=== PATIENT | male | born 1955 | race Caucasian/White ===

== ENCOUNTER 2024-06-04 15:38 | Inpatient (IN) | payer MEDICARE, SELFPAY ==
[2024-06-04] VITALS (13 sets, daily range): BP systolic 137–171; BP diastolic 83–101; BMI 31.4; BMI 29.1
--- NOTE | 2024-06-04 12:22 | ED.GENMED ---
History of Present Illness
General
Chief Complaint: Vascular Symptoms
Source: patient
Time Seen by Provider: 06/04/24 12:16
History of Present Illness
History of Present Illness:
68yoM with a history of peripheral vascular disease s/p bypass in the L leg 10 years ago, diabetes, and remote history of throat cancer s/p tracheostomy presenting for evaluation of left leg pain. Patient reports an abrupt onset of L leg pain around
10am this morning while he was getting ready for the same. Pain was severe so he decided to come to the ED. He is also having decreased sensation to the left foot which has improved slightly. He denies being on any blood thinners.
Phy Exam
General Physical Exam
General Presentation: mild distress
General age: appears stated age
General Skin: warm and dry
General Habitus: normal
General Mental: alert
ENT Exam
Additional ENT: Tracheostomy present
Cardiovascular Exam
Cardiovascular Exam: no edema
Pulmonary Exam
Pulmonary Exam: no respiratory distress
Neurological Exam
Neurological Exam: alert
Musculoskeletal Exam
Musculoskeletal Exam: other (L foot is pale and cool to touch compared to R foot. Unable to obtain L DP/PT pulse with doppler. R DP pulse present with doppler. ROM of L foot intact, sensation mildly decreased.)
Skin Exam
Skin Exam: normal color and warm/dry
Course
Orders/Labs/Results
Orders:
Orders
06/04/24 Lunch
NPO
Allow oral meds: No
Allow clear liquids: No
NPO with Ice Chips: No
NPO
Allow oral meds: Yes
Allow clear liquids: No
06/04/24 12:26
CT Abd Aorta Angio W/ Run Off Stat
Comment:
Reason For Exam: Pulseless L foot
06/04/24 12:30
Complete Blood Count/With Diff Urgent
Comprehensive Metabolic Panel Urgent
PTT Urgent
Prothrombin Time Urgent
Troponin I Urgent
06/04/24 12:37
HYDROmorphone [Dilaudid] 0.5 mg IV NOW STA
06/04/24 13:17
Heparin 8,200 units IV NOW STA
Heparin Protocol- PTT Orders As Directed
PTT per Heparin protocol: -Obtain CBC and baseline PTT - if not already collected.
-Obtain PTT 6 hours from start of infusion. Then, every 6 hours until 2 consecutive
PTT's are therapeutic. Then, PTT Daily.
-With each rate change, obtain PTT every 6 hours until 2 consecutive PTT's are
therapeutic. Then, PTT Daily.
Notify MD As Directed
Notify physician if: PTT is greater than or equal to 200.
06/04/24 13:[address] See Dose Instructions PO NOW STA
Discontinue all Active Warfarin orders?: Yes
Nursing to Place Non Medication Order As Directed
Physician Order: PTT 6 hours after initial start of Heparin infusion
06/04/24 13:30
Heparin 06652 Units/250 ml 25,000 units in 250 ml IV PER PROTOCOL
Weight to be used for heparin protocol in kilograms (kg):: 102
Protocol:: DVT/PE
PTT Goal Range to be used:: PTT 73 to 111 seconds
Order type:: Initial
INITIAL Infusion Dose (UNITS/KG/hr) & then follow protocol:: 18 units/kg/hr
Infusion Dose in UNITS/hr & then follow protocol (UNITS/hr):: 1,800
INFUSION RATE in mL/hr & then follow protocol (mL/hr):: 18
For DVT/PE algorithm, re-bolus for low PTT?: Yes
PTT less than or equal to 64 seconds:: Re-bolus 80 units/kg (max 10,000units). Increase by 400 units/hr
(+ 4mL/hr)
PTT 64.1 to 72.9 seconds:: Re-bolus 40 units/kg (max 5,000 units). Increase by 200 units/hr
(+ 2mL/hr)
PTT 73 to 111 seconds:: Target Range. No change in rate.
PTT 111.1 to 130.9 seconds:: Decrease rate by 200 units/hr (- 2 mL/hr)
PTT 131 to 199.9 seconds:: HOLD for 1 hr. Then decrease by 300 units/hr (- 3mL/hr)
PTT greater than or equal to 200 seconds:: HOLD for 2 hrs & Notify Provider. Then decrease by 400 units/hr
(- 4mL/hr)
Lab follow-up:: Each change, PTT q6h until 2 consecutive are therapeutic. Then
PTT daily.
06/04/24 13:34
Heparin 8,200 units IV PRN PRN
06/04/24 13:35
Heparin 4,100 units IV PRN PRN
06/04/24 13:52
Type+Screen Stat
06/04/24 14:17
ABO2 Stat
BBK Wristband Number:
Associate notified that ABO2 has been ordered: [id number]
Date: 06/04/24
Time: 14:11
Interactive Media Specialist ID: [id number]
06/04/24 14:30
HYDROmorphone [Dilaudid] 0.25 mg IV PACU-Q5MPRN PRN
HYDROmorphone [Dilaudid] 0.5 mg IV PACU-Q5MPRN PRN
Meperidine [Demerol] 12.5 mg IV PACU-Q5MPRN PRN
Normosol (Mult Electrolytes) [Normosol-R] 1,000 ml IV PER PROTOCOL
Ondansetron Injectable [Zofran] 4 mg IV PACU-ONCEPRN PRN
Prochlorperazine [Compazine] 5 mg IV PACU-ONCEPRN PRN
Notify MD As Directed
Notify physician if: for SDS patients with known or suspected sleep obstructive sleep apnea, monitor in the
PACU.
Notify MD for any apneic/desaturation episodes
O2 Therapy [RESP] Urgent
Titrate/Wean O2 to maintain O2 sat greater than (%): 92
Special Instructions: -Provide supplemental oxygen to achieve O2 sat of 92% or greater.
-After 15 min, may wean O2 and discontinue if patient is able to maintain O2 sat of 92%
or greater during recovery period.
If patient is a discharge home, without oxygen therapy, notify anestheiologist if
unable to maintain O2 SAT of 92% or greater on room air for MD clearance.
06/04/24 14:44
Admit/Transfer Patient As Directed
Co-Sign Provider:
Level of Care: Inpatient admission
Assign to:: ICU
Physician / Group: hospitalist
Diagnosis: Acute limb threatening ischemia
Reason for Hospitalization: Acute limb threatening ischemia, thrombectomy scheduled
Expected length of stay greater than two midnights?: Yes
ELOS- Estimated Length of Stay in days: 4
I certify the patient meets the requirements for IP care: Yes
PRN Pain Medication Management As Directed
May give lesser potent ordered pain med per pt: Yes
preference::
Protocol:: Medication orders for pain may be administered in a
manner that supports deferring to patient preference
when the pt is:
-Requesting an ordered lesser potent pain medication.
Least to most potent pain medications are defined as:
acetaminophen < NSAID < tramadol < opioids (morphine,
oxycodone, hydromorphone).
- Requesting a lesser dose of the same medication IF
ORDERED.
- Requesting a less intrusive route of administration
if both routes are prescribed by the provider (PO <
IV).
06/04/24 14:48
Code Status As Directed
Resuscitation Status: Full Code
Physician note:: Patient requested to be full code however he does not want prolonged (longer than 5-minute)
CPR
Intake/ Output As Directed
Frequency: Per unit guidelines
Vascular Checks As Directed
Location: Left lower extremity
Frequency: q1h
Weight As Directed
Frequency: Daily
06/04/24 14:49
Activity As Directed
Activity Level: Out of Bed-Early Mobility
Vital Signs As Directed
Frequency: Per unit guidelines
06/04/24 14:55
Urinalysis Routine
06/04/24 15:00
0.9% Sodium Chloride 1000 ml [Nss] 1,000 ml IV 100 mls/hr
Docusate Sodium [Colace] 100 mg PO BID PRN
06/04/24 19:45
PTT Urgent
Comment: heparin gtt
06/05/24 06:00
Basic Metabolic Panel IN AM
06/06/24 06:00
Basic Metabolic Panel IN AM
Complete Blood Count/No Diff Q2D
Comment: Notify MD if platelet count is <130,000 or decreases by 50% from baseline
06/07/24 06:00
Basic Metabolic Panel IN AM
06/08/24 06:00
Basic Metabolic Panel IN AM
Complete Blood Count/No Diff Q2D
Comment: Notify MD if platelet count is <130,000 or decreases by 50% from baseline
06/09/24 06:00
Basic Metabolic Panel IN AM
06/10/24 06:00
Complete Blood Count/No Diff Q2D
Comment: Notify MD if platelet count is <130,000 or decreases by 50% from baseline
06/12/24 06:00
Complete Blood Count/No Diff Q2D
Comment: Notify MD if platelet count is <130,000 or decreases by 50% from baseline
06/14/24 06:00
Complete Blood Count/No Diff Q2D
Comment: Notify MD if platelet count is <130,000 or decreases by 50% from baseline
06/16/24 06:00
Complete Blood Count/No Diff Q2D
Comment: Notify MD if platelet count is <130,000 or decreases by 50% from baseline
06/18/24 06:00
Complete Blood Count/No Diff Q2D
Comment: Notify MD if platelet count is <130,000 or decreases by 50% from baseline
06/20/24 06:00
Complete Blood Count/No Diff Q2D
Comment: Notify MD if platelet count is <130,000 or decreases by 50% from baseline
Abnormal Lab Results
06/04/24
12:30
WBC 14.1 H 10^3/uL
(4.8-10.8)
Abs Immat Gran (auto) 0.2 H 10^3/uL
(0-0.05)
Absolute Neuts (auto) 11.9 H 10^3/uL
(1.4-6.5)
Absolute Lymphs (auto) 0.7 L 10^3/uL
(1.2-3.4)
Absolute Monos (auto) 0.7 H 10^3/uL
(0.1-0.6)
Immature Gran % 1.2 H %
(0-0.5)
Neutrophils % 84.5 H %
(42.2-75.2)
Lymphocytes % 5.3 L %
(20.5-51.1)
Carbon Dioxide 18 L mmol/L
(22-30)
Glucose 130 H mg/dl
(70-99)
Calcium 10.4 H mg/dl
(8.4-10.2)
06/04/24 12:30
06/04/24 12:30
Vital Signs
Initial and Last Documented VS:
Initial Vital Signs
Temp Pulse Resp BP Pulse Ox
98.2 F 107 16 164/98 96
06/04/24 12:01 06/04/24 12:01 06/04/24 12:01 06/04/24 12:01 06/04/24 12:01
Last Documented Vital Signs
Temp Pulse Resp BP Pulse Ox
98.2 F 103 17 137/95 94
06/04/24 12:01 06/04/24 16:30 06/04/24 16:30 06/04/24 16:30 06/04/24 16:30
MDM/Problems Addressed
Differential Diagnosis Includes:
68yoM here with atraumatic L leg pain that began at 10am this morning. Hx of PAD with prior bypass to the L leg. L foot is cool to touch and pale and I was unable to obtain PT/DP pulse with doppler. Differential diagnosis includes but is not limited
to: acute limb ischemia, peripheral artery disease
Vascular surgery called immediately after initial evaluation. Vascular surgeon scrubbed into a case and vascular THERMOCOUPLE TESTER recommending STAT CTA with runoff.
*Critical Care Note
Total Time (30-74mins, 75-104mins- exclusive of procedures): 45
Update Note
Update Note:
CTA runoff study reviewed by vascular. Significant peripheral artery disease noted. Vascular recommending heparin drip with plan for thrombectomy. He was admitted for further management.
ED Attending Note
-
Portions of this chart may have been created with voice recognition software.� Occasional wrong word or��sound alike� substitutions may have occurred due to the inherent limitations of voice recognition software.
Discharge Plan
Departure
Patient Disposition: Admit
Date of Disposition: 06/04/24
Time of Disposition: 13:40
Presentation/result/management discussed w/ accepting MD/DO: Hospitalist
Discharge Problem:
Sudden onset of painful and cold lower extremity, Peripheral vascular disease
Interventions
Interventions:
*Risk Screen - Suicide Last Done: 06/04/24 12:01
*General Assessment Last Done: 06/04/24 12:01
*Neglect/Abuse Screening Last Done: 06/04/24 12:01
*ED COVID-19 Vaccine History Last Done: 06/04/24 12:27
ED- Cardiac Assessment Last Done: 06/04/24 14:59
ED- Pulmonary Assessment Last Done: 06/04/24 12:28
ED-Peripheral Vascular Assessment Last Done: 06/04/24 12:19
ED-Skin Assessment Last Done: 06/04/24 14:52
--- NOTE | 2024-06-04 12:22 | ED.PDOC.TRB ---
ED Provider Triage
-
A medical screening examination has been initiated by a qualified medical provider. Based on the assessment performed at this time, it has been determined that an emergent medical condition may exist and the patient has been informed that further
medical evaluation and possible additional diagnostic testing may be needed.
HPI: This is a medical evaluation conducted in person to initiate diagnostic evaluation and provide initial therapeutics. Please see further documentation by the treating clinician.
GENERAL: Alert , in no apparent distress
EYE: No visual abnormalities.
NECK: Trachea midline patient has a talker
ENT: No visible abnormalities.
LUNGS: No acute respiratory distress
NEUROLOGICAL: Alert and oriented
SKIN: Skin intact. No visible changes.
MUSCULOSKELETAL: Moving extremities normally
No pulse obtainable on the left lower extremity DP or PT either by Doppler or palpation, the limb appears slightly purpleish but is warm, he has no tenderness to the calf, he has full range of motion
Able to Doppler the pulse of the right leg
PSYCH: Normal and appropriate interaction.
Patient is a vasculopath with a history of stents and bypass in the left leg, followed by [facility] cardiology and vascular in [place]
Presents with severe left leg pain sudden onset when he woke up today pain is mostly in the calf. The foot appears to be perfused however there is no dopplered or palpable pulse this is concerning for limb emergency. I made the provider in the
back aware of this
. Will order some screening labs but he will need to be evaluated with vascular studies and a vascular consult
[2024-06-04 12:47] LABS: % Basophils 0.4 % (0-2); % Eosinophils 3.3 % (0-6); % Immature Granulocytes 1.2 % (0-0.5); % Lymphocytes 5.3 % (20.5-51.1); % Monocytes 5.3 % (1.7-9.3); % Neutrophils 84.5 % (42.2-75.2); Absolute Basophils 0.1 10^3/uL (0-0.2); Absolute Eosinophils 0.5 10^3/uL (0-0.7); Absolute Immature Granulocytes 0.2 10^3/uL (0-0.05); Absolute Lymphocytes 0.7 10^3/uL (1.2-3.4); Absolute Monocytes 0.7 10^3/uL (0.1-0.6); Absolute Neutrophils 11.9 10^3/uL (1.4-6.5); Hematocrit 47.3 % (39.0-52.0); Hemoglobin 16.6 g/dL (13.0-18.0); Mean Corp Hgb Conc. 35.1 g/dL (33.0-37.0); Mean Corpuscular Hgb 30.1 pg (27.0-31.0); Mean Corpuscular Volume 85.8 fL (80.0-94.0); Mean Platelet Volume 9.9 fL (7.4-10.4); Nucleated Red Blood Cells % 0 % (-); Platelet Count 255 10^3/uL (130-400); Red Blood Cell Count 5.51 10^6/uL (4.70-6.10); Red Cell Dist. Width 12.6 % (11.5-14.5); White Blood Cell Count 14.1 10^3/uL (4.8-10.8)
[2024-06-04] MEDS: DILAUDID 0.5 MG IV (12:50)
[2024-06-04 12:53] LABS: INR 1.01; PT 13.1 Sec (11.4-14.6)
[2024-06-04 12:58] LABS: ALT (SGPT) 30 U/L (0-50); AST (SGOT) 33 U/L (17-59); Alkaline Phosphatase 84 U/L (38-126); Blood Urea Nitrogen 17 mg/dl (9-20); Calcium 10.4 mg/dl (8.4-10.2); Carbon Dioxide 18 mmol/L (22-30); Chloride 106 mmol/L (98-107); Estimated Creatinine Clearance 98 ml/min; Glucose 130 mg/dl (70-99); Potassium 4.6 mmol/L (3.5-5.1); Sodium 142 mmol/L (135-145); Total Bilirubin 0.7 mg/dl (0.2-1.3); Total Protein 7.7 g/dl (6.3-8.2); eGFR > 60.00
[2024-06-04 13:08] LABS: Troponin I < 0.012 ng/ml
--- NOTE | 2024-06-04 13:22 | CON.VAS ---
Addendum entered and electronically signed by Jaswant Cunningham III, MD 06/04/24 20:12:
This patient was seen and examined with JULES Lewis. I agree with the history and physical exam as well as the assessment and plan. I have the following additions:
Prior left iliac stenting and left to right femorofemoral bypass at outside hospital many years ago
Followed at [facility]
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
Now presents with acute onset thigh and lower extremity pain on the left this morning
Motor sensory intact
No Doppler signals in the right foot
CT angiogram shows occluded femorofemoral bypass with what appears to be thrombus in the common femoral artery, femoral bifurcation, proximal superficial femoral artery and popliteal artery as well as scattered tibial occlusions likely from
thromboemboli.
Plan is for OR for thrombectomy
Discussed with patient and his at length and they agree to proceed. Technical aspects of this procedure were discussed with him in detail. The benefits and rationale for this approach were discussed with him in detail. Operative risks were
discussed with him in detail including but not limited to bleeding, heart attack, infection, wound healing complications, distal embolization, ongoing ischemia and the need for additional procedures.
Patient has been started on systemic anticoagulation
Signed:
Jaswant Cunningham III, MD
[facility] Vascular Surgery
[phone] (azse)
Original Note:
Consultation
Consultation Request
Performing Provider: Marisa
Reason for Consultation: LLE pain/coolness
Medical History
-
Chief Complaint: Left leg pain (sudden onset)
History of Present Illness:
68 yo male with PMH fem-fem bypass, iliac and SFA stent 10+ years ago at [facility] with Dr Pina. Presents to the ER today for sudden onset LLE pain that began at 10am today. Vascular consult for possible arterial clot. Pt seen at bedside this am
in the ER with Dr Cunningham. Pts left foot is cooler than right. No cap refill noted. Slightly decreased sensation. Motor intact but 'feels heavy.' No doppler signals noted at PT or DP. +1/faint femoral pulse on that side.
No fem pulse at right side but +signals to DP and PT. foot warmer with +cap refill.
Pt has known fem-fem bypass occlusion with collaterals on the right.
Hx of DM, PAD, HTN, in remission for throat CA, tracheostomy, hypothyroidism, HLD.
CTA reviewed with Dr Cunningham
Past Medical History
Past Medical History: Other (See above)
Past Surgical History: Other (See above)
Social History
Personal:
Living: With Family
Employment: Employed
Family History
Family History: Reviewed & Not Pertinent
Allergies / Home Medications
Allergy/AdvReac Type Severity Reaction Status Date / Time
No Known Allergies Allergy Unverified 06/04/24 12:26
Review of Systems
-
History Source: Patient and Family
All other systems: Negative unless noted
Constitutional: Reports No Symptoms
EENT: Reports No Symptoms
Cardiac: Reports No Symptoms
Vascular: Reports Leg Pain / Claudication, Numbness and Tingling
Abdomen/GI: Reports No Symptoms
: Reports No Symptoms
Musculoskeletal: Reports Muscle Pain and Muscle Stiffness
Neurological: Reports No Symptoms
Endocrine: Reports No Symptoms
Physical Exam
Vital Signs
Temp Pulse Resp BP Pulse Ox
98.2 F 107 16 164/98 96
06/04/24 12:01 06/04/24 12:01 06/04/24 12:01 06/04/24 12:01 06/04/24 12:28
Lab Results
06/04/24 12:30
06/04/24 12:30
Troponin I < 0.012 ng/ml 06/04/24 12:30
Physical Exam
General: No Apparent Distress
HEENT: Normocephalic and Atraumatic
Respiratory: Non Labored Respirations
Cardiac: Negative JVD
GI: Soft, Non Tender and Non Distended
Musculoskeletal: No Clubbing, Cyanosis and No Edema
Neuro: Awake, Alert and Oriented
Psych: Calm
Pulses: Left Femoral: +1 (faint), Right Femoral: Doppler, Bilateral Popliteal: Doppler (nonpalp), Left Dorsalis Pedis: Doppler (NO SIGNAL), Right Dorsalis Pedis: Doppler, Left Posterior Tibial: Doppler (NO SIGNAL) and Right Posterior Tibial: Doppler
Assessment / Plan
-
68 yo male with pulseless left leg
CTA: 1. Femoral to femoral bypass graft is occluded. (known)
2. LEFT LOWER EXTREMITY: High-grade greater than 75% stenosis near the left femoral anastomosis of the femoral to femoral bypass graft. Occlusion of the left distal common femoral artery. Occlusion of the left SFA at its origin, with reconstitution
of the distal SFA. Reocclusion of the distal popliteal artery. Infrapopliteal disease as above.
3. RIGHT LOWER EXTREMITY: Occlusion of the right common iliac, internal iliac, and external iliac arteries. Femoral to femoral bypass graft is occluded. Right common femoral artery is reconstituted via body wall branches.
Plan:
-Heparin gtt with bolus
-NPO
-OR today for thrombectomy
-type and screen/cross
-admit to hospitalist
-will require ICU post op
Data Reviewed
-
CT Scan: Discussed with Physician
Labs: Labs Reviewed by me
[2024-06-04] MEDS: HEPARIN 8200 UNITS IV (13:44)
[2024-06-04] MEDS: HEPARIN 25000 UNITS/250 ML IV (13:48)
--- NOTE | 2024-06-04 15:13 | HPS.HSE ---
Addendum entered and electronically signed by Rock Urena MD 06/04/24 18:05:
Acute limb threatening ischemia with known hx of PAD s/p stents and fem bypass, started on heparin drip. Currently NPO. Vascular surgery planning to take to the OR for thrombectomy.
-Continue statin. Intrestingly not on asa nor plavix.
-Postoperatively will need every hour neurovascular checks. Therefore admit to ICU
-Check Lipids. Discuss with Vascular if he should be on HIStatin post op
Hypothyroidism continue levothyroxine
Zku-lbgzvrm-wdwmvxdfn diabetes mellitus. Accu-Chek sliding scale goal blood glucose 1 40-1 80. Postoperatively can start carb controlled diet.
Hyperlipidemia continue Lipitor 10 mg
Anxiety depression continue antidepressives
Full Code but if cardiac arrest last longer then 5 minutes then he would want all efforts to stop. He does not want to live like a 'Vegetable'
Original Note:
Family Physician
-
Family Physician: Leonidas Ndiaye
Chief Complaint
-
Acute limb threatening ischemia
History of Present Illness
68-year-old male with a past medical history significant for multiple vascular stents, femorofemoral bypass, laryngectomy plus radiation for head and neck cancer. Presents to the emergency department for acute onset left lower extremity pain,
patient states the pain started at 10 AM this morning, pain is characterized as a cramping along the entire posterior left lower extremity in the distribution of the calf muscle. He rates this pain as 10 out of 10 on onset, however he is currently
feeling better and states the pain is manageable currently. On exam his left lower extremity is noticeably cooler than his right, his capillary refill on the left is blunted compared to the right, as well as decreased sensation. CTA abdomen pelvis
with bilateral lower extremity runoff demonstrated that his femoral to femoral bypass graft was occluded. Patient was evaluated by vascular surgery in the ED, they started him on heparin drip and are planning to take him to the OR for thrombectomy.
Patient will be admitted to ICU afterwards.
Medical History
Past Medical History
Past Medical History: Reports Cancer, Hypercholesterolemia, Hypothyroidism, NIDDM and Other (Depression,)
Past Surgical History: Reports Other (Femorofemoral bypass, iliac + SFA stents, laryngectomy, exploratory laparotomy)
Social History
Tobacco: Former Smoker ([id number], 50-year smoking 3 packs a day)
Alcohol: Other (Social drinker)
Drug: None
Living: Other (Living with female from)
Employment: Retired
Family History
Family History: Not pertinent
Allergies / Home Medications
Allergies reflects when Allergies were last updated in [employer].
Home Medications with original date entered in [employer]
Allergy/Medication List:
Allergies
Allergy/AdvReac Type Severity Reaction Status Date / Time
No Known Allergies Allergy Unverified 06/04/24 12:26
Home Medications
atorvastatin 10 mg tablet (Lipitor) 10 mg PO QPM High Cholesterol 06/04/24
glycopyrrolate 1 mg tablet 1 mg PO BID secretions 06/04/24
levothyroxine 25 mcg tablet (Synthroid) 25 mcg PO DAILY Thyroid 06/04/24
metformin 1,000 mg tablet 1,000 mg PO BID@0800,1700 Diabetes 06/04/24
quetiapine 25 mg tablet (Seroquel) 25 mg PO Mental Health 06/04/24
Review of Systems
-
History Source: Patient
A 12 point ROS was completed and negative except as noted: Yes
Constitutional: Reports No Symptoms
Respiratory: Reports No Symptoms
Cardiac: Reports No Symptoms
Abdomen/GI: Reports No Symptoms
: Reports No Symptoms
Musculoskeletal: Reports Muscle Pain and Other (Left lower extremity cramping)
Skin: Reports No Symptoms
Neurological: Reports No Symptoms
Psych: Reports No Symptoms
Physical Exam
Vital Signs
Vital Signs
Temp Pulse Resp BP Pulse Ox
98.2 F 103 25 171/99 94
06/04/24 12:01 06/04/24 13:30 06/04/24 13:30 06/04/24 12:28 06/04/24 12:28
Physical Exam
General: Well Developed, Well Nourished, No Apparent Distress, Comfortable, Conversant and Other (Communicates via laryngectomy stoma)
HEENT: Other (Laryngectomy stoma)
Respiratory: Clear; No Wheezes or Non Labored Respirations
Cardiac: S1/S2 and Regular Rhythm
GI: Soft, Non Tender, Non Distended and Normal Bowel Sounds
Musculoskeletal: Other (Left lower extremity had negative DP and PT pulses, right side had positive DP and PT pulses. Capillary refill was noticeably decreased on the left compared to right. Left side was noticeably cooler compared to right.)
Skin: Other (Left leg was considerably cooler than right)
Neuro: Awake, Alert, Oriented and AO x 3
Psych: Calm and Intact Judgment/Insight
Laboratory Results
-
06/04/24 12:30
06/04/24 12:30
Laboratory Results
PT 13.1 Sec (11.4-14.6) 06/04/24 12:30
INR 1.01 06/04/24 12:30
APTT 30.0 Sec (23.4-35.0) 06/04/24 12:30
Total Bilirubin 0.7 mg/dl (0.2-1.3) 06/04/24 12:30
AST 33 U/L (17-59) 06/04/24 12:30
ALT 30 U/L (0-50) 06/04/24 12:30
Alkaline Phosphatase 84 U/L (38-126) 06/04/24 12:30
Troponin I < 0.012 ng/ml 06/04/24 12:30
Data Reviewed
-
CT Scan: Report Reviewed by me and Discussed with Physician
Lab Data: Labs Reviewed by me and Discussed with Physician
Impression/Plan
-
IMPRESSION:
68-year-old male presents with acute limb threatening ischemia secondary to an occluded femoral to femoral bypass graft. Patient was started on a heparin drip and will be taken to the OR for thrombectomy.
PLAN:
#Acute limb threatening ischemia
Past surgical history of femoral to femoral bypass graft and multiple stents of the left lower extremity
CTA abdomen pelvis with bilateral lower extremity runoff demonstrated an occluded femoral-femoral bypass graft, as well as high-grade stenosis of the left femoral anastomosis.
Vascular surgery was consulted in the emergency department and agreed to take the patient for thrombectomy today
Patient was placed on n.p.o. diet and started on a heparin drip with bolus in anticipation for surgery
Patient will be admitted to ICU for every 1 hour neurovascular checks
#Hypothyroidism
Patient takes home dose levothyroxine 25 mcg p.o.
Currently holding due to n.p.o.
#Hvv-vfwzmxb-pewucqrpr diabetes mellitus
Patient takes home dose metformin 1000 mg p.o. twice daily
Currently holding due to n.p.o.
#Hyperlipidemia
Patient takes atorvastatin 10 mg p.o.
Currently holding due to n.p.o.
#Anxiety/depression
Currently holding home p.o. quetiapine 25
Currently holding due to n.p.o.
#CODE STATUS
Conversation was had with patient regarding his CODE STATUS, patient indicates that he would like to be full code however he would like no more than 5 minutes attempt at resuscitation during a cardiac event. Patient also requests that if he needs
to have a tube placed into his trachea, patient would like to attempt to do it himself
Diet: N.p.o.
DVT prophylaxis: Heparin drip
Full code
Data: CTA abdomen pelvis with bilateral lower extremity runoff
Impressions:.
1. Femoral to femoral bypass graft is occluded.
2. LEFT LOWER EXTREMITY: High-grade greater than 75% stenosis near the left femoral anastomosis of the femoral to femoral bypass graft. Occlusion of the left distal common femoral artery. Occlusion of the left SFA at its origin, with reconstitution
of the distal SFA. Reocclusion of the distal popliteal artery. Infrapopliteal disease as above.
3. RIGHT LOWER EXTREMITY: Occlusion of the right common iliac, internal iliac, and external iliac arteries. Femoral to femoral bypass graft is occluded. Right common femoral artery is reconstituted via body wall branches.
[2024-06-04] MEDS: NSS 1000 IV (17:31)
[2024-06-04 19:40] LABS: Glucose - Point of Care 88 mg/dl (70-99)
--- NOTE | 2024-06-04 20:30 | PTCARENOTE ---
Rec'd pt from ER via stretcher on monitor & Hep gtt at 1800 units/hr, oriented to ICU routine, pt w/ larngectomy, able to speak , cooperative, follows commands, SR, bp stable, no pulses Left foot pbtaonable w/ doppler, left foot pale, cooler than R
, R distal pulses via doppler, no edema, denies pain, RA, lungs decr in bases, sat 95, + bowel sounds, no bm, abd obese, soft, nontender, no n/v, npo, HNV yet this shift
[2024-06-04 20:36] LABS: APTT > 200 Sec (23.4-35.0)
--- NOTE | 2024-06-04 20:40 | PTCARENOTE ---
ptt resulted > 200, hep gtt off per protocal
--- NOTE | 2024-06-04 20:50 | PTCARENOTE ---
Anesthesia at bedside, TO or accomp by RN and anesthesia
--- NOTE | 2024-06-04 20:55 | W.SUR.PREOP ---
Pre-Operative Surgical Note
-
I have examined this patient prior to the performance of the scheduled procedure.
The patient's condition is unchanged from the time of the current History and
Physical and the patient is able to undergo the scheduled procedure.
[2024-06-04 22:08] LABS: Glucose - Point of Care 84 mg/dl (70-99)
[2024-06-04 22:18] LABS: ACT-LR - POC 163 Seconds (116-155)
[2024-06-04 22:29] LABS: ACT-LR - POC 340 Seconds (116-155)
[2024-06-05] VITALS (14 sets, daily range): BP systolic 95–133; BP diastolic 57–87; BMI 29.6
--- NOTE | 2024-06-05 00:40 | PTCARENOTE ---
Rec'd pt from OR via bed on trach collar at 40%- # 4 shiley trach; Pt awake, cooperative, denies pain at present, left fem & left Lower leg incis dsgs dry & intact, left foot warm, doppler pulses left & R foot, good sensation bilat, left radaline w/
good wave form, flushes well, acurate to cuff; heparin gtt restarted at 0100 at 1800units/hr per order, thermister powers to str drainage bag draining yellow urine
--- NOTE | 2024-06-05 00:43 | W.SUR.POST ---
Surgical Immediate Post Op
Note
Pre Op Diagnosis: Acute limb ischemia
Post Op Diagnosis: Acute limb ischemia
Procedure Performed: LLE mechanical thrombectomy
Primary Surgeon: Jaswant Cunningham MD
Secondary Surgeons: Michael Maza MD, PhD
Anesthesia: Per Anesthesia
Estimated Blood Loss: 100 cc
Fluids: Per Anesthesia
Drains/Shunts: None
Specimens/Cultures: segment of resected graft, thrombus
Doppler/Duplex/Angio (Y/N): Yes - doppler intact at end of case
Complications: None
Operative Findings: Cutdown over left groin and left pop, proximal and distal control of both, resection of proximal fem-fem bypass, thrombectomy of SFA, profunda and external iliac from groin cutdown, thrombectomy of PT trunk from pop cutdown,
closure.
[2024-06-05 00:44] LABS: Glucose - Point of Care 116 mg/dl (70-99)
[2024-06-05] MEDS: NOVOLOG FLEXPEN-LOW RESISTANCE SC (01:07)
[2024-06-05] MEDS: DILAUDID 0.5 MG IV ×4 (01:43→09:11)
--- NOTE | 2024-06-05 01:45 | PTCARENOTE ---
dilaudid 0.5mg iv given for left foot pain
[2024-06-05] MEDS: NSS IV (02:02)
[2024-06-05 02:08] LABS: Urine Albumin Negative (Neg - Trace); Urine Bilirubin Negative (Negative); Urine Character Clear (Clear); Urine Color Yellow; Urine Glucose Negative (Negative); Urine Ketone Negative (Negative); Urine Leukocyte Negative (Negative); Urine Nitrite Negative (Negative); Urine Occult Blood Negative (Negative); Urine Urobilinogen Negative (Neg - 1+)
--- NOTE | 2024-06-05 04:03 | PTCARENOTE ---
sys reviewed,changes noted pulses unch, dilaudid 0.5mg iv given for left groin incis pain
[2024-06-05] MEDS: NSS 1000 IV ×2 (05:58→21:35)
--- NOTE | 2024-06-05 06:15 | PTCARENOTE ---
dilaudid 0.5 mg iv given for left groin incis pain
[2024-06-05 06:42] LABS: Glucose - Point of Care 156 mg/dl (70-99)
[2024-06-05] MEDS: HEPARIN 25000 UNITS/250 ML IV ×2 (06:43→17:25)
[2024-06-05] MEDS: NOVOLOG FLEXPEN-LOW RESISTANCE 1 UNITS SC ×2 (06:43→13:04)
[2024-06-05 06:44] LABS: Hematocrit 38.4 % (39.0-52.0); Hemoglobin 13.3 g/dL (13.0-18.0); Mean Corp Hgb Conc. 34.6 g/dL (33.0-37.0); Mean Corpuscular Volume 86.7 fL (80.0-94.0); Mean Platelet Volume 9.9 fL (7.4-10.4); Platelet Count 243 10^3/uL (130-400); Red Blood Cell Count 4.43 10^6/uL (4.70-6.10); Red Cell Dist. Width 12.6 % (11.5-14.5); White Blood Cell Count 17.5 10^3/uL (4.8-10.8)
[2024-06-05 07:10] LABS: APTT > 200.0 Sec (23.4-35.0)
[2024-06-05 07:44] LABS: Glucose - Point of Care 141 mg/dl (70-99)
--- NOTE | 2024-06-05 08:02 | OR.RPT ---
Operative Report
Operative Report
Date of Operation: 06/04/2024
Pre Op Diagnosis: Acute limb ischemia, left lower extremity
Post Op Diagnosis: Acute limb ischemia, left lower extremity
Procedure:
1.) Cutdown and exposure of left femoral vessels in the groin
2.) Excision of left femoral portion of old/occluded fem-fem bypass
3.) Thrombectomy of left common femoral artery, profunda femoral artery, superficial femoral artery, popliteal artery via left groin exposure
4.) Reoperative left groin surgery
5.) Below the knee popliteal artery exposure
6.) Thrombectomy of tibial arteries via popliteal artery exposure
Surgeon: Jaswant Cunningham III, MD
Subsystems Engineer: Michael Maza MD PhD PGY-6
Anesthesia: General
Complications: None
Estimated Blood Loss: 100 cc
History and Indications for Procedure: 68-year-old male with prior surgical history including left iliac stenting and left to right femorofemoral bypass done at an outside hospital. He presented with acute limb ischemia.
Procedure in Detail: Jamil Pittman was correctly identified and placed supine on the operating table. After adequate induction of anesthesia his left pelvis, groin and entire left lower extremity were circumferentially prepped and draped in the
usual sterile fashion. He received preoperative antibiotics. A timeout procedure was performed with the nursing and anesthesia staff confirming the patient's identity as well as the nature and laterality of the procedure.
We started by making a vertical incision in the left groin. I identified the occluded femorofemoral bypass graft in the subcutaneous tissue and encircled with umbilical tape. Using a combination of sharp dissection and electrocautery I then traced
the bypass down to the anastomosis on the common femoral artery. Using careful sharp dissection I was able to identify the proximal and distal common femoral artery. I continued sharp dissection under the inguinal ligament. Proximal control was
obtained on the distal external iliac artery using a vessel loop. I also exposed the proximal superficial femoral artery and the proximal profunda femoral artery. Each of these was encircled with vessel loops. There was a palpable pulse within
the proximal common femoral artery but no pulse was palpable in the distal common femoral artery, femoral bifurcation or the proximal superficial femoral artery and profunda femoral artery.
Through a medial calf incision I also exposed to the popliteal artery below the knee. Sharp dissection was also used to carefully expose the proximal anterior tibial artery and the tibioperoneal trunk. Each of these was encircled with vessel loops.
The patient was systemically heparinized
The proximal and distal vessel loops were secured in the left groin. I began by dividing the occluded femorofemoral bypass. An 0 silk tie was used to ligate the femorofemoral bypass. I then transected the graft on the femoral anastomosis side of
the silk tie allowing the distal graft to retract into the subcutaneous tissue. Using forceps I removed a combination of chronic thrombus from the occluded femorofemoral bypass as well as more fresh thrombus within the [place] common femoral artery.
Using forceps and a 15 blade I removed the graft anastomosis entirely from the common femoral artery. I then opened the common femoral artery proximally and distally with Hutton scissors. Fresh thrombus was removed from the common femoral artery.
Using a #4 Santino balloon catheter I thrombectomized the superficial femoral artery and popliteal artery. Several passes were made which returned a mixture of acute and more well-organized chronic appearing thrombus. I was able to achieve
backbleeding from the superficial femoral artery. When two sequential negative passes were achieved I then flushed the superficial femoral artery with heparinized saline and resecured the vessel loop. I released the proximal vessel loop and there
was brisk pulsatile inflow bleeding. The proximal common femoral artery was flushed with heparinized saline. Using a #3 Santino balloon catheter I thrombectomized the profunda femoral artery in a similar fashion. Several passes were made which
returned a mixture of acute and more well-organized thrombus. Similarly I was able to achieve backbleeding from the profunda femoral artery. When 2 sequential negative passes were achieved I then flushed the artery with heparinized saline and
resecured the vessel loops.
I then brought onto the field a precut piece of bovine pericardium. This was sewn in place as a patch angioplasty to the common femoral artery using a running 5-0 Prolene suture. Following the completion of this anastomosis the proximal and distal
vessel loops were released. The suture line was closely inspected for hemostasis which was achieved. There was an easily palpable pulse throughout the common femoral artery as well as in the exposed segment of superficial femoral artery and
profunda femoral artery. There was an easily palpable pulse in the popliteal artery below the knee. I could palpate a pulse in the proximal anterior tibial artery and there was a robust biphasic Doppler signal in this artery. I could not palpate
a pulse in the tibioperoneal trunk.
I therefore transitioned the vessel loops to achieve proximal and distal control on the tibioperoneal trunk. An 11 blade was used to make an arteriotomy on the tibioperoneal trunk. Chronic well-organized appearing thrombus was removed from the
tibioperoneal trunk. With some degree of difficulty I was able to pass a #2 Santino balloon catheter distally. Several sweeps were made and returned well-organized chronic appearing thrombus. I continued to pass the catheter until I had 2
negative sequential sweeps. I was able to achieve brisk pulsatile backbleeding from the tibioperoneal trunk. There was brisk pulsatile inflow bleeding from the popliteal artery. The proximal and distal artery were then flushed with heparinized
saline solution. The arteriotomy was repaired with interrupted 7-0 Prolene sutures. The vessel loops were released. There was a strong pulse in the tibioperoneal trunk. The suture line was closely inspected and was hemostatic. There was again a
palpable pulse in the exposed segment of anterior tibial artery.
At this point the patient had Doppler signals present at the distal anterior tibial artery at the ankle and the posterior tibial artery behind the medial malleolus at the ankle. Color return to the foot. Satisfied with this result we then
concluded the procedure. All suture lines were once again closely inspected for hemostasis. The wounds were both irrigated with saline solution. The wounds were then closed in layers and sterile dressings were applied. Doppler signals were
marked on the skin.
The patient tolerated the procedure well, awoke from general anesthesia with no immediate complications and was taken to the recovery room in stable condition.
Attestation: I was present and responsible for the entire procedure
Signed:
Jaswant Cunningham III, MD
[facility]
[phone] (orik)
[2024-06-05 08:05] LABS: Hepatitis C Antibody Negative (Negative)
--- NOTE | 2024-06-05 08:20 | W.PN.ANS.POP ---
Anesthesia Post Operative
- Anesthesia Post Op Note
Vital Signs Stable-See Nursing Note: Yes
Airway Patent: Yes
Adequate Pain Control: Yes
Change in Mental Status: No
Current Postoperative Nausea & Vomiting: No
Anesthesia Complications: No
General Anesthetic Recall: No
Unplanned Admission: No
Post Op Hydration Adequate: Yes
--- NOTE | 2024-06-05 08:35 | W.PN.HOSP.TC ---
Addendum entered and electronically signed by Rock Urena MD 06/06/24 12:03:
Acute limb threatening ischemia with known hx of PAD s/p stents and fem bypass, started on heparin drip. Currently NPO. Vascular surgery planning to take to the OR for thrombectomy.
-Continue statin. Intrestingly not on asa nor plavix.
-Postoperatively will need every hour neurovascular checks. Therefore admit to ICU
-Check Lipids. Discuss with Vascular if he should be on HIStatin post op
06/05 This morning:
-LLE abrupt development of hematoma with bleeding, Hemodynamics stable with dopplers pulses that are weak.
-C/o loss of sensation, decreased motor movements
-Vascular team at bedside holding pressure
- - Concern for active bleed on hep and Compartment syndrome
- - For CTLE with angio
- - If compartment syndrome then will need fasciotomy
- - Vascular will likley need to take to the OR
- Stat CBC
- Hep gtt per vascular surgery and protocol
- Transfuse if hgb <7
Hypothyroidism continue levothyroxine
Smw-ohtxnri-xxkqpifwi diabetes mellitus. Accu-Chek sliding scale goal blood glucose 1 40-1 80. Postoperatively can start carb controlled diet.
Hyperlipidemia continue Lipitor 10 mg
Anxiety depression continue antidepressives
Original Note:
Today's Communication/Plan
-
Pain control
Close monitoring of CBC
Close monitoring after emergent surgery
Assessment / Plan
Assessment / Plan
IMPRESSION:
68-year-old male presents with acute limb threatening ischemia secondary to an occluded femoral to femoral bypass graft. Patient was started on a heparin drip and will be taken to the OR for thrombectomy.
PLAN:
#Acute limb threatening ischemia
Past surgical history of femoral to femoral bypass graft and multiple stents of the left lower extremity
CTA abdomen pelvis with bilateral lower extremity runoff demonstrated an occluded femoral-femoral bypass graft, as well as high-grade stenosis of the left femoral anastomosis.
Status post thrombectomy, postop day 1
Continue patient on heparin drip
Patient admitted to ICU for every 1 hour neurovascular checks
This morning patient had episode of pulselessness, numbness and heaviness in left lower extremity. He was noted to have a hematoma in the area and it was thought to be bleeding into his groin.
Patient was taken for a stat CTA abdomen with lower extremity runoff.
Patient was then taken to emergent surgery where he received a left groin exploration and washout hematoma, as well as two left calf fasciotomies
Vascular following
Will have conversation with vascular regarding starting patient on high intensity statin
Patient reports that his pain is not controlled on 0.5 Dilaudid every 4 hours
Dilaudid increased to 1 mg every 4 hours
Following hemoglobin closely with multiple H&H's and CBCs
Patient started on carb controlled diabetic diet
#Hypothyroidism
Patient takes home dose levothyroxine 25 mcg p.o.
Restart home dose
#Rhj-tuyckfa-tfoxcfwen diabetes mellitus
Patient takes home dose metformin 1000 mg p.o. twice daily
Blood glucose levels have been within acceptable parameters during inpatient, not going above 180.
Continue to hold while inpatient
#Hyperlipidemia
Patient takes atorvastatin 10 mg p.o.
Restart home dose
#Anxiety/depression
Currently holding home p.o. quetiapine 25
Currently holding due to risk of QT prolongation with propofol. Patient received 2 surgeries within the last 24 hours
Will check QTc on EKG before reinitiating home dose
#CODE STATUS
Conversation was had with patient regarding his CODE STATUS, patient indicates that he would like to be full code however he would like no more than 5 minutes attempt at resuscitation during a cardiac event. Patient also requests that if he needs
to have a tube placed into his trachea, patient would like to attempt to do it himself
Diet: Carb controlled diabetic diet
DVT prophylaxis: Heparin drip
Full code
Data: CTA abdomen pelvis with bilateral lower extremity runoff
Impressions:.
1. Femoral to femoral bypass graft is occluded.
2. LEFT LOWER EXTREMITY: High-grade greater than 75% stenosis near the left femoral anastomosis of the femoral to femoral bypass graft. Occlusion of the left distal common femoral artery. Occlusion of the left SFA at its origin, with reconstitution
of the distal SFA. Reocclusion of the distal popliteal artery. Infrapopliteal disease as above.
3. RIGHT LOWER EXTREMITY: Occlusion of the right common iliac, internal iliac, and external iliac arteries. Femoral to femoral bypass graft is occluded. Right common femoral artery is reconstituted via body wall branches.
Anticipated Discharge: > 48 hours
Subjective/Interval History
-
Date of Service: June 05, 2024
This morning it was noted that the patient was bleeding into his groin and there was a hematoma present on his surgical site. There is also a second hematoma on his left medial calf. Patient was taken for a stat CTA with lower extremity runoff
Patient was taken for a left groin exploration and washout of hematoma as well as 2 left calf fasciotomies
Objective Data
-
Labs:
Laboratory Results
06/04/24 06/05/24 06/05/24
19:47 06:33 07:20
WBC 17.5 H
Hgb 13.3
Hct 38.4 L
Plt Count 243
APTT > 200 H* > 200.0 H*
Sodium Cancelled Cancelled
Potassium Cancelled Cancelled
Chloride Cancelled Cancelled
Carbon Dioxide Cancelled Cancelled
BUN Cancelled Cancelled
Creatinine Cancelled Cancelled
Glucose Cancelled Cancelled
Calcium Cancelled Cancelled
06/05/24
08:18
WBC
Hgb
Hct
Plt Count
APTT
Sodium Pending
Potassium Pending
Chloride Pending
Carbon Dioxide Pending
BUN Pending
Creatinine Pending
Glucose Pending
Calcium Pending
Vital Signs:
Vital Signs
Temp Pulse Resp BP Pulse Ox
98.2 F 108 19 116/81 96
06/05/24 08:04 06/05/24 06:00 06/05/24 06:00 06/05/24 04:00 06/05/24 07:45
I&O
06/04/24 06/05/24 06/06/24
06:59 06:59 06:59
Intake Total 708 / 708
Output Total 1130 / 1130
Balance -422 / -422
Review of Systems
-
Unable to obtain full review of systems at this time due to: Other (Review of systems unable to be completed due to patient decompensating and being taken to emergent surgery)
Physical Exam
-
General: Well Nourished, Comfortable, Conversant and Obese
HEENT: Tracheotomy
Respiratory: Other (Unable to auscultate at this time)
Cardiac: Regular Rhythm and S1/S2
GI: Soft, Nondistended and Normal Bowel Sounds
Musculoskeletal: Other (Left lower extremity much cooler to the touch than right, DP and PT pulses are palpable on the left lower extremity. Patient has 2 fasciotomy incisions on the LLE. Patient also has a incision present on the left groin)
Skin: Dry
Neuro: Awake, Alert, Oriented and AO x 3
Psych: Calm and Intact Judgement/Insight
Data Reviewed
-
CT Scan: Report Reviewed by me and Discussed with Physician
Labs: Labs Reviewed by me and Discussed with Physician
[2024-06-05 08:45] LABS: Glycohemoglobin (HgbA1c) 6.3 % (4.0-5.6)
--- NOTE | 2024-06-05 08:50 | W.PN.VS ---
Today's Communication / Plan
-
See below.
Assessment/Plan
-
Assessment: 68-year-old male POD #0 LLE mechanical thrombectomy, concern for active bleeding at left groin hematoma and left calf compartment syndrome postoperative.
Plan:
Emergent CTA aorta with runoff to evaluate active extravasation
Likely will require OR for hematoma evacuation and left calf compartment fasciotomy
Notified both Dr. Jaswant Cunningham and Dr. Aguirre vascular surgeons of acute findings, both agree with plan
Subjective Data
-
Date of Service: June 05, 2024
Notified urgently by nursing staff that acute swelling noted at left groin site with active bleeding saturating bed sheets below groin, responded immediately to bedside. Patient is awake alert and oriented, blood pressure within normal limits. He
indicates an acute change in pain as well while I am assessing him, noting that his left foot has not increased pain and decreased motor function of flexion and extension at foot, sensation intact.
Objective Data
-
Vital Signs
Temp Pulse Resp BP Pulse Ox
98.2 F 109 16 116/81 97
06/05/24 08:04 06/05/24 08:00 06/05/24 08:00 06/05/24 08:00 06/05/24 08:00
Intake and Output
06/04/24 06/05/24 06/06/24
06:59 06:59 06:59
Intake Total 708 / 826 418 / 418
Output Total 1130 / 1180 350 / 350
Balance -422 / -354 68 / 68
Intake:
IV fluids (Total) 708 / 826 418 / 418
Nss 1,000 ml @ 100 mls/hr IV . 600 / 700 400 / 400
Q10H NIKOLAI Rx#:[id number]
heparin 108 / 126 18 / 18
Output:
Marisa Mann 1130 / 1180 350 / 350
Lab Results
06/05/24 09:27
Calcium 8.4 mg/dl (8.4-10.2) 06/05/24 09:27
Phosphorus 4.4 mg/dl (2.5-4.5) 06/05/24 08:18
Magnesium 1.8 mg/dl (1.6-2.3) 06/05/24 08:18
Total Bilirubin 0.7 mg/dl (0.2-1.3) 06/04/24 12:30
AST 33 U/L (17-59) 06/04/24 12:30
ALT 30 U/L (0-50) 06/04/24 12:30
Alkaline Phosphatase 84 U/L (38-126) 06/04/24 12:30
Total Protein 7.7 g/dl (6.3-8.2) 06/04/24 12:30
Albumin 5.0 g/dl (3.5-5.0) 06/04/24 12:30
Physical Exam
-
AAOx3, reporting significant increase of pain acutely at left foot, appears uncomfortable
Tachycardia noted on monitor
No dyspnea on room air, Passy-Mau valve in stoma
ABD rotund, nontender, nondistended
Left groin with notable hematoma extending into the pubic bone area, scant bleeding noted at distal area of staple site, left calf under extreme tension, DP Doppler signal present at left foot
[2024-06-05 08:51] LABS: Blood Urea Nitrogen 19 mg/dl (9-20); Calcium 8.4 mg/dl (8.4-10.2); Carbon Dioxide 17 mmol/L (22-30); Chloride 108 mmol/L (98-107); Estimated Creatinine Clearance 77 ml/min; Glucose 170 mg/dl (70-99); Magnesium 1.8 mg/dl (1.6-2.3); Phosphorus 4.4 mg/dl (2.5-4.5); Potassium 4.5 mmol/L (3.5-5.1); Sodium 138 mmol/L (135-145); eGFR > 60.00
[2024-06-05] MEDS: DILAUDID 1 MG IV ×3 (09:28→22:05)
[2024-06-05 09:45] LABS: Hematocrit 34.8 % (39.0-52.0); Hematocrit 36.4 % (39.0-52.0); Hemoglobin 12.2 g/dL (13.0-18.0); Hemoglobin 12.5 g/dL (13.0-18.0); Mean Corp Hgb Conc. 34.3 g/dL (33.0-37.0); Mean Corpuscular Hgb 30.1 pg (27.0-31.0); Mean Corpuscular Volume 87.7 fL (80.0-94.0); Mean Platelet Volume 10.1 fL (7.4-10.4); Platelet Count 273 10^3/uL (130-400); Red Blood Cell Count 4.15 10^6/uL (4.70-6.10); Red Cell Dist. Width 12.8 % (11.5-14.5); White Blood Cell Count 18.3 10^3/uL (4.8-10.8)
--- NOTE | 2024-06-05 09:55 | W.PN.UPDATE ---
Update Note
Progress Note Update
Asked urgently to evaluate secondary to some oozing from left groin and acute onset of left foot/ankle motor dysfunction.
Stat CTA runoff performed.
On exam/ L groin inc is intact. No large hematoma. Soft. Mild ooze between robert. L calf is tight. Compartments tight. Foot warm. Distal CROW doppler intact. Motor improved now (per patient) - he is able to slightly dorsi/plantar flex foot.
CTA removed. No evidence recurrent thrombosis. Hematoma left groin - fairly mild. No PSA. Calf musculature full.
Plan/ Acute LLE compartment syndrome.
-discussed need for urgent fasciotomies. Risks/benefits/alternatives fully discussed. Discussed likelihood of leaving incision sites open. Discussed possible washout left groin if i feel necessary once he is under anesthesia. He understands all
and wishes to proceed.
[2024-06-05 09:59] LABS: Blood Urea Nitrogen 18 mg/dl (9-20); Calcium 8.4 mg/dl (8.4-10.2); Carbon Dioxide 20 mmol/L (22-30); Chloride 104 mmol/L (98-107); Estimated Creatinine Clearance 70 ml/min; Glucose 165 mg/dl (70-99); Potassium 4.7 mmol/L (3.5-5.1); Sodium 138 mmol/L (135-145); eGFR > 60.00
--- NOTE | 2024-06-05 10:32 | PTCARENOTE ---
pt awake and alert this am ,PTT level > 200 Karrie Francois INFORMATION MANAGER notified , heparin off as per protocol , pleasant affect ,NST on monitor , BP adequate co pain in L leg , Doppler pulses with both PT and DP , dressing showing some shadowing on L groin
and L lower leg , no change from table games shift manager assessment , pt had a # 4shiley trach , he changed to his speaking valve trac without difficulty at 0830 , at 0900 pt co increasing pain in the L leg , pulses by Doppler but fleeting , noticed moderate
amount of blood leaking from groin site, L groin developing hematoma , pressure applied ,INFORMATION MANAGER notified and at bedside by 0910 , pt sent to stat CT scan , INFORMATION MANAGER present in CT scan , pt then started to have swelling in L calf and severe pain , difficulty
with movement and decreased sensation, pt was immediately seen by Dr Maharaj and pt sent to the Vascular lab for fasciotomy , repeat labs drawn HH and chemistry , pt at bedside and updated by Dr Maharaj , report given to OR staff , pt was medicated
with 0.5 mg IV Dilaudid not effective for pain and then medicated with 1mg of IV Dilaudid effective for pain control prior to going to surgery
--- NOTE | 2024-06-05 10:56 | CON.INTV ---
Consultation
Consultation Request
Date/Time Consultation Requested: 06/05/2024
Date/Time Consultation Performed: 06/05/2024
Requesting Provider: Dr. Cunningham
Performing Provider: Dr. Renaldo De Santiago
Reason for Consultation: Critical limb ischemia
Medical History
-
History of Present Illness:
68-year-old man with past medical history significant for multiple vascular stents, femoral-femoral bypass, laryngectomy plus radiation for head and neck cancer in the past. Presented to the emergency room with acute onset of left lower extremity
pain started the morning of admission. Pain was distributed on the calf area of the left lower extremity.
Pain was significant 07/19.
He was found to have a cool leg with decreased capillary refills. Evaluation with CT imaging demonstrated femoral to femoral bypass graft occlusion. Emergently evaluated by vascular surgery in the emergency room. Placed on heparin drip.
Subsequently
Past Medical History
Past Medical History: Other (See assessment and plan section)
Social History
Tobacco: Former Smoker ([id number] history, used to smoke 3 packs/day for 50 years.)
Alcohol: Occasional
Drug: None
Employment: Retired
Family History
Family History: Reviewed & Not Pertinent
Allergies / Home Medications
Allergies
Allergy/AdvReac Type Severity Reaction Status Date / Time
No Known Allergies Allergy Unverified 06/04/24 12:26
Home Medications
�Medication �Instructions �Recorded �Confirmed �Last Taken �Type
atorvastatin 10 mg tablet (Lipitor) 10 mg PO QPM High Cholesterol 06/04/24 06/04/24 06/03/24 History
glycopyrrolate 1 mg tablet 1 mg PO BID secretions 06/04/24 06/04/24 06/04/24 History
levothyroxine 25 mcg tablet 25 mcg PO DAILY Thyroid 06/04/24 06/04/24 06/04/24 History
(Synthroid)
metformin 1,000 mg tablet 1,000 mg PO BID@0800,1700 Diabetes 06/04/24 06/04/2406/04/24 History
quetiapine 25 mg tablet (Seroquel) 25 mg PO Mental Health 06/04/24 06/04/24 06/03/24 History
Review of Systems
-
History Source: Patient
All other systems: Negative unless noted
Vitals / Labs / Diagnostic Testing
Vital Signs
Temp Pulse Resp BP Pulse Ox
98.2 F 109 16 116/81 97
06/05/24 08:04 06/05/24 08:00 06/05/24 08:00 06/05/24 08:00 06/05/24 08:00
Lab Data
06/05/24 09:27
Laboratory Results
06/04/24 06/04/24 06/04/24
12:30 13:25 19:47
PT 13.1
INR 1.01
APTT 30.0 Cancelled > 200 H*
06/05/24
06:33
PT
INR
APTT > 200.0 H*
Diagnostic Testing:
Physical Exam
-
HEENT: Normocephalic and Other (Tracheal stoma present)
Cardiovascular: S1/S2
Respiratory: Clear and Non-Labored Respirations
GI: Soft and Non Distended
Neurology: Awake, Alert and No Motor Deficits
Skin: Warm and Other (History left calf is tight, tender, distal pulses diminished. Poor capillary refill)
General: Respiratory Distress (Mild due to left lower extremity pain)
Assessment
-
68-year-old man with past medical history noted, admitted with acute left lower extremity pain, found to have critical limb ischemia: Taken to the operating room 06/05/2024 for thrombectomy. Subsequently transferred to the critical care unit. In
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 Found to have compartment syndrome and taken back to the operating room for fasciotomies.
Critical limb ischemia:Status post left mechanical thrombectomy 06/05/2024
CTA abdomen pelvis with bilateral lower extremity runoff
Impressions:.
1. Femoral to femoral bypass graft is occluded.
2. LEFT LOWER EXTREMITY: High-grade greater than 75% stenosis near the left femoral anastomosis of the femoral to femoral bypass graft. Occlusion of the left distal common femoral artery. Occlusion of the left SFA at its origin, with
reconstitution of the distal SFA. Reocclusion of the distal popliteal artery. Infrapopliteal disease as above.
3. RIGHT LOWER EXTREMITY: Occlusion of the right common iliac, internal iliac, and external iliac arteries. Femoral to femoral bypass graft is occluded. Right common femoral artery is reconstituted via body wall branches.
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
Back to the OR by Dr. Maharaj for fasciotomy
Conditions present prior admission:
Former heavy smoker
Hypothyroidism
Type 2 diabetes
Hyperlipidemia
Anxiety and depression
Overweight
Head and neck cancer status post radiation/surgical/laryngectomy intervention-tracheal stoma with a voicebox.
History of peripheral vascular disease: Femoral-femoral bypass, iliac plus superior femoral artery stents,
History of prior exploratory laparotomy
Assessment and plan:
Patient is critically ill, after thrombectomy has developed compartment syndrome of the left calf.
Repeat CT abdomen pelvis 06/05/2024 service dog trainer: Showed a small focus of active arterial contrast extravasation in the left groin, large groin hematoma. Small focus of arterial contrast extravasation on the left Posterior to the peroneal artery.
Left calf is swollen. High-grade stenosis of the celiac axis and SMA. Patent left femoral artery stent.
-
Taken back to the operating room by Dr. Maharaj 06/05/2024.
Possible fasciotomies and reevaluation of left and right iliac arteries.
-
Pain control with IV narcotics started for comfort while waiting for the operating room.
Hemodynamically so far stable, not requiring vasopressors.
-
Type 2 diabetes: Goal blood sugar 100 4180
Insulin sliding scale
-
Status post laryngectomy: Stoma noted without bleeding.
Tracheotomy care -Routine
Chest x-ray without acute infiltrates
Patient was having difficulty inserting back his tracheotomy cannula: If after extubation later today have problems with his stoma, may need ENT to reevaluate.
He usually follows up at [facility].
-
DVT prophylaxis, SCDs for now. Pharmacological prophylaxis or anticoagulation until cleared by vascular surgery.
N.p.o.
Gentle IV fluids
-
Critical care statement: A total of 33 minutes of critical care time was provided for this patient today. This includes management of unstable vital signs, evaluation of the patient at bedside, reviewing the patient's pertinent medical records
including ventilator settings, arterial blood gases, radiographs, microbiology, laboratory evaluations and discussion with primary team, critical care nursing, and respiratory therapy.
--- NOTE | 2024-06-05 12:00 | OR.RPT ---
Operative Report
Operative Report
PROCEDURE DATE: 06/05/2024
Preoperative diagnosis:
1. Tense compartment syndrome left calf status post arterial thrombectomy.
2. Hematoma left groin with possible active extravasation status post arterial thrombectomy.
Postoperative diagnosis: Same
Procedure:
1. Urgent left calf 4 compartment fasciotomies. Evacuation hematoma and control of bleeding
2. Urgent exploration left groin, evacuation hematoma, control of bleeding..
Surgeon: Nicko
Drum Builder: Karrie Parrish NP, required for all aspects of procedure including assistance with traction/countertraction, assistance with closure.
Complications: None
Anesthesia: General
Indications for procedure:
Patient underwent urgent left lower extremity thrombectomies for acute limb ischemia the evening prior. Developed acutely this a.m. motor weakness in the left foot/ankle as well as tense fullness in the left calf. Also noted to have relatively
acute onset of bloody drainage from the left groin. CT scan imaging demonstrated hematoma left groin as well as possible active extravasation. In addition left calf full on CT scan as well, raising concern for hematoma or compartment syndrome as
was clinically suspected. Risk/benefits/alternatives of emergent OR were discussed with patient. He and his significant other understood all wish to proceed
Description of procedure:
Patient was identified brought to the operating room placed on the table in supine position. After the adequate administration of anesthesia he was prepped and draped in the standard surgical fashion. A standard preoperative timeout was undertaken
and everybody was in agreement the plan. The skin robert at the groin incision and the medial calf incision were removed. The suture layers and the calf were cut out. I immediately encountered a large hematoma that I quickly drained out. The
muscles also of the superficial posterior and deep posterior compartments were noted to be bulging. Once I evacuated the hematoma I placed a self-retaining retractor. Identified in the gastrocnemius/soleal muscle there was an active bleeding
branch (muscular branch). This was grasped and then clips placed to control the bleeding. Once this was done, I did not identify any further bleeding. I irrigated and confirmed no further bleeding. The patched tibioperoneal trunk was visualized
and noted to be nicely pulsatile. There was no evidence of bleeding from the suture line. At this point I felt the muscles were still very tense in the posterior/deep posterior and anterior and lateral compartments. Therefore through the existing
medial incision I used a close Metzenbaum scissor to perform complete fasciotomies of the superficial posterior compartment to the level of the ankle distally and proximally to the proximal calf. The muscles now are nicely released. The deep
posterior compartment had been opened prior for exposure of the tibioperoneal trunk, I now incised the fascia slightly more distally to open it slightly more so. Muscles here bulge but a little less and were now free.
I now turned my attention to the lateral calf. A longitudinal incision was made with a 15 blade between the anterior and lateral compartments. This was carried through skin subcutaneous tissue. Using the electrocautery I incised through the
lateral compartment fascia. The muscles immediately bulge. I therefore then used a close Metzenbaum scissor to sharply incised the fascia proximally and distally. Proximally I avoided going to more proximally (avoiding the fibular head) to avoid
any injury to the nerves. Distally I followed it to the ankle. The muscle is now nicely relaxed. I similarly incised the fascia of the anterior compartment with the electrocautery and then used a close Metzenbaum scissors to sharply incised the
fascia to the level of the ankle distally and proximally to the proximal calf but again avoiding the fibular head. As such I now had released all the muscles of the compartments in the leg with much softer. I now could palpate a distal anterior
tibial artery pulse again (pulse had weakened preoperatively). At this point I was satisfied here. I now turned my attention to the left groin.
The skin robert have been removed and now I cut out the subcutaneous and deeper suture layers. I had immediately expression of large hematoma mostly liquefied. I then placed a self-retaining retractor. I identified the patched common femoral
artery. The femoral bifurcation was visualized. There is no active extravasation from the patch or the anterior aspects of the femoral vessels. I could see blood welling up laterally in the vicinity of the deep vein bed. I tried to start
dissecting there and then noted the greater saphenous vein crossing. The bleeding (arterial bleeding) could be visualized just directly posterior/medial to the origin of the greater saphenous vein (the confluence of the greater saphenous vein).
This correlated to the location seen on CT scan. Therefore I felt that no choice but to ligate the origin of the greater saphenous vein. It was ligated distally with a silk tie and a clip in this field, and proximally was ligated with a heavy silk
tie as well as silk suture ligature. I then transected the vein. I then was able to visualize in the bed posterior and lateral to the common femoral vein and arterial branch emanating from what appeared to be the distal common femoral or profunda
origin. This appeared to be bleeding actively. I therefore then was able to grasp it and clipped it proximally and distally. This was clearly the source of hematoma as there was a pocket that had been created just posterior and lateral to the
common femoral vein that the hematoma had auto dissected. Now that I control here, there is no further bleeding noted. I vigorously irrigated. I even used a pulse lavage soils analyst to irrigate. I then inspected the tissue and confirm no further
bleeding. We then closed in layers using 2-0 Vicryl layers x 2, 3-0 Vicryl, skin clips. Dressings were applied to the fasciotomy sites (skin left open). The patient tolerated the procedure well.
--- NOTE | 2024-06-05 12:07 | W.SUR.POST ---
Surgical Immediate Post Op
Note
Pre Op Diagnosis: Left groin hematoma, left calf compartment syndrome
Post Op Diagnosis: Same
Procedure Performed: Left groin exploration and washout of hematoma, left calf fasciotomies x 2
Primary Surgeon: Timothy Maharaj MD
mechanic assistant: Karrie Parrish ELECTRIC SHIPYARD OPERATOR-C
Anesthesia: GETA
Estimated Blood Loss: 250 mL
Fluids: See anesthesia flowsheet
Drains/Shunts: N/A
Specimens/Cultures: N/A
Doppler/Duplex/Angio (Y/N): Y
Complications: None
Operative Findings: Successful evacuation of hematoma and creation of left calf fasciotomies
[2024-06-05 12:32] LABS: Glucose - Point of Care 189 mg/dl (70-99)
--- NOTE | 2024-06-05 12:59 | CM ---
CM following re: discharge planning.
Discussed in Rounds, reviewed pt's chart, met with pt and pt's friend at bedside.
Pt is a 68 year old male, admitted with primary dx of Critical limb ischemia:Status post left mechanical thrombectomy 06/05/2024. back to OR today for fasciotomy.
Pt lives with friend in a 2SH, and per friend, pt has 3 daughters and they do not involve in his live very much. Per friend, pt is independent in all areas [employer], drives. No DME, VN or SNF history.
PT and OT will evaluate the pt when clinically appropriate to determine a level of care at discharge.
PCP: Leonidas Ndiaye
Pharmacy: [facility]
D/C plan: uncertain at this time and will depend on pt's progress.
CM will follow with discharge plan updates as hospitalization progresses
--- NOTE | 2024-06-05 13:59 | W.PN.UPDATE ---
Update Note
Progress Note Update
Acute limb threatening ischemia with known hx of PAD s/p stents and fem bypass, started on heparin drip. Currently NPO. Vascular surgery planning to take to the OR for thrombectomy.
-Continue statin. Intrestingly not on asa nor plavix.
-Postoperatively will need every hour neurovascular checks. Therefore admit to ICU
-Check Lipids. Discuss with Vascular if he should be on HIStatin post op
06/05 This morning:
-LLE abrupt development of hematoma with bleeding, Hemodynamics stable with dopplers pulses that are weak.
-C/o loss of sensation, decreased motor movements
-Vascular team at bedside holding pressure
- - Concern for active bleed on hep and Compartment syndrome
- - For CTLE with angio
- - If compartment syndrome then will need fasciotomy
- - Vascular will likley need to take to the OR
- Stat CBC
- Hep gtt per vascular surgery and protocol
- Transfuse if hgb <7
Hypothyroidism continue levothyroxine
Hae-tnuohum-wyevuutkd diabetes mellitus. Accu-Chek sliding scale goal blood glucose 1 40-1 80. Postoperatively can start carb controlled diet.
Hyperlipidemia continue Lipitor 10 mg
Anxiety depression continue antidepressives
[2024-06-05 14:21] LABS: Hematocrit 35.1 % (39.0-52.0); Hemoglobin 12.3 g/dL (13.0-18.0); Mean Corpuscular Hgb 30.4 pg (27.0-31.0); Mean Corpuscular Volume 86.9 fL (80.0-94.0); Mean Platelet Volume 9.7 fL (7.4-10.4); Platelet Count 277 10^3/uL (130-400); Red Blood Cell Count 4.04 10^6/uL (4.70-6.10); Red Cell Dist. Width 12.8 % (11.5-14.5); White Blood Cell Count 22.8 10^3/uL (4.8-10.8)
[2024-06-05 16:43] LABS: Glucose - Point of Care 179 mg/dl (70-99)
--- NOTE | 2024-06-05 17:05 | PTOTSP ---
STRAIGHTENING ROLL OPERATOR Evaluation
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 Suspect he is at
his baseline.
Patient has a TEP, replaced every 4 months. If concerned for a leak, consider ordering further imaging as appropriate.
Recommend:
1. Regular, Thin Liquid
2. Medications as best tolerated
3. Strategies: upright to 90 degrees, pick soft/moist foods, alternate sips/bites, upright for 30 minutes after PO intake as a reflux precaution
4. No further dysphagia therapy warranted. Follow up as an outpatient for TEP management.
[2024-06-05 17:21] LABS: Hematocrit 31.6 % (39.0-52.0); Hemoglobin 11.4 g/dL (13.0-18.0)
[2024-06-05] MEDS: LIPITOR 10 MG PO (17:21)
[2024-06-05] MEDS: NOVOLOG FLEXPEN-LOW RESISTANCE 2 UNITS SC (17:22)
[2024-06-05 17:32] LABS: APTT 26.5 Sec (23.4-35.0)
--- NOTE | 2024-06-05 17:38 | PTCARENOTE ---
pt now restarted on heparin gtt as ordered, L foot pulses are Doppler signal , pt now has his speaking valve trac in place and eating at bedside , pt has been off of Levophed gtt since 1600 , current BP 96/47 , pt pain in calf has decreased since
surgery
--- NOTE | 2024-06-05 19:00 | PTCARENOTE ---
vs filed from 0700 to 1900 by this RN, cannot attest to validity as they were the previous shift
--- NOTE | 2024-06-05 20:00 | PTCARENOTE ---
Rec'd pt resting in bed, cooperative, has laryngectomy w/ speaking valve, pain improved after dilaudid given previous shift, SR, Left rad jaron w/ positional wave form, flushes well, zeroed, accurate to cuff, left groin DAGOBERTO dsg intact, groin
ecchymotic, LLL dsg intact w/ kerlex - original post op dsg, distal pulses via doppler, left foot warm, good sensation & movement, hep gtt at 1600 units/hr, pulse ox 89% on RA, 40% trach collar applied by resp therapist, sat incr to 95%, lungs decr
in bases, + bowel sounds, no bm, abd obese, soft, oren dinner, powers draining yellow urine
[2024-06-05 21:47] LABS: Glucose - Point of Care 188 mg/dl (70-99)
[2024-06-05] MEDS: SEROQUEL 25 MG PO (22:05)
--- NOTE | 2024-06-05 22:05 | PTCARENOTE ---
dilaudid 1mg iv given for incis pain
--- NOTE | 2024-06-05 22:54 | PTCARENOTE ---
LLE dsg w/ sm janene SES drainage noted posteriorly- Fabián Galeano Np aware
[2024-06-05 23:37] LABS: APTT 141.8 Sec (23.4-35.0)
--- NOTE | 2024-06-05 23:45 | PTCARENOTE ---
hep gtt off for 1 hr for ptt 141.8 per protocal
[2024-06-06] VITALS (20 sets, daily range): BP systolic 94–138; BP diastolic 64–80; BMI 30.6
--- NOTE | 2024-06-06 | PTCARENOTE ---
sys reviewed, changes noted, no further drainage noted on LLE katie wrap, CHG bath done, linens changed
[2024-06-06 00:02] LABS: Blood Urea Nitrogen 18 mg/dl (9-20); Calcium 7.6 mg/dl (8.4-10.2); Carbon Dioxide 24 mmol/L (22-30); Chloride 105 mmol/L (98-107); Estimated Creatinine Clearance 97 ml/min; Glucose 163 mg/dl (70-99); Potassium 4.3 mmol/L (3.5-5.1); Sodium 136 mmol/L (135-145); eGFR > 60.00
--- NOTE | 2024-06-06 00:47 | PTCARENOTE ---
heparin gtt restarted at 1400 units per protocal
[2024-06-06] MEDS: DILAUDID 1 MG IV ×4 (01:56→22:45)
--- NOTE | 2024-06-06 01:57 | PTCARENOTE ---
dilaudid 1mg iv given for pain
--- NOTE | 2024-06-06 04:09 | PTCARENOTE ---
sys reviewed, changes noted
[2024-06-06] MEDS: SYNTHROID 25 MCG PO (05:42)
[2024-06-06] MEDS: ROXICODONE 10 MG PO ×3 (06:02→19:43)
[2024-06-06] MEDS: NSS 1000 IV (06:03)
--- NOTE | 2024-06-06 06:06 | PTCARENOTE ---
oxycodone 10mg po given for incis pain, pulses unch, left leg unch
[2024-06-06 06:54] LABS: INR 1.16; PT 14.7 Sec (11.4-14.6)
[2024-06-06 06:57] LABS: APTT 108.1 Sec (23.4-35.0)
[2024-06-06 06:59] LABS: Hemoglobin 9.7 g/dL (13.0-18.0); Mean Corp Hgb Conc. 35.9 g/dL (33.0-37.0); Mean Corpuscular Hgb 31.1 pg (27.0-31.0); Mean Corpuscular Volume 86.5 fL (80.0-94.0); Platelet Count 185 10^3/uL (130-400); Red Blood Cell Count 3.12 10^6/uL (4.70-6.10); Red Cell Dist. Width 12.9 % (11.5-14.5); White Blood Cell Count 12.9 10^3/uL (4.8-10.8)
[2024-06-06 07:13] LABS: Blood Urea Nitrogen 16 mg/dl (9-20); Calcium 7.4 mg/dl (8.4-10.2); Carbon Dioxide 20 mmol/L (22-30); Chloride 108 mmol/L (98-107); Estimated Creatinine Clearance 109 ml/min; Glucose 147 mg/dl (70-99); Sodium 138 mmol/L (135-145); eGFR > 60.00
[2024-06-06 07:58] LABS: Glucose - Point of Care 138 mg/dl (70-99)
[2024-06-06] MEDS: NOVOLOG FLEXPEN-LOW RESISTANCE SC ×3 (07:58→17:44)
--- NOTE | 2024-06-06 08:21 | PN.CDI ---
CDI
- -
CDI:
Physician Documentation Request
Admit Date: 06/04/24 15:38
Dear Doctor Romel,
Please review the following and provide your response in the progress notes.
Clinical Indicators:
S/P OR procedures X's , 06/05
06/05...EBL: 100 ML
06/05...EBL: 250 ML
Laboratory Tests
06/04/24 06/05/24 06/05/24
12:30 06:33 09:27
Hgb 16.6 13.3 12.2 L
06/05/24 06/05/24 06/05/24
09: 14:11 17:15
Hgb 12.5 L 12.3 L 11.4 L
06/06/24
06:31
Hgb 9.7 L
Based on the above and your clinical assessment, please clarify in the progress notes, the appropriate diagnosis, if significant, that supports the above abnormalities and additional evaluation, monitoring and/or treatment rendered:
Acute Blood Loss Anemia
Abnormal Lab Value, Clinically Insignificant
Other(Please Specify)
Use of terms such as suspected, likely, concern for, or probable (associated with a specific diagnosis that is being evaluated, monitored, or treated as if it exists) are acceptable and can be coded in the inpatient setting, when documented at the
time of discharge.
Thank you,
Radha Zepeda RN BSN CCDS
CDI Specialist
please contact via tiger text
Please use your independent medical judgment in providing your response.
--- NOTE | 2024-06-06 08:42 | W.PN.HOSP.TC ---
Addendum entered and electronically signed by Rock Urena MD 06/06/24 14:02:
Acute limb threatening ischemia with known hx of PAD s/p stents and fem bypass, started on heparin drip. Currently NPO. Vascular surgery planning to take to the OR for thrombectomy.
-Continue statin. Intrestingly not on asa nor plavix.
-Postoperatively will need every hour neurovascular checks. Therefore admit to ICU
-Discuss with Vascular if he should be on HIStatin post op
Compartment syndrome
-S/p fasciotomy with Vascular on 06/05
-Continue to follow vascular recs
Acute blood loss anemia related to periop course requring fasciotomy.
-Transfuse for Hgb <7 per TRICC trial as there is no active acs at this time.
06/05 This morning:
-LLE abrupt development of hematoma with bleeding, Hemodynamics stable with dopplers pulses that are weak.
-C/o loss of sensation, decreased motor movements
-Vascular team at bedside holding pressure
- - Concern for active bleed on hep and Compartment syndrome
- - For CTLE with angio
- - If compartment syndrome then will need fasciotomy
- - Vascular will likley need to take to the OR
- Stat CBC
- Hep gtt per vascular surgery and protocol
- Transfuse if hgb <7
Hypothyroidism continue levothyroxine
Sfk-ptgrswy-raylgbyfs diabetes mellitus. Accu-Chek sliding scale goal blood glucose 1 40-1 80. Postoperatively can start carb controlled diet.
Hyperlipidemia continue Lipitor 10 mg
Anxiety depression continue antidepressives
Original Note:
Today's Communication/Plan
-
Pain control
Monitor for postop complications
Assessment / Plan
Assessment / Plan
IMPRESSION:
68-year-old male presents with acute limb threatening ischemia secondary to an occluded femoral to femoral bypass graft. Patient was started on a heparin drip and will be taken to the OR for thrombectomy.
PLAN:
#Acute limb threatening ischemia
Past surgical history of femoral to femoral bypass graft and multiple stents of the left lower extremity
CTA abdomen pelvis with bilateral lower extremity runoff demonstrated an occluded femoral-femoral bypass graft, as well as high-grade stenosis of the left femoral anastomosis.
Status post thrombectomy, postop day 2
Continue patient on heparin drip
Patient admitted to ICU for every 1 hour neurovascular checks
Patient had episode of pulselessness, numbness and heaviness in left lower extremity. He was noted to have a hematoma in the area and it was thought to be bleeding into his groin.
Patient was taken for a stat CTA abdomen with lower extremity runoff.
Patient was then taken to emergent surgery where he received a left groin exploration and washout hematoma, as well as two left calf fasciotomies. Postop day 1
Vascular following
Will have conversation with vascular regarding starting patient on high intensity statin
Patient reports that his pain is not controlled on 0.5 Dilaudid every 4 hours
Dilaudid increased to 1 mg every 4 hours, pain was well-controlled
Following hemoglobin closely with Q8 H&H's and daily CBCs. Will transfuse if hemoglobin below 7. Type and screen has already been completed.
Patient started on carb controlled diabetic diet
Patient is upset about his postoperative complication and second surgery, he believes it is due to him being placed on heparin drip. Patient believes we should have called [place] for input as this has happened to him before. Patient was on warfarin
before admission.
#Hypothyroidism
Patient takes home dose levothyroxine 25 mcg p.o.
Restart home dose
#Dgg-lheflnf-bzfacozdm diabetes mellitus
Patient takes home dose metformin 1000 mg p.o. twice daily
Blood glucose levels have been within acceptable parameters during inpatient, not going above 180.
Continue to hold while inpatient
#Hyperlipidemia
Patient takes atorvastatin 10 mg p.o.
Restart home dose
#Anxiety/depression
Currently holding home p.o. quetiapine 25
QTc on repeat EKG was 464
Restarted home dose
#CODE STATUS
Conversation was had with patient regarding his CODE STATUS, patient indicates that he would like to be full code however he would like no more than 5 minutes attempt at resuscitation during a cardiac event. Patient also requests that if he needs
to have a tube placed into his trachea, patient would like to attempt to do it himself
Diet: Carb controlled diabetic diet
DVT prophylaxis: Heparin drip
Full code
Data: CTA abdomen pelvis with bilateral lower extremity runoff
Impressions:.
1. Femoral to femoral bypass graft is occluded.
2. LEFT LOWER EXTREMITY: High-grade greater than 75% stenosis near the left femoral anastomosis of the femoral to femoral bypass graft. Occlusion of the left distal common femoral artery. Occlusion of the left SFA at its origin, with reconstitution
of the distal SFA. Reocclusion of the distal popliteal artery. Infrapopliteal disease as above.
3. RIGHT LOWER EXTREMITY: Occlusion of the right common iliac, internal iliac, and external iliac arteries. Femoral to femoral bypass graft is occluded. Right common femoral artery is reconstituted via body wall branches.
CT abdomen angiography with lower extremity runoff
Impressions:
1. Small focus of active arterial contrast extravasation at the left groin as above, posterior to common femoral artery and medial to medial circumflex artery. Associated large left groin hematoma.
2. Small focus of active arterial contrast extravasation in the left calf posterior to the peroneal artery. There is swelling of the left calf. Immediately deep to the surgical wound, there is small mixed density collection most likely
representing hematoma of the left calf. This is distant from the small focus of apparent active contrast extravasation.
3. Atherosclerotic changes as seen prior. 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 Patent left common iliac stent. Unchanged chronic occlusion right iliac arteries.
Anticipated Discharge: 24 - 48 hours
Subjective/Interval History
-
Date of Service: June 06, 2024
No acute events overnight
Patient voices concern with his care here, believes he should not been started on a blood thinner when he came in and is blaming the blood thinner for surgical complication
Patient believes we should have contacted [facility] before proceeding with surgical intervention. Vascular surgery following
Objective Data
-
Labs:
Laboratory Results
06/05/24 06/06/24 06/06/24
23:17 06:00 06:31
WBC 12.9 H
Hgb 9.7 L
Hct 27.0 L
Plt Count 185 D
PT 14.7 H
INR 1.16
APTT 141.8 H Cancelled 108.1 H
Sodium 136 138
Potassium 4.3 4.0
Chloride 105 108 H
Carbon Dioxide 24 20 L
BUN 18 16
Creatinine 0.8 0.8
Glucose 163 H 147 H
Calcium 7.6 L 7.4 L
06/06/24 06/06/24 06/06/24
08:45 12:30 16:45
WBC
Hgb Pending Pending
Hct Pending Pending
Plt Count
PT
INR
APTT Pending
Sodium
Potassium
Chloride
Carbon Dioxide
BUN
Creatinine
Glucose
Calcium
Vital Signs:
Vital Signs
Temp Pulse Resp BP Pulse Ox
98.3 F 106 16 121/69 94
06/06/24 08:00 06/06/24 08:00 06/06/24 08:00 06/06/24 08:00 06/06/24 08:36
I&O
06/05/24 06/06/24 06/07/24
06:59 06:59 06:59
Intake Total 708 / 826 2925.0 / 3039.0 228 / 228
Output Total 1130 / 1180 1525 / 1605 140 / 140
Balance -422 / -354 1400.0 / 1434.0 88 / 88
Review of Systems
-
History Source: Patient
Respiratory: Reports No Symptoms
Cardiac: Reports No Symptoms
Abdomen/GI: Reports No Symptoms
Musculoskeletal: Reports No Symptoms
Physical Exam
-
General: No Apparent Distress, Comfortable and Morbidly Obese
Respiratory: Clear to Auscultation
Cardiac: Regular Rhythm and S1/S2
GI: Soft, Nontender, Nondistended and Normal Bowel Sounds
Musculoskeletal: Other (Left lower extremity and right lower extremity are now equal in temperature. Pulses are palpable in the left lower extremity. Left lower extremity is wrapped in bandage as patient has 2 fasciotomies.)
Skin: Warm and Dry
Neuro: Awake, Alert, Oriented and AO x 3
Psych: Calm and Intact Judgement/Insight
Data Reviewed
-
CT Scan: Report Reviewed by me and Discussed with Physician
Labs: Labs Reviewed by me and Discussed with Physician
--- NOTE | 2024-06-06 09:00 | PTCARENOTE ---
Rec'd pt at 0700 and vascular checks done with offgoing shift. Rec'd pt awake alert and oriented. Pt has a laryngectomy and uses voice box/speaking valve. Did express frustration that he has been placed on anticoagulants and felt that vascular
surgeon at [facility] should have been consulted. Otherwise is cooperative. Admits to 3-4/10 L lower leg aching/trobbing and some intermittent L groin discomfort. Skin is pale pink wm and dry. L groin/femoral incision with DAGOBERTO dressing that is intact.
Small amt of old sang drainage. Sl ecchymosis but tissue it soft and no swelling noted. Dr. Powers in and L lower leg dressing changed to L medial and lateral calf fasciotomy incisions. Wound tissue is pink- redressed with adaptic, 4x4, ABD, kerlex
and NOELLE wrap over. L lower leg is warm with +1-+2 edema, + pulses PT and DP pulses both R and L with the doppler. Respirs are unlabored on RA with sats of 92-95%. BS are sl decreased at the bases. Monitor ST -108-120's. ECG done per MD order. VS as
documented. Pt with L radial A Line-site wnl. Good CMS checks to distal extremity. Zeroed and recalibrated. Overall congurent with cuff BP. Abd is round and soft with + BS. Pt expressing that he has to move his bowels but wants to wait until he can
get oob. Denies nausea. Thermistor powers in place for yellow urine. IVF infusing via R arm IV site along with Heparin at 1400 units/hr. PTT resulted at 0700 and same dose continued. Site wnl Capped int intact RAC site wnl. Pt repositioned. Call maldonado
in reach. Plan of care reviewed with pt.
--- NOTE | 2024-06-06 09:13 | W.PN.VS ---
Today's Communication / Plan
-
Seen and assessed with Dr Cunningham
Assessment/Plan
-
Assessment: 68-year-old male POD #1 LLE mechanical thrombectomy, concern for active bleeding at left groin hematoma and left calf compartment syndrome postoperative.
Plan:
DC jaron
DC gio
OOB/chair
ekg for tachycardia this am (120)
cont herpain gtt
Subjective Data
-
Date of Service: June 06, 2024
Pt seen at bedside this am with Dr Cunningham. Pt offers no complaints at this time. No events overnight.
Objective Data
-
Vital Signs
Temp Pulse Resp BP Pulse Ox
98.3 F 106 16 121/69 94
06/06/24 08:00 06/06/24 08:00 06/06/24 08:00 06/06/24 08:00 06/06/24 08:36
Intake and Output
06/05/24 06/06/24 06/07/24
06:59 06:59 06:59
Intake Total 708 / 826 2925.0 / 3039.0 228 / 228
Output Total 1130 / 1180 1525 / 1605 140 / 140
Balance -422 / -354 1400.0 / 1434.0 88 / 88
Intake:
Oral fluids 350 / 350
IV fluids (Total) 708 / 826 2575.0 / 2689.0 228 / 228
Nss 1,000 ml @ 100 mls/hr IV . 600 / 700 2000 / 2000
Q10H NIKOLAI Rx#:[id number]
Nss 1,000 ml @ 100 mls/hr IV . 300 / 400 200 / 200
Q10H NIKOLAI Rx#:[id number]
heparin 108 / 126 200 / 214 /
levophed gtt 75.0 / 75.0
Output:
UrineGio 1130 / 1180 1525 / 1605 140 / 140
Lab Results
06/06/24 06:31
Calcium 7.4 mg/dl (8.4-10.2) L 06/06/24 06:31
Phosphorus 4.4 mg/dl (2.5-4.5) 06/05/24 08:18
Magnesium 1.8 mg/dl (1.6-2.3) 06/05/24 08:18
Total Bilirubin 0.7 mg/dl (0.2-1.3) 06/04/24 12:30
AST 33 U/L (17-59) 06/04/24 12:30
ALT 30 U/L (0-50) 06/04/24 12:30
Alkaline Phosphatase 84 U/L (38-126) 06/04/24 12:30
Total Protein 7.7 g/dl (6.3-8.2) 06/04/24 12:30
Albumin 5.0 g/dl (3.5-5.0) 06/04/24 12:30
Physical Exam
-
AAOx3
No tachypnea on RA
Tachycardia 120's
Abd soft
Dressings removed and replaced at bedside, muscle appears healthy-Adaptics placed
foot warm
--- NOTE | 2024-06-06 09:45 | PTCARENOTE ---
Good appetite for breakfast. No nausea. L radial a line dc'd per md order at 0925 Pressure held over the site. No hematoma. Currently powers dc'd. No other changes
--- NOTE | 2024-06-06 10:15 | PTCARENOTE ---
At 0950 Pt noted to have a large amt of sanginous drainage from the L lower leg fasciotomy incisions. Blood soaked through abds and katie wrap and large amt on covidian. Claudine Beltran updated and will be over. L leg reenforced with abd's and kerlex
over existing dressing. Pulses unchanged and leg is warm. Pt medicated at 1000 with Roxicodone 10 mg po for 4/10 L lower leg pain. Call erica in reach. Hosp in to see pt and pt again verbalizing frustration about his Vascular surgeon at [facility] not
being called before surgery. Support given.
--- NOTE | 2024-06-06 10:30 | PTCARENOTE ---
Jelly Beltran - [facility] surgery at the bedside and L lower leg redressed with abds and katie wrap. Will keep on bedrest for a few hours. HH and PTT sent currently per surgery
[2024-06-06] MEDS: HEPARIN 25000 UNITS/250 ML IV (10:38)
[2024-06-06 11:06] LABS: Hematocrit 27.4 % (39.0-52.0); Hemoglobin 9.5 g/dL (13.0-18.0)
[2024-06-06 11:22] LABS: APTT 73.1 Sec (23.4-35.0)
--- NOTE | 2024-06-06 12:00 | W.PN.INTV ---
Today's Communication / Plan
Recommendations
Continue heparin drip
Follow PTT
Follow H&H
Monitor for bleeding
Increase mobility as able
Wound care
Frequent neurovascular
Maintain ICU level of care
Assessment
-
68-year-old man with past medical history noted, admitted with acute left lower extremity pain, found to have critical limb ischemia: Taken to the operating room 06/05/2024 for thrombectomy. Subsequently transferred to the critical care unit. In
coppersmith helper developed left lower extremity acute pain, some bleeding from the left groin as well. Found to have compartment syndrome and taken back to the operating room for fasciotomies.
Critical limb ischemia:Status post left mechanical thrombectomy 06/05/2024
CTA abdomen pelvis with bilateral lower extremity runoff
Impressions:.
1. Femoral to femoral bypass graft is occluded.
2. LEFT LOWER EXTREMITY: High-grade greater than 75% stenosis near the left femoral anastomosis of the femoral to femoral bypass graft. Occlusion of the left distal common femoral artery. Occlusion of the left SFA at its origin, with
reconstitution of the distal SFA. Reocclusion of the distal popliteal artery. Infrapopliteal disease as above.
3. RIGHT LOWER EXTREMITY: Occlusion of the right common iliac, internal iliac, and external iliac arteries. Femoral to femoral bypass graft is occluded. Right common femoral artery is reconstituted via body wall branches.
Complicated by left calf compartment syndrome acutely coppersmith helper 06/05/2024
Back to the OR by Dr. Maharaj for fasciotomy/Washout hematoma of the left groin
Conditions present prior admission:
Former heavy smoker
Hypothyroidism
Type 2 diabetes
Hyperlipidemia
Anxiety and depression
Overweight
Head and neck cancer status post radiation/surgical/laryngectomy intervention-tracheal stoma with a voicebox.
History of peripheral vascular disease: Femoral-femoral bypass, iliac plus superior femoral artery stents,
History of prior exploratory laparotomy
Assessment and plan:
-
Postoperative day 1
After thrombectomy has developed compartment syndrome of the left calf.
Status post left groin washout hematoma/calf fasciotomies 06/05/2024 postoperatively.
-
Heparin drip restarted
Monitor H&H
Monitor PTT
Monitor for bleeding on surgical incisions per
-
Pain control with IV/narcotics-monitor respiratory status closely
-
Hemodynamically so far stable, not requiring vasopressors.
Surgical incision oozing but not significantly actively bleeding.
Will follow closely
Continue neurovascular checks per protocol
Vascular surgery correspondence reviewed. Okay to increase mobility.
Maintain ICU level of care for now.
-
Type 2 diabetes: Goal blood sugar 100 4180
Insulin sliding scale
-
Status post laryngectomy: Stoma noted without bleeding.
Tracheotomy care -Routine
Chest x-ray without acute infiltrates
Continue with tracheotomy as we are doing. Patient has a voicebox. He is unable to phonate with Passy-Jaffrey valve
He usually follows up at [facility].
-
DVT prophylaxis- follow PTT
Physical therapy/Occupational Therapy as able
-
Maintain ICU level of care. Every hour neurovascular checks.
Critical care team will continue to follow
Subjective Dataa
Subjective Data
Date of Service:
Date of Service: June 06, 2024
Chief Complaint: Trials Manager Follow Up (Status post left lower extremity mechanical thrombectomy, groin hematoma, left calf compartment syndrome postoperatively.)
Subjective:
Overnight tolerated surgery.
Not requiring vasopressor
Back on heparin drip
Pain relatively controlled
Denies any acute respiratory symptoms. No significant secretion through tracheal stoma
Review of Systems
General: Fever (n)
Cardiopulmonary: Dyspnea (none at rest)
GI: Abdominal Pain (n) and Nausea (n)
Neuro: Headache (n)
Objective Data
Data Reviewed
Vital Signs / I&O / Oxygen:
Vital Signs
Temp Pulse Resp BP Pulse Ox
98.3 F 125 24 130/79 92
06/06/24 08:00 06/06/24 10:32 06/06/24 10:32 06/06/24 10:32 06/06/24 10:32
Intake and Output
06/05/24 06/06/24 06/07/24
06:59 06:59 06:59
Intake Total 708 / 826 2925.0 / 3039.0 756 / 756
Output Total 1130 / 1180 1525 / 1605 200 / 200
Balance -422 / -354 1400.0 / 1434.0 556 / 556
SaO2 92
Physical Exam
General: Comfortable
HEENT: Normocephalic
Cardiovascular: S1-S2
Respiratory: Non-Labored Respirations
GI: Distended (obese) and Non Tender
Neurology: Awake, Alert, Oriented and No Motor Deficits
Skin: Other (Left lower extremity surgical incision/fasciotomies dressed. No evidence for acute bleeding. There is oozing of blood)
Labs/Micro/Reports
Lab Data
06/06/24 06:31
Laboratory Results
06/05/24 06/05/24 06/06/24
17:15 23:17 06:00
PT
INR
APTT 26.5 141.8 H Cancelled
06/06/24 06/06/24
06:31 10:33
PT 14.7 H
INR 1.16
APTT 108.1 H 73.1 H
--- NOTE | 2024-06-06 12:45 | SUR.OPER ---
Again with oozing through the dressings on the L lower leg. Dr. Maharaj in and redressed. Per MD order. Heparin gtt turned off. Dilaudid 1 mg IV given for 101/10 lower leg discomfort with dressing change. Coughing a moist cough via trach for tannish
secretions. VS as documented. Remains tachycardic. Pulses unchanged. Denies need to void currently. Call maldonado in reach.
[2024-06-06 13:03] LABS: Glucose - Point of Care 141 mg/dl (70-99)
--- NOTE | 2024-06-06 14:06 | W.PN.UPDATE ---
Update Note
Progress Note Update
Seen and evaluated earlier. Fasciotomy site left calf laterally had been oozing through dressing it again. I remove the dressing. Examined. Moderate amount of blood drained. Could not assess definitively whether there is any active bleeding.
Certainly no arterial bleeding, appeared venous in nature. But may have been old hematoma. I rewrapped. Continues to drain through the wrapping. At this point I think this needs to be washed out. Had discussed with him. Will plan on taking the
operating room to washout and exam under anesthesia and control bleeding. Holding heparin.
--- NOTE | 2024-06-06 14:19 | W.PN.ANS.POP ---
Anesthesia Post Operative
- Anesthesia Post Op Note
Vital Signs Stable-See Nursing Note: Yes
Airway Patent: Yes
Adequate Pain Control: Yes
Change in Mental Status: No
Current Postoperative Nausea & Vomiting: No
Anesthesia Complications: No
General Anesthetic Recall: No
Unplanned Admission: No
Post Op Hydration Adequate: No
- -
patient for possible OR today as per nurse.
--- NOTE | 2024-06-06 15:20 | PTCARENOTE ---
Report given to vascular OR staff
--- NOTE | 2024-06-06 15:32 | CM ---
CM following re: discharge planning.
Discussed in Rounds, reviewed pt's chart, met with pt.
Pt is POD #1 LLE mechanical thrombectomy, continue supportive care.
PT and OT will evaluate the pt when clinically appropriate to determine a level of care at discharge.
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
D/C plan: home with most likely VN services if recommended by PT/OT.
CM will follow with discharge plan updates as hospitalization progresses
--- NOTE | 2024-06-06 15:45 | PTCARENOTE ---
Has continued to ooze from L mostly lateral fasciotomy site- Dr. Maharaj aware and Jelly in to see him and reenforced dressing but still with oozing. Plan is to take back to the OR. Spoke with anesthesia as pt is concerned with the airway management.
#4 cuffed Shiley trach obtained and will send with pt to the OR. Pain eased some with earlier Dilaudid 03/19 currently - pt with some increased swelling of the L foot/lower leg but not overly tense. Leg remains warm with + pulses. Pt is NPO. Has not
voided since powers removed earlier. Bladder scanned for 200 mls. Pt denies need to void. Passing flatus. IV fluids capped and #1 unit PRBC hung via R wrist IV site. Repositioned. Awaiting OR
--- NOTE | 2024-06-06 16:31 | PTCARENOTE ---
Vasc or staff here and pt sent via bed to the OR for washout and examination of bleeding L fasciotomy site. Updated report given to Vasc OR staff. Pt sent with # 1 unit PRBC infusing via R wrist IV site. Pt sent with a #4 cuffed and #6 cuffed Richard
trach in their boxes. No other changes.
[2024-06-06] MEDS: NSS IV (16:33)
--- NOTE | 2024-06-06 17:18 | W.SUR.POST ---
Surgical Immediate Post Op
Note
Pre Op Diagnosis: Left lower extremity hematoma
Post Op Diagnosis: Same
Procedure Performed: exploration left lateral fasciotomy site hematoma evacuation/washout
Primary Surgeon: Nicko
Assist: Ruby VICENTE
Anesthesia: General
Estimated Blood Loss: 20 cc
Fluids: See anesthesia flowsheet
Drains/Shunts: None
Specimens/Cultures: None
Doppler/Duplex/Angio (Y/N): None
Complications: None
Operative Findings: No bleeding noted at completion
--- NOTE | 2024-06-06 17:21 | OR.RPT ---
Operative Report
Operative Report
PROCEDURE DATE: 06/06/2024
Preoperative diagnosis: Bleeding from left lower extremity lateral fasciotomy site.
Postoperative diagnosis: Same
Procedure: Exploration left lateral fasciotomy site with evacuation hematoma/washout. Control of bleeding.
Surgeon: Nicko
[employer] Crew Member: BYRON Beltran required for all aspects of procedure including assistance with traction/countertraction.
Complications: None
Anesthesia: General
Indications for procedure:
Status post fasciotomies for compartment syndrome status post ischemia reperfusion. Left lower extremity lateral incision site (anterior and lateral compartment fasciotomy site) with continued oozing. Anticoagulation was held, but it continued to
ooze through the dressings and on exam appeared to have ongoing bleeding (venous). Therefore brought urgently to the OR. Risk/benefits/alternatives all fully discussed with the patient. He understood all wish to proceed.
Description of procedure:
Patient was identified brought to the operating room placed on the table in supine position. After the adequate administration of anesthesia he was prepped and draped in the standard surgical fashion. A standard preoperative timeout was undertaken
and everybody was in agreement the plan. I inspected the lateral leg incision and the muscles appeared healthy but there was ongoing bleeding. I pulled out some hematoma and once this was evacuated then there was still some oozing noted. I
therefore then extended the incision slightly more distally through the skin and subcutaneous tissue. When I did this I was able to raise the anterior flap of skin and identified on the muscle a couple areas of bleeding. These were cauterized
and/or clipped. Complete hemostasis was noted. I then packed the fasciotomy sites with clean laparotomy sponges and observed for a few minutes. There was no evidence of ongoing bleeding. I removed the packs. They were dry. At this point I felt
that there was no further bleeding. I irrigated copiously. I again watched and confirmed for no additional bleeding. Therefore dressings were reapplied. The patient tolerated the procedure well.
--- NOTE | 2024-06-06 17:50 | PTCARENOTE ---
Returned from OR directly back s/p washout and hematoma evacuation. L Lower leg dressing is D+I. + pulses. +1 edema. Leg is warm. L groin site is wnl. Pt is goggy but arousable and following commands. #[address] for now to 35% trach
collar. VS as documented. #1 unit of blood infused. Normosol hung via R wrist IV site at 100 ml/hr per PACU protocol.
[2024-06-06] MEDS: NORMOSOL-R/PLASMALYTE-A 1000 IV (17:52)
[2024-06-06 17:54] LABS: Glucose - Point of Care 136 mg/dl (70-99)
--- NOTE | 2024-06-06 17:55 | PTCARENOTE ---
Pt medicated with Dilaudid 1 mg IV for c/o 10/10 L lower leg/L foot pain. Foot and leg are warm. Brett wrap is dry and intact. Pulses are unchanged
--- NOTE | 2024-06-06 18:35 | PTCARENOTE ---
#2 unit PRBC hung via R wrist IV site. Normosol changed to the RAC site until PACU time completed. Resp therapy in and pt took out his #6 shiley out and replaced with his 'Rowan' ( Laryngectomy tube) and HME cap. Coughs an intermittent moist cough
for tannish secretions. VS as documented. Sats on RA are 93f%. Spoke with anesthesia prior to allowing pt to take out the Shiley. Dr. Maharaj updated and will Hold Heparin gtt. Callbell in reach.
[2024-06-06] MEDS: LIPITOR 10 MG PO (19:43)
--- NOTE | 2024-06-06 20:00 | PTCARENOTE ---
Pt Aox3, VSS, NSR, c/o pain in left lower lateral leg 9/10 prn medications given. positive pulses with doppler, extremity warm, pink and pt with full sensation. NOELLE wrap is CDI. Pt has Laryngectomy trach tube with HME cap on. RA 92-95%. Thick, fernandez
secretions with coughing, no suctioning required. 2/2 RBC infusing, q2 s/p will draw H&H. Pt refuse to be washed before bed.
[2024-06-06 22:38] LABS: Glucose - Point of Care 177 mg/dl (70-99)
[2024-06-06] MEDS: SEROQUEL 25 MG PO (22:44)
--- NOTE | 2024-06-06 23:45 | PTCARENOTE ---
Addendum entered by Lacie Terrell RN 06/07/24 05:46:
Pt oxygen sats dropped to 81% on room air, RT Meera placed pt on trach collar @30%. Maintaining air way and sats. Pt was due to void after powers removal. unable to urinate. straight cathx1 for 550mls.
Original Note:
Pt having increased pain in left lower extremity despite pain medication. Positive pulses with doppler, sensation intact and warm. Pt c/o the noelle bandage being too tight. JULES Huizar notified, she removed NOELLE wrap, pt had some relief.
[2024-06-07] VITALS (33 sets, daily range): BP systolic 96–145; BP diastolic 60–94; PULSE 119–141; O2SAT 95
[2024-06-07] LABS: Hemoglobin 9.6 g/dL (13.0-18.0)
[2024-06-07] MEDS: ROXICODONE 10 MG PO ×3 (00:29→15:02)
[2024-06-07] MEDS: DILAUDID 1 MG IV ×3 (02:28→20:31)
--- NOTE | 2024-06-07 03:00 | PTCARENOTE ---
LLE pain continued, Gaye VICENTE took dressing down, and redressed. An additional dose of Diludad ws given prior to dressing change, Also one time dose of Valium was ordered to help relax post dressing change. Pt VSS remain stable, NSR/ST on monitor.
--- NOTE | 2024-06-07 03:08 | W.PN.UPDATE ---
Update Note
Progress Note Update
06/07/24
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 Advised to change dressing if needed at site. PRN pain medication administered and katie wrap taken off, which helped
some. No motor or sensory exam changes, pedal pulse in left leg.
0300- Patient having significant pain in the left lower leg, additional Dilaudid 1mg IV given and fasciotomy dressing changed wet to dry dressing applied. Serosang drainage on old dressing, not saturated in blood. Valium 10mg IV given for muscle
spasms and patient requested something to help him rest.
[2024-06-07] MEDS: VALIUM INJECTION 10 MG IV (03:56)
[2024-06-07 04:34] LABS: Hematocrit 26.7 % (39.0-52.0); Hematocrit 27.4 % (39.0-52.0); Hemoglobin 9.4 g/dL (13.0-18.0); Hemoglobin 9.6 g/dL (13.0-18.0); Mean Corpuscular Hgb 31.2 pg (27.0-31.0); Platelet Count 149 10^3/uL (130-400); Red Blood Cell Count 3.08 10^6/uL (4.70-6.10); Red Cell Dist. Width 13.1 % (11.5-14.5)
[2024-06-07 04:35] LABS: Blood Urea Nitrogen 17 mg/dl (9-20); Calcium 7.4 mg/dl (8.4-10.2); Carbon Dioxide 26 mmol/L (22-30); Chloride 108 mmol/L (98-107); Estimated Creatinine Clearance 87 ml/min; Glucose 120 mg/dl (70-99); Potassium 4.1 mmol/L (3.5-5.1); Sodium 141 mmol/L (135-145); eGFR > 60.00
[2024-06-07] MEDS: SYNTHROID 25 MCG PO (06:21)
--- NOTE | 2024-06-07 07:40 | PTCARENOTE ---
Assumed care of pt from night shift supervisor RN. Pt AAOx3. Sinus Tach on case monitor. HRs 100s. SpO2 94% on room air. Pt has laryngectomy trach tube with HME cap on. VSS. L calf dressing CDI. L groin DAGOBERTO dressing intact & with small amount of old
drainage. Assessed by Dr. Maharaj and team at bedside this morning. Plan to trial Heparin gtt today and monitor for bleeding. Will transition to oral anticoagulation tomorrow if tolerates Heparin gtt today. LLE neurovascular checks WDL. Pt resting in
bed, call maldonado within reach.
--- NOTE | 2024-06-07 07:52 | W.PN.VS ---
Addendum entered and electronically signed by Timothy Maharaj MD 06/07/24 12:09:
Seen and examined with BYRON Parrish. Agree with findings as noted below. Left calf pain from overnight seems much better now that Brett bandage was relieved. Fasciotomy dressing sites clean. No further bleeding. Foot is warm. Doppler signal stable.
Plan/as discussed and noted below.
Original Note:
Today's Communication / Plan
-
Patient seen and examined at bedside with Dr. Timothy Maharaj, below plan reviewed with attending.
Assessment/Plan
-
Assessment: 68-year-old male POD #3Excision of left femoral portion of old/occluded fem-fem bypass, thrombectomy of left common femoral artery, profunda femoral artery, superficial femoral artery, popliteal artery via left groin exposure, below the
knee popliteal artery exposure, thrombectomy of tibial arteries via popliteal artery exposure. POD #2 Urgent left calf 4 compartment fasciotomies. Evacuation hematoma and control of bleeding, urgent exploration left groin, evacuation hematoma,
control of bleeding. POD #1 Exploration left lateral fasciotomy site with evacuation hematoma/washout. Control of bleeding.
Plan:
Will replace fasciotomy dressing with wound VAC
Will initiate low-dose heparin infusion at a standing 800 units/hr
PT/OT after wound VAC placement
Case management
Subjective Data
-
Date of Service: June 07, 2024
Patient seen and examined at bedside, reported moderate to severe pain at left leg overnight but now endorses with removal of Brett wrap pain is much improved. Tolerating p.o. diet. Denies nausea, vomiting, fever, and chills.
Objective Data
-
Vital Signs
Temp Pulse Resp BP Pulse Ox
98.8 F 112 16 126/67 94
06/07/24 03:38 06/06/24 21:23 06/06/24 21:23 06/06/24 21:23 06/07/24 07:37
Intake and Output
06/06/24 06/07/24 06/08/24
06:59 06:59 06:59
Intake Total 2925.0 / 3039.0 2073
Output Total 1525 / 1605 750 / 750
Balance 1400.0 / 1434.0 1324 / 1324
Intake:
Oral fluids 350 / 350 640 / 640
IV fluids (Total) 2575.0 / 2689.0 1184 / 1184
Normosol 100 / 100
Nss 1,000 ml @ 100 mls/hr IV . 2000 / 2000
Q10H NIKOLAI Rx#:[id number]
Nss 1,000 ml @ 100 mls/hr IV . 300 / 400 1000 / 1000
Q10H NIKOLAI Rx#:[id number]
heparin 200 / 214 84 / 84
levophed gtt 75.0 / 75.0
Blood Product Amount Infused ( 250 / 250
mL)
Packed Rbc Leukoreduced Unit 250 / 250
[id number]
Output:
Urine, Cunningham 1525 / 1605 200 / 200
Urine, Voided 0 / 0
Straight cath output 550 / 550
Lab Results
06/07/24 04:05
06/07/24 04:05
Calcium 7.4 mg/dl (8.4-10.2) L 06/07/24 04:05
Phosphorus 4.4 mg/dl (2.5-4.5) 06/05/24 08:18
Magnesium 1.8 mg/dl (1.6-2.3) 06/05/24 08:18
Total Bilirubin 0.7 mg/dl (0.2-1.3) 06/04/24 12:30
AST 33 U/L (17-59) 06/04/24 12:30
ALT 30 U/L (0-50) 06/04/24 12:30
Alkaline Phosphatase 84 U/L (38-126) 06/04/24 12:30
Total Protein 7.7 g/dl (6.3-8.2) 06/04/24 12:30
Albumin 5.0 g/dl (3.5-5.0) 06/04/24 12:30
Physical Exam
-
AAOx3
No tachypnea on RA
Tachycardia 110's
Abd soft
Left groin joe dressing CDI, left calf fasciotomy dressing CDI, left DP Doppler signal present
Left foot warm
[2024-06-07 08:16] LABS: Glucose - Point of Care 131 mg/dl (70-99)
[2024-06-07] MEDS: NOVOLOG FLEXPEN-LOW RESISTANCE SC ×2 (08:23→12:37)
--- NOTE | 2024-06-07 09:43 | W.PN.UPDATE ---
Update Note
Progress Note Update
Wound VAC applied at bedside, patient tolerated well.
Medial 13 x 5 x 2
Lateral 17 x 7 x 0
one black sponge each- bridged
--- NOTE | 2024-06-07 10:35 | PN.CDI ---
CDI
- -
CDI:
Physician Documentation Request
Admit Date: 06/04/24 15:38
Dear Doctor Ryann,
Please review the following and provide your response in the progress notes.
Clinical Indicators:
H+P, 06/04
#...past medical history significant for multiple vascular stents,
#...femorofemoral bypass,
#...laryngectomy plus radiation for head and neck cancer.
06/05/24 20:00 (created 06/05/24 21:18) - Patient Care Note
#...has laryngectomy w/ speaking valve, pain improved after dilaudid given previous shift, SR,
#...pulse ox 89% on RA, 40% trach collar applied by resp therapist, sat incr to 95%,
#...lungs decr in bases, + bowel sounds, no bm, abd obese, soft,
06/06/24 17:50 (created 06/06/24 18:09) - Patient Care Note
#Returned from OR directly back s/p washout and hematoma evacuation
#[address] for now to 35% trach collar.
06/06/24 18:35 (created 06/06/24 18:37) - Patient Care Note
#...Resp therapy in and pt took out his #6 shiley out and
#...replaced with his 'Rowan' ( Laryngectomy tube) and HME cap.
#Coughs an intermittent moist cough for tannish secretions.
#Sats on RA are 93f%.
06/06/24 23:45 (created 06/07/24 05:40) - Patient Care Note
#Pt oxygen sats dropped to 81% on room air,
#...RT Meera placed pt on trach collar @30%. Maintaining air way and sats.
Selected Entries
06/05/24
01:00
SaO2 95
Flow liters per minute # 6
Oxygen Mode of Delivery Trach collar
06/05/24
07:45 06/05/24
08:00
SaO2 96 97
Flow liters per minute # 6 10
Oxygen Mode of Delivery Trach collar Trach collar
06/05/24
20:16
SaO2 96
Flow liters per minute # 8
Oxygen Mode of Delivery Trach collar
06/06/24
00:20
SaO2 96
Flow liters per minute # 8
Oxygen Mode of Delivery Trach collar
06/06/24
23:28 06/06/24
23:28
SaO2 95 95
Flow liters per minute # 6 6
Oxygen Mode of Delivery Trach collar Trach collar
Based on the above and your clinical assessment, please clarify which of the following accurately represents the patient's respiratory status:
Acute respiratory failure
Acute on chronic respiratory failure
Chronic respiratory failure
Hypoxia
Other(please specify)
Additional information for Respiratory Failure:
Recognized criteria for Respiratory Failure (Source: [facility] Hospitalist Aug 2013)
Symptoms Please indicate type if known
1. Tachypnea, SOB, dyspnea Hypoxic
2. Use of accessory muscles Hypercapnic
3. Pallor or cyanosis Hypoxic and Hypercapnic
4. Anxiety or restlessness
5. Unable to speak in full sentences
Supplemental O2 of > 40% (5LPM) Intubation is not required
Use of terms such as suspected, likely, concern for, or probable (associated with a specific diagnosis that is being evaluated, monitored, or treated as if it exists) are acceptable and can be coded in the inpatient setting, when documented at the
time of discharge.
Thank you,
Radha Zepeda RN BSN CCDS
CDI Specialist
please contact via tiger text
Please use your independent medical judgment in providing your response.
[2024-06-07] MEDS: HEPARIN 25000 UNITS/250 ML IV (10:46)
[2024-06-07] MEDS: FLOMAX 0.4 MG PO (11:20)
--- NOTE | 2024-06-07 11:57 | W.PN.INTV ---
Today's Communication / Plan
Recommendations
Monitor H&H
Wound care
Restart heparin today per vascular surgery, follow PTT
Pain control with narcotics, monitor respiratory status closely
Tracheotomy care
Continue ICU monitoring
Assessment
-
68-year-old man with past medical history noted, admitted with acute left lower extremity pain, found to have critical limb ischemia: Taken to the operating room 06/05/2024 for thrombectomy. Subsequently transferred to the critical care unit. In
senior examiner developed left lower extremity acute pain, some bleeding from the left groin as well. Found to have compartment syndrome and taken back to the operating room for fasciotomies.
Critical limb ischemia:Status post left mechanical thrombectomy 06/05/2024
CTA abdomen pelvis with bilateral lower extremity runoff
Impressions:.
1. Femoral to femoral bypass graft is occluded.
2. LEFT LOWER EXTREMITY: High-grade greater than 75% stenosis near the left femoral anastomosis of the femoral to femoral bypass graft. Occlusion of the left distal common femoral artery. Occlusion of the left SFA at its origin, with
reconstitution of the distal SFA. Reocclusion of the distal popliteal artery. Infrapopliteal disease as above.
3. RIGHT LOWER EXTREMITY: Occlusion of the right common iliac, internal iliac, and external iliac arteries. Femoral to femoral bypass graft is occluded. Right common femoral artery is reconstituted via body wall branches.
Complicated by left calf compartment syndrome acutely senior examiner 06/05/2024
Back to the OR by Dr. Maharaj for fasciotomy/Washout hematoma of the left groin
Conditions present prior admission:
Former heavy smoker
Hypothyroidism
Type 2 diabetes
Hyperlipidemia
Anxiety and depression
Overweight
Head and neck cancer status post radiation/surgical/laryngectomy intervention-tracheal stoma with a voicebox.
History of peripheral vascular disease: Femoral-femoral bypass, iliac plus superior femoral artery stents,
History of prior exploratory laparotomy
Assessment and plan:
-
Postoperative day 2
After thrombectomy has developed compartment syndrome of the left calf.
Status post left groin washout hematoma/calf fasciotomies 06/05/2024 postoperatively.
Back to the OR 06/06/2024 for control of bleeding on fasciotomy.
-
Heparin to be restarted today 06/07/2024.
Monitor H&H-currently stable.
Monitor PTT
Monitor for bleeding on surgical incisions/VAC system in place.
-
Pain control with IV/narcotics-monitor respiratory status closely
-
Hemodynamically so far stable, not requiring vasopressors.
Continue neurovascular checks per protocol
Vascular surgery correspondence reviewed. Okay to increase mobility.
Maintain ICU level of care for now.
Wound care.
-
Type 2 diabetes: Goal blood sugar 100 4180
Insulin sliding scale
-
Status post laryngectomy: Stoma noted without bleeding.
Tracheotomy care -Routine
Chest x-ray without acute infiltrates
Continue with tracheotomy as we are doing. Patient has a voicebox. He is unable to phonate with [place] valve
He usually follows up at [facility].
-
Tolerating diet
Continue aspiration precaution
-
DVT prophylaxis- follow PTT
Physical therapy/Occupational Therapy as able
-
Maintain ICU level of care. Every hour neurovascular checks.
Critical care team will continue to follow
Subjective Dataa
Subjective Data
Date of Service:
Date of Service: June 07, 2024
Chief Complaint: Inside Tester Follow Up (Status post left lower extremity mechanical thrombectomy, groin hematoma, left calf compartment syndrome postoperatively.)
Subjective:
Patient states that he feels better this morning.
He is pain is better controlled
Denies any shortness of breath
Self suctioning his tracheal stoma without difficulties.
Tolerating diet
Heparin currently on hold
Review of Systems
Cardiopulmonary: Dyspnea (n) and Sputum Production (n)
GI: Abdominal Pain (n), Nausea (n) and Vomiting (n)
Neuro: Headache (n)
Objective Data
Data Reviewed
Vital Signs / I&O / Oxygen:
Vital Signs
Temp Pulse Resp BP Pulse Ox
98.7 F 112 19 105/67 94
06/07/24 11:20 06/07/24 07:30 06/07/24 07:30 06/07/24 07:30 06/07/24 07:37
Intake and Output
06/06/24 06/07/24 06/08/24
06:59 06:59 06:59
Intake Total 2925.0 / 3039.0 2073 / 2073
Output Total 1525 / 1605 750 / 750
Balance 1400.0 / 1434.0 1324 / 1324
SaO2 94
Physical Exam
General: Comfortable
HEENT: Normocephalic and Other (Tracheal stoma-no significant secretions)
Cardiovascular: S1-S2
Respiratory: Non-Labored Respirations
GI: Distended (obese) and Non Tender
Neurology: Awake, Alert, Oriented and No Motor Deficits
Skin: Other (Left lower extremity surgical incision/fasciotomies dressed. No evidence for acute bleeding. There is oozing of blood)
Labs/Micro/Reports
Lab Data
06/07/24 04:05
06/07/24 04:05
[2024-06-07] MEDS: MIRALAX 17 GRAMS PO (12:07)
[2024-06-07 12:46] LABS: Glucose - Point of Care 149 mg/dl (70-99)
--- NOTE | 2024-06-07 13:12 | PTCARENOTE ---
Wound Vac placed to LLE at bedside by vascular. Heparin gtt started at 800units/hr after wound vac placement. PTT ordered for 1645. Pt OOB to chair. PT/OT at bedside to eval pt. Flomax 0.4mg given to help with urinary retention. Pt able to
successfully void on own after administration.
--- NOTE | 2024-06-07 13:13 | W.PN.HOSP.TC ---
Addendum entered and electronically signed by Rock Urena MD 06/07/24 14:31:
Acute hypoxic respiratory failure, resolved
Addendum entered and electronically signed by Rock Urena MD 06/07/24 14:03:
Acute limb ischemia
-S/p left lower extremity mechanical thrombectomy. On heparin drip
-Complicated by hematoma compartment syndrome
- -S/p 4 compartment fasciotomy with vascular surgery
- -Again on heparin drip
- -Vascular surgery following closely, wound vacuum placed
- -PT OT consult
Acute blood loss anemia related to periop course requring fasciotomy.
-Transfuse for Hgb <7 per TRICC trial as there is no active acs at this time.
-Hemoglobin stable
Hypothyroidism continue levothyroxine
Pnr-wghricx-uxsgpsuah diabetes mellitus. Accu-Chek sliding scale goal blood glucose 1 40-1 80. Postoperatively can start carb controlled diet.
Hyperlipidemia continue Lipitor 10 mg
Anxiety depression continue antidepressives
Original Note:
Today's Communication/Plan
-
have pt/ot follow up
continue to monitor hgb
follow vascular surgery reccomondations
Assessment / Plan
Assessment / Plan
IMPRESSION:
68-year-old male presents with acute limb threatening ischemia secondary to an occluded femoral to femoral bypass graft. Patient was started on a heparin drip and will be taken to the OR for thrombectomy.
on 06/07- pt is POD 1 for fasciotomy
PLAN:
#Acute limb threatening ischemia
Past surgical history of femoral to femoral bypass graft and multiple stents of the left lower extremity
CTA abdomen pelvis with bilateral lower extremity runoff demonstrated an occluded femoral-femoral bypass graft, as well as high-grade stenosis of the left femoral anastomosis.
Status post thrombectomy, postop day 2
Continue patient on heparin drip
Patient admitted to ICU for every 1 hour neurovascular checks
Patient had episode of pulselessness, numbness and heaviness in left lower extremity. He was noted to have a hematoma in the area and it was thought to be bleeding into his groin.
Patient was taken for a stat CTA abdomen with lower extremity runoff.
Patient was then taken to emergent surgery where he received a left groin exploration and washout hematoma, as well as two left calf fasciotomies. Postop day 1
Vascular following
Will have conversation with vascular regarding starting patient on high intensity statin
Patient reports that his pain is not controlled on 0.5 Dilaudid every 4 hours
Dilaudid increased to 1 mg every 4 hours, pain was well-controlled
Following hemoglobin closely with Q8 H&H's and daily CBCs. Will transfuse if hemoglobin below 7. Type and screen has already been completed.
Patient started on carb controlled diabetic diet
Patient is upset about his postoperative complication and second surgery, he believes it is due to him being placed on heparin drip. Patient believes we should have called [facility] for input as this has happened to him before. Patient was on warfarin
before admission.
Left lateral fasciotomy (06/07)- POD 1
Consulted PT/OT
Ordered flomax 0.4 mg
Trend Hgb count
follow vascular surgery recommendations on how to proceed 06/07
#Hypothyroidism
Patient takes home dose levothyroxine 25 mcg p.o.
Restart home dose
#Gbh-hvxuzfq-dsnbwrbal diabetes mellitus
Patient takes home dose metformin 1000 mg p.o. twice daily
Blood glucose levels have been within acceptable parameters during inpatient, not going above 180.
Continue to hold while inpatient
#Hyperlipidemia
Patient takes atorvastatin 10 mg p.o.
Restart home dose
#Anxiety/depression
Currently holding home p.o. quetiapine 25
QTc on repeat EKG was 464
Restarted home dose
#CODE STATUS
Conversation was had with patient regarding his CODE STATUS, patient indicates that he would like to be full code however he would like no more than 5 minutes attempt at resuscitation during a cardiac event. Patient also requests that if he needs
to have a tube placed into his trachea, patient would like to attempt to do it himself
Diet: Carb controlled diabetic diet
DVT prophylaxis: Heparin drip
Full code
Data: CTA abdomen pelvis with bilateral lower extremity runoff
Impressions:.
1. Femoral to femoral bypass graft is occluded.
2. LEFT LOWER EXTREMITY: High-grade greater than 75% stenosis near the left femoral anastomosis of the femoral to femoral bypass graft. Occlusion of the left distal common femoral artery. Occlusion of the left SFA at its origin, with reconstitution
of the distal SFA. Reocclusion of the distal popliteal artery. Infrapopliteal disease as above.
3. RIGHT LOWER EXTREMITY: Occlusion of the right common iliac, internal iliac, and external iliac arteries. Femoral to femoral bypass graft is occluded. Right common femoral artery is reconstituted via body wall branches.
CT abdomen angiography with lower extremity runoff
Impressions:
1. Small focus of active arterial contrast extravasation at the left groin as above, posterior to common femoral artery and medial to medial circumflex artery. Associated large left groin hematoma.
2. Small focus of active arterial contrast extravasation in the left calf posterior to the peroneal artery. There is swelling of the left calf. Immediately deep to the surgical wound, there is small mixed density collection most likely
representing hematoma of the left calf. This is distant from the small focus of apparent active contrast extravasation.
3. Atherosclerotic changes as seen prior. 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 Patent left common iliac stent. Unchanged chronic occlusion right iliac arteries.
Anticipated Discharge: 24 - 48 hours
Subjective/Interval History
-
Date of Service: June 07, 2024
post fasciotomy complaint of pain in the left lower extremity. he took dilaudid and reported feeling a decrease in pain since then.
Objective Data
-
Labs:
Laboratory Results
06/07/24 06/07/24 06/07/24
04:05 04:05 04:05
WBC 9.0
Hgb 9.6 L 9.4 L
Hct 27.4 L 26.7 L
Plt Count 149
APTT
Sodium 141
Potassium 4.1
Chloride 108 H
Carbon Dioxide 26
BUN 17
Creatinine 1.0
Glucose 120 H
Calcium 7.4 L
06/07/24
16:45
WBC
Hgb
Hct
Plt Count
APTT Pending
Sodium
Potassium
Chloride
Carbon Dioxide
BUN
Creatinine
Glucose
Calcium
Vital Signs:
Vital Signs
Temp Pulse Resp BP Pulse Ox
98.7 F 125 19 115/93 95
06/07/24 11:20 06/07/24 12:00 06/07/24 12:00 06/07/24 11:43 06/07/24 12:00
I&O
06/06/24 06/07/24 06/08/24
06:59 06:59 06:59
Intake Total 2925.0 / 3039.0 2074 / 2074 480 / 480
Output Total 1525 / 1605 750 / 750 350 / 350
Balance 1400.0 / 1434.0 1324 / 1324 130 / 130
Review of Systems
-
History Source: Patient
All other systems: Reviewed and negative
Physical Exam
-
General: Well Developed and Well Nourished
HEENT: Normocephalic and Atraumatic
Respiratory: Clear to Auscultation
Cardiac: S1/S2
GI: Soft, Nontender and Nondistended
Skin: Warm, Dry and Other (peripheral pulses intact, no oozing or discharge noted from wound, able to move toes, left foot warm)
Psych: Calm
Data Reviewed
-
Labs: Labs Reviewed by me and Discussed with Physician
--- NOTE | 2024-06-07 14:12 | WOUNDNOTE ---
[facility] RN NOTE: Reviewed chart and spoke to Karrie Parrish NP at bedside. Plan is that patient will likely go home with wound vac to 2 left lower leg fasciotomy sites. Wound vac applied by vascular team today. Rental wound vac entered into [facility]. [employer]
request sent to [facility] and confirmation received. Large black foam requested for [employer]. CM aware of home wound vac order. Will continue to follow patient during in-patient stay.
--- NOTE | 2024-06-07 14:54 | CM ---
CM following re: discharge planning.
Discussed in Rounds, reviewed pt's chart, met with pt. Pt stated his sisters were visiting him earlier and they left. per pt, his friend will be here later today.
Pt is aware he will have wound vac at home and pt stated he had wound vac in the past. per pt he had [facility] in the past and now he is requested [facility]. A referral to [facility] made.
Per glass beveler, wound vas has been ordered with [facility].
PT and OT will evaluate the pt to determine a level of care at discharge.
D/C plan: home with [facility], wound vac and family support. Family to transport at discharge.
CM will follow with discharge plan updates as hospitalization progresses
--- NOTE | 2024-06-07 16:09 | PTCARENOTE ---
Increased swelling noted in pt LLE. All pulses in extremity present via doppler and warm to touch. Pt with full sensation and continues being able to move extremity. Vitals remain stable. Vascular ASPARAGUS CUTTER to bedside to assess. Per ASPARAGUS CUTTER no signs of bleeding
noted at this time. Plan to continue with neurovascular checks. ASPARAGUS CUTTER to discuss with Dr. Maharaj if further intervention needed.
--- NOTE | 2024-06-07 16:11 | W.PN.HOSP.TC ---
Today's Communication/Plan
-
PT/OT consult
Home wound vac care
Follow up outpatient for hgb
F/U urology outpatient
Assessment / Plan
Assessment / Plan
IMPRESSION:
68-year-old male presents with acute limb threatening ischemia secondary to an occluded femoral to femoral bypass graft. Patient was started on a heparin drip and will be taken to the OR for thrombectomy.
on 06/07- pt is POD 2 for fasciotomy
Pt is ready to be discharged when we find him
Ordered flomax 0.4 ( 06/08/24)
PLAN:
#Acute limb threatening ischemia
Past surgical history of femoral to femoral bypass graft and multiple stents of the left lower extremity
CTA abdomen pelvis with bilateral lower extremity runoff demonstrated an occluded femoral-femoral bypass graft, as well as high-grade stenosis of the left femoral anastomosis.
Status post thrombectomy, postop day 2
Continue patient on heparin drip
Patient admitted to ICU for every 1 hour neurovascular checks
Patient had episode of pulselessness, numbness and heaviness in left lower extremity. He was noted to have a hematoma in the area and it was thought to be bleeding into his groin.
Patient was taken for a stat CTA abdomen with lower extremity runoff.
Patient was then taken to emergent surgery where he received a left groin exploration and washout hematoma, as well as two left calf fasciotomies. Postop day 1
Vascular following
Will have conversation with vascular regarding starting patient on high intensity statin
Patient reports that his pain is not controlled on 0.5 Dilaudid every 4 hours
Dilaudid increased to 1 mg every 4 hours, pain was well-controlled
Following hemoglobin closely with Q8 H&H's and daily CBCs. Will transfuse if hemoglobin below 7. Type and screen has already been completed.
Patient started on carb controlled diabetic diet
Patient is upset about his postoperative complication and second surgery, he believes it is due to him being placed on heparin drip. Patient believes we should have called [facility] for input as this has happened to him before. Patient was on warfarin
before admission.
Left lateral fasciotomy (06/07)- POD 1
Consulted PT/OT
Ordered flomax 0.4 mg
Trend Hgb count
follow vascular surgery recommendations on how to proceed 06/08
#Hypothyroidism
Patient takes home dose levothyroxine 25 mcg p.o.
Restart home dose
#Wex-qfamiqt-gnjacaapm diabetes mellitus
Patient takes home dose metformin 1000 mg p.o. twice daily
Blood glucose levels have been within acceptable parameters during inpatient, not going above 180.
Continue to hold while inpatient
#Hyperlipidemia
Patient takes atorvastatin 10 mg p.o.
Restart home dose
#Anxiety/depression
Currently holding home p.o. quetiapine 25
QTc on repeat EKG was 464
Restarted home dose
#CODE STATUS
Conversation was had with patient regarding his CODE STATUS, patient indicates that he would like to be full code however he would like no more than 5 minutes attempt at resuscitation during a cardiac event. Patient also requests that if he needs
to have a tube placed into his trachea, patient would like to attempt to do it himself
Diet: Carb controlled diabetic diet
DVT prophylaxis: Heparin drip
Full code
Data: CTA abdomen pelvis with bilateral lower extremity runoff
Impressions:.
1. Femoral to femoral bypass graft is occluded.
2. LEFT LOWER EXTREMITY: High-grade greater than 75% stenosis near the left femoral anastomosis of the femoral to femoral bypass graft. Occlusion of the left distal common femoral artery. Occlusion of the left SFA at its origin, with reconstitution
of the distal SFA. Reocclusion of the distal popliteal artery. Infrapopliteal disease as above.
3. RIGHT LOWER EXTREMITY: Occlusion of the right common iliac, internal iliac, and external iliac arteries. Femoral to femoral bypass graft is occluded. Right common femoral artery is reconstituted via body wall branches.
CT abdomen angiography with lower extremity runoff
Impressions:
1. Small focus of active arterial contrast extravasation at the left groin as above, posterior to common femoral artery and medial to medial circumflex artery. Associated large left groin hematoma.
2. Small focus of active arterial contrast extravasation in the left calf posterior to the peroneal artery. There is swelling of the left calf. Immediately deep to the surgical wound, there is small mixed density collection most likely
representing hematoma of the left calf. This is distant from the small focus of apparent active contrast extravasation.
3. Atherosclerotic changes as seen prior. 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 Patent left common iliac stent. Unchanged chronic occlusion right iliac arteries.
Anticipated Discharge: Today
Subjective/Interval History
-
Date of Service: June 07, 2024
Patient is postoperative day 2 following a left lateral fasciotomy.
Pt has no acute complaints.
Objective Data
-
Labs:
Laboratory Results
06/07/24 06/07/24 06/07/24
04:05 04:05 04:05
WBC 9.0
Hgb 9.6 L 9.4 L
Hct 27.4 L 26.7 L
Plt Count 149
APTT
Sodium 141
Potassium 4.1
Chloride 108 H
Carbon Dioxide 26
BUN 17
Creatinine 1.0
Glucose 120 H
Calcium 7.4 L
06/07/24
16:45
WBC
Hgb
Hct
Plt Count
APTT Pending
Sodium
Potassium
Chloride
Carbon Dioxide
BUN
Creatinine
Glucose
Calcium
Vital Signs:
Vital Signs
Temp Pulse Resp BP Pulse Ox
100.3 F 116 22 126/80 97
06/07/24 15:35 06/07/24 15:00 06/07/24 15:00 06/07/24 15:00 06/07/24 14:00
I&O
06/06/24 06/07/24 06/08/24
06:59 06:59 06:59
Intake Total 2925.0 / 3039.0 2073 480 / 480
Output Total 1525 / 1605 750 / 750 350 / 350
Balance 1400.0 / 1434.0 1324 / 1324 130 / 130
Review of Systems
-
History Source: Patient
All other systems: Reviewed and negative
Physical Exam
-
General: Well Developed and Well Nourished
HEENT: Normocephalic and Atraumatic
Respiratory: Wheezes
Cardiac: S1/S2
GI: Soft, Nontender and Nondistended
Musculoskeletal: Other (there is wound vac on left lower extremity, sensation intact, pt able to wiggle toes, no oozing of blood from wound)
Neuro: Awake, Alert and Oriented
Psych: Calm
Data Reviewed
-
Labs: Labs Reviewed by me and Discussed with Physician
[2024-06-07 17:14] LABS: Glucose - Point of Care 162 mg/dl (70-99)
[2024-06-07 17:53] LABS: APTT 36.4 Sec (23.4-35.0)
[2024-06-07] MEDS: NOVOLOG FLEXPEN-LOW RESISTANCE 1 UNITS SC (18:11)
[2024-06-07] MEDS: LIPITOR 10 MG PO (18:11)
[2024-06-07 21:39] LABS: Glucose - Point of Care 149 mg/dl (70-99)
[2024-06-07] MEDS: SEROQUEL 25 MG PO (22:35)
[2024-06-08] VITALS (18 sets, daily range): BP systolic 95–144; BP diastolic 62–113; PULSE 102–136; O2SAT 94–95
--- NOTE | 2024-06-08 00:22 | PTCARENOTE ---
Pt received awake alert and oriented. Sinus tach on the monitor. L pedal and post tib pulses with strong doppler signals. Wound vac intact L leg. Assessment as chartd. Trach collar applied for sleep as pt's sat drops into 80s when sleeping.
[2024-06-08] MEDS: DILAUDID 1 MG IV (00:48)
[2024-06-08] MEDS: SYNTHROID 25 MCG PO (04:49)
[2024-06-08 05:54] LABS: % Basophils 0.5 % (0-2); % Eosinophils 6.8 % (0-6); % Immature Granulocytes 1.7 % (0-0.5); % Lymphocytes 19.1 % (20.5-51.1); % Monocytes 7.6 % (1.7-9.3); % Neutrophils 64.3 % (42.2-75.2); Absolute Eosinophils 0.6 10^3/uL (0-0.7); Absolute Immature Granulocytes 0.1 10^3/uL (0-0.05); Absolute Lymphocytes 1.6 10^3/uL (1.2-3.4); Absolute Monocytes 0.6 10^3/uL (0.1-0.6); Absolute Neutrophils 5.4 10^3/uL (1.4-6.5); Hematocrit 26.4 % (39.0-52.0); Hemoglobin 9.5 g/dL (13.0-18.0); Mean Corpuscular Hgb 30.1 pg (27.0-31.0); Mean Corpuscular Volume 83.5 fL (80.0-94.0); Mean Platelet Volume 10.4 fL (7.4-10.4); Nucleated Red Blood Cells % 0.4 % (-); Platelet Count 138 10^3/uL (130-400); Red Blood Cell Count 3.16 10^6/uL (4.70-6.10); Red Cell Dist. Width 12.8 % (11.5-14.5); White Blood Cell Count 8.3 10^3/uL (4.8-10.8)
[2024-06-08 05:59] LABS: INR 1.06; PT 13.8 Sec (11.4-14.6)
[2024-06-08 06:00] LABS: APTT 23.4 Sec (23.4-35.0)
[2024-06-08 06:16] LABS: ALT (SGPT) 14 U/L (0-50); AST (SGOT) 28 U/L (17-59); Albumin 3.1 g/dl (3.5-5.0); Alkaline Phosphatase 62 U/L (38-126); Blood Urea Nitrogen 14 mg/dl (9-20); Calcium 8.2 mg/dl (8.4-10.2); Carbon Dioxide 18 mmol/L (22-30); Chloride 109 mmol/L (98-107); Estimated Creatinine Clearance 109 ml/min; Glucose 116 mg/dl (70-99); Potassium 3.9 mmol/L (3.5-5.1); Sodium 137 mmol/L (135-145); Total Bilirubin 0.6 mg/dl (0.2-1.3); Total Protein 5.2 g/dl (6.3-8.2); eGFR > 60.00
--- NOTE | 2024-06-08 06:36 | PTCARENOTE ---
Pt slept well through night. No change in assessment.
--- NOTE | 2024-06-08 08:00 | PTCARENOTE ---
Assumed care of pt from shift manager RN. Pt AAOx3. Sinus Tach on electronic device monitor. SpO2 95% on room air. Speaking valve on at this time. VSS. LLE pulses present via Doppler. Neurovascular checks for LLE WDL. Wound Vac for L leg intact. Pt continues on
heparin gtt at 800uints/hr at this time. Plan to switch to Eliquis today. Case management to set up home care for wound vac management for potential discharge today.
[2024-06-08 08:45] LABS: Glucose - Point of Care 124 mg/dl (70-99)
[2024-06-08] MEDS: NOVOLOG FLEXPEN-LOW RESISTANCE SC ×2 (08:49→12:34)
--- NOTE | 2024-06-08 09:10 | W.PN.VS ---
Today's Communication / Plan
-
Seen and assessed with Dr. Cunningham
Assessment/Plan
-
Assessment: 68-year-old male POD #4Excision of left femoral portion of old/occluded fem-fem bypass, thrombectomy of left common femoral artery, profunda femoral artery, superficial femoral artery, popliteal artery via left groin exposure, below the
knee popliteal artery exposure, thrombectomy of tibial arteries via popliteal artery exposure. POD #3 Urgent left calf 4 compartment fasciotomies. Evacuation hematoma and control of bleeding, urgent exploration left groin, evacuation hematoma,
control of bleeding. POD #2 Exploration left lateral fasciotomy site with evacuation hematoma/washout. Control of bleeding.
Plan:
Can transition from heparin to Eliquis 5 twice daily today
Case management, home health with wound VAC
If patient is discharged today I will change his wound VAC right before he leaves since it is a holiday weekend and wound care will likely not come out until Tuesday
Subjective Data
-
Date of Service: June 08, 2024
Patient seen at bedside this a.m. with Dr. Cunningham. Patient offers no complaints at this time. Wound VAC intact, no leak
Objective Data
-
Vital Signs
Temp Pulse Resp BP Pulse Ox
98.4 F 97 15 106/66 91
06/08/24 07:30 06/08/24 06:00 06/08/24 06:00 06/08/24 06:00 06/08/24 06:00
Intake and Output
06/07/24 06/08/24 06/09/24
06:59 06:59 06:59
Intake Total 2074 / 2074 976 / 976
Output Total 750 / 750 1100 / 1100
Balance 1324 / 1324 -124 / -124
Intake:
Oral fluids 640 / 640 880 / 880
IV fluids (Total) 1184 / 1184 96 / 96
Normosol 100 / 100
Nss 1,000 ml @ 100 mls/hr IV . 1000 / 1000
Q10H [facility] Rx#:[id number]
heparin 84 / 84 96 / 96
Blood Product Amount Infused ( 250 / 250
mL)
Packed Rbc Leukoreduced Unit 250 / 250
[id number]
Output:
Urine, Cunningham 200 / 200
Urine, Voided 0 / 0 1100 / 1100
Straight cath output 550 / 550
Other:
Number of approximated MODERATE 1
amounts of urine
Lab Results
06/08/24 05:38
06/08/24 05:38
Calcium 8.2 mg/dl (8.4-10.2) L 06/08/24 05:38
Phosphorus 4.4 mg/dl (2.5-4.5) 06/05/24 08:18
Magnesium 1.8 mg/dl (1.6-2.3) 06/05/24 08:18
Total Bilirubin 0.6 mg/dl (0.2-1.3) 06/08/24 05:38
AST 28 U/L (17-59) 06/08/24 05:38
ALT 14 U/L (0-50) 06/08/24 05:38
Alkaline Phosphatase 62 U/L (38-126) 06/08/24 05:38
Total Protein 5.2 g/dl (6.3-8.2) L 06/08/24 05:38
Albumin 3.1 g/dl (3.5-5.0) L 06/08/24 05:38
Physical Exam
-
AAOx3
No tachypnea on RA
Mild tachycardia 102
Abd soft
Left groin joe dressing CDI, left calf fasciotomy VAC intact with minimal serosanguineous drainage, left DP Doppler signal present
+2 edema from toes to knee
Left foot warm
[2024-06-08] MEDS: ROXICODONE 10 MG PO (10:37)
[2024-06-08] MEDS: ELIQUIS 5 MG PO (10:37)
[2024-06-08] MEDS: MIRALAX 17 GRAMS PO (10:37)
[2024-06-08] MEDS: FLOMAX 0.4 MG PO (11:58)
--- NOTE | 2024-06-08 12:17 | W.PN.INTV ---
Today's Communication / Plan
Recommendations
Continue postoperative care
Anticoagulation
Monitor H&H
Wound care
Tracheal ostomy care
Analgesia
Discharge planning
Signed off
Assessment
-
68-year-old man with past medical history noted, admitted with acute left lower extremity pain, found to have critical limb ischemia: Taken to the operating room 06/05/2024 for thrombectomy. Subsequently transferred to the critical care unit. In
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 Found to have compartment syndrome and taken back to the operating room for fasciotomies.
Critical limb ischemia:Status post left mechanical thrombectomy 06/05/2024
CTA abdomen pelvis with bilateral lower extremity runoff
Impressions:.
1. Femoral to femoral bypass graft is occluded.
2. LEFT LOWER EXTREMITY: High-grade greater than 75% stenosis near the left femoral anastomosis of the femoral to femoral bypass graft. Occlusion of the left distal common femoral artery. Occlusion of the left SFA at its origin, with
reconstitution of the distal SFA. Reocclusion of the distal popliteal artery. Infrapopliteal disease as above.
3. RIGHT LOWER EXTREMITY: Occlusion of the right common iliac, internal iliac, and external iliac arteries. Femoral to femoral bypass graft is occluded. Right common femoral artery is reconstituted via body wall branches.
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
Back to the OR by Dr. Maharaj for fasciotomy/Washout hematoma of the left groin
Conditions present prior admission:
Former heavy smoker
Hypothyroidism
Type 2 diabetes
Hyperlipidemia
Anxiety and depression
Overweight
Head and neck cancer status post radiation/surgical/laryngectomy intervention-tracheal stoma with a voicebox.
History of peripheral vascular disease: Femoral-femoral bypass, iliac plus superior femoral artery stents,
History of prior exploratory laparotomy
Assessment and plan:
-
Postoperative day 3
After thrombectomy has developed compartment syndrome of the left calf.
Status post left groin washout hematoma/calf fasciotomies 06/05/2024 postoperatively.
Back to the OR 06/06/2024 for control of bleeding on fasciotomy.
-
Transition to oral anticoagulation
No evidence for bleeding on heparin drip.
Hemoglobin is stable
Continue with wound care per vascular surgery.
-
Oral regimen for pain control.
-
Hemodynamically so far stable, not requiring vasopressors.
Vascular surgery correspondence reviewed. Okay to increase mobility.
Discharge planning ongoing per
-
Type 2 diabetes: Goal blood sugar 100 4180
Insulin sliding scale
-
Status post laryngectomy: Stoma noted without bleeding.
Tracheotomy care -Routine
Chest x-ray without acute infiltrates
Continue with tracheotomy as we are doing. Patient has a voicebox. He is unable to phonate with Passy-Mau valve
He usually follows up at [facility].
-
Tolerating diet
Continue aspiration precaution
-
DVT prophylaxis- follow PTT
Physical therapy/Occupational Therapy as able
-
Transition to intermediate care unit. Discharge planning ongoing.
Critical care team will sign off.
Please call pulmonary if any respiratory issues arise.
Subjective Dataa
Subjective Data
Date of Service:
Date of Service: June 08, 2024
Chief Complaint: Lawn Care Technician Follow Up (Status post left lower extremity mechanical thrombectomy, groin hematoma, left calf compartment syndrome postoperatively.)
Subjective:
Patient offers no new complaints
Pain is controlled
Denies shortness of breath at rest.
Review of Systems
General: Fever (n)
Cardiopulmonary: Dyspnea (none at rest)
GI: Abdominal Pain (n) and Nausea (n)
Neuro: Headache (n)
Objective Data
Data Reviewed
Vital Signs / I&O / Oxygen:
Vital Signs
Temp Pulse Resp BP Pulse Ox
99.1 F 110 19 113/72 95
06/08/24 11:53 06/08/24 09:00 06/08/24 09:00 06/08/24 08:06 06/08/24 11:50
Intake and Output
06/07/24 06/08/24 06/09/24
06:59 06:59 06:59
Intake Total 2074 / 2074 976 / 976
Output Total 750 / 750 1100 / 1100
Balance 1324 / 1324 -124 / -124
SaO2 95
Physical Exam
General: Comfortable
HEENT: Normocephalic and Other (Tracheal stoma-no significant secretions)
Cardiovascular: S1-S2
Respiratory: Non-Labored Respirations
GI: Distended (obese) and Non Tender
Neurology: Awake, Alert, Oriented, AO x 3 and No Motor Deficits
Skin: Other (Left lower extremity surgical incision/fasciotomies dressed. No evidence for acute bleeding. There is oozing of blood)
Labs/Micro/Reports
Lab Data
06/08/24 05:38
06/08/24 05:38
Laboratory Results
06/07/24 06/08/24
17:34 05:38
PT 13.8
INR 1.06
APTT 36.4 H 23.4
[2024-06-08 12:28] LABS: Glucose - Point of Care 128 mg/dl (70-99)
--- NOTE | 2024-06-08 12:51 | VNURNOTE ---
Home Health Liaison met with patient and sister at bedside to discuss [facility] nurse/therapy, visits, schedule and homebound status. Patient is agreeable and understands that visits at home will be 2-3 x per week to assess and teach medical management.
He has had a wound vac in the past. Patient independent with trach and uses [facility]. [facility] brochure provided with contact information. Patient is aware that [facility] will contact them for start of care in 1-2 days after discharge from .
Confirmed with [facility] nurse Marmolejo that home wound vac approved and will be delivered to patient's hospital room. ELAINE Albarado aware. [facility] Intake aware and referral accepted.
--- NOTE | 2024-06-08 13:24 | W.PN.UPDATE ---
Update Note
Progress Note Update
Seen and examined. No new complaints. No acute overnight events.
Sitting in bedside chair comfortable without acute complaints.
Comfortable, no acute distress, sitting in bedside chair
PassyMari in place
Tachycardic
Normal S1-S2
CTA bilateral
Left lower extremity fasciotomy covered with wound VAC
Acute limb ischemia
-S/p left lower extremity mechanical thrombectomy. On heparin drip
-Complicated by hematoma compartment syndrome
- -S/p 4 compartment fasciotomy with vascular surgery
- -Transition heparin drip to Eliquis 5 mg twice daily indefinitely
- -Vascular surgery following closely, wound vacuum placed
- - -Case management working on home wound VAC once delivered, per vascular surgery can be discharged
- - -If being discharged on 06/08/2024 then VAC dressing should be changed.
- -PT OT consult
Had a fever on 06/07/2024. Has not recurred. No white count. As this is 24 hours out now without evidence of infection we will go ahead and likely discharge home later today
-If febrile again we will get blood cultures start antibiotics and will cancel discharge
Acute blood loss anemia related to periop course requring fasciotomy.
-Transfuse for Hgb <7 per TRICC trial as there is no active acs at this time.
-Hemoglobin stable
Hypothyroidism continue levothyroxine
Jpq-txjqffn-pvpjwzzbf diabetes mellitus. Accu-Chek sliding scale goal blood glucose 1 40-1 80. Postoperatively can start carb controlled diet.
Hyperlipidemia continue Lipitor 10 mg
Anxiety depression continue antidepressives
--- NOTE | 2024-06-08 13:51 | WOUNDNOTE ---
[facility] RN NOTE: Patient visited for discharge planning. Confirmed with Jelly Beltran that adaptic will be applied under black foam. Order updated and VN notified of order update. Patient given instruction on home wound vac use. He has used a home vac
in the past and demonstrated ability to apply canister and charge vac. All instructions reviewed and patient states understanding. Confirmed with Ericka at [facility] that large black foam will be sent to patients home (patient going home with medium that
can be used until large foam arrives). Also confirmed with Jelly that she will change vac dressing prior to discharge. All supplies for vac changed at bedside. DEWEY Villegas updated.
--- NOTE | 2024-06-08 14:02 | W.PN.HOSP.TC ---
Today's Communication/Plan
-
PT/OT consult
Home wound vac care/ vascular surgery will change his wound vac today before discharging him
Follow up outpatient for hgb
F/U urology outpatient
Heparin was changed to eliquis 5 a day
Assessment / Plan
Assessment / Plan
IMPRESSION:
68-year-old male presents with acute limb threatening ischemia secondary to an occluded femoral to femoral bypass graft. Patient was started on a heparin drip and will be taken to the OR for thrombectomy.
on 06/07- pt is POD 2 for fasciotomy
Pt is ready to be discharged when we find him home wound vac care.
Also try to arrange pt/ot care
Ordered flomax 0.4 ( 06/08/24)
PLAN:
#Acute limb threatening ischemia
Past surgical history of femoral to femoral bypass graft and multiple stents of the left lower extremity
CTA abdomen pelvis with bilateral lower extremity runoff demonstrated an occluded femoral-femoral bypass graft, as well as high-grade stenosis of the left femoral anastomosis.
Status post thrombectomy, postop day 2
Continue patient on heparin drip
Patient admitted to ICU for every 1 hour neurovascular checks
Patient had episode of pulselessness, numbness and heaviness in left lower extremity. He was noted to have a hematoma in the area and it was thought to be bleeding into his groin.
Patient was taken for a stat CTA abdomen with lower extremity runoff.
Patient was then taken to emergent surgery where he received a left groin exploration and washout hematoma, as well as two left calf fasciotomies. Postop day 1
Vascular following
Will have conversation with vascular regarding starting patient on high intensity statin
Patient reports that his pain is not controlled on 0.5 Dilaudid every 4 hours
Dilaudid increased to 1 mg every 4 hours, pain was well-controlled
Following hemoglobin closely with Q8 H&H's and daily CBCs. Will transfuse if hemoglobin below 7. Type and screen has already been completed.
Patient started on carb controlled diabetic diet
Patient is upset about his postoperative complication and second surgery, he believes it is due to him being placed on heparin drip. Patient believes we should have called [place] for input as this has happened to him before. Patient was on warfarin
before admission.
Left lateral fasciotomy (06/07)- POD 1
Consulted PT/OT
Ordered flomax 0.4 mg
Trend Hgb count
Vasc surgery will change his wound vac before he gets discharged home (06/08)
#Hypothyroidism
Patient takes home dose levothyroxine 25 mcg p.o.
Restart home dose
#Vqm-pucjvrj-grtpxafhw diabetes mellitus
Patient takes home dose metformin 1000 mg p.o. twice daily
Blood glucose levels have been within acceptable parameters during inpatient, not going above 180.
Continue to hold while inpatient
#Hyperlipidemia
Patient takes atorvastatin 10 mg p.o.
Restart home dose
#Anxiety/depression
Currently holding home p.o. quetiapine 25
QTc on repeat EKG was 464
Restarted home dose
#CODE STATUS
Conversation was had with patient regarding his CODE STATUS, patient indicates that he would like to be full code however he would like no more than 5 minutes attempt at resuscitation during a cardiac event. Patient also requests that if he needs
to have a tube placed into his trachea, patient would like to attempt to do it himself
Diet: Carb controlled diabetic diet
DVT prophylaxis: Heparin drip
Full code
Data: CTA abdomen pelvis with bilateral lower extremity runoff
Impressions:.
1. Femoral to femoral bypass graft is occluded.
2. LEFT LOWER EXTREMITY: High-grade greater than 75% stenosis near the left femoral anastomosis of the femoral to femoral bypass graft. Occlusion of the left distal common femoral artery. Occlusion of the left SFA at its origin, with reconstitution
of the distal SFA. Reocclusion of the distal popliteal artery. Infrapopliteal disease as above.
3. RIGHT LOWER EXTREMITY: Occlusion of the right common iliac, internal iliac, and external iliac arteries. Femoral to femoral bypass graft is occluded. Right common femoral artery is reconstituted via body wall branches.
CT abdomen angiography with lower extremity runoff
Impressions:
1. Small focus of active arterial contrast extravasation at the left groin as above, posterior to common femoral artery and medial to medial circumflex artery. Associated large left groin hematoma.
2. Small focus of active arterial contrast extravasation in the left calf posterior to the peroneal artery. There is swelling of the left calf. Immediately deep to the surgical wound, there is small mixed density collection most likely
representing hematoma of the left calf. This is distant from the small focus of apparent active contrast extravasation.
3. Atherosclerotic changes as seen prior. 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 Patent left common iliac stent. Unchanged chronic occlusion right iliac arteries.
Anticipated Discharge: Today
Subjective/Interval History
-
Date of Service: June 08, 2024
Pt has no acute complaints.
He is waiting for his wound vac to be changed and home set up for wound vac so that he can be discharged.
Objective Data
-
Labs:
Laboratory Results
06/08/24
05:38
WBC 8.3
Hgb 9.5 L
Hct 26.4 L
Plt Count 138
PT 13.8
INR 1.06
APTT 23.4
Sodium 137
Potassium 3.9
Chloride 109 H
Carbon Dioxide 18 L
BUN 14
Creatinine 0.8
Glucose 116 H
Calcium 8.2 L
Total Bilirubin 0.6
AST 28
ALT 14
Alkaline Phosphatase 62
Vital Signs:
Vital Signs
Temp Pulse Resp BP Pulse Ox
99.1 F 110 19 113/72 95
06/08/24 11:53 06/08/24 09:00 06/08/24 09:00 06/08/24 08:06 06/08/24 11:50
I&O
08/06/08/24 06/09/24
06:59 06:59 06:59
Intake Total 2073 / 2073 976 / 976 360 / 360
Output Total 750 / 750 1100 / 1100 650 / 650
Balance 1324 / 1324 -124 / -124 -290 / -290
Review of Systems
-
History Source: Patient
All other systems: Reviewed and negative
Physical Exam
-
General: Well Developed and Well Nourished
HEENT: Normocephalic and Atraumatic
Respiratory: Wheezes
Cardiac: S1/S2
GI: Soft, Nontender and Nondistended
Musculoskeletal: Other (there is wound vac on left lower extremity, sensation intact, pt able to wiggle toes, no oozing of blood from wound))
Neuro: Awake, Alert and Oriented
Psych: Calm
Data Reviewed
-
Labs: Labs Reviewed by me and Discussed with Physician
--- NOTE | 2024-06-08 15:36 | W.PN.UPDATE ---
Update Note
Progress Note Update
Home VAC placed at bedside, joe also changed
Per case management home care will be out to see the patient on Tuesday for VAC change
--- NOTE | 2024-06-08 16:01 | CM ---
met with patient at [facility].he is stable for dc home today.dressings changed and home vac placed. called patient's [facility] in [place].cost of eliquis is $660 without insurance.ins co wants a pre cert of med.gave this info to resident so
hopefully patient can be covered.doctor asked cm to give eliquis coupon to [facility].
also called janna harden from [facility] and vn will visit on tuesday.patient signed imm letter.his female friend will pick hiim up around 4:30pm.attending aware of dc plans.dc home with [facility].
--- NOTE | 2024-06-08 16:07 | W.[place]-PDMP ---
[place]-PDMP
-
Checked the [place]- Prescription Drug Monitoring Program website, no red flags identified; safe to proceed with prescription.
[2024-06-08] MEDS: DILAUDID 0.5 MG IV (16:24)
--- NOTE | 2024-06-12 11:01 | WOUNDNOTE ---
[facility] RN NOTE: Patient discharged 07/09. Proof of Delivery form successfully faxed to [facility] on 06/12. 3 M [employer] updated and wound vac will be picked up from ICU [facility] [employer].
== END 2024-06-08 17:30 | disposition home or self-care (01) | DRG 252 ==
LOC: ICU 15:38
PROVIDERS: Nurse Practitioner; Nurse Practitioner Family; Physician Assistant; Surgery Vascular Surgery; ADMITTING PHYSICIAN Hospitalist; CONSULT PHYSICIAN Internal Medicine Critical Care Medicine; EMERGENCY PHYSICIAN Emergency Medicine; FAMILY PHYSICIAN Internal Medicine; OTHER PHYSICIAN Surgery Vascular Surgery
PROC: 0KNT0ZZ Release Left Lower Leg Muscle, Open Approach (ICD-10-PCS; 2024-06-05)
PROC: 04CN0ZZ Extirpation of Matter from Left Popliteal Artery, Open Approach (ICD-10-PCS; 2024-06-05)
PROC: 04WY07Z Revision of Autologous Tissue Substitute in Lower Artery, Open Approach (ICD-10-PCS; 2024-06-05)
PROC: 06L Lower Veins, Occlusion (ICD-10-PCS; 2024-06-05)
PROC: 30233N1 Transfusion of Nonautologous Red Blood Cells into Peripheral Vein, Percutaneous Approach (ICD-10-PCS; 2024-06-05)
PROC: 0Y3J0ZZ Control Bleeding in Left Lower Leg, Open Approach (ICD-10-PCS; 2024-06-05)
DX: T82.868A Thrombosis due to vascular prosthetic devices, implants and grafts, initial encounter (principal); J96.01 Acute respiratory failure with hypoxia; D62 Acute posthemorrhagic anemia; I74.3 Embolism and thrombosis of arteries of the lower extremities; T79.A22A Traumatic compartment syndrome of left lower extremity, initial encounter; M96.841 Postprocedural hematoma of a musculoskeletal structure following other procedure; E11.51 Type 2 diabetes mellitus with diabetic peripheral angiopathy without gangrene; E03.9 Hypothyroidism, unspecified; E78.00 Pure hypercholesterolemia, unspecified; I10 Essential (primary) hypertension; F32.A Depression, unspecified; F41.9 Anxiety disorder, unspecified; E66.3 Overweight; Z68.30 Body mass index [BMI] 30.0-30.9, adult; Z93.0 Tracheostomy status; Z92.3 Personal history of irradiation; Z87.891 Personal history of nicotine dependence; Z85.89 Personal history of malignant neoplasm of other organs and systems; Z85.819 Personal history of malignant neoplasm of unspecified site of lip, oral cavity, and pharynx; Z79.84 Long term (current) use of oral hypoglycemic drugs; Y83.2 Surgical operation with anastomosis, bypass or graft as the cause of abnormal reaction of the patient, or of later complication, without mention of misadventure at the time of the procedure; Y83.8 Other surgical procedures as the cause of abnormal reaction of the patient, or of later complication, without mention of misadventure at the time of the procedure
CPT/HCPCS: 88304; 27600; 27602; 35860; 71045; 75635; 80048; 80053; 81003; 82962; 83036; 83735; 84100; 84484; 85014; 85018; 85025; 85027; 85610; 85730; 86803; 86850; 86900; 86901; 86920; 92610; 93005; 96374; 96375; 97116; 97163; 97167; 97530; 97535; 99291; C1757; P9016; Q9967

== ENCOUNTER 2024-06-15 14:24 | Inpatient (IN) | payer MEDICARE, SELFPAY ==
[2024-06-15] VITALS (7 sets, daily range): BP systolic 96–127; BP diastolic 67–84; BMI 28.6
--- NOTE | 2024-06-15 11:42 | ED.GENMED ---
History of Present Illness
General
Chief Complaint: Fever
Source: patient, records and spouse
Time Seen by Provider: 06/15/24 11:23
History of Present Illness
History of Present Illness:
68-year-old female with past medical history of peripheral arterial disease status post thrombectomy, lower extremity fasciotomy, previous femorofemoral bypass, throat/neck cancer, eqo-gdtfyio-ewvcqkavp diabetes presenting to the emergency
department for evaluation at request of his wound care visiting nurse for evaluation of a low-grade fever and fasciotomy wounds apparently 'not looking good'. Patient states he did take Tylenol with his oxycodone around 8:30 AM and notes that he
had no relief of his pain, had been unaware that he had a fever. He denies any focal weakness/numbness, color changes, range of motion difficulties. Patient notes that due to his extensive past medical history he does have a fairly high tolerance
for pain but does note that upon his discharge he was given 5 mg of oxycodone which has not given him any relief. Patient notes that while he was admitted he did receive some relief with IV Dilaudid. Denies any chest pain, cough, shortness of
breath, exertional dyspnea, pleurisy or hemoptysis.
Past History
Past History
ED Past Medical History: Cancer, Hypercholesterolemia, NIDDM, Psychiatric and Other (PAD)
ED Past Surgical History: Other
Social History
Tobacco: Former smoker
Alcohol: None
Drug: None
Personal:
Living: with family
Review of Systems
Review of Systems
All Other Systems: ROS reviewed and negative except as documented in HPI and ROS
Phy Exam
Physical Exam
Physical Exam:
GENERAL: Alert , in no apparent distress
EYE: Clear conjunctiva
NECK: Supple, tracheostomy in place without any surrounding signs of infection
ENT: o/p clr, mmm.
CARDIAC: Tachycardic rate and rhythm, baseline for patient
LUNGS: Clear breath sounds bilaterally, no acute respiratory distress, no wheezes/rales/rhonchi
NEUROLOGICAL: Alert and oriented
SKIN: Warm and dry, fasciotomy wounds noted. No active bleeding surrounding tissues well-perfused and without any signs of infection.
MUSCULOSKELETAL: Left lower extremity edema noted however patient states that this has been his baseline since his surgery, well perfused. Dopplerable pedal and tibial pulses. Patient able to range of motion left foot and ankle without difficulty.
Sensation grossly intact light touch
PSYCH: Normal and appropriate interaction.
Scores
Heart Failure Risk
Heart Failure Risk Score: Not Applicable
Heart Score for Chest Pain Patients
STEMI patient?: Not applicable
Withdrawal Assessment of Alcohol
Withdrawal Assessment Completed?: Not applicable
Course
Orders/Labs/Results
Orders:
Orders
06/15/24 11:31
HYDROmorphone [Dilaudid] 1 mg IV NOW STA
06/15/24 12:37
Basic Metabolic Panel Urgent
COVID-19 Antigen Urgent
Source: Nasal Swab
Complete Blood Count/With Diff Urgent
Lactic Acid Q4H
Comment: CANCEL 2nd LACTIC ACID IF 1st LACTIC ACID IS LESS THAN 2
06/15/24 13:40
Piperacillin/Tazo 3.375 Gram [Zosyn] 3.375 gram in 50 ml IV NOW
06/15/24 14:00
Vancomycin [Vancocin] 2,000 mg 0.9% Sodium Chloride 500 ml [Nss] 500 ml IV NOW
06/15/24 14:12
Admit/Transfer Patient As Directed
Co-Sign Provider:
Level of Care: Inpatient admission
Assign to:: Medical/Surgical
Physician / Group: carmen
Diagnosis: sepsis wound infection
Reason for Hospitalization: sepsis wound infection
Expected length of stay greater than two midnights?: Yes
ELOS- Estimated Length of Stay in days: 2
I certify the patient meets the requirements for IP care: Yes
Code Status As Directed
Resuscitation Status: Full Code
PRN Pain Medication Management As Directed
May give lesser potent ordered pain med per pt: Yes
preference::
Protocol:: Medication orders for pain may be administered in a
manner that supports deferring to patient preference
when the pt is:
- Requesting an ordered lesser potent pain medication.
Least to most potent pain medications are defined
as: acetaminophen < NSAID < tramadol < opioids
(morphine, oxycodone, hydromorphone).
- Requesting a lesser dose of the same medication IF
ORDERED.
- Requesting a less intrusive route of administration
if both routes are prescribed by the provider (PO <
IV).
06/15/24 14:16
Blood Culture Urgent
FROILAN Source: Blood/Venous
Specimen Description:
Abnormal Lab Results
06/15/24
12:37
WBC 22.8 H 10^3/uL
(4.8-10.8)
RBC 3.89 L 10^6/uL
(4.70-6.10)
Hgb 11.5 L g/dL
(13.0-18.0)
Hct 34.2 L %
(39.0-52.0)
Plt Count 420 H 10^3/uL
(130-400)
Abs Immat Gran (auto) 0.4 H 10^3/uL
(0-0.05)
Absolute Neuts (auto) 20.1 H 10^3/uL
(1.4-6.5)
Absolute Lymphs (auto) 0.7 L 10^3/uL
(1.2-3.4)
Absolute Monos (auto) 1.6 H 10^3/uL
(0.1-0.6)
Immature Gran % 1.5 H %
(0-0.5)
Neutrophils % 88.2 H %
(42.2-75.2)
Lymphocytes % 3.1 L %
(20.5-51.1)
Carbon Dioxide 21 L mmol/L
(22-30)
Glucose 151 H mg/dl
(70-99)
06/15/24 12:37
06/15/24 12:37
Vital Signs
Initial and Last Documented VS:
Initial Vital Signs
Temp Pulse Resp BP Pulse Ox
97.7 F 124 18 117/74 98
06/15/24 10:58 06/15/24 10:58 06/15/24 10:58 06/15/24 10:58 06/15/24 10:58
Last Documented Vital Signs
Temp Pulse Resp BP Pulse Ox
97.7 F 95 26 124/71 92
06/15/24 10:58 06/15/24 14:30 06/15/24 14:30 06/15/24 14:03 06/15/24 14:30
MDM/Problems Addressed
Differential Diagnosis Includes:
Postoperative pain, postoperative infection, afebrile here but will check COVID test, PE considered given his tachycardia and recent surgeries however tachycardia seems to be right around baseline
MDM/Problems Addressed:
68-year-old male presenting to the emergency department at request of visiting nurse for evaluation of low-grade fever and reportedly felt possible infection to the fasciotomy wounds. Patient noting significant pain despite oxycodone. Likely needs
different medication to help control pain as this clearly does not seem to be working. Patient is afebrile here. Will check labs and covid test. Plan to consult with vascular surgery. Anticipated d/c home with medication adjustments for pain relief.
Chronic conditions affecting care: PVD
*Pulse Oximetry
Patient hypoxic: no
*Metallurgist Process Interpretation
Rate: tachycardiac
Rhythm: sinus
*Critical Care Note
Total Time (30-74mins, 75-104mins- exclusive of procedures): Not Applicable
Data Reviewed
Review of Other/Old Records Reveals: Labs, Records, Operative Reports and Discharge Summary
Source: patient and records
Patient Management
Discussion with other providers: Hospitalist and Vehicle Monitor Technician
Escalation/DeEscalation of care consider admission/obs:
Patient seen by vascular team. If labs unremarkable and patient's pain is controlled we can discharge home with 7-day course of Augmentin and pain control. Unfortunately patient's labs revealed a significant leukocytosis which nearly tripled from
his discharge labs. Given the worsening leukocytosis I recontacted vascular surgery who requested patient be admitted for IV antibiotics and monitoring. Hospitalist team accepts for continued evaluation and treatment.
ED Attending Note
-
Portions of this chart may have been created with voice recognition software.� Occasional wrong word or��sound alike� substitutions may have occurred due to the inherent limitations of voice recognition software.
Discharge Plan
Departure
Patient Disposition: Admit
Date of Disposition: 06/15/24
Time of Disposition: 13:43
Presentation/result/management discussed w/ accepting MD/DO: Hospitalist
Discharge Problem:
Post-operative pain, Fever
Interventions
Interventions:
*Risk Screen - Suicide Last Done: 06/15/24 12:05
*General Assessment Last Done: 06/15/24 12:05
*Neglect/Abuse Screening Last Done: 06/15/24 12:05
ED- Fall Risk Assessment Last Done: 06/15/24 12:05
*ED COVID-19 Vaccine History Last Done: 06/15/24 12:05
ED- Neurological Assessment Last Done: 06/15/24 12:05
ED-Skin Assessment Last Done: 06/15/24 12:05
--- NOTE | 2024-06-15 12:14 | CON.VAS ---
Addendum entered and electronically signed by Jaswant Cunningham III, MD 06/15/24 16:22:
Patient seen and examined with Karrie VICENTE. I agree with the history, physical exam and assessment/plan.
Well known to vascular surgery following recent episode of ALI, LLE requiring thrombectomy and fasciotomy. Post op course notable for bleeding requiring return to OR.
Returns with pain in the left leg, swelling and subjective temps
Oxycodone at home not helping
On exam he is nontoxic
Dopp PT and DP on the left
Foot pink/warm
Fasc sites grossly healthy muscle and beefy red
Groin incision clean/dry, no obvious infection
WBC 22
Admit to hospitalist for pain mgmt
Local wound care to left leg. VAC
Fever workup
IV ABX
Will follow peripherally
Call with questions/concerns
[id number]
Vascular Surgery
Addendum entered and electronically signed by JULES Burt 06/15/24 13:43:
Leukocytosis with WBC at 22.8 would recommend admission to hospitalist service for management and IV antibiotics with continued surveillance.
Original Note:
Consultation
Consultation Request
Date/Time Consultation Performed: 06/15/2024 1210
Requesting Provider: Landen Carr PA-C
Performing Provider: Karrie Parrish NP-C for Jaswant Cunningham III, MD
Reason for Consultation: Post op fever and pain
Medical History
-
Chief Complaint: Fever
History of Present Illness:
This is a 68-year-old male patient with significant past medical history for throat cancer, diabetes, hypertension, depression, hypothyroidism, peripheral arterial disease, and recent hospitalization for acute left lower extremity critical limb
threatening ischemia who presents to ER today from home with reports of fever and poorly controlled postoperative pain management. Patient was recently hospitalized from 06/04/24-06/08/24 for left lower extremity acute limb threatening ischemia and
underwent excision of left femoral old/occluded fem-fem bypass and thrombectomy of left common, profunda, and superficial femoral arteries and popliteal artery on 06/04/2024. Surgical course was complicated by compartment syndrome/left groin
hematoma and he subsequently underwent left calf 4 compartment fasciotomy with evacuation of hematoma and control of bleeding and left groin exploration with evacuation of hematoma and control bleeding on 06/05/2024. He was discharged with wound VAC
dressing on 06/08/2024. He reports today to ER at urgency of wound care nurse when she noted a Tmax of 100 today at her visit. Currently he is afebrile. Additionally, he notes continued severe pain despite prescribed oxycodone. He endorses a
high tolerance for oxycodone following his cancer treatments, but notes he was discharged on oxycodone and experiences continued [id number] discomfort at fasciotomy incisions. He denies pain at left groin. He denies chills, nausea, vomiting,
decreased motor function, or paresthesia. At home he is utilizing wound VAC for dressing care and notes that drainage is serous, he denies purulence or foul-smelling output. He does note that he is even progressed to minimal amounts of ambulation
around his home. He denies any acute onset change in pain, but that pain has never really been managed since discharge. He does endorse that he is required to increase the dose of his oxycodone, and on Monday 06/11 called the vascular on-call phone
number because he was running out of prescribed pain medication and was not receiving sufficient pain management. At the time on-call physician sent over an electronic prescription for additional oxycodone but patient endorses that it has not
helped his pain. He does have notable edema at calf but endorses this is not worsened or changed since discharge.
Past Medical History
Past Medical History: Cancer (Throat in remission ), HTN, Hypothyroidism, NIDDM, Psychiatric (Depression) and Other (PAD, HLD, tracheostomy)
Past Surgical History: Other (fem-fem bypass, iliac and SFA stent 10+ years ago at [facility] with Dr Pina, laryngectomy, exploratory laparotomy)
Social History
Tobacco: Former Smoker (50-year smoking 3 packs a day)
Alcohol: Occasional
Drug: None
Personal: Partner
Living: With Family
Allergies / Home Medications
Allergy/AdvReac Type Severity Reaction Status Date / Time
No Known Allergies Allergy Unverified 06/04/24 12:26
�Medication �Instructions �Recorded �Confirmed �Type
atorvastatin 10 mg tablet (Lipitor) 10 mg PO QPM High Cholesterol 06/04/24 06/04/24 History
glycopyrrolate 1 mg tablet 1 mg PO BID secretions 06/04/24 06/04/24 History
levothyroxine 25 mcg tablet 25 mcg PO DAILY Thyroid 06/04/24 06/04/24 History
(Synthroid)
metformin 1,000 mg tablet 1,000 mg PO BID@0800,1700 Diabetes 06/04/24 06/04/24 History
quetiapine 25 mg tablet (Seroquel) 25 mg PO Mental Health 06/04/24 06/04/24 History
apixaban 5 mg tablet (Eliquis) 5 mg PO BID #60 tabs 06/08/24 Rx
oxycodone 5 mg tablet 5 mg PO Q4HPRN PRN moderate pain 06/08/24 Rx
#10 tabs
tamsulosin 0.4 mg capsule 0.4 mg PO DAILY #30 caps 06/08/24 Rx
Review of Systems
-
History Source: Patient
Constitutional: Reports Fever; Denies Fatigue or Chills
EENT: Reports No Symptoms
Respiratory: Reports No Symptoms
Cardiac: Reports No Symptoms
Abdomen/GI: Reports No Symptoms
: Reports No Symptoms
Musculoskeletal: Reports Other (Continued uncontrolled pain at bilateral fasciotomy sites and ongoing edema)
Skin: Reports Other (Bilateral postoperative fasciotomy sites)
Neurological: Reports No Symptoms
Endocrine: Reports No Symptoms
Physical Exam
Vital Signs
Temp Pulse Resp BP Pulse Ox
97.7 F 124 18 117/74 98
06/15/24 10:58 06/15/24 10:58 06/15/24 10:58 06/15/24 10:58 06/15/24 10:58
Physical Exam
General: No Apparent Distress
HEENT: Normocephalic, Anicteric and Atraumatic
Respiratory: Non Labored Respirations
Cardiac: Negative JVD
GI: Soft, Non Tender and Non Distended
Musculoskeletal: Edema (Left calf with +3 edema, patient does endorse pain with palpation at fasciotomy sites but all surrounding compartments are compressible and soft)
Skin: Warm and Other (Medial and lateral left calf fasciotomy sites clean dry and intact, currently undressed but at home covered with wound VAC. Muscle pink and appears viable, skin edge CDI with no evidence of erythema, drainage, or warmth.)
Neuro: AO x 3, No Motor Deficits and Other (Left foot motor and sensation intact)
Pulses: Left Dorsalis Pedis: Doppler and Left Posterior Tibial: Doppler
Assessment / Plan
-
Assessment: 68-year-old male status post left lower extremity common, profunda, and superficial femoral arteries and popliteal artery thrombectomy and left calf 4 compartment fasciotomies with report of Tmax 100 at home and continued uncontrolled
postoperative pain management at medial and lateral fasciotomy calf incisions.
Plan:
CBC and BMP to evaluate for leukocytosis or other abnormalities, given reports of fever at home
Would recommend providing Dilaudid dose while here in the ER for pain relief and then would recommend switching prescribed narcotic for discharge to Dilaudid from oxycodone
Given reports of fever would recommend discharge on Augmentin p.o. at least 7-day course
If blood work unremarkable and patient reports terrible pain management following Dilaudid dosing with discharge to home. However, if ED evaluation concerning for infectious process or pain is not well-managed could consider hospital admission.
Patient seen and evaluated at bedside with attending Dr. Jaswant Cunningham III below plan reviewed with attending.
[2024-06-15] MEDS: DILAUDID 1 MG IV (12:39)
[2024-06-15 12:56] LABS: Hematocrit 34.2 % (39.0-52.0); Hemoglobin 11.5 g/dL (13.0-18.0); Mean Corp Hgb Conc. 33.6 g/dL (33.0-37.0); Mean Corpuscular Hgb 29.6 pg (27.0-31.0); Mean Corpuscular Volume 87.9 fL (80.0-94.0); Mean Platelet Volume 8.9 fL (7.4-10.4); Platelet Count 420 10^3/uL (130-400); Red Blood Cell Count 3.89 10^6/uL (4.70-6.10); Red Cell Dist. Width 14.1 % (11.5-14.5); White Blood Cell Count 22.8 10^3/uL (4.8-10.8)
[2024-06-15 13:01] LABS: Lactic Acid 1.4 mmol/L (0.7-2.0)
[2024-06-15 13:03] LABS: COVID-19 Antigen Negative (Negative)
[2024-06-15 13:10] LABS: % Basophils 0.3 % (0-2); % Eosinophils 0.1 % (0-6); % Immature Granulocytes 1.5 % (0-0.5); % Lymphocytes 3.1 % (20.5-51.1); % Monocytes 6.8 % (1.7-9.3); % Neutrophils 88.2 % (42.2-75.2); Absolute Basophils 0.1 10^3/uL (0-0.2); Absolute Immature Granulocytes 0.4 10^3/uL (0-0.05); Absolute Lymphocytes 0.7 10^3/uL (1.2-3.4); Absolute Monocytes 1.6 10^3/uL (0.1-0.6); Absolute Neutrophils 20.1 10^3/uL (1.4-6.5); Blood Urea Nitrogen 20 mg/dl (9-20); Calcium 9.4 mg/dl (8.4-10.2); Carbon Dioxide 21 mmol/L (22-30); Chloride 102 mmol/L (98-107); Estimated Creatinine Clearance 77 ml/min; Glucose 151 mg/dl (70-99); Nucleated Red Blood Cells % 0 % (-); Potassium 4.9 mmol/L (3.5-5.1); Sodium 137 mmol/L (135-145); eGFR > 60.00
[2024-06-15] MEDS: ZOSYN 50 IV ×2 (14:01→20:14)
--- NOTE | 2024-06-15 14:18 | HPS.HSE ---
Family Physician
-
Family Physician: Leonidas Ndiaye
Chief Complaint
-
left leg pain
History of Present Illness
68-year-old male past medical history of PAD status post femoral to femoral bypass and multiple stents of left lower extremity with recent limb ischemia status post thrombectomy/fasciotomy, throat cancer in remission, hypothyroidism, type 2
diabetes, hyperlipidemia, anxiety/depression, presenting upon request of his wound care nurse for low-grade fever and fasciotomy wounds not looking so good. He denies any weakness or numbness, color changes, range of motion difficulties.
Since recent discharge a week ago for acute limb ischemia of left lower extremity status post thrombectomy/fasciotomies he was given 5 mg oxycodone which has not been giving him any relief.
Since then the left lower extremity has become more red and painful. He has been having drainage of fasciotomy sites. He has pain particularly along the lateral fasciotomy incision site.
He denies any chest pain, cough, shortness of breath.
Medical History
Past Medical History
Past Medical History: Reports Other ( PAD status post femoral to femoral bypass and multiple stents of left lower extremity with recent limb ischemia status post thrombectomy/fasciotomy, throat cancer in remission, hypothyroidism, type 2 diabetes,
hyperlipidemia, anxiety/depression)
Past Surgical History: Reports Other (fem-fem bypass, iliac and SFA stent 10+ years ago at [facility] with Dr Pina, laryngectomy, exploratory laparotomy))
Social History
Tobacco: Non-smoker
Alcohol: None
Drug: None
Family History
Family History: Not pertinent
Allergies / Home Medications
Allergies reflects when Allergies were last updated in [facility].
Home Medications with original date entered in [facility]
Allergy/Medication List:
Allergies
Allergy/AdvReac Type Severity Reaction Status Date / Time
No Known Allergies Allergy Unverified 06/04/24 12:26
Home Medications
atorvastatin 10 mg tablet (Lipitor) 10 mg PO QPM High Cholesterol 06/04/24
glycopyrrolate 1 mg tablet 1 mg PO BID secretions 06/04/24
metformin 1,000 mg tablet 1,000 mg PO BID@0800,1700 Diabetes 06/04/24
quetiapine 25 mg tablet (Seroquel) 25 mg PO HS depression/sleep 06/04/24
apixaban 5 mg tablet (Eliquis) 5 mg PO BID Blood Clot Prevention/Tx 06/15/24
levothyroxine 75 mcg tablet 75 mcg PO DAILY hypothyroidism 06/15/24
oxycodone 5 mg tablet 5 mg PO Q6H PRN pain 06/15/24
tamsulosin 0.4 mg capsule 0.4 mg PO DAILY urinary issues 06/15/24
Review of Systems
-
History Source: Patient
A 12 point ROS was completed and negative except as noted: Yes
Constitutional: Reports No Symptoms
EENT: Reports No Symptoms
Respiratory: Reports No Symptoms
Cardiac: Reports No Symptoms
Abdomen/GI: Reports No Symptoms
: Reports No Symptoms
Musculoskeletal: Reports No Symptoms
Skin: Reports See HPI
Neurological: Reports No Symptoms
Endocrine: Reports No Symptoms
Hematologic/Lymphatic: Reports No Symptoms
Psych: Reports No Symptoms
Physical Exam
Vital Signs
Vital Signs
Temp Pulse Resp BP Pulse Ox
97.7 F 104 27 96/84 91
06/15/24 10:58 06/15/24 13:00 06/15/24 13:00 06/15/24 13:00 06/15/24 13:00
Physical Exam
General: Well Developed, Well Nourished and No Apparent Distress
HEENT: NormoCephalic, Moist mucous membranes and Atraumatic
Respiratory: Clear
Cardiac: S1/S2 and Regular Rhythm; No Murmur or Rub
GI: Soft, Non Tender, Non Distended and Normal Bowel Sounds; No Organomegaly
Rectal: Deferred by Provider
Musculoskeletal: No Clubbing, No Cyanosis and No Edema
Skin: Other (erythema swelling of left lower extremity, fasciotomy incision sites red); No Rash
Neuro: Nonfocal/grossly intact
Laboratory Results
-
06/15/24 12:37
06/15/24 12:37
Laboratory Results
Lactic Acid Cancelled 06/15/24 15:45
Data Reviewed
-
Lab Data: Labs Reviewed by me
Old Records: Reviewed
Impression/Plan
-
IMPRESSION:
PLAN:
# Sepsis (fever at home, leukocytosis, tachycardia, tachypnea) concerning for wound infection of fasciotomy sites/cellulitis
-Patient is having pain along the lateral fasciotomy site
-Check blood culture
-IV fluids
-Vancomycin/Zosyn
-Vascular following
PAD status post left femoral to femoral bypass/multiple stents of left lower extremity with recent thrombectomy/fasciotomies
-Continue Eliquis
-Vascular surgery following
Throat cancer status post tracheostomy
- in remission
-continue glycopyrrolate
Hypothyroidism
-Continue levothyroxine
Type 2 diabetes
-Continue metformin
Hyperlipidemia
-Continue statin
Anxiety/depression
-Continue Seroquel
BPH
-Continue tamsulosin
Full code
DVT prophylaxis�Eliquis
Diabetic diet
[2024-06-15] MEDS: VANCOCIN 540 MG IV (14:49)
--- NOTE | 2024-06-15 16:00 | VNURNOTE ---
Chart reviewed. Patient is current with [facility] nursing. Will continue to follow hospital course and DC plans.
[2024-06-15] MEDS: DILAUDID 0.5 MG IV ×2 (16:11→20:15)
--- NOTE | 2024-06-15 16:23 | PHA.VAN.IN ---
Assessment
- Assessment
Renal Function: Appears elevated from baseline (06/08/24 BASELINE SCR: 0.8)
Concomitant Antimicrobials: ZOSYN
- Previous Dosing Experience
Previous Regimen: NONE
AUC Dosing Plan
- Dosing Variables
Dosing Weight (kg): 92.9
Dosing CrCl (ml/min): 77
Vd coefficient (L/kg): 0.7
- Empiric Dosing
Initial / Loading Dose: 2GM
Maintenance Regimen: 1GM IV Q12H
Estimated AUC (mcg*h/mL): 466
Estimated Peak (mcg*h/mL): 27.5
Estimated Trough (mcg/ml): 13
Estimated Half Life (H): 10.1
Pharmacokinetics Vancomycin I
- -
Patient Age: 68
Vancomycin Day #: 1
Indication: Bacteremia (SEPSIS)
Requesting Provider: SHELLIE
Height / Weight:
Height 5 ft 11 in
Actual Weight 92.9 kg
Pertinent Past Medical History: RECENT DISCHARGE FOR LIMB ISCHEMIA
- Vital Signs / Lab Results
Temp Pulse Resp BP Pulse Ox
97.7 F 95 26 124/71 92
06/15/24 10:58 06/15/24 14:30 06/15/24 14:30 06/15/24 14:03 06/15/24 14:30
Lab Results - Hematology
06/15/24
12:37
WBC 22.8 H
Lab Results - Chemistry
06/15/24
12:37
BUN 20
Creatinine 1.0
Estimated Creat Clear 77
06/15/24 06/15/24
12:37 15:45
Lactic Acid 1.4 Cancelled
[2024-06-15] MEDS: NSS 1000 IV (16:34)
[2024-06-15] MEDS: LIPITOR 10 MG PO (16:34)
[2024-06-15] MEDS: GLUCOPHAGE 1000 MG PO (16:34)
[2024-06-15] MEDS: TYLENOL 650 MG PO (18:36)
[2024-06-15] MEDS: ELIQUIS 5 MG PO (20:13)
[2024-06-15] MEDS: ROBINUL 1 MG PO (20:13)
[2024-06-15] MEDS: SEROQUEL 25 MG PO (22:29)
[2024-06-16] MEDS: ZOSYN 50 IV ×4 (01:44→20:54)
[2024-06-16] MEDS: DILAUDID 0.5 MG IV ×4 (02:32→23:22)
[2024-06-16] MEDS: NSS 1000 IV ×2 (03:45→14:41)
[2024-06-16] MEDS: VANCOCIN 200 IV ×2 (05:08→17:53)
[2024-06-16] MEDS: SYNTHROID 75 MCG PO (05:09)
--- NOTE | 2024-06-16 06:16 | RESPNOTE ---
Laryngectomy Airway box placed at patients bedside. Pt resting comfortably with no signs of distress at this time. Suction set-up and pt refused suctioning at this time. Will cont to monitor.
[2024-06-16 07:00] VITALS: BP 111/66
[2024-06-16 07:28] LABS: % Basophils 0.2 % (0-2); % Eosinophils 0.7 % (0-6); % Immature Granulocytes 1.4 % (0-0.5); % Monocytes 6.5 % (1.7-9.3); % Neutrophils 85.2 % (42.2-75.2); Absolute Eosinophils 0.1 10^3/uL (0-0.7); Absolute Immature Granulocytes 0.2 10^3/uL (0-0.05); Absolute Monocytes 1.1 10^3/uL (0.1-0.6); Absolute Neutrophils 14.6 10^3/uL (1.4-6.5); Hematocrit 29.8 % (39.0-52.0); Hemoglobin 9.9 g/dL (13.0-18.0); Mean Corp Hgb Conc. 33.2 g/dL (33.0-37.0); Mean Corpuscular Hgb 29.3 pg (27.0-31.0); Mean Corpuscular Volume 88.2 fL (80.0-94.0); Mean Platelet Volume 9.4 fL (7.4-10.4); Nucleated Red Blood Cells % 0 % (-); Platelet Count 372 10^3/uL (130-400); Red Blood Cell Count 3.38 10^6/uL (4.70-6.10); White Blood Cell Count 17.1 10^3/uL (4.8-10.8)
--- NOTE | 2024-06-16 07:32 | W.PN.VS ---
Today's Communication / Plan
-
See below.
Assessment/Plan
-
Assessment: 68-year-old male status post left lower extremity common, profunda, and superficial femoral arteries and popliteal artery thrombectomy and left calf 4 compartment fasciotomies with fever and continued uncontrolled postoperative pain
management at medial and lateral fasciotomy calf incisions.
Plan:
Continue antibiotics, consult to infectious disease placed
Continue local wound care
Continue as needed pain medication
Continue neovascular checks
Subjective Data
-
Date of Service: June 16, 2024
Patient seen and evaluated at bedside, reports improvement in pain management with addition of Dilaudid but still struggling to get adequate pain relief at lateral left calf fasciotomy site. Denies chills, nausea, vomiting, chest pain, and SOB.
Overnight afebrile but endorses a MA just took his temperature and it was 100.5, this has yet to be documented. Continues to deny pain at left foot.
Objective Data
-
Vital Signs
Temp Pulse Resp BP Pulse Ox
98.6 F 91 16 110/67 95
06/15/24 23:17 06/15/24 23:17 06/15/24 23:17 06/15/24 23:17 06/15/24 23:17
Intake and Output
06/15/24 06/16/24 06/17/24
06:59 06:59 06:59
Intake Total 1820 / 1820
Balance 1820 / 1820
Intake:
Oral fluids 720 / 720
IV fluids (Total) 800 / 800
IV piggybacks 300 / 300
Other:
Number of approximated SMALL 1
amounts of urine
Number of approximated MODERATE 1
amounts of urine
Lab Results
06/16/24 05:54
Calcium 9.4 mg/dl (8.4-10.2) 06/15/24 12:37
Physical Exam
-
AAOx3
No tachypnea on RA
No tachycardia HR in 90s
Abd soft, non-tender, non-distended
Left groin site CDI, robert well approximated, left calf with BL fascitomy sites, lateral site with continued erythema at distal end of incision, and medial site with erythema surrounding skin edges, no evidence of purulent drainage, dressing
changed at calf sites, calf +2 edema
DP and PT pulse signal with doppler signal, foot warm
--- NOTE | 2024-06-16 07:48 | PHA.VAN.FU ---
Vancomycin Assessment / Plan
- Assessment
Renal Function: Stable
WBC's are: Trending Down
In the past 24 hrs, patient has been: Afebrile
Concomitant Antimicrobials: zosyn
- Dosing Plan
Continue: 1000mg q12h
- Monitoring Plan
Peak Level: 06/17 @2030
Trough Level: 06/18 @0530
- Follow Up
Pharmacy will continue to follow.
Vancomycin Follow UP
- -
Patient Age: 68
Vancomycin Day #: 2
Indication: Bacteremia (SEPSIS)
Requesting Provider: SHELILE
Height / Weight:
Height 5 ft 11 in
Actual Weight 92.9 kg
Pertinent Past Medical History: RECENT DISCHARGE FOR LIMB ISCHEMIA
- Vital Signs / Lab Results
Temp Pulse Resp BP Pulse Ox
98.6 F 91 16 110/67 95
06/15/24 23:17 06/15/24 23:17 06/15/24 23:17 06/15/24 23:17 06/15/24 23:17
Lab Results - Hematology
06/15/24 06/16/24
12:37 05:54
WBC 22.8 H 17.1 H
Lab Results - Chemistry
06/15/24
12:37
BUN 20
Creatinine 1.0
Estimated Creat Clear 77
06/15/24 06/15/24
12:37 15:45
Lactic Acid 1.4 Cancelled
[2024-06-16 07:51] LABS: ALT (SGPT) 19 U/L (0-50); AST (SGOT) 22 U/L (17-59); Albumin 3.1 g/dl (3.5-5.0); Alkaline Phosphatase 83 U/L (38-126); Blood Urea Nitrogen 19 mg/dl (9-20); Calcium 8.4 mg/dl (8.4-10.2); Carbon Dioxide 20 mmol/L (22-30); Chloride 105 mmol/L (98-107); Estimated Creatinine Clearance 70 ml/min; Glucose 137 mg/dl (70-99); Potassium 4.6 mmol/L (3.5-5.1); Sodium 137 mmol/L (135-145); Total Bilirubin 0.8 mg/dl (0.2-1.3); Total Protein 5.5 g/dl (6.3-8.2); eGFR > 60.00
[2024-06-16 08:03] LABS: Glucose - Point of Care 122 mg/dl (70-99)
[2024-06-16] MEDS: FLOMAX 0.4 MG PO (08:27)
[2024-06-16] MEDS: ELIQUIS 5 MG PO ×2 (08:27→20:54)
[2024-06-16] MEDS: GLUCOPHAGE 1000 MG PO ×2 (08:27→17:53)
[2024-06-16] MEDS: ROBINUL 1 MG PO ×2 (08:28→20:55)
[2024-06-16] MEDS: ASPIR LOW (ENTERIC COATED) 81 MG PO (08:28)
[2024-06-16] MEDS: TYLENOL 650 MG PO ×2 (08:35→12:54)
--- NOTE | 2024-06-16 09:51 | W.PN.HOSP.TC ---
Today's Communication/Plan
-
See bold
Assessment / Plan
Assessment / Plan
Gen: NAD, AAOx3.
Eyes: EOMI, PERRLA, no scleral icterus.
Neck: supple.
CV: RRR, +S1/S2, no m/r/g.
Resp: CTAB, no rales, wheezes, or rhonchi.
Abd: +BS, soft, NT, ND
Skin: No rashes. Left lower extremity with clean dry and intact dressing.
Neuro: CN 2-12 intact, non-focal.
Psych: Normal mood and affect.
Sepsis due to wound infection of fasciotomy sites/cellulitis:
-cont IVFs
-cont Vancomycin/Zosyn
-Vascular following
-c/s ID
PAD s/p L fem-fem bypass/multiple stents of left lower extremity with recent thrombectomy/fasciotomies:
-Continue Eliquis
-Vascular following
Other problems:
Throat cancer s/p tracheostomy: in remission, continue glycopyrrolate
Hypothyroidism: Continue levothyroxine
DM2: Continue metformin
Hyperlipidemia: Continue statin
Anxiety/depression: Continue Seroquel
BPH: Continue tamsulosin
Discussed with vascular surgery.
FULL/Eliquis
Anticipated Discharge: > 48 hours
Subjective/Interval History
-
Date of Service: June 16, 2024
No new complaints.
Objective Data
-
Labs:
Laboratory Results
06/16/24
05:54
WBC 17.1 H
Hgb 9.9 L
Hct 29.8 L
Plt Count 372
Sodium 137
Potassium 4.6
Chloride 105
Carbon Dioxide 20 L
BUN 19
Creatinine 1.1
Glucose 137 H
Calcium 8.4
Total Bilirubin 0.8
AST 22
ALT 19
Alkaline Phosphatase 83
Vital Signs:
Vital Signs
Temp Pulse Resp BP Pulse Ox
100.5 F H 100 18 111/66 92
06/16/24 07:00 06/16/24 07:00 06/16/24 07:00 06/16/24 07:00 06/16/24 07:00
I&O
06/15/24 06/16/24 06/17/24
06:59 06:59 06:59
Intake Total 1819
Balance 1819
[2024-06-16 11:56] LABS: Glucose - Point of Care 196 mg/dl (70-99)
--- NOTE | 2024-06-16 14:25 | CM ---
Patient seen bedside.
Dx cellulitis
IA completed.
Patient lives with girlfriend in a 1 story home with a few steps to enter.
Patient independent prior to admission without assistive devices.
Patient with tracheostomy.
Patient drives.
Patient aware of CM availability should needs arise.
Await ID recommendations.
PCP; Dr Ndiaye
Pharmacy: [facility]
Plan: Watch for anbx needs.
[2024-06-16 15:00] VITALS: BP 105/63
--- NOTE | 2024-06-16 15:11 | CON.ID ---
Consultation
-
Date/Time Consultation Requested: 06/16/2024 08:18
Date/Time Consultation Performed: 06/16/2024 1445
Requesting Provider: Karrie Parrish
Performing Provider: Dr. Wharton
Reason for Consultation: Leukocytosis; left leg wound
Chief Complaint / Past History
History of Present Illness
Jamil Goff is a 68-year-old man being evaluated at the request of Karrie Parrish regarding left lower extremity wound. History is obtained from chart review, along with patient interview.
The patient has a significant past medical history of peripheral vascular disease and had previously undergone femorofemoral bypass. He presented to [facility] in late May for acute limb ischemia, and ultimately required cutdown and
exposure of his left femoral vessels with subsequent thrombectomy of the left common femoral artery and other arteries. According to reviewed notes he was taken back to the OR on 06/05 for exploration and fasciotomy secondary to compartment
syndrome. He was taken back later in the day for evacuation of hematoma in the area. He ultimately was discharged to home on 06/08 where he has been receiving care via visiting nurse. He presents back to the emergency room yesterday at the
direction of his home nurse, stating that the wound did not appear good, and he had a low-grade fever. He admits to pain in the left leg area. He denied any spreading erythema or significant drainage or discharge from the wound. In the ER his
white count was noted to be elevated. He was started on empiric antibiotics and admitted to [facility].
At this time, he reports pain is better controlled. He denies any current fevers or chills. Denies any headache. He denies any chest pain, shortness of breath, cough or congestion. He denies any abdominal pain. No history of diarrhea.
Past History
Additional Past Medical History:
Throat cancer
Dyslipidemia
DM
PAD
Additional Past Surgical History:
Head neck surgery with subsequent tracheostomy; Passy-Mau valve in place
Femorofemoral bypass
Allergy History:
No Known Allergies Allergy (Unverified 06/04/24 12:26)
Medications Reviewed: Yes
Current Antibiotics:
Vancomycin
Zosyn
Social History
Tobacco: Former Smoker
Alcohol: None
Drug: None
Personal:
Living: With Family
Employment: Retired
Family History
Family History: Not Pertinent
Review of Systems
Vital Signs
Temp Pulse Resp BP Pulse Ox
98.1 F 100 18 111/66 92
06/16/24 12:52 06/16/24 07:00 06/16/24 07:00 06/16/24 07:00 06/16/24 07:00
Physical Exam
Physical Exam
Constitutional: No Acute Distress, Comfortable and Non-toxic
Eyes: Sclera Anicteric
Cardiovascular: S1/S2; Negative S3/S4
Pulmonary: Non Labored
Gastrointestinal: Soft, Non Tender and Non Distended
Genito-Urinary: Negative Cunningham
Extremities: Edema (1+ left lower extremity); Negative Cyanosis or Erythema
Wound: Other (Left groin/inguinal wound with robert in place. No dehiscence. No periwound erythema. Left lower extremity wounds dressed with Brett wrap. No significant periwound erythema)
.
Lab / Diagnostic Study Results
06/16/24 05:54
06/16/24 05:54
Abs Immat Gran (auto) 0.2 10^3/uL (0-0.05) H 06/16/24 05:54
Absolute Neuts (auto) 14.6 10^3/uL (1.4-6.5) H 06/16/24 05:54
Absolute Lymphs (auto) 1.0 10^3/uL (1.2-3.4) L 06/16/24 05:54
Absolute Monos (auto) 1.1 10^3/uL (0.1-0.6) H 06/16/24 05:54
Absolute Basos (auto) 0.0 10^3/uL (0-0.2) 06/16/24 05:54
Immature Gran % 1.4 % (0-0.5) H 06/16/24 05:54
Neutrophils % 85.2 % (42.2-75.2) H 06/16/24 05:54
Lymphocytes % 6.0 % (20.5-51.1) L 06/16/24 05:54
Monocytes % 6.5 % (1.7-9.3) 06/16/24 05:54
Eosinophils % 0.7 % (0-6) 06/16/24 05:54
Basophils % 0.2 % (0-2) 06/16/24 05:54
Lactic Acid Cancelled 06/15/24 15:45
Microbiology Results
Micro:
06/15/24 14:48 Blood Culture - Preliminary
Blood/Venous No Growth in 24 hours- Final report to follow
06/15/24 20:14 MRSA Screen - Pending
Nose
Assessment / Plan
Leukocytosis
Left lower extremity wounds
Fever
Hx Throat cancer
Dyslipidemia
DM
PAD
Recommendations:
Continue with empiric antibiotics for the present.
Follow white count. Not clear if current elevation is reactive secondary to pain, or if there is some infectious process.
Blood cultures currently pending. Will continue to follow.
Local care to left groin wound and left leg wound.
Further recommendations as additional data is returned.
--- NOTE | 2024-06-16 16:25 | RESPNOTE ---
Laryngectomy emergency box has been placed in the room and signs have been posted.
[2024-06-16 17:21] LABS: Glucose - Point of Care 107 mg/dl (70-99)
[2024-06-16] MEDS: NOVOLOG FLEXPEN-LOW RESISTANCE SC (17:47)
[2024-06-16] MEDS: LIPITOR 10 MG PO (17:53)
[2024-06-16] MEDS: SEROQUEL 25 MG PO (20:56)
[2024-06-16 23:00] VITALS: BP 129/60
[2024-06-16 23:51] VITALS: BP 129/60
[2024-06-17] VITALS (24 sets, daily range): BP systolic 78–145; BP diastolic 50–95
--- NOTE | 2024-06-17 00:26 | PTCARENOTE ---
Dressing changed completed, pt given dilaudid 0.5mg prior to dsg change and patient's pain remained a 10/10 through the dsg change. patient states pain is not controlled during his stay or with dressing changes. patient expressed wishes to have pain
meds increased. CON[employer] RE[employer] notified, one time dose of dilaudid 0.5mg ordered to be given now. Per CONSTRUCTION RECRUITER Dr Valentin will need to address his scheduled pain meds.
[2024-06-17] MEDS: DILAUDID 0.5 MG IV ×4 (00:34→18:23)
[2024-06-17] MEDS: ZOSYN 50 IV ×4 (01:09→19:39)
[2024-06-17] MEDS: NSS 1000 IV ×3 (01:12→19:13)
[2024-06-17 01:53] LABS: Glucose - Point of Care 118 mg/dl (70-99)
[2024-06-17] MEDS: TYLENOL 650 MG PO ×2 (05:09→17:10)
[2024-06-17] MEDS: SYNTHROID 75 MCG PO (05:10)
[2024-06-17] MEDS: VANCOCIN 200 IV ×2 (05:10→17:12)
[2024-06-17 08:00] LABS: Hematocrit 27.5 % (39.0-52.0); Hemoglobin 9.2 g/dL (13.0-18.0); Mean Corp Hgb Conc. 33.5 g/dL (33.0-37.0); Mean Corpuscular Hgb 29.6 pg (27.0-31.0); Mean Corpuscular Volume 88.4 fL (80.0-94.0); Mean Platelet Volume 9.3 fL (7.4-10.4); Platelet Count 341 10^3/uL (130-400); Red Blood Cell Count 3.11 10^6/uL (4.70-6.10); Red Cell Dist. Width 13.8 % (11.5-14.5); White Blood Cell Count 13.7 10^3/uL (4.8-10.8)
[2024-06-17] MEDS: ELIQUIS 5 MG PO ×2 (08:19→20:50)
[2024-06-17] MEDS: ASPIR LOW (ENTERIC COATED) 81 MG PO (08:19)
[2024-06-17] MEDS: ROBINUL 1 MG PO ×2 (08:19→20:51)
[2024-06-17] MEDS: GLUCOPHAGE 1000 MG PO ×2 (08:19→17:11)
[2024-06-17 08:20] LABS: Glucose - Point of Care 112 mg/dl (70-99)
[2024-06-17] MEDS: FLOMAX 0.4 MG PO (08:20)
[2024-06-17] MEDS: NOVOLOG FLEXPEN-LOW RESISTANCE SC ×2 (08:26→17:05)
[2024-06-17 08:29] LABS: Blood Urea Nitrogen 17 mg/dl (9-20); Calcium 8.4 mg/dl (8.4-10.2); Carbon Dioxide 23 mmol/L (22-30); Chloride 107 mmol/L (98-107); Estimated Creatinine Clearance 77 ml/min; Glucose 117 mg/dl (70-99); Potassium 4.3 mmol/L (3.5-5.1); Sodium 138 mmol/L (135-145); eGFR > 60.00
--- NOTE | 2024-06-17 08:34 | PHA.VAN.FU ---
Vancomycin Assessment / Plan
- Assessment
Renal Function: Stable
WBC's are: Trending Down
In the past 24 hrs, patient has been: Febrile (100.5F)
Concomitant Antimicrobials: ZOSYN
- Dosing Plan
Continue: 1000MG Q12H
- Monitoring Plan
Peak Level: 06/17 @2030
Trough Level: 06/18 @0530
- Follow Up
Pharmacy will continue to follow.
Vancomycin Follow UP
- -
Patient Age: 68
Vancomycin Day #: 3
Indication: Bacteremia (SEPSIS)
Requesting Provider: SHELLIE
Height / Weight:
Height 5 ft 11 in
Actual Weight 92.9 kg
Pertinent Past Medical History: RECENT DISCHARGE FOR LIMB ISCHEMIA
- Vital Signs / Lab Results
Temp Pulse Resp BP Pulse Ox
99.1 F 91 16 121/69 92
06/17/24 07:00 06/17/24 07:00 06/17/24 07:00 06/17/24 07:00 06/17/24 07:00
Lab Results - Hematology
06/15/24 06/16/24 06/17/24
12:37 05:54 07:28
WBC 22.8 H 17.1 H 13.7 H
Lab Results - Chemistry
06/15/24 06/16/24 06/17/24
12:37 05:54 07:28
BUN 20 19 17
Creatinine 1.0 1.1 1.0
Estimated Creat Clear 77 70 77
Albumin 3.1 L
06/15/24 06/15/24
12:37 15:45
Lactic Acid 1.4 Cancelled
Microbiology Results
06/15/24 14:48 Blood Culture - Preliminary
Blood/Venous No Growth in 24 hours- Final report to follow
--- NOTE | 2024-06-17 10:01 | W.PN.HOSP.TC ---
Today's Communication/Plan
-
see bold
Assessment / Plan
Assessment / Plan
Gen: NAD, AAOx3.
Eyes: EOMI, PERRLA, no scleral icterus.
Neck: supple.
CV: remains RRR, +S1/S2, no m/r/g.
Resp: remains CTAB, no rales, wheezes, or rhonchi.
Abd: +BS, soft, NT, ND
Skin: remains No rashes. Left lower extremity with clean dry and intact dressing.
Neuro: CN 2-12 intact, non-focal.
Psych: Normal mood and affect.
Sepsis due to wound infection of fasciotomy sites/cellulitis:
-cont IVFs
-cont Vancomycin/Zosyn as per ID
-Vascular following
-leukocytosis improving
PAD s/p L fem-fem bypass/multiple stents of left lower extremity with recent thrombectomy/fasciotomies:
-Continue Eliquis
-Vascular following
Other problems:
Throat cancer s/p tracheostomy: in remission, continue glycopyrrolate
Hypothyroidism: Continue levothyroxine
DM2: Continue metformin
Hyperlipidemia: Continue statin
Anxiety/depression: Continue Seroquel
BPH: Continue tamsulosin
FULL/Eliquis
Anticipated Discharge: 24 - 48 hours
Subjective/Interval History
-
Date of Service: June 17, 2024
No new complaints.
Objective Data
-
Labs:
Laboratory Results
06/17/24
07:28
WBC 13.7 H
Hgb 9.2 L
Hct 27.5 L
Plt Count 341
Sodium 138
Potassium 4.3
Chloride 107
Carbon Dioxide 23
BUN 17
Creatinine 1.0
Glucose 117 H
Calcium 8.4
Vital Signs:
Vital Signs
Temp Pulse Resp BP Pulse Ox
99.1 F 91 16 121/69 92
06/17/24 07:00 06/17/24 07:00 06/17/24 07:00 06/17/24 07:00 06/17/24 07:00
I&O
06/16/24 06/17/24 06/18/24
06:59 06:59 06:59
Intake Total 1820 / 1820 7270 / 7270
Balance 1820 / 1820 7270 / 7270
--- NOTE | 2024-06-17 10:03 | W.PN.VS ---
Today's Communication / Plan
-
antibiotics
Assessment/Plan
-
Assessment: 68-year-old male status post left lower extremity common, profunda, and superficial femoral arteries and popliteal artery thrombectomy and left calf 4 compartment fasciotomies with fever and continued uncontrolled postoperative pain
management at medial and lateral fasciotomy calf incisions.
Plan:
Continue antibiotics, f/U ID
Continue local wound care
Continue as needed pain medication
Continue neovascular checks
Subjective Data
-
Date of Service: June 17, 2024
Patient seen and evaluated at bedside, reports continued pain management issues. No fevers overnight. WBC down trending
Objective Data
-
Vital Signs
Temp Pulse Resp BP Pulse Ox
99.1 F 91 16 121/69 92
06/17/24 07:00 06/17/24 07:00 06/17/24 07:00 06/17/24 07:00 06/17/24 07:00
Intake and Output
06/16/24 06/17/24 06/18/24
06:59 06:59 06:59
Intake Total 1820 / 1820 7270 / 7270
Balance 1820 / 1820 7270 / 7270
Intake:
Oral fluids 720 / 720 0 / 2070
IV fluids (Total) 800 / 800 1900 / 1900
IV piggybacks 300 / 300 3300 / 3300
Other:
Number of approximated SMALL 1
amounts of urine
Number of approximated MODERATE 1 2
amounts of urine
Number of approximated LARGE 2
amounts of urine
Lab Results
06/17/24 07:28
06/17/24 07:28
Calcium 8.4 mg/dl (8.4-10.2) 06/17/24 07:28
Total Bilirubin 0.8 mg/dl (0.2-1.3) 06/16/24 05:54
AST 22 U/L (17-59) 06/16/24 05:54
ALT 19 U/L (0-50) 06/16/24 05:54
Alkaline Phosphatase 83 U/L (38-126) 06/16/24 05:54
Total Protein 5.5 g/dl (6.3-8.2) L 06/16/24 05:54
Albumin 3.1 g/dl (3.5-5.0) L 06/16/24 05:54
Physical Exam
-
Gen: NAD, AOx3
Abd: soft, nt, nd
Groin: C/D/I with streaking erythema
Left Leg: motor and sensory intact
[2024-06-17 11:46] LABS: Glucose - Point of Care 155 mg/dl (70-99)
[2024-06-17] MEDS: DILAUDID 1 MG IV ×3 (12:45→19:15)
[2024-06-17] MEDS: NOVOLOG FLEXPEN-LOW RESISTANCE 1 UNITS SC (12:52)
--- NOTE | 2024-06-17 13:40 | PTCARENOTE ---
Patient with 10/10 pain during LLE wound care despite pre-medication with prn Dilaudid. Dr. Valentin contacted and patient given a one time dose of Dilaudid that was effective. Wound care completed and patient in bed with LLE on air cushion. Call maldonado
in reach and patient verbalizes understanding to ring for needs, including assistance to bathroom.
[2024-06-17 16:47] LABS: Glucose - Point of Care 115 mg/dl (70-99)
--- NOTE | 2024-06-17 17:00 | PTCARENOTE ---
Patient with rigors and oral temp 100.1 F. Patient remains alert and oriented and able to communicate needs via his trach speaking valve. POX 95% on room air. Dr. Jeffers notified.
[2024-06-17] MEDS: LIPITOR 10 MG PO (17:11)
--- NOTE | 2024-06-17 18:00 | RR ---
Patient found sitting on side of bed with flexible tracheostomy tube out and IV access out. Patient placing his own finger over trach stoma and verbalizes he needed 'to get it out'. Patient refuses suctioning via stoma and/or for trach tube to be
replaced. Rapid response called and respiratory therapist paged stat to bedside. Anesthesia also paged stat to bedside.
A Rapid Response was called on this patient, please see Rapid Response form.
[2024-06-17 18:16] LABS: Glucose - Point of Care 189 mg/dl (70-99)
[2024-06-17 18:32] LABS: Hematocrit 31.2 % (39.0-52.0); Hemoglobin 10.5 g/dL (13.0-18.0); Mean Corp Hgb Conc. 33.7 g/dL (33.0-37.0); Mean Corpuscular Hgb 29.2 pg (27.0-31.0); Mean Corpuscular Volume 86.9 fL (80.0-94.0); Mean Platelet Volume 9.3 fL (7.4-10.4); Platelet Count 441 10^3/uL (130-400); Red Blood Cell Count 3.59 10^6/uL (4.70-6.10); Red Cell Dist. Width 13.6 % (11.5-14.5); White Blood Cell Count 8.8 10^3/uL (4.8-10.8)
[2024-06-17 18:47] LABS: Lactic Acid 8.3 mmol/L (0.7-2.0)
[2024-06-17 18:54] LABS: AST (SGOT) 38 U/L (17-59); Albumin 3.4 g/dl (3.5-5.0); Alkaline Phosphatase 138 U/L (38-126); Blood Urea Nitrogen 15 mg/dl (9-20); Carbon Dioxide 12 mmol/L (22-30); Chloride 105 mmol/L (98-107); Estimated Creatinine Clearance 77 ml/min; Glucose 189 mg/dl (70-99); Potassium 4.6 mmol/L (3.5-5.1); Sodium 140 mmol/L (135-145); Total Bilirubin 1.2 mg/dl (0.2-1.3); Total Protein 5.9 g/dl (6.3-8.2); Troponin I 0.015 ng/ml; eGFR > 60.00
--- NOTE | 2024-06-17 18:56 | W.PN.UPDATE ---
Addendum entered and electronically signed by Winston Jeffers DO 06/17/24 19:27:
Patient requested we call his girlfriend and daughter for update. I looked in the system and called the phone number that was listed but there was no answer. Unclear if this is a real number, not listed as any name
Original Note:
Update Note
Progress Note Update
MASKING MACHINE OPERATOR was called at 1800 as the patient was noted to have ripped out his Rowan tube. I was immediately available at the bedside. The patient was tremulous and naik at the time, seemed agitated and not cooperative. Was trying to get out of bed and
had to be held in the seated position. Attempt at replacing tracheostomy tube was declined by the patient. We attempted to replace Rowan tube however he was refusing, not able to tell us why he did not want it replaced due to his nonverbal status
without the tube, and refusing to write down his wishes.
Upon exam he was hemodynamically adequate initially, saturating in the high 70s to low 80s. No evidence of active adventitious cardiopulmonary sounds on exam. He was perspiring with poor coloration initially. Respiratory at the bedside was able
to suction mucus from his airway. The Rowan tube was able to be replaced and his saturations improved, SpO2 in range of 90 to 93% on room air. His color improved and he became more calm.
Upon speaking to the patient afterwards he did not recall the episode. Suspect that this is encephalopathy with superimposed hospital delirium in the context of his sepsis.
His heart rate initially was elevated up to 170 to 180/min. EKG at the time showed sinus tachycardia, no acute ST deviations or STEMI equivalents. Following normalization of his oxygen, room placement of his Rowan tube he did have improvement of
his heart rate with most recent values near 140/min. Suspect heart rate is mostly anxiety driven, related to respiratory distress. He is currently on Eliquis, low suspicion for pulmonary embolism.
We will upgrade the patient to IMU level of care. His lactate returned at 8, did become hypotensive near the end of the MASKING MACHINE OPERATOR with blood pressure 90/50 mmHg. Will provide 1 L of lactated ringer via bolus now, continue with IV maintenance fluids.
Trend lactate to normal limits.
Pulmonology consult placed. ICU/pulm, anesthesia was present at the time of the MASKING MACHINE OPERATOR as well.
[2024-06-17 19:00] LABS: ALT (SGPT) 34 U/L (0-50)
[2024-06-17] MEDS: LR 500 IV (19:39)
--- NOTE | 2024-06-17 20:00 | PTCARENOTE ---
Resumed care of pt this evening. Received pt post rapid response. Pt is unable to recall episode but is now A&Ox3, pt can move all 4 extremities, and make needs known. Pt accompanied w/ Respiratory Therapist and a venturi mask was placed over pt's
trach stoma and connected to 6L of O2. Pt is satting at 90% and is tachypneic w/ shallow respirations. On auscultation pt lungs sound diminished TO. Pt is ST on tele monitor, has +2 edema on left lower extremity, trace edema on rt lower extremity,
and B/L PT and DP pulses are present w/ doppler. Pt is hypotensive upon arrival to unit and a 500 mL bolus of LR was initiated by this RN. Pt has Hx of a laryngectomy and has brought replacement resp equipment from home if needed. Pt's abdomen is
round, obese, and has hypoactive BS. Pt has surgical wound on left groin related to previous vascular s/p. Left groin site is approximated, closed w/ robert, has local erythema, and is LAKEISHA. Left calf wound dressing is C/D/I w/ NOELLE wrap.
[2024-06-17] MEDS: SEROQUEL 25 MG PO (20:51)
[2024-06-17 21:26] LABS: Glucose - Point of Care 117 mg/dl (70-99)
[2024-06-17] MEDS: ROXICODONE 5 MG PO (22:38)
[2024-06-17 22:49] LABS: Lactic Acid 1.4 mmol/L (0.7-2.0)
[2024-06-17 23:12] LABS: Vancomycin Peak 9.4 ug/ml (18-26)
[2024-06-17] MEDS: NSS 250 IV (23:59)
[2024-06-17] MEDS: ProAmatine 5 MG PO (23:59)
[2024-06-18] VITALS (46 sets, daily range): BP systolic 76–139; BP diastolic 37–104; BMI 29.3
--- NOTE | 2024-06-18 | PTCARENOTE ---
Pt continues to be hypotensive despite LR bolus. EQUIPMENT PLANNER notified, and additional 250 NSS bolus ordered w/ one time 5mg midodrine dose.
[2024-06-18] MEDS: ZOSYN 50 IV ×4 (02:03→19:59)
[2024-06-18] MEDS: LR 500 IV (02:21)
[2024-06-18] MEDS: ProAmatine 5 MG PO (02:21)
--- NOTE | 2024-06-18 03:00 | PTCARENOTE ---
Pt continues to be hypotensive despite 250 mL NSS bolus and midodrine dose. OUTSIDE MACHINIST SUPERVISOR again notified, and additional 500mL LR bolus ordered w/ a 2nd 5mg midodrine dose. Pt appears to be asymptomatic w/ hypotensive state and continues to answer questions
appropriately.
--- NOTE | 2024-06-18 04:00 | W.PN.UPDATE ---
Update Note
Progress Note Update
RN notified WHITEPRINTING MACHINE OPERATOR, BP 86/57 HR 80's LR 500 given once. BP came up to 95/55, on maintenance fluids.
at 2335 BP 70's/50's, patient asymptomatic, will order Midodrine 5mg POx1
At 0145 BP remains 82/56 HR 80s, patient continuos to be asymptomatic
500 CC LR bolus and Midodrine 5mg given again
At 0315 BP 100/63 HR 82 14 97.8 97%
At 0445 BP 77/55 MAP 62 HR 80's, will start Levophed infusion.
--- NOTE | 2024-06-18 04:45 | PTCARENOTE ---
Pt bladder scanned due to no urine output throughout shift. Pt denies the urge to void. Pt scanned for 473mL of urine. Pt denies having issues w/ voiding normally.
[2024-06-18] MEDS: DILAUDID 1 MG IV ×2 (05:10→09:10)
[2024-06-18 05:26] LABS: Blood Urea Nitrogen 19 mg/dl (9-20); Calcium 8.2 mg/dl (8.4-10.2); Carbon Dioxide 18 mmol/L (22-30); Chloride 109 mmol/L (98-107); Estimated Creatinine Clearance 77 ml/min; Glucose 124 mg/dl (70-99); Potassium 4.1 mmol/L (3.5-5.1); Sodium 140 mmol/L (135-145); eGFR > 60.00
[2024-06-18 05:29] LABS: Vancomycin Trough 7.2 ug/ml (5-20)
[2024-06-18] MEDS: VANCOCIN 200 IV (05:35)
[2024-06-18 05:36] LABS: Hematocrit 24.2 % (39.0-52.0); Hemoglobin 8.1 g/dL (13.0-18.0); Mean Corp Hgb Conc. 33.5 g/dL (33.0-37.0); Mean Corpuscular Volume 89.6 fL (80.0-94.0); Mean Platelet Volume 9.4 fL (7.4-10.4); Platelet Count 344 10^3/uL (130-400); Red Cell Dist. Width 13.7 % (11.5-14.5); White Blood Cell Count 21.6 10^3/uL (4.8-10.8)
[2024-06-18] MEDS: SYNTHROID 75 MCG PO (05:54)
[2024-06-18] MEDS: NSS 1000 IV (05:57)
[2024-06-18] MEDS: ASPIR LOW (ENTERIC COATED) 81 MG PO (07:28)
[2024-06-18] MEDS: GLUCOPHAGE 1000 MG PO ×2 (07:28→17:01)
[2024-06-18] MEDS: ROBINUL 1 MG PO ×2 (07:28→19:57)
[2024-06-18] MEDS: NOVOLOG FLEXPEN-LOW RESISTANCE SC ×3 (07:28→17:04)
[2024-06-18] MEDS: FLOMAX 0.4 MG PO (07:29)
[2024-06-18] MEDS: ELIQUIS 5 MG PO ×2 (07:29→19:58)
[2024-06-18 07:40] LABS: Glucose - Point of Care 131 mg/dl (70-99)
--- NOTE | 2024-06-18 08:00 | PTCARENOTE ---
Rec'd care of patient at 0700. Patient alert and oriented. Communicating through speaking valve. Pulse ox 96% on 6L venti mask. Weaned to RA. Pulse ox 95-97%. Lung sounds shallow/diminished. Occasional moist cough. NSR with pvcs on tele monitor.
Rate in the 70-90's. +2 edema to LLE. +DP and PT doppler pulses bilaterally. +BS. Voiding via urinal. IVFs infusing through right forearm INT. Vitals stable. BP soft at times; Levophed not initiated at current time.
--- NOTE | 2024-06-18 08:28 | CON.PUL ---
Consultation
Consultation Request
Date/Time Consultation Requested: 06/17/2024 - 1902
Date/Time Consultation Performed: 06/18/2024 - 821
Requesting Provider: Dr. Jeffers
Performing Provider: Dr. Nieves
Reason for Consultation: SOB/Mucous plugging/Laryngectomy
Medical History
-
Chief Complaint: Left leg pain
History of Present Illness:
68-year-old male former heavy tobacco user with a past medical history of PAD s/p left�right femorofemoral bypass with history of left iliac stenting, DM type II, hypertension and throat cancer s/p XRT + laryngectomy who presents with left lower
extremity pain. Of note, patient recently hospitalized from 06/04 - 06/08 after presenting with sudden LLE pain with acute limb ischemia requiring LLE thrombectomy with excision of left femoral portion of old/occluded fem-fem bypass (OR date:
06/05/2024): Postoperatively on 06/05, patient developed tense compartment syndrome requiring left cath 4 compartment fasciotomies + evacuation of hematoma. Bleeding was controlled and there were no immediate complications. He was transferred to the
ICU for postoperative management. He went back to the OR on 06/06 for exploration of left lateral fasciotomy site with evacuation of hematoma/washout. There were no complications. Wound VAC was applied on 06/07. Patient was discharged home on
06/08. He now is back in the hospital as his pulmonary saw the wound to his KIM saying that it did not appear good and patient had a low-grade fever. Patient also with left lower extremity pain which has been worsening. He was afebrile in the ER
to 97.7 �F, tachycardic to 124 bpm, breathing at 18 breaths/min, BP 117/74 and saturating 98% on room air. Labs showed leukocytosis to 22.8, anemia to 11.5, elevated platelet count of 420, glucose 151, and COVID antigen negative. Blood cultures
were collected, and he was given Dilaudid in the ER plus Zosyn and admitted to the hospitalist service with vascular surgery consulted. Patient was continued on pain medications and on the evening of 06/17/2024 he became confused and pulled out his
laryngectomy and would not let healthcare providers casino assistant manager. He said that he could not breathe. Rapid response was called with anesthesia paged. Patient was eventually able to have laryngectomy placed back into the position, and he was
transferred to the IMU for closer monitoring. Pulmonary service now consulted for additional management/recommendations.
When I saw the patient this morning, he was doing well. Currently saturating 97% on room air. Heart rate 94 and BP 110/59. He says that he felt jittery yesterday but otherwise has limited memory of pulling out his laryngectomy but he does
remember that he could not breathe and that is why he had to take it out. He currently is breathing well, denying shortness of breath or chest pain. He also denies PATRICK, abdominal pain, nausea, vomiting, fevers chills. He still has pain to his left
lower extremity especially when manipulated.
PMHx: PAD s/p left iliac stenting + left�right femorofemoral bypass, DM type II, hypertension, throat cancer s/p XRT + laryngectomy, hypothyroidism, hyperlipidemia, anxiety/depression, former tobacco use
PSHx: Laryngectomy, left�right femorofemoral bypass
Past Medical History
Past Medical History: Other
Social History
Tobacco: Former Smoker ([id number] history, previously smoked 3 packs/day x 50 years - quit about 5 years ago (per patient))
Alcohol: Occasional
Drug: None
Personal:
Living: With Family
Employment: Retired
Family History
Family History: Reviewed & Not Pertinent
Allergies / Home Medications
Allergies
Allergy/AdvReac Type Severity Reaction Status Date / Time
No Known Allergies Allergy Unverified 06/04/24 12:26
Home Medications
�Medication �Instructions �Recorded �Confirmed �Last Taken �Type
atorvastatin 10 mg tablet (Lipitor) 10 mg PO QPM High Cholesterol 06/04/24 06/15/24 06/14/24 History
glycopyrrolate 1 mg tablet 1 mg PO BID secretions 06/04/24 06/15/2406/15/24 History
metformin 1,000 mg tablet 1,000 mg PO BID@0800,1700 Diabetes 06/04/24 06/15/24 06/15/24 History
quetiapine 25 mg tablet (Seroquel) 25 mg PO HS depression/sleep 06/04/24 06/15/24 06/14/24 History
apixaban 5 mg tablet (Eliquis) 5 mg PO BID Blood Clot 06/15/24 06/15/24 06/15/24 History
Prevention/Tx
levothyroxine 75 mcg tablet 75 mcg PO DAILY hypothyroidism 06/15/24 06/15/24 06/15/24 History
oxycodone 5 mg tablet 5 mg PO Q6H PRN pain 06/15/24 06/15/24 06/15/24 History
tamsulosin 0.4 mg capsule 0.4 mg PO DAILY urinary issues 06/15/24 06/15/24 06/14/24 History
Review of Systems
-
History Source: Patient
All other systems: Negative unless noted
Vitals / Labs / Diagnostic Testing
Vital Signs
Temp Pulse Resp BP Pulse Ox
97.8 F 95 21 108/57 95
06/18/24 07:24 06/18/24 08:00 06/18/24 08:00 06/18/24 08:00 06/18/24 08:03
Lab Data
06/18/24 04:52
06/18/24 04:52
Microbiology
06/15/24 14:48 Blood/Venous Blood Culture - Preliminary
No Growth in 48 hours- Final report to follow
06/15/24 20:14 Nose MRSA Screen - Final
No Methicillin Resistant Staphylococcus aureus isolated.
Diagnostic Testing:
Physical Exam
-
HEENT: Normocephalic, Anicteric and Other (laryngectomy in place)
Cardiovascular: S1/S2 and Peripheral Edema (+1 LLE edema, no edema on RLE)
Respiratory: Clear, Wheeze (negative), Rales (negative), Rhonchi (negative) and Non-Labored Respirations
GI: Soft, Non Distended, Non Tender and Normal Bowel Sounds
Neurology: AO x 3
Skin: Warm, Dry and Other (Bandage along LLE with pain during palpation of post-operative sites)
General: Respiratory Distress (negative), Chills (negative) and Sweats (negative)
Assessment
-
Assessment: 68-year-old male with a past medical history of PAD s/p left�right femorofemoral bypass with history of left iliac stenting, DM type II, centrilobular emphysema, hypertension and throat cancer s/p XRT + laryngectomy who presents with
left lower extremity pain. Of note, patient recently hospitalized from 06/04 - 06/08 after presenting with sudden LLE pain with acute limb ischemia requiring LLE thrombectomy with excision of left femoral portion of old/occluded fem-fem bypass (OR
date: 06/05/2024): Postoperatively on 06/05, patient developed tense compartment syndrome requiring left cath 4 compartment fasciotomies + evacuation of hematoma. Bleeding was controlled and there were no immediate complications. He was transferred
to the ICU for postoperative management. He went back to the OR on 06/06 for exploration of left lateral fasciotomy site with evacuation of hematoma/washout. There were no complications. Wound VAC was applied on 06/07. Patient was discharged home
on 06/08. He now is back in the hospital as his pulmonary saw the wound to his KIM saying that it did not appear good and patient had a low-grade fever. Patient also with left lower extremity pain which has been worsening. He was afebrile in the
ER to 97.7 �F, tachycardic to 124 bpm, breathing at 18 breaths/min, BP 117/74 and saturating 98% on room air. Labs showed leukocytosis to 22.8, anemia to 11.5, elevated platelet count of 420, glucose 151, and COVID antigen negative. Blood cultures
were collected, and he was given Dilaudid in the ER plus Zosyn and admitted to the hospitalist service with vascular surgery consulted. Patient was continued on pain medications and on the evening of 06/17/2024 he became confused and pulled out his
laryngectomy and would not let healthcare providers casino assistant manager. He said that he could not breathe. Rapid response was called with anesthesia paged. Patient was eventually able to have laryngectomy placed back into the position, and he was
transferred to the IMU for closer monitoring. Pulmonary service now consulted for additional management/recommendations.
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
Impression:
#Acute encephalopathy � now resolved; suspect that this was due to delirium possibly related to recent IV hydromorphone administration prior to Sx starting
#SOB with acute respiratory failure with hypoxia - likely due to mucous plugging of proximal airway - resolved with tracheal suctioning
#PAD with recent LLE critical limb ischemia s/p LLE thrombectomy with excision of left femoral portion of old/occluded fem-fem bypass (OR date: 06/05/2024) c/b compartment syndrome s/p fasciotomy + hematoma evacuation (OR date: 06/05/2024)
#Sepsis due to left lower extremity cellulitis
#Throat cancer s/p laryngectomy and history of XRT
#Anemia (baeline Hb 12-13.5 g/dL)
#Lactic acidosis: Now resolved as of 06/17/2024 hyperglycemia: Resolved
#DM type II
#Anxiety/Depression
#Hypothyroidism
#Centrilobular emphysema/suspected COPD � he denies having an official diagnosis of COPD and he does not take any inhalers
#Former heavy tobacco use (>[id number] history, quit approximately 5 years ago)
Plan:
- Patient received multiple doses of Dilaudid prior to symptoms of SOB beginning yesterday, which of note he has limited recollection of the entire event
- He received 0.5 mg Dilaudid at 18:23 on 06/17/2024, and had also received additional IV Dilaudid earlier in the afternoon/morning; of note, 1 mg IV Dilaudid also given at 19:15 on 06/17/2024
- Seems like his amnesia began somewhere between 6-630PM and he wanted to take his laryngectomy out as he 'could not breathe'; tracheal suctioning performed at bedside and pt TRX to IMU where he became more amenable to patient care and was
breathing more comfortably. CXR showed LLL atelectasis.
- Currently pt is doing very well, on room air breathing comfortably with saturations of 97%
- Maintain laryngectomy emergency box and patient is room
- Maintain SpO2 >90-94% with supplemental O2 as needed
- Incentive spirometer encouraged
- Continue to monitor secretions - if they become too dry then will need to hold his glycopyrrolate (home medication)
- Continue pain control but limit frequent IV prn doses as this can raise risk of delirium/AMS
- Continue Seroquel HS (home medication)
- Continue ABx as per ID - currently on Zosyn/IV vanco
- Follow up blood Cx (collected 06/15/2024 - NGTD)
- Trend CBC and transfuse if needed to keep Hb>7, plt>50k (given recent operative status)
- Replete electrolytes with K>4, Mg>2
- Maintain euglycemia with goal BG >100 and <180
- prn nebulized bronchodilators � patient currently not bronchospastic
-He qualifies for annual LDCT chest for lung cancer screening. He showed me his records from [facility], and his last CT chest was from April 2023 which showed centrilobular emphysema and no concerning nodules or masses. He tells me that he gets
imaging from his head and neck oncologist/reconstructive surgeon (Dr. Ki Lawson) who orders a CT neck/chest usually every 3 to 6 months. I advised him to continue to obtain at least annual imaging with CT chest until he has quit smoking
for 15 years.
- DVT ppx: Eliquis
I will arrange for outpatient pulmonary office follow-up for PFTs and evaluation of COPD. If he wishes to see Pulmonology at [facility], then that decision will be left up to the patient. Information to my office will be left in patient's chart.
Patient is stable for transfer out of IMU to telemetry. No additional pulmonary recommendations at this time. Keep emergency laryngectomy box at bedside. Pulmonary service will now sign off. Thank you for allowing us to be involved in the care
of this patient. Please reconsult if there are any additional questions/concerns, or if patient's respiratory status deteriorates.
Data:
CXR 06/17/2024: Stable left basilar atelectasis.
Total time spent today was 55 minutes for this encounter. Time includes reviewing laboratory test/imaging results, reviewing pertinent medical records, obtaining and reviewing medical history, performing an appropriate exam, ordering medications,
tests and procedures. Time also includes documentation of this encounter, coordinating patient care and communicating with other healthcare professionals. Total time does not include separately billed tests performed on this date of service.
--- NOTE | 2024-06-18 08:50 | PTCARENOTE ---
Patient assisted out of bed to chair. Independent with ambulation. Slight unsteadiness. Vascular surgery lead clinical research coordinator at bedside to assess patient's LLE. Wounds redressed. Plan to return with Dr. Cunningham for application of wound vac. Pain management discussed.
Patient set up to eat breakfast. Appetite good. No complaints. VSS.
--- NOTE | 2024-06-18 08:58 | PTCARENOTE ---
Rec'd care of patient at 0700. Patient alert and oriented. Communicating through speaking valve. Pulse ox 96% on 6L venti mask. Patient denying dyspnea. Weaned to RA. Pulse ox 95-97%. Lung sounds shallow/diminished. NSR with pvcs on tele monitor.
Rate in the 70-90's. +2 edema to LLE. +DP and PT doppler pulses bilaterally. +BS. Voiding via urinal.
[2024-06-18] MEDS: VANCOCIN HCL 500 MG 100 IV (09:09)
--- NOTE | 2024-06-18 10:03 | CM ---
CM following re: discharge planning.
Reviewed pt's chart, met with pt. Pt's girlfriend and two pt's friends at bedside.
Pt is well known to this CM from previous admission when pt was discharged home with wound vac and DHVN. Pt's girlfriend stated that pt uses [employer] for trach supplies and per girlfriend, [employer] does not allow pt's
girlfriend to order any supplies and asked her to request it from a hospital nurse outreach case manager.
Per ID, continue antibiotics: Vancomycin. Zosyn
Reparatory therapist presents in pt's room, he went over with pt and his girlfriend the needs of supplies and per respiratory therapist he will TTed MD to get a script. CM will fax a script with pt's clinical to [facility].
IMM reviewed, placed on chart, pt has a copy.
D/C plan: home with resumptions of DHVN, wound vac and necessary trach supplies. Family to transport home.
CM will follow with discharge plan updates as hospitalization progresses
--- NOTE | 2024-06-18 10:42 | PHA.VAN.FU ---
Vancomycin Assessment / Plan
- Assessment
Renal Function: Stable
WBC's are: Trending Up
In the past 24 hrs, patient has been: Afebrile
Concomitant Antimicrobials: piperacillin/tazobactam
- Assessment - Therapeutic Drug Monitoring
Extrapolated Cmax (mcg/mL): 11.3*
Peak level was drawn: More than 3 hours after previous dose (peak drawn ~4H after end of prior infusion, decreasing accuracy of calculations*)
Extrapolated Cmin (mcg/mL): 7.1
Trough Drawn: Appropriately
Levels were drawn: At steady state (levels drawn after 4th maintenance dose)
Calculated AUC (mcg*h/mL): 217*
Calculated ke: 0.042
Calculated half life (H): 16.5*
*Peak drawn late, which is likely to underestimate true peak and AUC and likely to overestimate half-life
Unable to use patient-specific pK to properly assess and adjust dosing
Trough is subtherapeutic
- Dosing Plan
Adjust Regimen to: Vanc 1500mg Q12H starting at 1800
New Regimen Predicts: Trough (10.8 using linear PK)
Dosing Comments: patient received supplement 500mg today at 09
- Monitoring Plan
No level(s) ordered at this time: consider repeat levels in next few days
- Follow Up
Pharmacy will continue to follow.
Vancomycin Follow UP
- -
Patient Age: 68
Vancomycin Day #: 4
Indication: Bacteremia
Requesting Provider: Dr. Grant / Akiko
Pertinent Antimicrobial Allergies:
NKDA
Height / Weight:
Height 5 ft 11 in
Actual Weight 95.4 kg
Pertinent Past Medical History: PAD, DM
- Vital Signs / Lab Results
Temp Pulse Resp BP Pulse Ox
97.8 F 88 29 110/59 96
06/18/24 07:24 06/18/24 10:00 06/18/24 10:00 06/18/24 10:00 06/18/24 09:45
Lab Results - Hematology
06/15/24 06/16/24 06/17/24
12:37 05:54 07:28
WBC 22.8 H 17.1 H 13.7 H
06/17/24 06/18/24
18:20 04:52
WBC 8.8 21.6 H
Lab Results - Chemistry
06/15/24 06/16/24 06/17/24
12:37 05:54 07:28
BUN 20 19 17
Creatinine 1.0 1.1 1.0
Estimated Creat Clear 77 70 77
Albumin 3.1 L
06/17/24 06/18/24
18:20 04:52
BUN 15 19
Creatinine 1.0 1.0
Estimated Creat Clear 77 77
Albumin 3.4 L
06/15/24 06/15/24 06/17/24
12:37 15:45 18:20
Lactic Acid 1.4 Cancelled 8.3 H*
06/17/24
22:31
Lactic Acid 1.4
Microbiology Results
06/15/24 14:48 Blood Culture - Preliminary
Blood/Venous No Growth in 48 hours- Final report to follow
06/15/24 20:14 MRSA Screen - Final
Nose No Methicillin Resistant Staphylococcus aureus isolated.
Therapeutic Drug Monitoring
Vancomycin Peak 9.4 ug/ml (18-26) L 06/17/24 22:31
Vancomycin Trough 7.2 ug/ml (5-20) 06/18/24 04:52
[2024-06-18] MEDS: DILAUDID 2 MG PO ×2 (10:56→19:58)
--- NOTE | 2024-06-18 11:02 | W.PN.ID1 ---
Date of Service
Date of Service: June 18, 2024
Today's Communication
Continue antibiotics.
Assessment / Plan
Leukocytosis
Left lower extremity wounds
- Hx fasciotomy
Fever
Hx Throat cancer
Dyslipidemia
DM
PAD
Recommendations:
Continue with empiric Vanco and Zosyn for the present.
Follow white count. Not clear if current elevation is reactive secondary to pain, or if there is some infectious process.
Blood cultures no growth at 48 hours. Will continue to follow.
Local care to left groin wound and left leg wound.
Further recommendations as additional data is returned.
����������������������������������������������������������
Chief Complaint
-: Leukocytosis and Other (Left leg wound)
Subjective / Review of Systems
Patient seen and examined. Events overnight reviewed.
Patient currently complains of left leg pain, although VAC was just changed.
Vital Signs / Physical Exam
Vital Signs
Vital Signs
Temp Pulse Resp BP Pulse Ox
97.8 F 88 29 110/59 96
06/18/24 07:24 06/18/24 10:00 06/18/24 10:00 06/18/24 10:00 06/18/24 09:45
Physical Exam
Constitutional: Comfortable, Chronically Ill and Non-toxic
Eyes: Sclera Anicteric
Oropharyngeal: Other (Tracheostomy with Passy-Mau valve in place.)
Cardiovascular: S1/S2; Negative S3/S4
Pulmonary: Clear; Negative Wheezes or Rales
Gastrointestinal: Soft and Non Tender
Extremities: Other (Left leg with back in place with Brett wrap over top. Photos taken by Vascular Surgery reviewed and muscle appears pink/red and without surrounding purulence. No periwound erythema.)
Skin: Warm and Dry
Neurological: Awake and Alert
Psychological: Calm
Objective Data
Lab Data
Lab Results
06/18/24 04:52
06/18/24 04:52
Estimated Creat Clear 77 ml/min 06/18/24 04:52
Lactic Acid 1.4 mmol/L (0.7-2.0) 06/17/24 22:31
Total Bilirubin 1.2 mg/dl (0.2-1.3) 06/17/24 18:20
AST 38 U/L (17-59) 06/17/24 18:20
ALT 34 U/L (0-50) 06/17/24 18:20
Alkaline Phosphatase 138 U/L (38-126) H 06/17/24 18:20
Most recent labs reviewed.
Micro Results:
06/15/24 14:48 Blood Culture - Preliminary
Blood/Venous No Growth in 48 hours- Final report to follow
06/15/24 20:14 MRSA Screen - Final
Nose No Methicillin Resistant Staphylococcus aureus isolated.
Care Review
Plan reviewed with: Other Provider (Vascular Surgery team)
--- NOTE | 2024-06-18 11:03 | PTCARENOTE ---
Wound vac applied by vascular surgery team. Patient c/o 07/19 pain in LLE. 1x dose of 2mg PO Dilaudid ordered and administered.
--- NOTE | 2024-06-18 11:22 | W.PN.VS ---
Addendum entered and electronically signed by Jaswant Cunningham III, MD 06/18/24 13:23:
This patient was seen and examined with JULES Burt. I agree with the history and physical exam as well as the assessment and plan.
Events noted
Left groin incision clean, dry and with no signs of infection
Fasciotomy sites pink and healthy muscle with no drainage or gross infection identified
Left foot is warm and pink
Easy to find Doppler signals identified at the DP and PT locations in the left foot
Continue antibiotics
Complete infectious workup
VAC placed
Will follow peripherally
Continue anticoagulation
Signed: Jaswant Cunningham III, MD
[facility] Vascular Surgery
[phone] (dugu)
Original Note:
Today's Communication / Plan
-
Patient seen and examined at bedside with Dr. Jaswant Cunningham III, below plan reviewed with attending.
Assessment/Plan
-
Assessment: 68-year-old male status post left lower extremity common, profunda, and superficial femoral arteries and popliteal artery thrombectomy and left calf 4 compartment fasciotomies with fever and continued uncontrolled postoperative pain
management at medial and lateral fasciotomy calf incisions.
Plan:
Continue antibiotics, f/U ID, appreciate recommendations
Continue local wound care, wound vac placed
Continue as needed pain medication
Continue neovascular checks
Subjective Data
-
Date of Service: June 18, 2024
Patient seen and examined at bedside reports he is feeling better today, cannot recall full details of the event last evening when he was confused. Continues to endorse pain at left leg fasciotomy sites, that is better managed with current
medication regimen in comparison to home. Denies fever, chills, nausea, vomiting, and cough.
Objective Data
-
Vital Signs
Temp Pulse Resp BP Pulse Ox
97.8 F 85 21 98/70 96
06/18/24 07:24 06/18/24 11:00 06/18/24 11:00 06/18/24 11:00 06/18/24 10:45
Intake and Output
06/17/24 06/18/24 06/19/24
06:59 06:59 06:59
Intake Total 7270 / 7270 3810 / 3960 890 / 890
Output Total 550 / 550
Balance 7270 / 7270 3810 / 3960 340 / 340
Intake:
Oral fluids 2070 / 2070 1360 / 1360 240 / 240
IV fluids (Total) 1900 / 1900 800 / 900 500 / 500
Nss 1,000 ml @ 100 mls/hr IV . 800 / 900 500 / 500
Q10H NIKOLAI Rx#:[id number]
IV piggybacks 3300 / 3300 1650 / 1700 150 / 150
Output:
Urine, Voided 550 / 550
Other:
Number of approximated MODERATE 2 3
amounts of urine
Number of approximated LARGE 2
amounts of urine
Lab Results
06/18/24 04:52
06/18/24 04:52
Calcium 8.2 mg/dl (8.4-10.2) L 06/18/24 04:52
Total Bilirubin 1.2 mg/dl (0.2-1.3) 06/17/24 18:20
AST 38 U/L (17-59) 06/17/24 18:20
ALT 34 U/L (0-50) 06/17/24 18:20
Alkaline Phosphatase 138 U/L (38-126) H 06/17/24 18:20
Total Protein 5.9 g/dl (6.3-8.2) L 06/17/24 18:20
Albumin 3.4 g/dl (3.5-5.0) L 06/17/24 18:20
Physical Exam
-
AAOx3
No tachypnea on RA
No tachycardia
Abd soft, non-tender, non-distended
Left groin site CDI, robert well approximated, left calf with BL fasciotomy sites, skin edge erythema now resolved at both sites, no evidence of purulent drainage, healthy muscle, wound vac dressing re-applied, calf +2 edema
DP and PT pulse signal with doppler signal, foot warm
[2024-06-18 12:17] LABS: Glucose - Point of Care 98 mg/dl (70-99)
--- NOTE | 2024-06-18 13:10 | WOUNDNOTE ---
L MEDIAL LOWER LEG
--- NOTE | 2024-06-18 13:11 | WOUNDNOTE ---
L LATERAL LOWER LEG
--- NOTE | 2024-06-18 13:12 | WOUNDNOTE ---
HANSEL RN NOTE: Patient admitted with post operative pain and fever. L leg thrombectomy and fasciotomy for compartment syndrome done by vascular 06/05, discharged 06/08. Wound nurse from home sent patient to ER for increased redness and pain to L leg.
Asked to assist vascular with wound vac needs. Wound vac applied this morning by vascular CALIBRATION TESTER's Karrie Parrish and Jelly Beltran. Spoke with CALIBRATION TESTER's at nursing station, reviewed plan with wound vac. Next dressing change will be due Tuesday, to be done by
wound care nurse, unless discharged before then. Patient had wound vac in use at home, asked patient to have bring in home vac unit and extra canister, patient states he will. Wound vac at 125mmhg, no air leaks. Patient able to turn self to
side, sacrum and heels are intact. Updated nurse Savannah on the above and explained how to switch back onto home vac then place hospital vac in soiled utility rm. Will update [employer] with hospital wound vac unit. Answered all questions from
patient and will follow as needed.
[2024-06-18] MEDS: DILAUDID 4 MG PO (14:46)
--- NOTE | 2024-06-18 14:55 | W.PN.HOSP.TC ---
Today's Communication/Plan
-
Monitor vital signs see plan
PT/OT
Transfer out of ICU
Continue anticoagulation
Continue antibiotics
Assessment / Plan
Assessment / Plan
Gen: NAD, AAOx3.
Eyes: EOMI, PERRLA, no scleral icterus.
Neck: supple.
CV: remains RRR, +S1/S2, no m/r/g.
Resp: remains CTAB, no rales, wheezes, or rhonchi.
Abd: +BS, soft, NT, ND
Skin: remains No rashes. Left lower extremity with clean dry and intact dressing.
Neuro: CN 2-12 intact, non-focal.
Psych: Normal mood and affect.
Sepsis due to wound infection of fasciotomy sites/cellulitis:
-cont IVFs
-cont Vancomycin/Zosyn as per ID
-Vascular following
06/17 patient ripped out his laryngeal tube and was hypoxic status post tracheal suctioning at bedside, was subsequently transferred to ICU
Emergency laryngeal injector mailbox at bedside
Now on room air, transfer out of ICU
Acute delirium
Now resolved
Monitor
PAD s/p L fem-fem bypass/multiple stents of left lower extremity with recent thrombectomy/fasciotomies:
-Continue Eliquis
-Vascular following
Other problems:
Throat cancer s/p tracheostomy: in remission, continue glycopyrrolate
Hypothyroidism: Continue levothyroxine
DM2: Continue metformin
Hyperlipidemia: Continue statin
Anxiety/depression: Continue Seroquel
BPH: Continue tamsulosin
FULL/Eliquis
Anticipated Discharge: 24 - 48 hours
Subjective/Interval History
-
Date of Service: June 18, 2024
denies pain
Objective Data
-
Labs:
Laboratory Results
06/18/24
04:52
WBC 21.6 H
Hgb 8.1 L D
Hct 24.2 L
Plt Count 344 D
Sodium 140
Potassium 4.1
Chloride 109 H
Carbon Dioxide 18 L
BUN 19
Creatinine 1.0
Glucose 124 H
Calcium 8.2 L
Vital Signs:
Vital Signs
Temp Pulse Resp BP Pulse Ox
97.8 F 94 20 111/66 95
06/18/24 12:06 06/18/24 14:00 06/18/24 14:00 06/18/24 14:00 06/18/24 14:00
I&O
06/17/24 06/18/24 06/19/24
06:59 06:59 06:59
Intake Total 7270 / 7270 3810 / 3960 1190 / 1190
Output Total 550 / 550
Balance 7270 / 7270 3810 / 3960 640 / 640
[2024-06-18] MEDS: VANCOCIN 300 MG IV (17:01)
[2024-06-18] MEDS: LIPITOR 10 MG PO (17:01)
[2024-06-18] MEDS: VANCOCIN 300 ML IV (17:01)
[2024-06-18 17:15] LABS: Glucose - Point of Care 136 mg/dl (70-99)
--- NOTE | 2024-06-18 20:05 | PTCARENOTE ---
Pt transported to IMU from ICU by this RN and second RN at start of shift. Pt AAO, engaging in oriented conversation. Pt sinus tach on monitor, HR 110. Pt with laryngectomy. Currently on RA while awake. Lungs diminished B/L at the bases. Pt voiding
moderate amounts of yellow urine in urinal. Pt with wound vac on LLE, dressing intact and wound vac on and draining without complication. Pt took PO HS meds with water, swallow intact. Pt denies further needs at this time, Call light in reach.
--- NOTE | 2024-06-18 20:10 | PTCARENOTE ---
SAT 93%. Occasionally desats to 87-88%. Pt placed on trach collar with 5L and 28% Fi02 by RT. Sat increased to 97% once placed on 02. Pt denies SOB or dyspnea.
[2024-06-18] MEDS: SEROQUEL 25 MG PO (21:17)
[2024-06-18 22:09] LABS: Glucose - Point of Care 108 mg/dl (70-99)
[2024-06-19] VITALS (10 sets, daily range): BP systolic 95–137; BP diastolic 55–87; PULSE 94–98; O2SAT 95; BMI 30.9
[2024-06-19] MEDS: TYLENOL 650 MG PO (00:38)
--- NOTE | 2024-06-19 01:05 | PTCARENOTE ---
Addendum entered by Varinder Meneses RN 06/19/24 02:09:
Pt reassessed. temp 99.0. HR 113. BP 113/55(73). Able to answer all orientation questions correctly.
Original Note:
Monitor alarming HR 144. RN to bedside found Pt sitting on side of bed urinating. Pt appearing to be disoriented. Pt stated he tried to call for help but he 'didn't your number', call maldonado remains sitting in reach on bed. Pt asked to return to bed,
Pt looking all over the bed for belongings. Pt mentioning a place called '[facility]' and that someone was knocking on the door. Pt reoriented to place and time by the RN. Pt with temp of 100.8, Tylenol administered. BASKET PATCHER notified of events.
[2024-06-19] MEDS: ZOSYN 50 IV ×2 (02:18→09:43)
[2024-06-19] MEDS: SYNTHROID 75 MCG PO (05:33)
[2024-06-19] MEDS: DILAUDID 2 MG PO ×2 (05:33→12:56)
[2024-06-19 05:51] LABS: % Basophils 0.3 % (0-2); % Eosinophils 1.1 % (0-6); % Immature Granulocytes 1.2 % (0-0.5); % Lymphocytes 7.2 % (20.5-51.1); % Neutrophils 84.2 % (42.2-75.2); Absolute Eosinophils 0.1 10^3/uL (0-0.7); Absolute Immature Granulocytes 0.1 10^3/uL (0-0.05); Absolute Lymphocytes 0.8 10^3/uL (1.2-3.4); Absolute Monocytes 0.7 10^3/uL (0.1-0.6); Absolute Neutrophils 9.1 10^3/uL (1.4-6.5); Hematocrit 27.4 % (39.0-52.0); Hemoglobin 9.3 g/dL (13.0-18.0); Mean Corp Hgb Conc. 33.9 g/dL (33.0-37.0); Mean Corpuscular Volume 88.4 fL (80.0-94.0); Mean Platelet Volume 9.2 fL (7.4-10.4); Nucleated Red Blood Cells % 0 % (-); Platelet Count 361 10^3/uL (130-400); Red Cell Dist. Width 13.6 % (11.5-14.5); White Blood Cell Count 10.8 10^3/uL (4.8-10.8)
[2024-06-19 06:17] LABS: ALT (SGPT) 23 U/L (0-50); AST (SGOT) 33 U/L (17-59); Albumin 2.6 g/dl (3.5-5.0); Alkaline Phosphatase 86 U/L (38-126); Blood Urea Nitrogen 21 mg/dl (9-20); Calcium 8.4 mg/dl (8.4-10.2); Carbon Dioxide 23 mmol/L (22-30); Chloride 109 mmol/L (98-107); Estimated Creatinine Clearance 88 ml/min; Glucose 107 mg/dl (70-99); Magnesium 1.8 mg/dl (1.6-2.3); Phosphorus 3.2 mg/dl (2.5-4.5); Potassium 4.2 mmol/L (3.5-5.1); Sodium 140 mmol/L (135-145); Total Bilirubin 0.6 mg/dl (0.2-1.3); Total Protein 4.9 g/dl (6.3-8.2); eGFR > 60.00
[2024-06-19] MEDS: VANCOCIN 300 ML IV (06:20)
[2024-06-19] MEDS: VANCOCIN 300 MG IV (06:20)
[2024-06-19 07:32] LABS: Urine Albumin Negative (Neg - Trace); Urine Bilirubin Negative (Negative); Urine Character Clear (Clear); Urine Color Yellow; Urine Glucose Negative (Negative); Urine Ketone Negative (Negative); Urine Leukocyte Negative (Negative); Urine Nitrite Negative (Negative); Urine Occult Blood Negative (Negative); Urine Specific Gravity 1.025 (<1.030); Urine Urobilinogen 1+ (Neg - 1+)
--- NOTE | 2024-06-19 07:48 | W.PN.VS ---
Addendum entered and electronically signed by Timothy Maharaj MD 06/19/24 08:19:
Seen and examined with TICKET TAKER Ruby and BYRON Parrish. Agree with findings as noted below. Left lower extremity calf is soft. No erythema is noted in the calf. The distal ankle is nontender. VAC in place medially and laterally. Foot is warm! Excellent
dopplerable DP and PT signals. Left groin/upper thigh incision site robert intact. Some staple line erythema but no wendi cellulitis. Plan/as discussed and noted below. Likely remove robert. Continue to monitor thigh or groin. Okay for
discharge likely from vascular perspective.
Original Note:
Today's Communication / Plan
-
Patient seen and examined at bedside with Dr. Timothy Maharaj, below plan reviewed with attending.
Assessment/Plan
-
Assessment: 68-year-old male status post left lower extremity common, profunda, and superficial femoral arteries and popliteal artery thrombectomy and left calf 4 compartment fasciotomies with fever and continued uncontrolled postoperative pain
management at medial and lateral fasciotomy calf incisions.
Plan:
ID following appreciate recommendations for transition to PO antibiotics
Continue local wound care and wound vac
Continue as needed pain medication
Cleared for discharge from a vascular surgery perspective
Subjective Data
-
Date of Service: June 19, 2024
Patient seen and examined at bedside, reports continued improvement in pain. Denies fever, chills, nausea, and vomiting. Reports eagerness for discharge to home.
Objective Data
-
Vital Signs
Temp Pulse Resp BP Pulse Ox
98.8 F 88 23 121/76 94
06/19/24 03:21 06/19/24 07:15 06/19/24 07:15 06/19/24 06:00 06/19/24 07:15
Intake and Output
06/18/24 06/19/24 06/20/24
06:59 06:59 06:59
Intake Total 3810 / 3960 2170 / 2170
Output Total 1350 / 1350
Balance 3810 / 3960 820 / 820
Intake:
Oral fluids 1360 / 1360 470 / 470
IV fluids (Total) 800 / 900 1100 / 1100
Nss 1,000 ml @ 100 mls/hr IV . 800 / 900 1100 / 1100
Q10H NKIOLAI Rx#:[id number]
IV piggybacks 1650 / 1700 600 / 600
Output:
Urine, Voided 1350 / 1350
Other:
Number of approximated MODERATE 3
amounts of urine
Lab Results
06/19/24 05:40
06/19/24 05:40
Calcium 8.4 mg/dl (8.4-10.2) 06/19/24 05:40
Phosphorus 3.2 mg/dl (2.5-4.5) 06/19/24 05:40
Magnesium 1.8 mg/dl (1.6-2.3) 06/19/24 05:40
Total Bilirubin 0.6 mg/dl (0.2-1.3) 06/19/24 05:40
AST 33 U/L (17-59) 06/19/24 05:40
ALT 23 U/L (0-50) 06/19/24 05:40
Alkaline Phosphatase 86 U/L (38-126) 06/19/24 05:40
Total Protein 4.9 g/dl (6.3-8.2) L 06/19/24 05:40
Albumin 2.6 g/dl (3.5-5.0) L 06/19/24 05:40
Physical Exam
-
AAOx3
No tachypnea on RA
No tachycardia
Abd soft, non-tender, non-distended
Left groin site CDI, robert well approximated, left calf with BL fasciotomy sites, no evidence of erythema, wound vac CDI, calf +2 edema
DP and PT pulse signal with doppler signal, foot warm
[2024-06-19 07:52] LABS: Glucose - Point of Care 105 mg/dl (70-99)
--- NOTE | 2024-06-19 09:00 | PHA.VAN.FU ---
Vancomycin Assessment / Plan
- Assessment
Renal Function: Stable
WBC's are: WNL
Concomitant Antimicrobials: piperacillin/tazobactam
- Dosing Plan
Continue: Vanc 1500mg Q12H
- Monitoring Plan
No level(s) ordered at this time: consider repeat levels in next few days
- Follow Up
Pharmacy will continue to follow.
Vancomycin Follow UP
- -
Patient Age: 68
Vancomycin Day #: 5
Indication: Bacteremia
Requesting Provider: Dr. Grant / Akiko
Pertinent Antimicrobial Allergies:
NKDA
Height / Weight:
Height 5 ft 11 in
Actual Weight 100.4 kg
Pertinent Past Medical History: PAD, DM, BMI ~30
- Vital Signs / Lab Results
Temp Pulse Resp BP Pulse Ox
98.1 F 88 23 121/76 94
06/19/24 07:10 06/19/24 07:15 06/19/24 07:15 06/19/24 06:00 06/19/24 07:15
Lab Results - Hematology
06/17/24 06/17/24 06/18/24
07:28 18:20 04:52
WBC 13.7 H 8.8 21.6 H
06/19/24
05:40
WBC 10.8
Lab Results - Chemistry
06/17/24 06/17/24 06/18/24
07:28 18:20 04:52
BUN 17 15 19
Creatinine 1.0 1.0 1.0
Estimated Creat Clear 77 77 77
Albumin 3.4 L
06/19/24
05:40
BUN 21 H
Creatinine 1.0
Estimated Creat Clear 88
Albumin 2.6 L
06/17/24 06/17/24
18:20 22:31
Lactic Acid 8.3 H* 1.4
Lab Results - Urine
06/19/24
07:02
Urine Nitrite (Reflex) Negative
Leukocyte Esterase Rfl Negative
Microbiology Results
06/15/24 14:48 Blood Culture - Preliminary
Blood/Venous No Growth in 72 hours- Final report to follow
06/15/24 20:14 MRSA Screen - Final
Nose No Methicillin Resistant Staphylococcus aureus isolated.
Therapeutic Drug Monitoring
Vancomycin Peak 9.4 ug/ml (18-26) L 06/17/24 22:31
Vancomycin Trough 7.2 ug/ml (5-20) 06/18/24 04:52
--- NOTE | 2024-06-19 09:36 | W.PN.PUL.V3 ---
Today's Communication / Plan
-
Suction as needed
Humidify air
Nebulizers if needed
Mucolytic's if needed
Outpatient pulmonary follow-up
Assessment
-
Assessment: 68-year-old male with a past medical history of PAD s/p left�right femorofemoral bypass with history of left iliac stenting, DM type II, centrilobular emphysema, hypertension and throat cancer s/p XRT + laryngectomy who presents with
left lower extremity pain. Of note, patient recently hospitalized from 06/04 - 06/08 after presenting with sudden LLE pain with acute limb ischemia requiring LLE thrombectomy with excision of left femoral portion of old/occluded fem-fem bypass (OR
date: 06/05/2024): Postoperatively on 06/05, patient developed tense compartment syndrome requiring left cath 4 compartment fasciotomies + evacuation of hematoma. Bleeding was controlled and there were no immediate complications. He was transferred
to the ICU for postoperative management. He went back to the OR on 06/06 for exploration of left lateral fasciotomy site with evacuation of hematoma/washout. There were no complications. Wound VAC was applied on 06/07. Patient was discharged home
on 06/08. He now is back in the hospital as his pulmonary saw the wound to his KIM saying that it did not appear good and patient had a low-grade fever. Patient also with left lower extremity pain which has been worsening. He was afebrile in the
ER to 97.7 �F, tachycardic to 124 bpm, breathing at 18 breaths/min, BP 117/74 and saturating 98% on room air. Labs showed leukocytosis to 22.8, anemia to 11.5, elevated platelet count of 420, glucose 151, and COVID antigen negative. Blood cultures
were collected, and he was given Dilaudid in the ER plus Zosyn and admitted to the hospitalist service with vascular surgery consulted. Patient was continued on pain medications and on the evening of 06/17/2024 he became confused and pulled out his
laryngectomy and would not let healthcare providers real estate assistant. He said that he could not breathe. Rapid response was called with anesthesia paged. Patient was eventually able to have laryngectomy placed back into the position, and he was
transferred to the IMU for closer monitoring. Pulmonary service now consulted for additional management/recommendations.
Chronic conditions FIELD SPECIALIST: PAD s/p left iliac stenting + left�right femorofemoral bypass, DM type II, hypertension, throat cancer s/p XRT + laryngectomy, hypothyroidism, hyperlipidemia, anxiety/depression, centrilobular emphysema/suspected COPD
Impression:
#Acute encephalopathy � now resolved; suspect that this was due to delirium possibly related to recent IV hydromorphone administration prior to Sx starting
#SOB with acute respiratory failure with hypoxia - likely due to mucous plugging of proximal airway - resolved with tracheal suctioning
#PAD with recent LLE critical limb ischemia s/p LLE thrombectomy with excision of left femoral portion of old/occluded fem-fem bypass (OR date: 06/05/2024) c/b compartment syndrome s/p fasciotomy + hematoma evacuation (OR date: 06/05/2024)
#Sepsis due to left lower extremity cellulitis
#Throat cancer s/p laryngectomy and history of XRT
#Anemia (baeline Hb 12-13.5 g/dL)
#Lactic acidosis: Now resolved as of 06/17/2024 hyperglycemia: Resolved
#DM type II
#Anxiety/Depression
#Hypothyroidism
#Centrilobular emphysema/suspected COPD � he denies having an official diagnosis of COPD and he does not take any inhalers
#Former heavy tobacco use (>893-[id number]-oeoe history, quit approximately 5 years ago)
Plan:
Respiratory status has improved significantly after mucous plugs removed
Supplemental oxygen as needed
Humidified/moisturized air to help with mucus viscosity
Mucolytic's
Incentive spirometry
Nebulizers as needed-currently not bronchospastic
Aspiration precautions
Glycopyrrolate-takes at home
Cultures reviewed
Empiric antibiotics
Infectious disease following
Monitor leukocytosis
Analgesia per primary service
Monitor for oversedation
Takes Seroquel at home at night
Monitor hemoglobin
Transfuse as needed
Replace electrolytes as needed
DVT prophylaxis-on Eliquis
Nutrition
Early mobilization
He qualifies for annual LDCT chest for lung cancer screening. He showed me his records from [facility], and his last CT chest was from April 2023 which showed centrilobular emphysema and no concerning nodules or masses. He tells me that he gets
imaging from his head and neck oncologist/reconstructive surgeon (Dr. Ki Lawson) who orders a CT neck/chest usually every 3 to 6 months. I advised him to continue to obtain at least annual imaging with CT chest until he has quit smoking
for 15 years.
We will arrange for outpatient pulmonary office follow-up for PFTs and evaluation of COPD. If he wishes to see Pulmonology at [facility], then that decision will be left up to the patient. Information to our office will be left in patient's
chart.
Data:
CXR 06/17/2024: Stable left basilar atelectasis.
Subjective Data
-
Date of Service:
Date of Service: June 19, 2024
Chief Complaint: Pulmonary Follow Up and Dyspnea Follow Up
Subjective:
Feels better, no mucous plugging, no shortness of breath at rest, does not complain of congestion, no chest pain, abdominal pain or increased leg swelling
Review of Systems
General: Other (Per HPI)
Objective Data
Data Reviewed
Vital Signs / I&O:
Vital Signs
Temp Pulse Resp BP Pulse Ox
98.1 F 88 23 121/76 94
06/19/24 07:10 06/19/24 07:15 06/19/24 07:15 06/19/24 06:00 06/19/24 07:15
Intake and Output
06/18/24 06/19/24 06/20/24
06:59 06:59 06:59
Intake Total 3810 / 3960 2170 / 2170
Output Total 1350 / 1350
Balance 3810 / 3960 820 / 820
SaO2: 94
Physical Exam
General: Respiratory Distress (n) and Comfortable
HEENT: Normocephalic, Anicteric and Moist Mucous Membranes
Cardiovascular: Regular Rhythm, Murmur, JVD (n) and Peripheral Edema
Respiratory: Wheeze (n), Crackles (Rare basilar), Rhonchi (n), Non-Labored Respirations, Accessory Resp Muscle Use (n) and Other (Tracheostomy tube)
GI: Soft, Non Distended and Non Tender
Neurology: Awake, Alert and No Motor Deficits
Skin: Warm, Good Color, Cyanosis (nn), Jaundice (nn) and Rash (n)
Labs/Micro/Reports
Lab Data
06/19/24 05:40
06/19/24 05:40
Microbiology
06/15/24 14:48 Blood/Venous Blood Culture - Preliminary
No Growth in 72 hours- Final report to follow
06/15/24 20:14 Nose MRSA Screen - Final
No Methicillin Resistant Staphylococcus aureus isolated.
[2024-06-19] MEDS: GLUCOPHAGE 1000 MG PO (09:42)
[2024-06-19] MEDS: FLOMAX 0.4 MG PO (09:42)
[2024-06-19] MEDS: ROBINUL 1 MG PO (09:43)
[2024-06-19] MEDS: ASPIR LOW (ENTERIC COATED) 81 MG PO (09:43)
[2024-06-19] MEDS: ELIQUIS 5 MG PO (09:43)
[2024-06-19] MEDS: NOVOLOG FLEXPEN-LOW RESISTANCE SC ×2 (09:46→12:59)
--- NOTE | 2024-06-19 10:57 | W.PN.HOSP.TC ---
Today's Communication/Plan
-
monitor vitals
see plan
dc abx per ID recs
pain control
dc with drain and vascular f/u
time of discharge 39minutes
Assessment / Plan
Assessment / Plan
Gen: NAD, AAOx3.
Eyes: EOMI, PERRLA, no scleral icterus.
Neck: supple.
CV: remains RRR, +S1/S2, no m/r/g.
Resp: remains CTAB, no rales, wheezes, or rhonchi.
Abd: +BS, soft, NT, ND
Skin: remains No rashes. Left lower extremity with clean dry and intact dressing.
Neuro: CN 2-12 intact, non-focal.
Psych: Normal mood and affect.
Sepsis due to wound infection of fasciotomy sites/cellulitis:
-was on Vancomycin/Zosyn as per ID; spoke with Dr Wharton today and he rec to dc abx on discharge. leukocytes are now normal. cx so far neg
-Vascular following
cw drain; will have drain on DC
06/17 patient ripped out his laryngeal tube and was hypoxic status post tracheal suctioning at bedside, was subsequently transferred to IMU
Emergency laryngeal injector mailbox at bedside
Now on room air
will f/u with pulmonary outpatient
Acute delirium
Now resolved
Monitor
PAD s/p L fem-fem bypass/multiple stents of left lower extremity with recent thrombectomy/fasciotomies:
-Continue Eliquis
-Vascular following
Other problems:
Throat cancer s/p tracheostomy: in remission, continue glycopyrrolate
Hypothyroidism: Continue levothyroxine
DM2: Continue metformin
Hyperlipidemia: Continue statin
Anxiety/depression: Continue Seroquel
BPH: Continue tamsulosin
FULL/Eliquis
Anticipated Discharge: Today
Subjective/Interval History
-
Date of Service: June 19, 2024
denies nausea
Objective Data
-
Labs:
Laboratory Results
06/19/24
05:40
WBC 10.8
Hgb 9.3 L
Hct 27.4 L
Plt Count 361
Sodium 140
Potassium 4.2
Chloride 109 H
Carbon Dioxide 23
BUN 21 H
Creatinine 1.0
Glucose 107 H
Calcium 8.4
Total Bilirubin 0.6
AST 33
ALT 23
Alkaline Phosphatase 86
Vital Signs:
Vital Signs
Temp Pulse Resp BP Pulse Ox
98.1 F 88 23 121/76 94
06/19/24 07:10 06/19/24 07:15 06/19/24 07:15 06/19/24 06:00 06/19/24 09:36
I&O
06/18/24 06/19/24 06/20/24
06:59 06:59 06:59
Intake Total 3810 / 3960 2170 / 2170
Output Total 1350 / 1350
Balance 3810 / 3960 820 / 820
--- NOTE | 2024-06-19 11:13 | W.DCSUMMARY ---
Discharge Summary
Discharge Data
Date of Admission: 06/15/24
Date of Discharge: 06/19/24
-
Pending Results: No
Hospital Course
68-year-old male with past medical history of throat cancer status post tracheostomy, hypothyroidism, diabetes mellitus, hyperlipidemia, anxiety/depression, BPH, PAD status post left femoral bypass/multiple stents of left lower extremity with recent
thrombectomy/fasciotomy came to the hospital with worsening lower extremity pain after recently being discharged with lower extremity being more painful and erythematous. Initially there was concern of patient having sepsis secondary to wound
infection of the fasciotomy site/cellulitis. Infectious disease continue to follow patient while he was hospitalized. Patient was also seen by vascular surgery who changed patient pain medication to oral Dilaudid. Patient was initially on IV
empiric antibiotics which was discontinued upon discharge after culture remained negative. He also appeared to had acute encephalopathy which was likely thought was secondary to delirium which resolved prior to discharge. While he was hospitalized
he did had acute hypoxic respiratory failure secondary to mucous plugging which resolved after tracheal suctioning. Patient symptoms over time continue to improve and he was discharged home with close vascular follow-up and drain management.
Discharge Plan
-
Patient Disposition: Home with Home Care
Discharge Diagnosis/Procedures: Sepsis due to wound infection of fasciotomy sites/cellulitis
Acute delirium
PAD s/p L fem-fem bypass/multiple stents of left lower extremity with recent thrombectomy/fasciotomies
Diet: Diabetic, Carb Controlled
Activity: As tolerated
Driving Restrictions: Not until seen by your Dr
Bathing Restrictions: None
Blood Work: CBC and BMP next week with primary care provider
Activity Restrictions/Additional Instructions:
Wound Care Instructions
To fasciotomy sites, black foam Change every 48 - 72 hours (i. e. Nrskehc-Aszgdpemdo-Novxzkz) and prn if unable to obtain a seal. Low Intensity, Continuous at 125 mmHg. Upon discharge or transfer to another facility, remove VAC foam and apply NS
moistened gauze dressing unless home VAC unit available.
katie wrap daily to Leg, can remove at bedtime
leg elevation when sitting
Follow up with vascular
Referrals:
Leonidas Ndiaye MD [Family Provider] - in less than 1 week
Mohinder Nieves MD [Active] - in one to two months (full PFTs on day of office visit)
Yamileth Palomino CRNP [Specified Professional Personl] - 07/06/24 11:15 am
Prescriptions:
New
acetaminophen 325 mg Tablet
650 mg PO Q4HPRN PRN (Reason: mild pain/T> 100.4F or rigors) Qty: 0 0RF
hydromorphone 2 mg Tablet
2 mg PO Q4HPRN PRN (Reason: moderate to severe pain) Qty: 20 0RF
aspirin 81 mg Tablet,Delayed Release (Dr/Ec)
81 mg PO DAILY Qty: 30 0RF
amoxicillin-pot clavulanate 500-125 mg Tablet
1 tab PO Q12 14 Days Qty: 28 0RF
Continued
quetiapine [Seroquel] 25 mg Tablet
25 mg PO HS
glycopyrrolate 1 mg Tablet
1 mg PO BID
atorvastatin [Lipitor] 10 mg Tablet
10 mg PO QPM
metformin 1,000 mg Tablet
1,000 mg PO BID@0800,1700
levothyroxine 75 mcg tablet
75 mcg PO DAILY
tamsulosin 0.4 mg capsule
0.4 mg PO DAILY
Eliquis 5 mg tablet
5 mg PO BID
Discontinued
oxycodone 5 mg tablet
5 mg PO Q6H PRN (Reason: pain)
Rx Instructions:
06/15/24: Filled oxydodone 5mg tabs #40 on 06/11/24-[facility] [place]
Discharge Orders:
Discharge Patient (As Directed); Ordered 06/19/24
Ordered By: Ralph Leon
Discharge Date and Time
Discharge Date/Time: 06/19/24 14:10
Print Language: MACEDONIAN
--- NOTE | 2024-06-19 11:54 | CM ---
Patient with Hx throat CA s/p trach, larynectomy, recent LLE thrombectomy with Dx Sepsis due to wound infection of fasciotomy sites/cellulitis. Room air. Wound VAC LLE. Seen by wound care nurse. OT Eval; no recommendations. PT Eval; no needs.
Met with patient and spoke with Shant by phone, patient's SO;
both agree to d/c home today. IMM completed.
Provided patient with script for trach supplies (Script per Dr Nieves: Harden xtra seal voice prosthesis, [employer]/heated moisture exchange daytime, [employer] nighttime).
Patient states he has trach supplies, suction machine, suction supplies and VAC supplies at home.
He has his own wound VAC in his room, to be switched from hospital VAC to his own VAC by nurse prior to d/c.
His sister arrived and will provide transport home today.
Spoke with Kellie, Customer Service [facility] (ph [phone], fax [phone]); because patient has Medicare, the hospital cannot place the order for the Harden Extra Seal Voice Prosthesis. Per Kellie the HH agency needs to place the order
otherwise will not pay. When calls, they should ask for option 5 for facility orders.
Spoke with RUDY Yanes Liaison; she will see the patient today, make copy of script for the voice prosthesis and place the order with [facility].
Plan home today with resumption [facility], with script for Voice Prosthesis, with resumption patient's Wound VAC.
[2024-06-19 12:03] LABS: Glucose - Point of Care 142 mg/dl (70-99)
--- NOTE | 2024-06-19 12:53 | W.PN.ID1 ---
Date of Service
Date of Service: June 19, 2024
Today's Communication
Discontinue antibiotics and observe.
Assessment / Plan
Leukocytosis
Left lower extremity wounds
- Hx fasciotomy
- No evidence of infection at present
Fever
Hx Throat cancer
Dyslipidemia
DM
PAD
Recommendations:
Leukocytosis has resolved. Blood cultures no growth.
Discontinue antibiotics and observe.
Local care to left groin wound and left leg wound.
����������������������������������������������������������
Chief Complaint
-: Leukocytosis and Other (Left leg wound)
Subjective / Review of Systems
Review of Systems: No Fever and No Chills
Vital Signs / Physical Exam
Vital Signs
Vital Signs
Temp Pulse Resp BP Pulse Ox
98.1 F 88 23 121/76 95
06/19/24 07:10 06/19/24 07:15 06/19/24 07:15 06/19/24 06:00 06/19/24 12:31
Physical Exam
Constitutional: No Acute Distress, Comfortable, Chronically Ill and Non-toxic
Eyes: Sclera Anicteric
Oropharyngeal: Other
Pulmonary: Clear and Non Labored
Gastrointestinal: Non Distended
Extremities: Other (Left leg with back in place with Brett wrap over top. Photos taken by Vascular Surgery reviewed and muscle appears pink/red and without surrounding purulence. No periwound erythema.)
Skin: Warm and Dry
Neurological: Awake and Alert
Psychological: Calm
Objective Data
Lab Data
Lab Results
06/19/24 05:40
06/19/24 05:40
Estimated Creat Clear 88 ml/min 06/19/24 05:40
Lactic Acid 1.4 mmol/L (0.7-2.0) 06/17/24 22:31
Total Bilirubin 0.6 mg/dl (0.2-1.3) 06/19/24 05:40
AST 33 U/L (17-59) 06/19/24 05:40
ALT 23 U/L (0-50) 06/19/24 05:40
Alkaline Phosphatase 86 U/L (38-126) 06/19/24 05:40
Most recent labs reviewed.
Micro Results:
06/15/24 14:48 Blood Culture - Preliminary
Blood/Venous No Growth in 72 hours- Final report to follow
06/15/24 20:14 MRSA Screen - Final
Nose No Methicillin Resistant Staphylococcus aureus isolated.
Care Review
Plan reviewed with: Physician (Hospitalist)
--- NOTE | 2024-06-19 14:26 | PTCARENOTE ---
pt discharged at 1410. instructions given. ivs and monitor removed. pt switched from hospital wound vac to his own.left with his sister via wheelchair. visiting nurses to follow.
--- NOTE | 2024-06-20 07:24 | WOUNDNOTE ---
WOC RN note: Notified [employer] of [facility] rental vac ulta pump data as of 06/19/14 with picker feeder request (work order# [id number]).
--- NOTE | 2024-06-20 08:45 | VNURNOTE ---
Late entry: Patient is a resumption with [facility]. Received info that patient requests refills on trach equip. Met with patient, he stated he has equip at home, needs refills. He has a paper Rx. This author called pt's DME co. [facility]. Spoke with
Rossana, pt has active acct with them. Per Rossana, since pt under [facility]N care, they will accept orders from [facility], patient can't order himself. Confirmed with Rossana, patient was using Harden Xtra Seal Voice Prosthesis 20Frx 8mm lot # [id number], [employer] [facility] Daytime
lot #[id number] and [employer] night lot #[id number]. [facility] does not have account with [facility]. [facility] will not accept Rxs unless account active. [facility] coal handling supervisor, Marisela Barnes notified. Ordered through [employer]: Harden Xtra Seal Voice Prosthesis #[id number] and [employer]
Daytime lot #[id number]. Order # [id number] [employer]. Nighttime HME unavailable, coal handling supervisor aware. Primary [facility] DEWEY Pettit aware.
== END 2024-06-19 14:10 | disposition home health service (06) | DRG 862 ==
LOC: IMU 14:24
PROVIDERS: Internal Medicine; Nurse Practitioner; Nurse Practitioner Family; Physician Assistant Medical; ADMITTING PHYSICIAN Hospitalist; ATTENDING PHYSICIAN Internal Medicine; CONSULT PHYSICIAN Internal Medicine Critical Care Medicine; CONSULT PHYSICIAN Internal Medicine Infectious Disease; EMERGENCY PHYSICIAN Emergency Medicine; FAMILY PHYSICIAN Internal Medicine
DX: T81.49XA Infection following a procedure, other surgical site, initial encounter (principal); A41.9 Sepsis, unspecified organism; J96.01 Acute respiratory failure with hypoxia; G93.41 Metabolic encephalopathy; F05 Delirium due to known physiological condition; L03.116 Cellulitis of left lower limb; J98.11 Atelectasis; E87.20 Acidosis, unspecified; J43.2 Centrilobular emphysema; E11.51 Type 2 diabetes mellitus with diabetic peripheral angiopathy without gangrene; I70.222 Atherosclerosis of native arteries of extremities with rest pain, left leg; Z95.820 Peripheral vascular angioplasty status with implants and grafts; D64.9 Anemia, unspecified; E03.9 Hypothyroidism, unspecified; E11.65 Type 2 diabetes mellitus with hyperglycemia; F32.A Depression, unspecified; I10 Essential (primary) hypertension; Z93.0 Tracheostomy status; G89.18 Other acute postprocedural pain; Y83.8 Other surgical procedures as the cause of abnormal reaction of the patient, or of later complication, without mention of misadventure at the time of the procedure; F41.9 Anxiety disorder, unspecified; N40.0 Benign prostatic hyperplasia without lower urinary tract symptoms; E78.00 Pure hypercholesterolemia, unspecified; Z79.01 Long term (current) use of anticoagulants; Z79.84 Long term (current) use of oral hypoglycemic drugs; Z79.890 Hormone replacement therapy; Z79.899 Other long term (current) drug therapy; Z87.891 Personal history of nicotine dependence; Z85.21 Personal history of malignant neoplasm of larynx; Z92.3 Personal history of irradiation
CPT/HCPCS: 71045; 80048; 80053; 80202; 81003; 82962; 83605; 83735; 84100; 84484; 85025; 85027; 87040; 87070; 87811; 93005; 96365; 96375; 97163; 97167; 99285

== ENCOUNTER → 2024-06-29 10:05 | Outpatient (REF) | payer MEDICARE, SELFPAY ==
[2024-06-29 18:13] LABS: ALT (SGPT) 24 U/L (0-50); AST (SGOT) 26 U/L (17-59); Albumin 4.1 g/dl (3.5-5.0); Alkaline Phosphatase 101 U/L (38-126); Blood Urea Nitrogen 21 mg/dl (9-20); Calcium 9.3 mg/dl (8.4-10.2); Carbon Dioxide 21 mmol/L (22-30); Chloride 103 mmol/L (98-107); Glucose 103 mg/dl (70-99); HDL Cholesterol 39 mg/dl; LDL Cholesterol, Calculated 55 mg/dl; Potassium 5.3 mmol/L (3.5-5.1); Sodium 141 mmol/L (135-145); Total Bilirubin 0.4 mg/dl (0.2-1.3); Total Cholesterol 120 mg/dl (50-199); Total Protein 6.9 g/dl (6.3-8.2); Triglyceride 130 mg/dl (10-149); Very Low Density Lipoprotein 26 mg/dl (0-30); eGFR > 60.00
[2024-06-29 18:14] LABS: % Basophils 0.5 % (0-2); % Eosinophils 2.8 % (0-6); % Immature Granulocytes 1.2 % (0-0.5); % Lymphocytes 9.3 % (20.5-51.1); % Monocytes 5.6 % (1.7-9.3); % Neutrophils 80.6 % (42.2-75.2); Absolute Basophils 0.1 10^3/uL (0-0.2); Absolute Eosinophils 0.3 10^3/uL (0-0.7); Absolute Immature Granulocytes 0.1 10^3/uL (0-0.05); Absolute Lymphocytes 1.1 10^3/uL (1.2-3.4); Absolute Monocytes 0.6 10^3/uL (0.1-0.6); Absolute Neutrophils 9.2 10^3/uL (1.4-6.5); Hematocrit 38.1 % (39.0-52.0); Hemoglobin 12.2 g/dL (13.0-18.0); Mean Corpuscular Hgb 28.1 pg (27.0-31.0); Mean Corpuscular Volume 87.8 fL (80.0-94.0); Mean Platelet Volume 9.3 fL (7.4-10.4); Nucleated Red Blood Cells % 0 % (-); Platelet Count 645 10^3/uL (130-400); Red Blood Cell Count 4.34 10^6/uL (4.70-6.10); Red Cell Dist. Width 14.1 % (11.5-14.5); White Blood Cell Count 11.4 10^3/uL (4.8-10.8)
[2024-06-30 10:01] LABS: Glycohemoglobin (HgbA1c) 5.8 % (4.0-5.6)
== END ==
LOC: CLAB 10:05
PROVIDERS: ATTENDING PHYSICIAN Internal Medicine
DX: I73.9 Peripheral vascular disease, unspecified (principal); L03.116 Cellulitis of left lower limb; E11.65 Type 2 diabetes mellitus with hyperglycemia; C32.9 Malignant neoplasm of larynx, unspecified; E78.2 Mixed hyperlipidemia
CPT/HCPCS: 36415; 80053; 80061; 83036; 84443; 85025

== ENCOUNTER 2024-07-12 21:50 | Inpatient (IN) | payer MEDICARE, SELFPAY ==
[2024-07-12] VITALS (8 sets, daily range): BP systolic 123–151; BP diastolic 62–89; BMI 28.1; BMI 27.7
--- NOTE | 2024-07-12 19:02 | ED.GENMED ---
History of Present Illness
General
Chief Complaint: Post Operative Problem(s)
Source: patient
Exam Limitations: none
Time Seen by Provider: 07/12/24 18:46
Nursing documentation reviewed up to this point in time: agreed with
History of Present Illness
History of Present Illness:
Patient is a 68-year-old male with history of peripheral vascular disease multiple vascular stents a femoral pop bypass laryngectomy plus radiation for head and neck cancer presents to the ER for evaluation. Patient was recently admitted at the end
of May for occlusion of his femoral bypass graft and had thrombectomy. Patient in addition had hematoma to this area and, compartment syndrome. Patient did require a fasciotomy to his left calf and a wound VAC was placed.
After initial procedure patient came back and was admitted June 15 to the for wound infection. At that time he was discharged on Augmentin
Patient presents to the ER today for evaluation. The wound nurse changed his wound VAC yesterday and he had a lot of pain during that time though he reports pain is decreased today. The wound nurse came back today noticed redness to the area and
sent him here to the ER. He complains of redness to the ER for the past several days. He denies any fever chills
Past History
Past History
ED Past Medical History: Cancer, Hypercholesterolemia, NIDDM, Psychiatric and Other (PAD)
ED Past Surgical History: Other
Social History
Tobacco: Former smoker
Alcohol: None
Drug: None
Personal:
Living: with family
Review of Systems
Review of Systems
Allergies reviewed?: Yes
All Other Systems: ROS reviewed and negative except as documented in HPI and ROS
Constitutional: Reports no symptoms; Denies fever, fatigue or chills
Respiratory: Reports no symptoms
Cardiac: Reports no symptoms
ABD/GI: Reports no symptoms
Musculoskeletal: Reports other (redness to left leg )
Skin: Reports other (redness to left lower leg )
Neurological: Reports no symptoms
Hematologic/Lymphatic: Reports no symptoms
Psychiatric: Reports no symptoms
Phy Exam
General Physical Exam
General Presentation: no apparent distress
General age: appears stated age
General Skin: warm and dry
General Habitus: normal
General Mental: alert
General Hydration: appears well hydrated
Cardiovascular Exam
Cardiovascular Exam: tachycardia
Pulmonary Exam
Pulmonary Exam: lungs clear and no respiratory distress
Musculoskeletal Exam
Musculoskeletal Exam: other (lle with strong pulses + wound vac to place + surrounding erythema to left lower leg , + warm to touch foot is warm + strong palpable pulses ; left groin incision with small area of what appears to be wound dehiscence
on the distal aspect no surrounding erythema)
Skin Exam
Skin Exam: normal color and warm/dry
Psychiatric Exam
Psychiatric Exam: normal mood/affect
Course
Orders/Labs/Results
Orders:
Orders
07/12/24 19:15
IV Insert/Care/Rem.- Treatment PRN
07/12/24 19:21
Complete Blood Count/With Diff Urgent
Comprehensive Metabolic Panel Urgent
Lactic Acid Q4H
Comment: CANCEL 2nd LACTIC ACID IF 1st LACTIC ACID IS LESS THAN 2
Blood Culture Routine
FROILAN Source: Blood/Venous
Specimen Description:
Blood Culture Urgent
FROILAN Source: Blood/Venous
Specimen Description:
07/12/24 20:09
0.9% Sodium Chloride 1000 ml [Nss] 1,000 ml IV BOLUS
07/12/24 20:22
Vancomycin 1 Gram/200 ml [Vancocin] 1 gram in 200 ml IV NOW
07/12/24 20:23
Piperacillin/Tazo 3.375 Gram [Zosyn] 3.375 gram in 50 ml IV NOW
07/12/24 20:50
Admit/Transfer Patient As Directed
Co-Sign Provider:
Level of Care: Inpatient admission
Assign to:: Medical/Surgical
Physician / Group: shubham
Diagnosis: left LE cellulitis
Reason for Hospitalization: left LE cellulitis
Expected length of stay greater than two midnights?: Yes
ELOS- Estimated Length of Stay in days: 3
I certify the patient meets the requirements for IP care: Yes
07/12/24 20:51
Code Status As Directed
Resuscitation Status: Full Code
PRN Pain Medication Management As Directed
May give lesser potent ordered pain med per pt: Yes
preference::
Protocol:: Medication orders for pain may be administered in a
manner that supports deferring to patient preference
when the pt is:
- Requesting an ordered lesser potent pain medication.
Least to most potent pain medications are defined
as: acetaminophen < NSAID < tramadol < opioids
(morphine, oxycodone, hydromorphone).
- Requesting a lesser dose of the same medication IF
ORDERED.
- Requesting a less intrusive route of administration
if both routes are prescribed by the provider (PO <
IV).
07/12/24 22:44
0.9% Sodium Chloride 1000 ml [Nss] 1,000 ml IV 80 mls/hr
Acetaminophen [Tylenol] 650 mg PO Q4HPRN PRN
Dextrose 50%-Water [Dextrose 50% Syringe] 12.5 grams IV [id number] PRN
Glucagon [GlucaGen] 1 mg IM PRN PRN
Quetiapine Fumarate [Seroquel] 25 mg PO HS
07/12/24 22:44
INFECTIOUS DISEASE CONSULT Routine
Consulting Provider: Mehreen Bay
Was physician already notified: Yes
Vascular Surgery Consult Routine
Consulting Provider: Gillian Collins
Was physician already notified: Yes
WOUND/OSTOMY CONSULT Routine
Reason for Consult: left LE wound with wound vac
Activity As Directed
Activity Level: Out of Bed-Early Mobility
Bedside Glucose Monitoring As Directed
Frequency: AC&HS
Additional Instructions:: Change to q6h if pt on TPN, tube feeding or not eating
Intake/ Output As Directed
Frequency: Per unit guidelines
Vital Signs As Directed
Frequency: Per unit guidelines
07/12/24 23:35
Lactic Acid Q4H
Comment: CANCEL 2nd LACTIC ACID IF 1st LACTIC ACID IS LESS THAN 2
07/13/24 02:00
Piperacillin/Tazo 3.375 Gram [Zosyn] 3.375 gram in 50 ml IV Q6H
07/13/24 05:42
Basic Metabolic Panel IN AM
Complete Blood Count/No Diff IN AM
07/13/24 Breakfast
2000 calorie (17 carb) Diabetic
At Your Request: Full Participation
Levothyroxine [Synthroid] 75 mcg PO DAILY @ 0600
07/13/24 07:30
Insulin Aspart Corrective Low [Novolog Flexpen-Low Resistance] See Protocol SC AC
07/13/24 08:00
Apixaban [Eliquis] 5 mg PO BID
Aspirin Low Dose EC [Aspir Low (Enteric Coated)] 81 mg PO DAILY
Glycopyrrolate [Robinul] 1 mg PO BID
METFORMIN HCl [Glucophage] 1,000 mg PO BID@0800,1700
07/13/24 18:00
Atorvastatin [Lipitor] 10 mg PO QPM
07/14/24 06:00
Basic Metabolic Panel IN AM
Complete Blood Count/No Diff IN AM
07/15/24 06:00
Basic Metabolic Panel IN AM
Complete Blood Count/No Diff IN AM
07/16/24 06:00
Basic Metabolic Panel IN AM
Complete Blood Count/No Diff IN AM
07/17/24 06:00
Complete Blood Count/No Diff IN AM
Abnormal Lab Results
07/12/24
19:21
RBC 4.38 L 10^6/uL
(4.70-6.10)
Hgb 12.8 L g/dL
(13.0-18.0)
Hct 38.2 L %
(39.0-52.0)
Abs Immat Gran (auto) 0.1 H 10^3/uL
(0-0.05)
Absolute Neuts (auto) 6.7 H 10^3/uL
(1.4-6.5)
Immature Gran % 0.6 H %
(0-0.5)
Neutrophils % 75.8 H %
(42.2-75.2)
Lymphocytes % 13.4 L %
(20.5-51.1)
BUN 21 H mg/dl
(9-20)
Glucose 182 H mg/dl
(70-99)
Lactic Acid 2.9 H mmol/L
(0.7-2.0)
07/12/24 19:21
07/12/24 19:21
Vital Signs
Initial and Last Documented VS:
Initial Vital Signs
Temp Pulse Resp BP Pulse Ox
98.3 F 102 16 151/86 97
07/12/24 17:34 07/12/24 17:34 07/12/24 17:34 07/12/24 17:34 07/12/24 17:34
Last Documented Vital Signs
Temp Pulse Resp BP Pulse Ox
98.4 F 87 16 132/73 98
07/13/24 15:00 07/13/24 15:00 07/13/24 15:00 07/13/24 15:00 07/13/24 15:00
MDM/Problems Addressed
Differential Diagnosis Includes:
Not limited to cellulitis
MDM/Problems Addressed:
Patient is a six 68-year-old male with wound VAC to left lower leg presents with increasing discomfort and redness to the area symptoms consistent with cellulitis. Patient was just admitted June 15 to the with infection and discharged on
Augmentin he does report symptoms improved after Augmentin but back again. White count is normal 8.9 however with concerning infection will admit.
Pt has strong palpable pulses. He of feb/pop bypass
Chronic conditions affecting care:
Recent femoropopliteal bypass with recent infection and clot requiring fasciotomy/wound VAC
*Pulse Oximetry
Patient hypoxic: no
*Critical Care Note
Total Time (30-74mins, 75-104mins- exclusive of procedures): Not Applicable
Data Reviewed
Review of Other/Old Records Reveals: Labs and Discharge Summary
Source: patient
Patient Management
Discussion with other providers: Copyholder (vascular )
ED Attending Note
-
Portions of this chart may have been created with voice recognition software.� Occasional wrong word or��sound alike� substitutions may have occurred due to the inherent limitations of voice recognition software.
Discharge Plan
Departure
Patient Disposition: Admit
Date of Disposition: 07/12/24
Time of Disposition: 20:27
Admit to: Med/Surg
Admit to doctor: hospitalist
Presentation/result/management discussed w/ accepting MD/DO: Hospitalist
Patient with high blood pressure during this ER visit?: Yes
Condition: Fair
Covid-19: Not Applicable
Discharge Problem:
Cellulitis
Interventions
Interventions:
*Risk Screen - Suicide Last Done: 07/13/24 00:08
*General Assessment Last Done: 07/12/24 17:34
*Neglect/Abuse Screening Last Done: 07/12/24 17:34
ED- Fall Risk Assessment Last Done: 07/12/24 18:46
*ED COVID-19 Vaccine History Last Done: 07/13/24 00:08
*Nursing Disposition Last Done: 07/12/24 21:52
ED-Skin Assessment Last Done: 07/12/24 18:46
Discharge Date and Time
Discharge Date/Time: 07/12/24 22:41
[2024-07-12 19:36] LABS: % Basophils 0.5 % (0-2); % Eosinophils 3.8 % (0-6); % Immature Granulocytes 0.6 % (0-0.5); % Lymphocytes 13.4 % (20.5-51.1); % Monocytes 5.9 % (1.7-9.3); % Neutrophils 75.8 % (42.2-75.2); Absolute Eosinophils 0.3 10^3/uL (0-0.7); Absolute Immature Granulocytes 0.1 10^3/uL (0-0.05); Absolute Lymphocytes 1.2 10^3/uL (1.2-3.4); Absolute Monocytes 0.5 10^3/uL (0.1-0.6); Absolute Neutrophils 6.7 10^3/uL (1.4-6.5); Hematocrit 38.2 % (39.0-52.0); Hemoglobin 12.8 g/dL (13.0-18.0); Mean Corp Hgb Conc. 33.5 g/dL (33.0-37.0); Mean Corpuscular Hgb 29.2 pg (27.0-31.0); Mean Corpuscular Volume 87.2 fL (80.0-94.0); Mean Platelet Volume 9.3 fL (7.4-10.4); Nucleated Red Blood Cells % 0 % (-); Platelet Count 326 10^3/uL (130-400); Red Blood Cell Count 4.38 10^6/uL (4.70-6.10); Red Cell Dist. Width 13.7 % (11.5-14.5); White Blood Cell Count 8.9 10^3/uL (4.8-10.8)
[2024-07-12 19:50] LABS: Lactic Acid 2.9 mmol/L (0.7-2.0)
[2024-07-12 20:06] LABS: ALT (SGPT) 22 U/L (0-50); AST (SGOT) 23 U/L (17-59); Alkaline Phosphatase 90 U/L (38-126); Blood Urea Nitrogen 21 mg/dl (9-20); Calcium 9.5 mg/dl (8.4-10.2); Carbon Dioxide 23 mmol/L (22-30); Chloride 102 mmol/L (98-107); Estimated Creatinine Clearance 97 ml/min; Glucose 182 mg/dl (70-99); Potassium 4.3 mmol/L (3.5-5.1); Sodium 139 mmol/L (135-145); Total Bilirubin 0.3 mg/dl (0.2-1.3); Total Protein 6.6 g/dl (6.3-8.2); eGFR > 60.00
[2024-07-12] MEDS: NSS 1000 IV ×2 (20:26→23:19)
[2024-07-12] MEDS: ZOSYN 50 IV (20:27)
[2024-07-12] MEDS: VANCOCIN 200 IV ×2 (20:27→23:56)
--- NOTE | 2024-07-12 20:28 | HPS.HSE ---
Addendum entered and electronically signed by Edy Gunderson DO 07/12/24 21:37:
Patient seen and examined independently. Agree with findings and plan as set forth by JULES Wells.
Patient is a 68y M with PMH significant for throat cancer s/p tracheostomy, DM-II and ASCVD / PAD s/p prior LE bypass and vascular stents who presents to ED complaining of LLE pain and redness. Patient was initially admitted in May for LLE
ischemia requiring thrombectomy and fasciotomy for compartment syndrome. He returned to the hospital in June with complaints of redness and pain surrounding his Wound Vac site. Patient received IV abx during his hospital stay. Plan was for
observation off of abx; however, he was ultimately sent home on 14 days of Augmentin.
Patient states that he has continued to have significant pain in the L lower leg - particularly on days when his wound vac is changed. He notes that his pain controlling medications have been titrated down since his last admission and he cannot
tolerate the increased pain. He has also noted new / recurrent redness in the lower leg. No systemic complaints of fevers / chills / etc.
Ass:
LLE Cellulitis
History of Fasciotomy with Wound Vac in Place
Uncontrolled Pain
ASCVD / PAD
DM-II
Hypothyroidism
History of Throat Cancer s/p Tracheostomy
Anxiety / Depression
BPH
Plan:
Admit for further evaluation and treatment.
Restart IV abx for now pending further evaluation.
Follow temperature curve, CBC, etc.
Vascular Surgery and ID evaluations.
Adjust medications for adequate pain control - especially on vac change days.
Follow for clinical improvement.
Continue other usual outpatient medications.
Original Note:
Family Physician
-
Family Physician: Leonidas Ndiaye
Chief Complaint
-
left LE redness and swelling
History of Present Illness
68 year old with PMH for PAD, throat cancer, hypothyroidism, type 2 Dm, HLD, anxiety, depression, BPH, PAD s/p fem bypass with multiple stents of the LE with recent thrombectomy and fasciotomy presented to us with redness and swelling at wound vac
site for past two days. patient stated pain since the discharge. visiting nurse recommended hospitalization. patient denied fever, chills,chest pain, sob. denied PATRICK, dizzy or syncopal episode.denied abdominal pain,n,v,d. denied dysuria or hematuria.
patient received vanco and Zosyn in ER. admitting for further management.
Medical History
Past Medical History
Past Medical History: Reports Other
Additional Past Medical History:
PAD
type 2 DM
htn
throast can
Past Surgical History: Reports Other
Additional Past Surgical History:
femorofemooral bypass with iliac stenting
laryngectomy
Social History
Tobacco: Former Smoker
Alcohol: None
Drug: None
Family History
Family History: Not pertinent
Allergies / Home Medications
Allergies reflects when Allergies were last updated in [employer].
Home Medications with original date entered in [employer]
Allergy/Medication List:
Allergies
Allergy/AdvReac Type Severity Reaction Status Date / Time
No Known Allergies Allergy Unverified 06/04/24 12:26
Home Medications
atorvastatin 10 mg tablet (Lipitor) 10 mg PO QPM High Cholesterol 06/04/24
glycopyrrolate 1 mg tablet 1 mg PO BID secretions 06/04/24
metformin 1,000 mg tablet 1,000 mg PO BID@0800,1700 Diabetes 06/04/24
quetiapine 25 mg tablet (Seroquel) 25 mg PO HS depression/sleep 06/04/24
apixaban 5 mg tablet (Eliquis) 5 mg PO BID Blood Clot Prevention/Tx 06/15/24
levothyroxine 75 mcg tablet 75 mcg PO DAILY hypothyroidism 06/15/24
acetaminophen 325 mg tablet 650 mg (2 x 325 mg) PO Q4HPRN PRN mild pain/T> 100.4F or rigors #0 tabs 06/19/24
aspirin 81 mg tablet,delayed release 81 mg PO DAILY #30 tabs 06/19/24
Review of Systems
-
Constitutional: Reports No Symptoms
EENT: Reports No Symptoms
Respiratory: Reports No Symptoms
Cardiac: Reports No Symptoms
Abdomen/GI: Reports No Symptoms
: Reports No Symptoms
Musculoskeletal: Reports No Symptoms
Skin: Reports Other (left LE wound with wound vac and redness and swelling)
Neurological: Reports No Symptoms
Endocrine: Reports No Symptoms
Hematologic/Lymphatic: Reports No Symptoms
Psych: Reports No Symptoms
Physical Exam
Vital Signs
Vital Signs
Temp Pulse Resp BP Pulse Ox
98.3 F 93 22 130/69 95
07/12/24 17:34 07/12/24 20:00 07/12/24 20:00 07/12/24 20:00 07/12/24 20:00
Physical Exam
General: Well Developed, Well Nourished and No Apparent Distress
HEENT: NormoCephalic, Moist mucous membranes and Atraumatic
Respiratory: Clear
Cardiac: S1/S2 and Regular Rhythm; No Murmur or Rub
GI: Soft, Non Tender, Non Distended and Normal Bowel Sounds; No Organomegaly
Rectal: Deferred by Provider
Musculoskeletal: No Clubbing, No Cyanosis and No Edema
Skin: Rash and Other (left le redness and swelling. left LE wound vac)
Neuro: AO x 3 and Nonfocal/grossly intact
Psych: Calm
Laboratory Results
-
07/12/24 19:21
07/12/24 19:21
Laboratory Results
Lactic Acid 2.9 mmol/L (0.7-2.0) H 07/12/24 19:21
Total Bilirubin 0.3 mg/dl (0.2-1.3) 07/12/24 19:21
AST 23 U/L (17-59) 07/12/24 19:21
ALT 22 U/L (0-50) 07/12/24 19:21
Alkaline Phosphatase 90 U/L (38-126) 07/12/24 19:21
Data Reviewed
-
Lab Data: Labs Reviewed by me
Impression/Plan
-
#left LE redness/swelling likely left LE wound infection
#hxt of fem/POP bypass/multiple stents of LE with recent thrombectomy/fasciotomies.
-lactic 2.9
-blood culture sent from ER
-vanco and Zosyn continued
-eliquis,asa continued
-ID and vascular continued
#Throat cancer s/p tracheostomy: in remission, continue glycopyrrolate
#Hypothyroidism: Continue levothyroxine
#DM2: Continue metformin,sliding scale, CHO diet
#Hyperlipidemia: Continue statin
#Anxiety/depression: Continue Seroquel
#BPH: Continue tamsulosin
#CODE status
-full code
[2024-07-12] MEDS: SEROQUEL PO (23:03)
[2024-07-12 23:13] LABS: Glucose - Point of Care 115 mg/dl (70-99)
[2024-07-12] MEDS: MELATONIN 5 MG PO (23:56)
[2024-07-13 00:04] LABS: Lactic Acid 1.6 mmol/L (0.7-2.0)
--- NOTE | 2024-07-13 00:39 | PTCARENOTE ---
Patient arrived via stretcher from the ED at approximately 2245. Patient ambulated self from stretcher to bed - gait steady. Patient AAOx3. Patient with home wound VAC to LLE. Patient w/ total laryngectomy - respiratory notified. VSS as documented.
Assessment as documented. Patient oriented to room. Bed in lowest position. Call maldonado within reach.
[2024-07-13] MEDS: ZOSYN 50 IV ×2 (02:14→08:39)
[2024-07-13] MEDS: SYNTHROID 75 MCG PO (05:19)
[2024-07-13] MEDS: TYLENOL 650 MG PO (05:21)
[2024-07-13 07:00] VITALS: BP 110/71
[2024-07-13 07:23] LABS: Glucose - Point of Care 105 mg/dl (70-99)
[2024-07-13 07:34] LABS: Hematocrit 34.3 % (39.0-52.0); Hemoglobin 11.1 g/dL (13.0-18.0); Mean Corp Hgb Conc. 32.4 g/dL (33.0-37.0); Mean Corpuscular Hgb 27.5 pg (27.0-31.0); Mean Corpuscular Volume 85.1 fL (80.0-94.0); Mean Platelet Volume 9.9 fL (7.4-10.4); Platelet Count 306 10^3/uL (130-400); Red Blood Cell Count 4.03 10^6/uL (4.70-6.10); Red Cell Dist. Width 13.8 % (11.5-14.5); White Blood Cell Count 7.9 10^3/uL (4.8-10.8)
--- NOTE | 2024-07-13 07:45 | CON.VAS ---
Addendum entered and electronically signed by Jaswant Cunningham III, MD 07/13/24 10:09:
This patient was seen and examined with JULES Lewis. I agree with the history and physical exam as well as the assessment and plan. I have the following additions:
Admitted with pain that we could not adequately managed as an outpatient
Currently he is in no pain
Reports pain mostly only when the VAC is changed
On physical exam his left groin incision is completely healed and is without signs of infection
Fasciotomy sites appear healthy and clean
Has some mild ankle swelling on the left with mild erythema but this is largely underwhelming
Will plan to transition off of the VAC and continue with nonadherent dressing changes daily
He will need a split thickness skin graft and we will arrange for him to see plastic surgery as an outpatient
Oral pain control
Continue anticoagulation
Will follow in the office
Signed:
Jaswant Cunningham III, MD
[facility] Vascular Surgery
[phone] (vixw)
Original Note:
Medical History
-
Chief Complaint: Lower extremity pain with VAC change
History of Present Illness:
68-year-old male patient with significant past medical history for throat cancer, diabetes, hypertension, depression, hypothyroidism, peripheral arterial disease, and recent hospitalization for acute left lower extremity critical limb threatening
ischemia who presents to ER last night from home for pain with VAC change and possible cellulitis to left lower extremity. Patient was recently hospitalized from 06/04/24-06/08/24 for left lower extremity acute limb threatening ischemia and underwent
excision of left femoral old/occluded fem-fem bypass and thrombectomy of left common, profunda, and superficial femoral arteries and popliteal artery on 06/04/2024. Surgical course was complicated by compartment syndrome/left groin hematoma and he
subsequently underwent left calf 4 compartment fasciotomy with evacuation of hematoma and control of bleeding and left groin exploration with evacuation of hematoma and control bleeding on 06/05/2024. He was discharged with wound VAC dressing on
06/08/2024. Patient was readmitted from 06/15/2024 to 06/19/2024 and was once again discharged with the wound VAC intact.
Vascular consult for evaluation of fasciotomy sites/wound VAC.
Patient seen at bedside this a.m. with wound care present. VAC was removed, patient tolerated. Fasciotomy sites with excellent granulation tissue. The VAC is no longer serving purpose and we will continue with Xeroform gauze, ABD, mild to
moderate Brett bandage. Patient agreeable to skin grafting at this time. Mild possible cellulitis around the left ankle, not in the area of the fasciotomies. Skin surrounding the fasciotomies is intact, no redness noted. See wound care notes for
images of fasciotomy sites
Past Medical History
Past Medical History: Cancer (Throat in remission), HTN, Hypothyroidism, NIDDM, Psychiatric (Depression) and Other (PAD, HLD, tracheostomy)
Past Surgical History: Other (fem-fem bypass, iliac and SFA stent 10+ years ago at [facility] with Dr Pina, laryngectomy, exploratory laparotomy)
Social History
Tobacco: Former Smoker (3 packs/day)
Alcohol: Occasional
Drug: None
Personal: Partner
Living: With Family
Family History
Family History: Reviewed & Not Pertinent
Allergies / Home Medications
Allergy/AdvReac Type Severity Reaction Status Date / Time
No Known Allergies Allergy Unverified 06/04/24 12:26
�Medication �Instructions �Recorded �Confirmed �Type
atorvastatin 10 mg tablet (Lipitor) 10 mg PO QPM High Cholesterol 06/04/24 07/12/24 History
glycopyrrolate 1 mg tablet 1 mg PO BID secretions 06/04/24 07/12/24 History
metformin 1,000 mg tablet 1,000 mg PO BID@0800,1700 Diabetes 06/04/24 07/12/24 History
quetiapine 25 mg tablet (Seroquel) 25 mg PO HS depression/sleep 06/04/24 07/12/24 History
apixaban 5 mg tablet (Eliquis) 5 mg PO BID Blood Clot 06/15/24 07/12/24 History
Prevention/Tx
levothyroxine 75 mcg tablet 75 mcg PO DAILY hypothyroidism 06/15/24 07/12/24 History
acetaminophen 325 mg tablet 650 mg (2 x 325 mg) PO Q4HPRN PRN 06/19/24 07/12/24 Rx
mild pain/T> 100.4F or rigors #0
tabs
aspirin 81 mg tablet,delayed 81 mg PO DAILY #30 tabs 06/19/24 07/12/24 Rx
release
Review of Systems
-
History Source: Patient
All other systems: Negative unless noted
Constitutional: Reports No Symptoms
EENT: Reports No Symptoms
Respiratory: Reports No Symptoms
Cardiac: Reports No Symptoms
Vascular: Denies Leg Pain / Claudication
Abdomen/GI: Reports No Symptoms
: Reports No Symptoms
Musculoskeletal: Reports No Symptoms
Skin: Reports Other (Scanned pinkness at the left ankle)
Neurological: Reports No Symptoms
Endocrine: Reports No Symptoms
Physical Exam
Vital Signs
Temp Pulse Resp BP Pulse Ox
97.6 F 79 18 110/71 95
07/13/24 07:00 07/13/24 07:00 07/13/24 07:00 07/13/24 07:00 07/13/24 07:00
Lab Results
07/13/24 05:42
07/13/24 05:42
Physical Exam
General: No Apparent Distress
HEENT: Normocephalic and Atraumatic
Respiratory: Non Labored Respirations
Cardiac: Negative JVD
GI: Soft, Non Tender and Non Distended
Musculoskeletal: No Clubbing, No Cyanosis and Edema (Scant at left ankle)
Skin: Warm and Other (Seen wound care notes for images of VAC sites, excellent granulation tissue)
Neuro: Awake, Alert and Oriented
Psych: Calm
Assessment / Plan
-
68-year-old male here for pain with left lower extremity wound VAC changes, possible cellulitis at the left ankle
Plan:
-VAC removed at bedside with wound care. Patient tolerated. Excellent granulation tissue in both wound beds. No need for VAC to continue. We will proceed with Xeroform gauze, ABD and light to moderate Brett wrap. We will make appointment for
patient with plastic surgery as an outpatient for skin graft. Patient can follow-up with us as scheduled in the office
Data Reviewed
-
Labs: Labs Reviewed by me
[2024-07-13 08:07] LABS: Blood Urea Nitrogen 17 mg/dl (9-20); Calcium 8.8 mg/dl (8.4-10.2); Carbon Dioxide 22 mmol/L (22-30); Chloride 106 mmol/L (98-107); Estimated Creatinine Clearance 86 ml/min; Glucose 98 mg/dl (70-99); Potassium 4.4 mmol/L (3.5-5.1); Sodium 141 mmol/L (135-145); eGFR > 60.00
--- NOTE | 2024-07-13 08:08 | W.PN.HOSP.TC ---
Today's Communication/Plan
-
see bold
Assessment / Plan
Assessment / Plan
Gen: NAD, AAOx3.
Eyes: EOMI, PERRLA, no scleral icterus.
Neck: supple.
CV: RRR, +S1/S2, no m/r/g.
Resp: CTAB, no rales, wheezes, or rhonchi.
Abd: +BS, soft, NT, ND
Skin: No rashes. LLE with NOELLE wrap in place
Neuro: CN 2-12 intact, non-focal.
Psych: Normal mood and affect.
LLE Cellulitis due to underlying wound infection:
-h/o PAD with fem/pop bypass/multiple stents of LE with recent thrombectomy/fasciotomies with wound vac in Place with uncontrolled Pain
-wound vac removed this AM
-cont Vanco/Zosyn
-c/s ID and Vascular
-cont Eliquis/ASA/statin
-no fever or leukocytosis
-IV dilaudid PRN
Other problems:
DM2: Cont Metformin/SSI/accuchecks
Hypothyroidism: cont Levoxyl
History of Throat Cancer s/p Tracheostomy
Anxiety/Depression: cont Seroquel
BPH
FULL/Eliquis
Anticipated Discharge: 24 - 48 hours
Subjective/Interval History
-
Date of Service: July 13, 2024
No new complaints.
Objective Data
-
Labs:
Laboratory Results
07/13/24
05:42
WBC 7.9
Hgb 11.1 L
Hct 34.3 L
Plt Count 306
Sodium 141
Potassium 4.4
Chloride 106
Carbon Dioxide 22
BUN 17
Creatinine 0.9
Glucose 98
Calcium 8.8
Vital Signs:
Vital Signs
Temp Pulse Resp BP Pulse Ox
98.0 F 106 18 150/87 96
07/12/24 22:54 07/12/24 22:54 07/12/24 22:54 07/12/24 22:54 07/12/24 22:54
I&O
07/12/24 07/13/24 07/14/24
06:59 06:59 06:59
Intake Total 1090 / 1090
Balance 1090 / 1090
--- NOTE | 2024-07-13 08:23 | VNURNOTE ---
Chart reviewed, patient is current with [facility] nursing. Will continue to monitor hospital course and DC plans.
[2024-07-13] MEDS: GLUCOPHAGE 1000 MG PO ×2 (08:39→18:05)
[2024-07-13] MEDS: ROBINUL 1 MG PO ×2 (08:39→20:43)
[2024-07-13] MEDS: ASPIR LOW (ENTERIC COATED) 81 MG PO (08:39)
[2024-07-13] MEDS: ELIQUIS 5 MG PO ×2 (08:39→20:43)
--- NOTE | 2024-07-13 08:46 | PHA.VAN.IN ---
Assessment
- Assessment
Renal Function: Appears similar to baseline
Concomitant Antimicrobials: piperacillin/tazobactam
- Previous Dosing Experience
Previous Regimen: Vanc 1000mg Q12H
Date of Regimen: Jun 2024
Provided Trough of: 7.2 (peak not drawn correctly for accurate AUC calculation)
Patient's SCR is: Similar to previous dosing experience
Patient's weight is: Similar to previous dosing experience
levels drawn after 4th maintenance dose
AUC Dosing Plan
- Empiric Dosing
Initial / Loading Dose: 2000mg 10/3 (1g 20:27 PLUS 1g 23:56)
Maintenance Regimen: Vanc 1500mg Q12H based on linear PK from prior experience
Estimated Trough (mcg/ml): 10.8
Will give 1000mg x1 now to maintain levels and start maintenance dose at 1800
- Monitoring
No levels ordered at this time: consider levels in next few days
Pharmacokinetics Vancomycin I
- -
Patient Age: 68
Patient Sex: Male
Vancomycin Day #: 1
Indication: Skin And Soft Tissue
Requesting Provider: Gurmeet Pantoja
Pertinent Antimicrobial Allergies:
NKDA
Height / Weight:
Height 5 ft 11 in
Actual Weight 90.038 kg
Pertinent Past Medical History: DM II
- Vital Signs / Lab Results
Temp Pulse Resp BP Pulse Ox
97.6 F 79 18 110/71 95
07/13/24 07:00 07/13/24 07:00 07/13/24 07:00 07/13/24 07:00 07/13/24 07:00
Lab Results - Hematology
07/12/24 07/13/24
19:21 05:42
WBC 8.9 7.9
Lab Results - Chemistry
07/12/24 07/13/24
19:21 05:42
BUN 21 H 17
Creatinine 0.8 0.9
Estimated Creat Clear 97 86
Albumin 4.0
07/12/24 07/12/24
19:21 23:35
Lactic Acid 2.9 H 1.6
[2024-07-13] MEDS: DILAUDID 0.5 MG IV (09:23)
[2024-07-13] MEDS: VANCOCIN 200 IV (09:23)
--- NOTE | 2024-07-13 09:27 | PTCARENOTE ---
STAT prn lisa did this AM prior to wound vac change with Vascular and wound care. pt states that he is in terrible pain for about 16 hours after wound vac changes. pt states that the day after wound vac changes he goes back to his baseline. LLE
with swelling and redness. IV zosyn and vanco hung secondary to IVF. pt with laryngectomy, takes pills whole with water.
--- NOTE | 2024-07-13 09:55 | WOUNDNOTE ---
[facility] RN note: Patient admitted with LLE cellulitis. Patient lives at home and is current with VN. He came in d/t wound vac causing too much pain for about 16hrs after each dressing change.
See H&P for complete history.
PMH: throat cancer s/p trach, DM, LE bypass, vascular stents, 05/2024 LLE ischemia s/p thrombectomy and fasciotomy for compartment syndrome, 06/2024 cellulitis.
Wound Location and type/assessment: Patient admitted with: granular full thickness fasciotomy wounds L lateral and L medial calf. Trace LLE edema. Mild erythema LLE from ankle to mid calf. Toes warm. +Pedal pulses heard via portable Doppler.
Appetite: good.
Pressure redistribution devices in place: [employer] Accumax. Patient turns self in bed. Heels off bed with pillow.
Plan: DEWEY Chiang premedicated patient for pain prior to removing LLE vac dressings. Patient seen with vascular SERVICE STATION ATTENDANT's Jelly and Karrie who stated to keep vac off for now and apply Xeroform, ABD, Kerlix, L knee high Brett with mild compression during the
day/off at night. Dressing applied as requested.
Care plan to be updated and will follow as needed.
--- NOTE | 2024-07-13 09:58 | WOUNDNOTE ---
[facility] RN note: Patient admitted with LLE cellulitis. Patient lives at home and is current with VN. He came in d/t wound vac causing too much pain for about 16hrs after each dressing change.
See H&P for complete history.
PMH: throat cancer s/p trach, DM, LE bypass.
Wound Location and type/assessment: Patient admitted with:
Appetite:
Pressure redistribution devices in place:
Plan:
Will confirm orders with hospitalist and update nurse.
Updated care plan and will follow as needed.
Note to case management of equipment requested for discharge:
Recommend follow up at wound care center upon discharge.
[2024-07-13 11:28] LABS: Glucose - Point of Care 116 mg/dl (70-99)
--- NOTE | 2024-07-13 12:22 | CM ---
Patient seen at bedside.
DX: LLE Cellulitis
PMH: throat ca, laryngectomy, DMII, ASCVD, PAD
IA completed & IMM explained & signed.
Current with VN - referral placed in [facility], Liaison notified.
Wound vac removed.
Patient lives in a 1 story home with his girlfriend
PLOF: Independent, states without device
DME: trach supplies, wound care supplies, voice prostesis ([employer]), shower chair, walker
Denies food/utilities/housing/transportation insecurities.
PCP: Leonidas Ndiaye
Pharmacy: [facility]
PLAN: [facility]charge when stable to [facility]
--- NOTE | 2024-07-13 12:44 | CON.ID ---
Consultation
-
Date/Time Consultation Requested: 07/12/20244
Date/Time Consultation Performed: 07/13/2024 1230
Requesting Provider: Peace Pantoja
Performing Provider: Dr. Wharton
Reason for Consultation: Left leg cellulitis
Chief Complaint / Past History
History of Present Illness
Jamil Goff is a 68-year-old man being evaluated at the request of Peace Pantoja in regards to left lower extremity cellulitis. History is obtained from chart review, along with patient interview.
The patient has a significant past medical history of peripheral vascular disease and had previously undergone femorofemoral bypass. He presented to [facility] in late May for acute limb ischemia, and ultimately required cutdown and
exposure of his left femoral vessels with subsequent thrombectomy of the left common femoral artery and other arteries. According to reviewed notes he was taken back to the OR on 06/05 for exploration and fasciotomy secondary to compartment
syndrome. He was taken back later in the day for evacuation of hematoma in the area. He ultimately was discharged to home on 06/08 where he has been receiving care via visiting nurse.
He presented back to the hospital on 06/16 at the request of visiting home nurse, as they felt that the wound did not appear good. Additionally he had a low-grade temperature and admitted to pain in the left leg area. At that point he was not
complaining of spreading erythema or drainage from the wound. He was admitted to the hospital through 06/19, and ultimately discharged on a course of antibiotics. He reports that he completed his antibiotics approximately 1 week ago.
He presents back to the hospital secondary to ongoing pain with VAC therapy changes. Additionally, his visiting home nurse felt that the area appears slightly more red.
The patient denies any fevers or chills. Outside of times when the wound was being changed and dressed, he reported no significant pain.
Past History
Additional Past Medical History:
Throat cancer
Dyslipidemia
DM
PAD
Additional Past Surgical History:
Head neck surgery with subsequent tracheostomy; Passy-Mau valve in place
Femorofemoral bypass
Allergy History:
No Known Allergies Allergy (Unverified 06/04/24 12:26)
Medications Reviewed: Yes
Current Antibiotics:
Vancomycin
Zosyn
Social History
Tobacco: Former Smoker
Alcohol: None
Drug: None
Personal:
Living: With Family
Employment: Retired
Family History
Family History: Not Pertinent
Review of Systems
Vital Signs
Temp Pulse Resp BP Pulse Ox
97.6 F 79 18 110/71 95
07/13/24 07:00 07/13/24 07:00 07/13/24 07:00 07/13/24 07:00 07/13/24 08:52
Physical Exam
Physical Exam
Constitutional: No Acute Distress, Comfortable and Non-toxic
Head: Normocephalic
Eyes: Sclera Anicteric
Pharynx: Other (Tracheostomy with [place] valve in place.)
Oral: Poor Dentition
Cardiovascular: S1/S2; Negative S3/S4
Pulmonary: Non Labored
Gastrointestinal: Soft, Non Tender and Non Distended
Genito-Urinary: Negative Cunningham
Extremities: Edema (1+ left lower extremity); Negative Cyanosis or Erythema
Wound: Other (No periwound erythema. Left lower extremity wounds dressed with Brett wrap. No significant periwound erythema)
Neurological: Awake and Alert
Psychological: Calm
.
Lab / Diagnostic Study Results
07/13/24 05:42
07/13/24 05:42
Abs Immat Gran (auto) 0.1 10^3/uL (0-0.05) H 07/12/24 19:21
Absolute Neuts (auto) 6.7 10^3/uL (1.4-6.5) H 07/12/24 19:21
Absolute Lymphs (auto) 1.2 10^3/uL (1.2-3.4) 07/12/24 19:21
Absolute Monos (auto) 0.5 10^3/uL (0.1-0.6) 07/12/24 19:21
Absolute Basos (auto) 0.0 10^3/uL (0-0.2) 07/12/24 19:21
Immature Gran % 0.6 % (0-0.5) H 07/12/24 19:21
Neutrophils % 75.8 % (42.2-75.2) H 07/12/24 19:21
Lymphocytes % 13.4 % (20.5-51.1) L 07/12/24 19:21
Monocytes % 5.9 % (1.7-9.3) 07/12/24 19:21
Eosinophils % 3.8 % (0-6) 07/12/24 19:21
Basophils % 0.5 % (0-2) 07/12/24 19:21
Lactic Acid 1.6 mmol/L (0.7-2.0) 07/12/24 23:35
Microbiology Results
Micro:
07/12/24 19:21 Blood Culture - Pending
Blood/Venous
07/12/24 19:21 Blood Culture - Pending
Blood/Venous
Imaging:
CXR (06/17/2024): Stable left basilar atelectasis. No significant pleural effusion. No visualized pneumothorax. No noted infiltrates. Please see full dictation for additional detail. Film personally viewed.
Assessment / Plan
Left lower extremity wounds; Hx fasciotomy
Reported periwound erythema
Marked wound pain with dressing change
Throat cancer
Dyslipidemia
DM
PAD
Recommendations:
At present, little evidence of ongoing cellulitis or infectious process.
Discontinue further antibiotics.
Continue with local wound care, along with compression to decrease edema.
Monitor white count and temperature curve.
Will continue to follow along with you peripherally.
--- NOTE | 2024-07-13 13:26 | VNURNOTE ---
Met with patient at bedside. As of now, wound vac has been removed. Patient confirmed he would like to resume w/ [facility], very appreciative of our nurses, especially primary [facility] RN Hodan. Patient confirms he has enough eva supplies at home (were
ordered by [facility] a few days prior to hospitalization). Resumption referral placed in [facility].
[2024-07-13 15:00] VITALS: BP 132/73
[2024-07-13 16:52] LABS: Glucose - Point of Care 98 mg/dl (70-99)
[2024-07-13 16:56] VITALS: BMI 27.7
[2024-07-13] MEDS: LIPITOR 10 MG PO (18:05)
[2024-07-13] MEDS: SEROQUEL 25 MG PO (20:43)
[2024-07-13 20:50] LABS: Glucose - Point of Care 86 mg/dl (70-99)
[2024-07-13 23:12] VITALS: BP 118/68
[2024-07-14 03:15] LABS: Glucose - Point of Care 108 mg/dl (70-99)
[2024-07-14] MEDS: SYNTHROID 75 MCG PO (05:42)
[2024-07-14 05:48] LABS: Glucose - Point of Care 121 mg/dl (70-99)
[2024-07-14 06:16] LABS: Hematocrit 34.3 % (39.0-52.0); Hemoglobin 11.2 g/dL (13.0-18.0); Mean Corp Hgb Conc. 32.7 g/dL (33.0-37.0); Mean Corpuscular Hgb 27.6 pg (27.0-31.0); Mean Corpuscular Volume 84.5 fL (80.0-94.0); Mean Platelet Volume 9.3 fL (7.4-10.4); Platelet Count 302 10^3/uL (130-400); Red Blood Cell Count 4.06 10^6/uL (4.70-6.10); Red Cell Dist. Width 13.7 % (11.5-14.5); White Blood Cell Count 7.9 10^3/uL (4.8-10.8)
[2024-07-14 06:46] LABS: Blood Urea Nitrogen 16 mg/dl (9-20); Calcium 9.3 mg/dl (8.4-10.2); Carbon Dioxide 23 mmol/L (22-30); Chloride 108 mmol/L (98-107); Estimated Creatinine Clearance 97 ml/min; Glucose 119 mg/dl (70-99); Potassium 4.7 mmol/L (3.5-5.1); Sodium 143 mmol/L (135-145); eGFR > 60.00
[2024-07-14 07:00] VITALS: BP 130/72
[2024-07-14 07:01] LABS: Glucose - Point of Care 95 mg/dl (70-99)
[2024-07-14 08:04] LABS: Glucose - Point of Care 95 mg/dl (70-99)
[2024-07-14] MEDS: ELIQUIS 5 MG PO (08:44)
[2024-07-14] MEDS: GLUCOPHAGE 1000 MG PO (08:44)
[2024-07-14] MEDS: ASPIR LOW (ENTERIC COATED) 81 MG PO (08:45)
[2024-07-14] MEDS: ROBINUL 1 MG PO (08:45)
--- NOTE | 2024-07-14 09:58 | W.PN.HOSP.TC ---
Today's Communication/Plan
-
d/c
Assessment / Plan
Assessment / Plan
Gen: NAD, AAOx3.
Eyes: EOMI, PERRLA, no scleral icterus.
Neck: supple.
CV: Remains RRR, +S1/S2, no m/r/g.
Resp: Remains CTAB, no rales, wheezes, or rhonchi.
Abd: Remains +BS, soft, NT, ND
Skin: No rashes. LLE with gauze wrap in place
Neuro: CN 2-12 intact, non-focal.
Psych: Normal mood and affect.
LLE wound:
-h/o PAD with fem/pop bypass/multiple stents of LE with recent thrombectomy/fasciotomies with wound vac in Place with uncontrolled Pain
-wound vac removed 07/13/24AM
-was on Vanco/Zosyn. Seen by ID and Dr. Wharton did not see any evidence of cellulitis or acute infection. Antibiotics were stopped. Left lower extremity cellulitis was ruled out.
-seen by vascular, will not continue with wound vac due to pain with Vac changes
-cont Eliquis/ASA/statin
-no fever or leukocytosis
-IV dilaudid PRN
Other problems:
DM2: Cont Metformin/SSI/accuchecks
Hypothyroidism: cont Levoxyl
History of Throat Cancer s/p Tracheostomy
Anxiety/Depression: cont Seroquel
BPH
FULL/Eliquis
Medically cleared for d/c. Case management aware.
Total time spent on d/c = 31 min. This included today's physical exam, progress note, review of laboratory and diagnostic data, preparation of discharge documents and prescriptions, and discussions about the pt's hospital course and discharge plan
with the patient and other nuclear medicine medical director involved in the patient's care.
Anticipated Discharge: Today
Subjective/Interval History
-
Date of Service: July 14, 2024
No new complaints.
Objective Data
-
Labs:
Laboratory Results
07/14/24
05:50
WBC 7.9
Hgb 11.2 L
Hct 34.3 L
Plt Count 302
Sodium 143
Potassium 4.7
Chloride 108 H
Carbon Dioxide 23
BUN 16
Creatinine 0.8
Glucose 119 H
Calcium 9.3
Vital Signs:
Vital Signs
Temp Pulse Resp BP Pulse Ox
98.6 F 82 18 130/72 94
07/14/24 07:00 07/14/24 07:00 07/14/24 07:00 07/14/24 07:00 07/14/24 07:00
I&O
07/13/24 07/14/24 07/15/24
06:59 06:59 06:59
Intake Total 1090 / 1090 2099
Balance 1090 / 1090 2099
[2024-07-14 12:02] LABS: Glucose - Point of Care 120 mg/dl (70-99)
--- NOTE | 2024-07-14 12:03 | CM ---
Pt for discharge today
Has ride home with GF
[facility] to follow
Plan - home with [facility]
[2024-07-14] MEDS: FLUAD (65 yr+) 2024-2025 FORMULA 0.5 ML IM (13:46)
[2024-07-14 14:00] VITALS: BP 122/60
--- NOTE | 2024-07-14 14:06 | W.DCSUMMARY ---
Discharge Summary
Discharge Data
Date of Admission: 07/12/24
Date of Discharge: 07/14/24
-
Pending Results: No
Hospital Course
Primary Diagnoses:
Left lower extremity wound (cellulitis was ruled out)
Secondary Diagnoses:
Peripheral arterial disease with h/o fem/pop bypass of left lower extremity with recent thrombectomies/fasciotomies with wound vac placement
Type 2 diabetes mellitus
Hypothyroidism
History of Throat Cancer s/p Tracheostomy
Anxiety
Depression
Benign prostatic hypertrophy
Consultants:
Infectious disease
Vascular surgery
Imaging:
None
Hospital course: 68-year-old male who presented with a chief complaint of left lower extremity pain and erythema as outlined in the H&P done on admission. Patient was placed on IV vancomycin and Zosyn. His wound VAC was removed 07/13/24AM. He was
seen in consultation by vascular surgery infectious disease. As per discussion with Dr. Wharton there was no evidence of cellulitis or acute infection. Antibiotics were stopped. Left lower extremity cellulitis was ruled out. As per vascular
surgery the patient will not continue with wound vac due to pain with Vac changes. He will continue with nonadherent dressing changes daily. His Eliquis, aspirin, statin were continued. He had no fever or leukocytosis. He was discharged in
medically stable condition.
Discharge Plan
-
Patient Disposition: Home (Routine Discharge)
Discharge Diagnosis/Procedures: Left lower extremity wound
Condition: Good
Diet: Diabetic, Carb Controlled
Activity: As tolerated
Driving Restrictions: As prior to admission
Bathing Restrictions: None
Activity Restrictions/Additional Instructions:
Wound Care Instructions
L medial and lateral calf wounds-clean with saline, Xeroform gauze, ABD pad, Kerlix, change daily and prn drainage. L knee high Brett wrap with mild compression during the day/off at bedtime; reapply every morning.
Elevate heels off bed with pillow/s.
Pressure redistributing chair cushion (i.e. Air chair cushion).
Follow up with vascular and plastic surgeon.
Follow up at wound care center call for an appointment.
Referrals:
Leonidas Ndiaye MD [Family Provider] - in less than 1 week
Winston Ramirez MD [Active] - 07/23/24 2:15 pm (Plastic surgery appt)
Yamileth Palomino CRNP [Specified Professional Personl] - 08/15/24 10:30 am (Vascular follow up)
Prescriptions:
Continued
quetiapine [Seroquel] 25 mg Tablet
25 mg PO HS
glycopyrrolate 1 mg Tablet
1 mg PO BID
atorvastatin [Lipitor] 10 mg Tablet
10 mg PO QPM
metformin 1,000 mg Tablet
1,000 mg PO BID@0800,1700
levothyroxine 75 mcg tablet
75 mcg PO DAILY
Eliquis 5 mg tablet
5 mg PO BID
acetaminophen 325 mg Tablet
650 mg PO Q4HPRN PRN (Reason: mild pain/T> 100.4F or rigors) Qty: 0 0RF
aspirin 81 mg Tablet,Delayed Release (Dr/Ec)
81 mg PO DAILY Qty: 30 0RF
Discharge Orders:
Discharge Patient (As Directed); Ordered 07/14/24
Ordered By: Socrates Valentin
Discharge Date and Time
Print Language: HAITIAN
== END 2024-07-14 15:06 | disposition home or self-care (01) | DRG 948 ==
LOC: 2 NORTH 21:50
PROVIDERS: Nurse Practitioner; Registered Nurse; ADMITTING PHYSICIAN Hospitalist; ATTENDING PHYSICIAN Internal Medicine; EMERGENCY PHYSICIAN Student in an Organized Health Care Education/Training Program; FAMILY PHYSICIAN Internal Medicine; OTHER PHYSICIAN Internal Medicine Infectious Disease; OTHER PHYSICIAN Surgery Vascular Surgery
DX: G89.18 Other acute postprocedural pain (principal); M79.662 Pain in left lower leg; E11.51 Type 2 diabetes mellitus with diabetic peripheral angiopathy without gangrene; E03.9 Hypothyroidism, unspecified; Z85.819 Personal history of malignant neoplasm of unspecified site of lip, oral cavity, and pharynx; F41.9 Anxiety disorder, unspecified; F32.A Depression, unspecified; N40.0 Benign prostatic hyperplasia without lower urinary tract symptoms; I25.10 Atherosclerotic heart disease of native coronary artery without angina pectoris; Z87.891 Personal history of nicotine dependence; C14.0 Malignant neoplasm of pharynx, unspecified; Z79.01 Long term (current) use of anticoagulants; Z79.82 Long term (current) use of aspirin; I10 Essential (primary) hypertension
CPT/HCPCS: 80048; 80053; 82962; 83605; 85025; 85027; 87040; 90662; 96365; 96368; 99285; G0008

== ENCOUNTER 2024-08-01 06:20 | Day surgery (SDC) | payer MEDICARE, SELFPAY ==
--- NOTE | 2024-07-27 16:08 | PTCARENOTE ---
Dr. Levine reviewed abnormal EKG, no further action requested.
[2024-08-01 09:28] VITALS: BMI 28.7
[2024-08-01 09:29] VITALS: BP 137/81; BMI 28.7
[2024-08-01 09:34] LABS: Glucose - Point of Care 137 mg/dl (70-99)
[2024-08-01] MEDS: TYLENOL 1000 MG PO (09:40)
[2024-08-01 11:20] VITALS: BP 122/75
[2024-08-01 11:30] VITALS: BP 127/85
[2024-08-01 11:32] LABS: Glucose - Point of Care 105 mg/dl (70-99)
[2024-08-01 11:45] VITALS: BP 127/77
--- NOTE | 2024-08-01 12:00 | W.IMMPOSTOP ---
Surgical Immed Post Op Note
-
Primary Surgeon: JEREMIE Ramirez MD
Assisting Surgeon:
Pre-op Diagnosis: Nonpressure lower extremity ulcers
Post-op Diagnosis: Same
Procedure Performed: Wound bed prep, split-thickness skin grafting to the left lower extremity
Anesthesia Type: Sedation
Specimen / Cultures: None
Estimated Blood Loss: Minimal
Complications: None
Operative Findings: As expected
--- NOTE | 2024-08-01 12:00 | OR.RPT ---
Operative Report
Operative Report
Date of surgery: 08/01/2024
Surgeon: JEREMIE Ramirez MD
Preoperative diagnosis: Left lower extremity wounds, nonpressure ulcers, peripheral vascular disease, history of fasciotomy
Postoperative diagnosis: Same
Procedure:
1. Split-thickness skin grafting to the left lower extremity, 2 distinct sites medial and lateral leg measuring 13.5 x 3.5 cm and 2.5 x 10 cm meters respectively, total 72.25 square
2. Wound bed preparation for recipient grafting total area of 72.25 cm�
3. Negative pressure wound VAC application 72.25 cm�
Anesthesia: MAC
Complications: None
EBL: Minimal
Indications for procedure: Patient is a 68-year-old male with history of peripheral vascular disease status post fasciotomies that have healed in secondarily. He is left with what granulating wounds of the medial and lateral left lower extremity.
Present in the office desiring split-thickness skin grafting to abbreviate the wound healing process. Alternatives including prolonged wound care. Risk reviewed and the patient consented accordingly
Procedure in detail: Patient was identified preoperatively and the surgical site was confirmed to the left lower extremity. All questions were answered consents were confirmed. Patient was taken back to the operating placed supine on table. Using
the patient's established trach, patient was sedated and airway was monitored for anesthesia. Patient was then prepped and draped in the usual sterile fashion using Betadine solution. Timeout for patient safety was performed was confirmed that
preoperative antibiotics administered and right SCD was in place. Procedure began with the injection of 1% lidocaine with epinephrine mixed with half percent Marcaine in the donor and recipient sites. The wound beds were measured as documented
above. The donor site was marked out accordingly. Wound bed preparation was then performed using tangential excision with a 10 blade in order to remove fibrinous debris and contour the wound base. Attention was taken back to the lateral thigh
which would act as a donor site. 1 long graft incorporating both wound measurements was harvested using a dermatome at 13 thousandths of an inch. The wound was then dressed with a Tegaderm and was found to be hemostatic. The graft was then
applied to the medial lateral leg and sutured in place after cutting to contour. 4-0 chromic were placed interrupted and running and piecrust incisions were made for fluid effusion. Negative pressure dressings were applied over nonadherent Adaptic
and bacitracin ointment over the grafting on the bilateral wounds over the previously mentioned areas. Patient tolerated the procedure well and it was performed out complication. Sedation was weaned and he was taken the PACU for further care.
[2024-08-01] MEDS: ROXICODONE 5 MG PO (12:19)
== END 2024-08-01 13:09 | disposition home or self-care (01) ==
LOC: SDS 06:20
PROVIDERS: ATTENDING PHYSICIAN Surgery Plastic and Reconstructive Surgery
DX: S81.802A Unspecified open wound, left lower leg, initial encounter (principal); X58.XXXA Exposure to other specified factors, initial encounter; I73.9 Peripheral vascular disease, unspecified
CPT/HCPCS: 15002; 15100; 82962; C1776

== ENCOUNTER → 2024-09-03 08:52 | Outpatient (REF) | payer MEDICARE, SELFPAY | LOC: RAD 08:52 | PROVIDERS: ATTENDING PHYSICIAN Registered Nurse | DX: I73.9 Peripheral vascular disease, unspecified (principal) | CPT/HCPCS: 93922 ==

== ENCOUNTER 2024-09-17 15:11 | Inpatient (IN) | payer MEDICARE, SELFPAY ==
[2024-09-17 11:02] VITALS: BP 132/95
--- NOTE | 2024-09-17 12:04 | ED.GENMED ---
History of Present Illness
General
Chief Complaint: Post Operative Problem(s)
Source: patient, records and physician
Exam Limitations: none
Time Seen by Provider: 09/17/24 11:50
Nursing documentation reviewed up to this point in time: agreed with
History of Present Illness
History of Present Illness:
68-year-old male presents emergency department due to lumps on his groin that he noticed after having surgery, but is now noticing more. He had a washout procedure to clean out blood clots in his groin, and had compartment syndrome in his left
lower extremity after an arterial thrombectomy.
Past History
Past History
ED Past Medical History: Cancer, Hypercholesterolemia, NIDDM, Psychiatric and Other (PAD)
ED Past Surgical History: Other
Social History
Tobacco: Former smoker
Alcohol: None
Drug: None
Personal:
Living: with family
Review of Systems
Review of Systems
Allergies reviewed?: Yes
All Other Systems: Not applicable
Constitutional: Reports no symptoms
EENT: Reports no symptoms
Respiratory: Reports no symptoms
Cardiac: Reports no symptoms
ABD/GI: Reports other (Lumps in the groin)
: Reports no symptoms
Musculoskeletal: Reports no symptoms
Skin: Reports no symptoms
Neurological: Reports no symptoms
Endocrine: Reports no symptoms
Hematologic/Lymphatic: Reports no symptoms
Psychiatric: Reports no symptoms
Phy Exam
Physical Exam
Physical Exam:
Physical Exam
General: no apparent distress, not acutely ill
Neck: supple. no meningeal signs. normal posterior pharynx
Heart: s1/s2 regular rate and rhythm, no murmur. equal radial
pulses.
HEENT: Pupils equal round reactive to light, EOMI
Lungs: no acute respiratory distress. clear bilaterally
Abdomen: normal bowel sounds. not tender. no CVAT, palpable masses suprapubic
Neuro: alert and oriented. no focal neurological deficits cranial nerves II through XII intact
Skin: no rash
Psychiatric: well kept. interactive and cooperative
Extremities: no edema. no calf tenderness. negative homans. good distal pulses
Course
Orders/Labs/Results
Orders:
Orders
09/17/24 12:20
CT Abd/pelvis Angio W/wo Iv Urgent
Comment: scan into the groins please
Reason For Exam: extensive vasc hx, new lumps? near fem/fem bypass
09/17/24 12:29
Complete Blood Count/With Diff Urgent
Comprehensive Metabolic Panel Urgent
PTT Urgent
Prothrombin Time Urgent
09/17/24 14:11
Piperacillin/Tazo 4.5 Gram [Zosyn] 4.5 gram in 100 ml IV NOW
09/17/24 14:12
Vancomycin [Vancocin] 2,000 mg 0.9% Sodium Chloride 500 ml [Nss] 500 ml IV NOW
Abnormal Lab Results
09/17/24
12:29
WBC 12.0 H 10^3/uL
(4.8-10.8)
MCHC 32.4 L g/dL
(33.0-37.0)
Abs Immat Gran (auto) 0.1 H 10^3/uL
(0-0.05)
Absolute Neuts (auto) 9.4 H 10^3/uL
(1.4-6.5)
Absolute Lymphs (auto) 1.1 L 10^3/uL
(1.2-3.4)
Absolute Monos (auto) 0.9 H 10^3/uL
(0.1-0.6)
Immature Gran % 0.7 H %
(0-0.5)
Neutrophils % 78.2 H %
(42.2-75.2)
Lymphocytes % 9.3 L %
(20.5-51.1)
Glucose 114 H mg/dl
(70-99)
09/17/24 12:29
09/17/24 12:29
Vital Signs
Initial and Last Documented VS:
Initial Vital Signs
Temp Pulse Resp BP Pulse Ox
98.8 F 109 18 132/95 97
09/17/24 11:02 09/17/24 11:02 09/17/24 11:02 09/17/24 11:02 09/17/24 11:02
Last Documented Vital Signs
Temp Pulse Resp BP Pulse Ox
98.8 F 109 18 132/95 97
09/17/24 11:02 09/17/24 11:02 09/17/24 11:02 09/17/24 11:02 09/17/24 11:02
MDM/Problems Addressed
Differential Diagnosis Includes:
Intra-abdominal infection
MDM/Problems Addressed:
68-year-old male with intra-abdominal infection, likely prosthetic. Admit to hospitalist. Vascular will remove prosthetic-femorofemoral bypass.
*Pulse Oximetry
Patient hypoxic: no
*Pick Remover Interpretation
Rate: normal
Interpretation: normal
Heart Rate: 109
Rhythm: sinus
*Critical Care Note
Total Time (30-74mins, 75-104mins- exclusive of procedures): Not Applicable
Patient Management
Social determinants of health affecting care: Living situation and Strong social support
Discussion with other providers: Hospitalist and [employer] Shovel Operator (vascular surgery)
Escalation/DeEscalation of care consider admission/obs:
admit indicated
ED Attending Note
-
Portions of this chart may have been created with voice recognition software.� Occasional wrong word or��sound alike� substitutions may have occurred due to the inherent limitations of voice recognition software.
Discharge Plan
Departure
Patient Disposition: Admit
Date of Disposition: 09/17/24
Time of Disposition: 14:13
Admit to: Telemetry
Presentation/result/management discussed w/ accepting MD/DO: Hospitalist
Patient with high blood pressure during this ER visit?: Yes
Condition: Fair
Discharge Problem:
Infection of prosthetic graft
Prescriptions:
No Action
quetiapine [Seroquel] 25 mg Tablet
25 mg PO HS
glycopyrrolate 1 mg Tablet
1 mg PO BID
atorvastatin [Lipitor] 10 mg Tablet
10 mg PO QPM
metformin 1,000 mg Tablet
1,000 mg PO BID@0800,1700
levothyroxine 75 mcg tablet
75 mcg PO DAILY
Eliquis 5 mg tablet
5 mg PO BID
acetaminophen 325 mg Tablet
650 mg PO Q4HPRN PRN (Reason: mild pain/T> 100.4F or rigors) Qty: 0 0RF
aspirin 81 mg Tablet,Delayed Release (Dr/Ec)
81 mg PO DAILY Qty: 30 0RF
tramadol 50 mg tablet
50 mg PO Q6H PRN (Reason: Pain) Qty: 14 0RF
Referrals:
Leonidas Ndiaye MD [Family Provider] -
Interventions
Interventions:
*Risk Screen - Suicide Last Done: 09/17/24 11:02
*General Assessment Last Done: 09/17/24 11:02
*Neglect/Abuse Screening Last Done: 09/17/24 11:02
ED- Fall Risk Assessment Last Done: 09/17/24 11:43
*ED COVID-19 Vaccine History Last Done: 09/17/24 11:02
ED-Skin Assessment Last Done: 09/17/24 11:43
Discharge Date and Time
Print Language: UPPER SORBIAN
--- NOTE | 2024-09-17 12:29 | CON.VAS ---
Addendum entered and electronically signed by JULES Lewis 09/17/24 14:25:
Plan:
-Admit to hospitalist
-IV antibiotics
-HOLD eliquis
-NPO after midnight for Tuesday
-OR Tuesday for excision fem-fem graft
Original Note:
Consultation
Consultation Request
Performing Provider: Nicko
Reason for Consultation: New lumps to groin/suprapubic
Medical History
-
Chief Complaint: Three lumps in his groin/low abdomen
History of Present Illness:
68-year-old male patient with significant past medical history for throat cancer, diabetes, hypertension, depression, hypothyroidism, peripheral arterial disease, and recent hospitalization for acute left lower extremity critical limb threatening
ischemia who presents to ER this morning from home for 'pain and lumps' in his groin. Patient was seen in our office on 09/05/[address] Cunningham. At that time he was not having this problem and was in good health with healing fasciotomy sites.
Vascular procedure history noted below.
Vascular consult for 'lumps in the groin'. Patient seen at bedside this a.m. in the emergency room. Patient is in his typical state of health, fasciotomy sites healed over well. No open wounds noted.
Upon exam patient has 3 nickel sized 'lumps' across the lower abdomen/bilateral groins. There is no pulsation to them, no obvious bulging. Patient does not feel pain worsens when bearing down, does not feel different when bearing down. Described
this to the pain as mild, constant but has worsened over the last few days.
Vascular procedures:
Excision of left femoral old/occluded fem-fem bypass and thrombectomy of left common, profunda, and superficial femoral arteries and popliteal artery on 06/04/2024
Left calf 4 compartment fasciotomy with evacuation of hematoma and control of bleeding and left groin exploration with evacuation of hematoma and control bleeding on 06/05/2024.
Past Medical History
Past Medical History: Cancer (Throat in remission), HTN, Hypothyroidism, NIDDM, Psychiatric and Other (PAD, HLD, tracheostomy)
Past Surgical History: Other (fem-fem bypass, iliac and SFA stent 10+ years ago at [facility] with Dr Pina, laryngectomy, exploratory laparotomy)
Social History
Tobacco: Former Smoker (3PPD)
Alcohol: Occasional
Drug: None
Personal: Partner
Living: With Family
Family History
Family History: Reviewed & Not Pertinent
Allergies / Home Medications
Allergy/AdvReac Type Severity Reaction Status Date / Time
No Known Allergies Allergy Verified 08/01/24 09:20
�Medication �Instructions �Recorded �Confirmed �Type
atorvastatin 10 mg tablet (Lipitor) 10 mg PO QPM High Cholesterol 06/04/24 08/01/24 History
glycopyrrolate 1 mg tablet 1 mg PO BID secretions 06/04/24 08/01/24 History
metformin 1,000 mg tablet 1,000 mg PO BID@0800,1700 Diabetes 06/04/24 08/01/24 History
quetiapine 25 mg tablet (Seroquel) 25 mg PO HS depression/sleep 06/04/24 08/01/24 History
apixaban 5 mg tablet (Eliquis) 5 mg PO BID Blood Clot 06/15/24 07/30/24 History
Prevention/Tx
levothyroxine 75 mcg tablet 75 mcg PO DAILY hypothyroidism 06/15/24 08/01/24 History
acetaminophen 325 mg tablet 650 mg (2 x 325 mg) PO Q4HPRN PRN 06/19/24 08/01/24 Rx
mild pain/T> 100.4F or rigors #0
tabs
aspirin 81 mg tablet,delayed 81 mg PO DAILY #30 tabs 06/19/24 07/30/24 Rx
release
tramadol 50 mg tablet 50 mg PO Q6H PRN Pain #14 tabs 08/01/24 Rx
Review of Systems
-
History Source: Patient
All other systems: Negative unless noted
Constitutional: Reports No Symptoms
EENT: Reports No Symptoms
Respiratory: Reports No Symptoms
Cardiac: Reports No Symptoms
Vascular: Denies Leg Pain / Claudication
Abdomen/GI: Reports Abdominal Pain
: Reports No Symptoms
Musculoskeletal: Reports No Symptoms
Skin: Reports No Symptoms
Neurological: Reports No Symptoms
Endocrine: Reports No Symptoms
Physical Exam
Vital Signs
Temp Pulse Resp BP Pulse Ox
98.8 F 109 18 132/95 97
09/17/24 11:02 09/17/24 11:02 09/17/24 11:02 09/17/24 11:02 09/17/24 11:02
Physical Exam
General: No Apparent Distress
HEENT: Normocephalic and Atraumatic
Respiratory: Non Labored Respirations
Cardiac: Negative JVD
GI: Soft and Non Distended
Musculoskeletal: No Clubbing, No Cyanosis and Edema
Skin: Warm and Other (3 nickel sized lumps somewhat suprapubic across the lower abdomen, nonpulsatile, mildly tender to palpation)
Neuro: Awake, Alert and Oriented
Psych: Calm
Pulses: Bilateral Femoral: +1
Assessment / Plan
-
68-year-old male presenting to the ER for new lumps in the suprapubic to bilateral groin area
Extensive vascular history
Plan:
-CTA abdomen/pelvis scanning down to include groins BL
-Will discuss with Dr. Maharaj
Data Reviewed
-
Labs: Labs Reviewed by me
[2024-09-17 12:45] LABS: % Basophils 0.4 % (0-2); % Eosinophils 3.8 % (0-6); % Immature Granulocytes 0.7 % (0-0.5); % Lymphocytes 9.3 % (20.5-51.1); % Monocytes 7.6 % (1.7-9.3); % Neutrophils 78.2 % (42.2-75.2); Absolute Basophils 0.1 10^3/uL (0-0.2); Absolute Eosinophils 0.5 10^3/uL (0-0.7); Absolute Immature Granulocytes 0.1 10^3/uL (0-0.05); Absolute Lymphocytes 1.1 10^3/uL (1.2-3.4); Absolute Monocytes 0.9 10^3/uL (0.1-0.6); Absolute Neutrophils 9.4 10^3/uL (1.4-6.5); Hematocrit 43.2 % (39.0-52.0); Mean Corp Hgb Conc. 32.4 g/dL (33.0-37.0); Mean Corpuscular Hgb 27.1 pg (27.0-31.0); Mean Corpuscular Volume 83.6 fL (80.0-94.0); Mean Platelet Volume 9.4 fL (7.4-10.4); Nucleated Red Blood Cells % 0 % (-); Platelet Count 331 10^3/uL (130-400); Red Blood Cell Count 5.17 10^6/uL (4.70-6.10); Red Cell Dist. Width 14.5 % (11.5-14.5)
[2024-09-17 12:54] LABS: INR 1.07; PT 14.3 Sec (11.4-14.6)
[2024-09-17 12:55] LABS: APTT 31.9 Sec (23.4-35.0)
[2024-09-17 12:59] LABS: ALT (SGPT) 22 U/L (0-50); AST (SGOT) 27 U/L (17-59); Albumin 4.6 g/dl (3.5-5.0); Alkaline Phosphatase 94 U/L (38-126); Blood Urea Nitrogen 13 mg/dl (9-20); Calcium 9.9 mg/dl (8.4-10.2); Carbon Dioxide 25 mmol/L (22-30); Chloride 106 mmol/L (98-107); Glucose 114 mg/dl (70-99); Potassium 4.6 mmol/L (3.5-5.1); Sodium 142 mmol/L (135-145); Total Bilirubin 0.3 mg/dl (0.2-1.3); Total Protein 7.4 g/dl (6.3-8.2); eGFR > 60.00
[2024-09-17 14:23] VITALS: BP 113/74; BMI 28.1
--- NOTE | 2024-09-17 14:25 | HPS.HSE ---
Addendum entered and electronically signed by Ralph Leon MD 09/17/24 15:20:
I saw and examined the patient.
The CABIN EQUIPMENT SUPERVISOR or PA's note was reviewed and I agree with the note.
Comment: 68-year-old male with complex history of throat cancer, diabetes, hypertension, depression, hypothyroidism, peripheral arterial disease status post femorofemoral bypass complicated with left lower extremity critical limb ischemia status
post thrombectomy then later developed compartment syndrome came today with groin lumps. CT scan done in the ED concerning for fluid around the femorofemoral arterial bypass graft. Concern for infection. Antibiotics given in the ED. ID
evaluation for further antibiotics. hold metformin. Eliquis on hold. N.p.o. past midnight for OR Tuesday by vascular surgery.
General: Well Developed, Well Nourished and No Apparent Distress
HEENT: NormoCephalic, Moist mucous membranes and Atraumatic
Respiratory: Clear
Cardiac: S1/S2 and Regular Rhythm; No Murmur or Rub
GI: Soft, Non Tender, Non Distended and Normal Bowel Sounds
Musculoskeletal: No Edema
Skin: No Rash
Neuro: Nonfocal/grossly intact
I spent a total of 76 minutes with the patient or on the floor. More than 50% of this time involved counseling and coordination of care.
General: Well Developed, Well Nourished and No Apparent Distress
HEENT: NormoCephalic, Moist mucous membranes and Atraumatic
Respiratory: Clear
Cardiac: S1/S2 and Regular Rhythm; No Murmur or Rub
GI: Soft, Non Tender, Non Distended and Normal Bowel Sounds; No Organomegaly
Rectal: Deferred by Provider
Musculoskeletal: No Edema
:small herman size lumps,non pulsatile
Skin: LLE skin graft
Neuro: Nonfocal/grossly intact
Original Note:
Family Physician
-
Family Physician: Leonidas Ndiaye
Chief Complaint
-
lumps in the groin
History of Present Illness
68-year-old male patient with significant past medical history for throat cancer, diabetes, hypertension, depression, hypothyroidism, peripheral arterial disease, and recent hospitalization for acute left lower extremity critical limb threatening
ischemia who presents to ER this morning from home for 'pain and lumps' in his groin. patient underwent Excision of left femoral old/occluded fem-fem bypass and thrombectomy of left common, profunda, and superficial femoral arteries and popliteal
artery on 06/04/2024 and Left calf 4 compartment fasciotomy with evacuation of hematoma and control of bleeding and left groin exploration with evacuation of hematoma and control bleeding on 06/05/2024. he noticed one lump on his right groin weeks ago
and it progressively mulitpled in few weeks. stated some discomfort. denied fever, chills, chest pain, sob. denied abdominal pain,n,v,d. denied dysuria or hematuria.
CTA with Postoperative changes of the femoral-femoral bypass with unchanged occlusion of the graft and separation of the graft from the [place] left femoral vessels. There is a new 1.5 x 3.7 cm mildly hyperdense collection along the right
anterolateral aspect of the graft/pelvic soft tissues as well as a 1.2 cm nodular focus along the left anterolateral aspect of the graft/pelvic soft tissues. These may represent hematomas, less likely developing infectious process.There is chronic
occlusion of the right common iliac and external iliac arteries with reconstitution of the right common femoral artery.Mild colonic stool burden.
patient received iv vanco and Zosyn. admitting for further management.
Medical History
Past Medical History
Past Medical History: Reports Other
Additional Past Medical History:
PAD
PVD
Cellulitis
Gouty arthritis
Hypothyroidism anxiety
Depression
pharynx neoplasm
Past Surgical History: Reports Other
Additional Past Surgical History:
Bilateral fasciotomy of left
Social History
Tobacco: Non-smoker
Alcohol: None
Drug: None
Family History
Family History: Not pertinent
Allergies / Home Medications
Allergies reflects when Allergies were last updated in [facility].
Home Medications with original date entered in [facility]
Allergy/Medication List:
Allergies
Allergy/AdvReac Type Severity Reaction Status Date / Time
No Known Allergies Allergy Verified 08/01/24 09:20
Home Medications
atorvastatin 10 mg tablet (Lipitor) 10 mg PO HS High Cholesterol 06/04/24
metformin 1,000 mg tablet 1,000 mg PO BID@0800,1700 Diabetes 06/04/24
quetiapine 25 mg tablet (Seroquel) 25 mg PO HS depression/sleep 06/04/24
apixaban 5 mg tablet (Eliquis) 5 mg PO BID Blood Clot Prevention/Tx 06/15/24
levothyroxine 75 mcg tablet 75 mcg PO DAILY hypothyroidism 06/15/24
acetaminophen 325 mg tablet 650 mg (2 x 325 mg) PO Q4HPRN PRN mild pain/T> 100.4F or rigors #0 tabs 06/19/24
aspirin 81 mg tablet,delayed release 81 mg PO DAILY #30 tabs 06/19/24
Review of Systems
-
Constitutional: Reports No Symptoms
EENT: Reports No Symptoms
Respiratory: Reports No Symptoms
Cardiac: Reports No Symptoms
Abdomen/GI: Reports No Symptoms
: Reports No Symptoms
Musculoskeletal: Reports No Symptoms
Skin: Reports No Symptoms
Neurological: Reports No Symptoms
Endocrine: Reports No Symptoms
Hematologic/Lymphatic: Reports No Symptoms
Psych: Reports No Symptoms
Physical Exam
Vital Signs
Vital Signs
Temp Pulse Resp BP Pulse Ox
98.8 F 110 18 113/74 99
09/17/24 11:02 09/17/24 14:23 09/17/24 14:23 09/17/24 14:23 09/17/24 14:23
Physical Exam
General: Well Developed, Well Nourished and No Apparent Distress
HEENT: NormoCephalic, Moist mucous membranes and Atraumatic
Respiratory: Clear
Cardiac: S1/S2 and Regular Rhythm; No Murmur or Rub
GI: Soft, Non Tender, Non Distended and Normal Bowel Sounds; No Organomegaly
Rectal: Deferred by Provider
Musculoskeletal: No Clubbing, No Cyanosis and No Edema
Skin: No Rash
Neuro: Nonfocal/grossly intact
Laboratory Results
-
09/17/24 12:
09/17/24 12:
Laboratory Results
PT 14.3 Sec (11.4-14.6) 09/17/24 12:
INR 1.07 09/17/24 12:
APTT 31.9 Sec (23.4-35.0) 09/17/24 12:
Total Bilirubin 0.3 mg/dl (0.2-1.3) 09/17/24 12:
AST 27 U/L (17-59) 09/17/24 12:
ALT 22 U/L (0-50) 09/17/24 12:
Alkaline Phosphatase 94 U/L (38-126) 09/17/24 12:
Data Reviewed
-
CT Scan: Report Reviewed by me
Lab Data: Labs Reviewed by me
Impression/Plan
-
# Infected femofemoral bypass
# History of PAD with fem/pop bypass/multiple stents of lower extremities with a recent thrombectomy/fasciotomies with wound VAC in place
-Wound VAC was removed on July 13
-WBC 12.0
-Hold Eliquis
-IV Zosyn and vancomycin continued
-N.p.o. after midnight for Tuesday
-OR on Tuesday for excision fem-fem graft
-CT of abdomen pelvis Postoperative changes of the femoral-femoral bypass with unchanged occlusion of the graft and separation of the graft from the [place] left femoral vessels. There is a new 1.5 x 3.7 cm mildly hyperdense collection along the
right anterolateral aspect of the graft/pelvic soft tissues as well as a 1.2 cm nodular focus along the left anterolateral aspect of the graft/pelvic soft tissues. These may represent hematomas, less likely developing infectious process.There is
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
-Vascular consulted
-ID consulted
#DM2
-hold Metformin
-SSI/AccuCheck
#Hypothyroidism: cont Levoxyl
#History of Throat Cancer s/p Tracheostomy
#Anxiety/Depression: cont Seroquel
#BPH
#HLD
-statin continued
FULL/SCD
--- NOTE | 2024-09-17 14:26 | W.PN.UPDATE ---
Update Note
Progress Note Update
Seen and evaluated in the emergency room with ORCHESTRA DIRECTOR's. Full consultation to follow. 68-year-old male known to us with history of prior femoral to femoral artery bypass that was occluded. Had presented with acute limb ischemia and underwent left
lower extremity thrombectomy (Cunningham). Subsequently some bleeding in the left groin as well as compartment syndrome left calf. Underwent fasciotomies and washout of left groin (myself). Subsequent left fasciotomy site washout as well (myself).
Had been doing well. Now over the last week has noted increasing symptoms of nodularity in the groins and suprapubic area with discomfort throughout those areas. He notes that this is all new and he never had this before. No definitive fevers
though he notes slight coldness at times. No other current associated symptoms.
On exam/he is awake and alert. Head is normocephalic and atraumatic. Eyes are anicteric. He is in no acute distress. Breathing is unlabored. Abdomen is soft. Groins are healed bilaterally. No erythema. No pulsatile masses. He does have some
nodularity like findings in the suprapubic area especially towards the right groin. He is slightly tender/uncomfortable there, but not severely. No overlying erythema. \\
Labs reviewed. White blood cell count 12,000.
CT angiogram reviewed. There is fluid around the femoral to femoral artery bypass graft somewhat irregular appearing. When I review prior CT angiogram of the time he is bleeding from the left groin, there is no evidence of fluid around the bypass
graft at that time. No pseudoaneurysm. The graft remains thrombosed.
Plan/appears to have infected residual thrombosed femoral to femoral artery bypass graft. Discussed with patient based on this, would recommend resection of the residual graft to prevent any further infectious complications including breakdown in
the right groin anastomosis (even those thrombosed, anastomosis remains). The graft had prior been removed from the left groin.
I discussed with patient extent of what this means. Discussed need for redo groin operation with graft excision and possible vein patch angioplasty of the right common femoral artery (chronically occluded inflow, but he does have collaterals and
patent distal common femoral into the femoral bifurcation. Discussed possible sartorius muscle flap closure. He asked about revascularization in the future. Discussed that would not pursue revascularization at this time as he has no symptoms in
the right lower extremity, and in addition revascularization with carry with that increased risks of infected prosthetic. In the future should he require right lower extremity revascularization certainly this would all be complicated, but I think
we need to treat the issue at hand. Patient understands all wishes to proceed. Will hold Eliquis for 48 hours and plan surgery in 2 days (09/19/2024).
[2024-09-17] MEDS: ZOSYN 100 IV (14:29)
--- NOTE | 2024-09-17 15:05 | CON.ID ---
Consultation
-
Date/Time Consultation Requested: 09/17/24 14:53
Date/Time Consultation Performed: 09/17/24 15:06
Requesting Provider: JULES Pantoja
Performing Provider: Dr Bay
Reason for Consultation: Three lumps in his groin/low abdomen
Chief Complaint / Past History
Chief Complaint
Three lumps in his groin/low abdomen
History of Present Illness
Mr Goff is a 68 year old male with history of PAD, throat cancer (in remission) with recent hospitalization for acute, critical limb threatening ischemia on the LL extremity who presented here today for pain and lumps in the groin; the
surgical sites are well healed however there are three small lumps about the size of a herman without pulsation of bulging; no pain with Valsalva, pain is mild and constant and has worsened over several days; there is some associated lower abdominal
pain as well. No fevers or chills. Has never been told her was bacteremic before. No pain or cyanosis of the foot. Of note patient was seen in follow up with his vascular surgeon Dr Cunningham 09/05/24 and at that time had no complaints.
Previous vascular procedures:
06/04/24 Excision of left femoral old/occluded fem-fem bypass and thrombectomy of left common, profunda, and superficial femoral arteries and popliteal artery; procedure subsequently complicated by bleeding in the L groin and compartment syndrome L
calf
06/05/24 Left calf 4 compartment fasciotomy with evacuation of hematoma and control of bleeding and left groin exploration with evacuation of hematoma and control bleeding
Since arrival here patient has been afebrile, bp stable, HR becoming more tachycardic, wbc initially 12, hgb 14, plt 331, L shift is noted, cr 0.8, last a1c 06/29 5.8 prior to this 06/05 6.3,
CTA: fluid around fem:fem bypass, new compared to prior CT angiogram. MRSA screen 06/15: negative, blood cultures have not yet been sent, patient has received a dose of zosyn, dose of vancomycin pending blood cultures as patient is not in shock, ID
is consulted for assistance with management.
Past History
Additional Past Medical History:
Cancer (Throat in remission), HTN, Hypothyroidism, NIDDM, Psychiatric and Other (PAD, HLD, tracheostomy)
Additional Past Surgical History:
(fem-fem bypass, iliac and SFA stent 10+ years ago at [facility] with Dr Pina, laryngectomy, exploratory laparotomy)
Allergy History:
No Known Allergies Allergy (Verified 08/01/24 09:20)
Medications Reviewed: Yes
Social History
Tobacco: Former Smoker (3 packs per day)
Alcohol: Occasional
Drug: None
Family History
Family History: Not Pertinent
Review of Systems
Review of Systems
General: Negative Fever or Chills
All systems: All other systems were reviewed and were negative
Vital Signs
Temp Pulse Resp BP Pulse Ox
98.8 F 110 18 113/74 99
09/17/24 11:02 09/17/24 14:23 09/17/24 14:23 09/17/24 14:23 09/17/24 14:23
Physical Exam
Physical Exam
Constitutional: No Acute Distress
Cardiovascular: Regular Rate and S1/S2; Negative Murmur or Rub
Pulmonary: Clear and Symmetric; Negative Wheezes, Rales or Rhonchi
Gastrointestinal: Soft, Non Tender, Non Distended and Normal Bowel Sounds
Genito-Urinary: Other (3 raspberry sized firm swellings in the bilateral groin no erythema or fluctuance)
Skin: Warm and Dry; Negative Rash or Jaundice
Wound: Other (L groin surgical site and bilateral fasciotomy site and skin graft site all fully healed, no erythema, warmth, tenderness, dehiscence or drainage)
Lines: Other (continuous glucometer)
Lab / Diagnostic Study Results
09/17/24 12:29
09/17/24 12:29
Abs Immat Gran (auto) 0.1 10^3/uL (0-0.05) H 09/17/24 12:
Absolute Neuts (auto) 9.4 10^3/uL (1.4-6.5) H 09/17/24 12:
Absolute Lymphs (auto) 1.1 10^3/uL (1.2-3.4) L 09/17/24 12:
Absolute Monos (auto) 0.9 10^3/uL (0.1-0.6) H 09/17/24 12:
Absolute Basos (auto) 0.1 10^3/uL (0-0.2) 09/17/24 12:
Immature Gran % 0.7 % (0-0.5) H 09/17/24 12:
Neutrophils % 78.2 % (42.2-75.2) H 09/17/24 12:
Lymphocytes % 9.3 % (20.5-51.1) L 09/17/24 12:
Monocytes % 7.6 % (1.7-9.3) 09/17/24 12:
Eosinophils % 3.8 % (0-6) 09/17/24 12:
Basophils % 0.4 % (0-2) 09/17/24 12:
PT 14.3 Sec (11.4-14.6) 09/17/24 12:
INR 1.07 09/17/24 12:
Assessment / Plan
Possible infected residual thrombosed fem:fem artery bypass graft
- blood cultures x2 - ideally these would have been done before antibiotics were started, however patient has already received a dose of zosyn
- CTA note new small collections - possibly hematomas
- not previously colonized with MRSA at last check, recheck now
- agree with plan to removal vascular graft, please obtain cultures from the OR (ideally tissue cultures rather than swabs to optimize yield)
- after blood cultures x2 done, then restart zosyn and start vancomycin
- follow fever curve, WBC count, clinically
[2024-09-17] MEDS: VANCOCIN IV (15:35)
[2024-09-17] MEDS: VANCOCIN 540 MG IV (15:36)
[2024-09-17 16:52] VITALS: BP 120/72
[2024-09-17 20:39] VITALS: BMI 27.5
--- NOTE | 2024-09-17 20:51 | PHA.VAN.IN ---
Assessment
- Assessment
Renal Function: Appears similar to baseline
Concomitant Antimicrobials: ZOSYN
- Previous Dosing Experience
Previous Regimen: 1500MG IV Q12H
Date of Regimen: 07/13/24
Provided Trough of: 10.8 PREDICTED
Provided AUC of: UNKNOWN
Patient's SCR is: Similar to previous dosing experience
Patient's weight is: Similar to previous dosing experience (07/13/24 90 KG)
AUC Dosing Plan
- Dosing Variables
Dosing Weight (kg): 89.4
Dosing CrCl (ml/min): 97
Vd coefficient (L/kg): 0.7
- Empiric Dosing
Initial / Loading Dose: 2GM
Maintenance Regimen: 1500MG IV Q12H
Estimated AUC (mcg*h/mL): 600
Estimated Peak (mcg*h/mL): 37.5
Estimated Trough (mcg/ml): 15.4
Estimated Half Life (H): 8.2
Dose based on prior dosing from 07/13/24
Pharmacokinetics Vancomycin I
- -
Patient Age: 68
Patient Sex: Male
Vancomycin Day #: 1
Indication: Bacteremia
Requesting Provider: LEE ANN
Height / Weight:
Height 5 ft 11 in
Actual Weight 89.448 kg
Pertinent Past Medical History: S/P GRAFT
- Vital Signs / Lab Results
Temp Pulse Resp BP Pulse Ox
98.8 F 103 18 120/72 99
09/17/24 11:02 09/17/24 16:52 09/17/24 16:52 09/17/24 16:52 09/17/24 16:52
Lab Results - Hematology
09/17/24
12:29
WBC 12.0 H
Lab Results - Chemistry
09/17/24
12:29
BUN 13
Creatinine 0.8
Albumin 4.6
[2024-09-17 21:05] VITALS: BP 151/93
--- NOTE | 2024-09-17 21:10 | PTCARENOTE ---
[facility] arrived to [facility] from [facility], walked into room from stretcher. AAOx3, very pleasant, VSS. Pt ambulatory in room, no complaints of pain at this time. Tracheostomy with speaking valve in place from home. Pt is self care with trach. Plan of care
explained, all questions answered. Assessment on going.
[2024-09-17] MEDS: ZOSYN 50 IV (21:13)
[2024-09-17] MEDS: LIPITOR 10 MG PO (21:13)
[2024-09-17] MEDS: SEROQUEL 25 MG PO (21:13)
[2024-09-17 21:17] LABS: Glucose - Point of Care 100 mg/dl (70-99)
[2024-09-17] MEDS: NOVOLOG FLEXPEN-LOW RESISTANCE SC (21:31)
[2024-09-17 23:15] VITALS: BP 124/79
[2024-09-18] MEDS: ZOSYN 50 IV ×4 (03:25→21:25)
--- NOTE | 2024-09-18 03:30 | PTCARENOTE ---
Assumed care of this patient from previous RN; Patient resting comfortably in bed, no complaints at this time; Call maldonado within reach; Plan of care ongoing
[2024-09-18] MEDS: VANCOCIN 530 MG IV (05:39)
[2024-09-18] MEDS: SYNTHROID 75 MCG PO (05:39)
[2024-09-18 07:00] VITALS: BP 129/83
[2024-09-18 07:29] LABS: Hematocrit 40.9 % (39.0-52.0); Hemoglobin 13.3 g/dL (13.0-18.0); Mean Corp Hgb Conc. 32.5 g/dL (33.0-37.0); Mean Corpuscular Volume 83.1 fL (80.0-94.0); Mean Platelet Volume 9.7 fL (7.4-10.4); Platelet Count 323 10^3/uL (130-400); Red Blood Cell Count 4.92 10^6/uL (4.70-6.10); Red Cell Dist. Width 14.5 % (11.5-14.5); White Blood Cell Count 9.4 10^3/uL (4.8-10.8)
[2024-09-18] MEDS: NOVOLOG FLEXPEN-LOW RESISTANCE SC ×2 (08:00→17:23)
[2024-09-18 08:03] LABS: Glucose - Point of Care 126 mg/dl (70-99)
[2024-09-18 08:13] LABS: Hepatitis C Antibody Negative (Negative)
[2024-09-18 08:31] LABS: Glycohemoglobin (HgbA1c) 6.5 % (4.0-5.6)
[2024-09-18] MEDS: ASPIR LOW (ENTERIC COATED) 81 MG PO (08:51)
--- NOTE | 2024-09-18 11:16 | W.PN.HOSP.TC ---
Today's Communication/Plan
-
Monitor vital signs see plan
N.p.o. past midnight for OR tomorrow
Continue to hold Eliquis
Antibiotics
Follow cultures
Assessment / Plan
Assessment / Plan
General: Well Developed, Well Nourished and No Apparent Distress
HEENT: NormoCephalic, Moist mucous membranes and Atraumatic
Respiratory: Clear
Cardiac: S1/S2 and Regular Rhythm; No Murmur or Rub
GI: Soft, Non Tender, Non Distended and Normal Bowel Sounds
Rectal: Deferred by Provider
:small herman size lumps,non pulsatile
Skin: LLE skin graft
Neuro: Nonfocal/grossly intact
lumps in groin suspect 2/2 Infected femofemoral bypass or possible hematomas
# History of PAD with fem/pop bypass/multiple stents of lower extremities with a recent thrombectomy/fasciotomies with wound VAC in place
-Wound VAC was removed on July 13
bcx pending; apparently abx was given in ED prior to cx
-Hold Eliquis
-IV Zosyn and vancomycin continued
-N.p.o. after midnight for OR Tuesday
-OR on Tuesday for excision fem-fem graft
-CT of abdomen pelvis Postoperative changes of the femoral-femoral bypass with unchanged occlusion of the graft and separation of the graft from the [place] left femoral vessels. There is a new 1.5 x 3.7 cm mildly hyperdense collection along the
right anterolateral aspect of the graft/pelvic soft tissues as well as a 1.2 cm nodular focus along the left anterolateral aspect of the graft/pelvic soft tissues. These may represent hematomas, less likely developing infectious process.There is
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
-Vascular following
-ID following
#DM2
-hold Metformin
-SSI/AccuCheck
#Hypothyroidism: cont Levoxyl
#History of Throat Cancer s/p Tracheostomy
#Anxiety/Depression: cont Seroquel
#BPH
#HLD
-statin continued
FULL/SCD
Anticipated Discharge: > 48 hours
Subjective/Interval History
-
Date of Service: September 18, 2024
denies pain
Objective Data
-
Labs:
Laboratory Results
09/18/24
05:41
WBC 9.4
Hgb 13.3
Hct 40.9
Plt Count 323
Vital Signs:
Vital Signs
Temp Pulse Resp BP Pulse Ox
98.0 F 81 18 129/83 95
09/18/24 07:00 09/18/24 07:00 09/18/24 07:00 09/18/24 07:00 09/18/24 07:00
I&O
09/17/24 09/18/24 09/19/24
06:59 06:59 06:59
Intake Total 50 / 50
Balance 50 / 50
--- NOTE | 2024-09-18 11:29 | PHA.VAN.FU ---
Vancomycin Assessment / Plan
- Assessment
Renal Function: No New Labs Today
WBC's are: WNL
In the past 24 hrs, patient has been: Afebrile
Concomitant Antimicrobials: piperacillin-tazobactam
- Dosing Plan
Adjust Regimen to: vanc 1250mg q12h
New Regimen Predicts: AUC (500), Peak (31.3), Trough (12.8)
Dosing Comments: weight is 5 kg less and SCr i slower than previous dosing exp
- Monitoring Plan
No level(s) ordered at this time: consider in the upcoming days
- Follow Up
Pharmacy will continue to follow.
Vancomycin Follow UP
- -
Patient Age: 68
Patient Sex: Male
Vancomycin Day #: 2
Indication: Bacteremia
Requesting Provider: Dr Bay
Pertinent Antimicrobial Allergies:
no known allergies
Height / Weight:
Height 5 ft 11 in
Actual Weight 89.448 kg
Pertinent Past Medical History: S/P GRAFT
- Vital Signs / Lab Results
Temp Pulse Resp BP Pulse Ox
98.0 F 81 18 129/83 95
09/18/24 07:00 09/18/24 07:00 09/18/24 07:00 09/18/24 07:00 09/18/24 07:00
Lab Results - Hematology
09/17/24 09/18/24
12: 05:41
WBC 12.0 H 9.4
Lab Results - Chemistry
09/17/24
12:29
BUN 13
Creatinine 0.8
Albumin 4.6
[2024-09-18 11:42] LABS: Glucose - Point of Care 192 mg/dl (70-99)
[2024-09-18 12:34] LABS: Glucose - Point of Care 198 mg/dl (70-99)
[2024-09-18] MEDS: NOVOLOG FLEXPEN-LOW RESISTANCE 1 UNITS SC (12:37)
--- NOTE | 2024-09-18 14:37 | CM ---
Patient seen at bedside. Patient states that he lives with his girlfriend in a one story home. Patient has DME at home, walker, crutches and a cane but does not use them. Patient use the [facility] in [place] and his PCP is Dr. Barbour. Patient stated that
he has had [facility] in the past and if needed he would like [facility]. Patient plan is home with no needs. CM will continue to follow for discharge planning needs.
Plan; home with no needs vs home with VN
[2024-09-18 15:10] VITALS: BP 134/77
--- NOTE | 2024-09-18 16:45 | W.PN.ID1 ---
Date of Service
Date of Service: September 18, 2024
Today's Communication
c/w vancomycin and zosyn
please send cultures from the OR - aerobic and anaerobic
Assessment / Plan
Possible infected residual thrombosed fem:fem artery bypass graft
- blood cultures x2 in progress no growth to date
- CTA note new small collections - possibly hematomas
- MRSA screen pending
- agree with plan to removal vascular graft, please obtain cultures from the OR (ideally tissue cultures rather than swabs to optimize yield)
- c/w zosyn and vancomycin
- follow fever curve, WBC count, clinically
Chief Complaint
-: Other (infected vascular graft)
Subjective / Review of Systems
afebrile
bp stable
no events overnight
Vital Signs / Physical Exam
Vital Signs
Vital Signs
Temp Pulse Resp BP Pulse Ox
98.4 F 87 20 134/77 92
09/18/24 15:10 09/18/24 15:10 09/18/24 15:10 09/18/24 15:10 09/18/24 15:10
Physical Exam
Constitutional: No Acute Distress and Chronically Ill
Cardiovascular: Regular Rate and S1/S2; Negative Murmur or Rub
Pulmonary: Clear and Symmetric; Negative Wheezes or Rales
Gastrointestinal: Soft, Non Tender, Non Distended and Normal Bowel Sounds
Genito-Urinary: Other (small tender areas in the groin x3 unchanged - not fluctuant)
Skin: Warm and Dry; Negative Rash or Jaundice
Objective Data
Lab Data
Lab Results
09/18/24 05:41
09/17/24 12:29
PT 14.3 Sec (11.4-14.6) 09/17/24 12:29
INR 1.07 09/17/24 12:29
APTT 31.9 Sec (23.4-35.0) 09/17/24 12:29
Total Bilirubin 0.3 mg/dl (0.2-1.3) 09/17/24 12:29
AST 27 U/L (17-59) 09/17/24 12:29
ALT 22 U/L (0-50) 09/17/24 12:29
Alkaline Phosphatase 94 U/L (38-126) 09/17/24 12:29
Most recent labs reviewed.
Micro Results:
09/17/24 15:38 Blood Culture - Preliminary
Blood/Venous No Growth in 24 hours- Final report to follow
09/17/24 15:38 Blood Culture - Preliminary
Blood/Venous No Growth in 24 hours- Final report to follow
09/17/24 20:32 MRSA Screen - Pending
Nose
[2024-09-18 17:13] LABS: Glucose - Point of Care 75 mg/dl (70-99)
[2024-09-18] MEDS: VANCOCIN 275 MG IV (18:19)
[2024-09-18] MEDS: LIPITOR 10 MG PO (21:25)
[2024-09-18] MEDS: SEROQUEL 25 MG PO (22:18)
[2024-09-18 22:21] LABS: Glucose - Point of Care 98 mg/dl (70-99)
[2024-09-18 23:02] VITALS: BP 126/66
[2024-09-19] VITALS (20 sets, daily range): BP systolic 3–146; BP diastolic 63–94; BMI 28.1
[2024-09-19] MEDS: ZOSYN 50 IV ×4 (04:09→21:55)
[2024-09-19] MEDS: SYNTHROID 75 MCG PO (05:27)
[2024-09-19] MEDS: BACTROBAN 2% OINTMENT 1 APPLIC NASAL (05:27)
[2024-09-19] MEDS: PERIDEX 0.12% ORAL RINSE 15 ML PO (05:27)
[2024-09-19] MEDS: VANCOCIN 275 MG IV ×2 (05:27→19:12)
[2024-09-19 05:28] LABS: Glucose - Point of Care 131 mg/dl (70-99)
[2024-09-19] MEDS: NOVOLOG FLEXPEN-LOW RESISTANCE SC ×3 (05:50→19:05)
--- NOTE | 2024-09-19 05:54 | PTCARENOTE ---
Linens changed and 1st set of CHG wipes done
[2024-09-19 06:51] LABS: % Basophils 0.6 % (0-2); % Eosinophils 10.2 % (0-6); % Immature Granulocytes 0.5 % (0-0.5); % Lymphocytes 11.1 % (20.5-51.1); % Monocytes 10.4 % (1.7-9.3); % Neutrophils 67.2 % (42.2-75.2); Absolute Basophils 0.1 10^3/uL (0-0.2); Absolute Immature Granulocytes 0.1 10^3/uL (0-0.05); Absolute Neutrophils 6.3 10^3/uL (1.4-6.5); Mean Corp Hgb Conc. 33.3 g/dL (33.0-37.0); Mean Corpuscular Hgb 27.3 pg (27.0-31.0); Mean Corpuscular Volume 81.9 fL (80.0-94.0); Mean Platelet Volume 9.7 fL (7.4-10.4); Nucleated Red Blood Cells % 0 % (-); Platelet Count 307 10^3/uL (130-400); Red Blood Cell Count 4.76 10^6/uL (4.70-6.10); Red Cell Dist. Width 14.5 % (11.5-14.5); White Blood Cell Count 9.3 10^3/uL (4.8-10.8)
[2024-09-19 07:14] LABS: Blood Urea Nitrogen 12 mg/dl (9-20); Carbon Dioxide 22 mmol/L (22-30); Chloride 108 mmol/L (98-107); Estimated Creatinine Clearance 77 ml/min; Glucose 118 mg/dl (70-99); Sodium 141 mmol/L (135-145); eGFR > 60.00
[2024-09-19] MEDS: ASPIR LOW (ENTERIC COATED) 81 MG PO (08:23)
--- NOTE | 2024-09-19 11:15 | W.PN.HOSP.TC ---
Addendum entered and electronically signed by Ralph Leon MD 09/24/24 07:50:
Sepsis, POA
Original Note:
Today's Communication/Plan
-
Monitor vital signs see plan
OR today
send cultures from the OR - aerobic and anaerobic per ID
cw abx
eliquis on hold
Assessment / Plan
Assessment / Plan
General: Well Developed, Well Nourished and No Apparent Distress
HEENT: NormoCephalic, Moist mucous membranes and Atraumatic
Respiratory: Clear
Cardiac: S1/S2 and Regular Rhythm; No Murmur or Rub
GI: Soft, Non Tender, Non Distended and Normal Bowel Sounds
Rectal: Deferred by Provider
:small herman size lumps,non pulsatile
Skin: LLE skin graft
Neuro: Nonfocal/grossly intact
lumps in groin suspect 2/2 Infected femofemoral bypass or possible hematomas
# History of PAD with fem/pop bypass/multiple stents of lower extremities with a recent thrombectomy/fasciotomies with wound VAC in place
-Wound VAC was removed on July 13
bcx pending; apparently abx was given in ED prior to cx
-Hold Eliquis
-IV Zosyn and vancomycin continued
-N.p.o. after midnight for OR Tuesday
-OR on Tuesday for excision fem-fem graft
-CT of abdomen pelvis Postoperative changes of the femoral-femoral bypass with unchanged occlusion of the graft and separation of the graft from the [place] left femoral vessels. There is a new 1.5 x 3.7 cm mildly hyperdense collection along the
right anterolateral aspect of the graft/pelvic soft tissues as well as a 1.2 cm nodular focus along the left anterolateral aspect of the graft/pelvic soft tissues. These may represent hematomas, less likely developing infectious process.There is
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
-Vascular following
-ID following; send cultures from the OR - aerobic and anaerobic per ID
#DM2
-hold Metformin
-SSI/AccuCheck
#Hypothyroidism: cont Levoxyl
#History of Throat Cancer s/p Tracheostomy
#Anxiety/Depression: cont Seroquel
#BPH
#HLD
-statin continued
FULL/SCD
Anticipated Discharge: > 48 hours
Subjective/Interval History
-
Date of Service: September 19, 2024
Denies pain
Objective Data
-
Labs:
Laboratory Results
09/19/24
06:19
WBC 9.3
Hgb 13.0
Hct 39.0
Plt Count 307
Sodium 141
Potassium 4.0
Chloride 108 H
Carbon Dioxide 22
BUN 12
Creatinine 1.0
Glucose 118 H
Calcium 9.0
Vital Signs:
Vital Signs
Temp Pulse Resp BP Pulse Ox
98 F 81 20 121/79 95
09/19/24 07:32 09/19/24 07:32 09/19/24 07:32 09/19/24 07:32 09/19/24 08:00
I&O
09/18/24 09/19/24 09/20/24
06:59 06:59 06:59
Intake Total 50 / 50 1944
Balance 50 / 50 1944
--- NOTE | 2024-09-19 11:40 | W.PN.ID1 ---
Date of Service
Date of Service: September 19, 2024
Today's Communication
please send aerobic and anaerobic cultures from the OR
continue vancomycin and zosyn for now
Assessment / Plan
Possible infected residual thrombosed fem:fem artery bypass graft
- blood cultures x2 in progress no growth to date
- CTA note new small collections - possibly hematomas
- MRSA screen negative
- agree with plan to removal vascular graft, please obtain cultures from the OR (ideally tissue cultures rather than swabs to optimize yield)
- c/w zosyn and vancomycin - pending OR cultures
- follow fever curve, WBC count, clinically
Chief Complaint
-: Other (infected vascular graft)
Subjective / Review of Systems
afebrile
bp stable
no events overnight
Vital Signs / Physical Exam
Vital Signs
Vital Signs
Temp Pulse Resp BP Pulse Ox
98 F 81 20 121/79 95
09/19/24 07:32 09/19/24 07:32 09/19/24 07:32 09/19/24 07:32 09/19/24 08:00
Physical Exam
Constitutional: No Acute Distress
Cardiovascular: Regular Rate and S1/S2; Negative Murmur or Rub
Pulmonary: Clear and Symmetric; Negative Wheezes or Rales
Gastrointestinal: Soft, Non Tender, Non Distended and Normal Bowel Sounds
Skin: Warm, Dry and Other (three tender nodules in the groin - unchanged not fluctuant); Negative Rash or Jaundice
Objective Data
Lab Data
Lab Results
09/19/24 06:19
09/19/24 06:19
PT 14.3 Sec (11.4-14.6) 09/17/24 12:29
INR 1.07 09/17/24 12:29
APTT 31.9 Sec (23.4-35.0) 09/17/24 12:29
Estimated Creat Clear 77 ml/min 09/19/24 06:19
Total Bilirubin 0.3 mg/dl (0.2-1.3) 09/17/24 12:29
AST 27 U/L (17-59) 09/17/24 12:29
ALT 22 U/L (0-50) 09/17/24 12:29
Alkaline Phosphatase 94 U/L (38-126) 09/17/24 12:29
Most recent labs reviewed.
Micro Results:
09/17/24 20:32 MRSA Screen - Final
Nose No Methicillin Resistant Staphylococcus aureus isolated.
09/17/24 15:38 Blood Culture - Preliminary
Blood/Venous No Growth in 24 hours- Final report to follow
09/17/24 15:38 Blood Culture - Preliminary
Blood/Venous No Growth in 24 hours- Final report to follow
--- NOTE | 2024-09-19 11:42 | PHA.VAN.FU ---
Vancomycin Assessment / Plan
- Assessment
Renal Function: SCR Increasing (0.8->1.0)
WBC's are: WNL
In the past 24 hrs, patient has been: Afebrile
Concomitant Antimicrobials: piperacillin-tazobactam
- Dosing Plan
Continue: vanc 1250 mg q12h
- Monitoring Plan
Peak Level: 09/19 2100
Trough Level: 09/20 0530
- Follow Up
Pharmacy will continue to follow.
Vancomycin Follow UP
- -
Patient Age: 68
Patient Sex: Male
Vancomycin Day #: 3
Indication: Bacteremia
Requesting Provider: Dr Bay
Pertinent Antimicrobial Allergies:
no known allergies
Height / Weight:
Height 5 ft 11 in
Actual Weight 89.448 kg
Pertinent Past Medical History: S/P GRAFT; OR 09/19
- Vital Signs / Lab Results
Temp Pulse Resp BP Pulse Ox
98 F 81 20 121/79 95
09/19/24 07:32 09/19/24 07:32 09/19/24 07:32 09/19/24 07:32 09/19/24 08:00
Lab Results - Hematology
09/17/24 09/18/24 09/19/24
12:29 05:41 06:19
WBC 12.0 H 9.4 9.3
Lab Results - Chemistry
09/17/24 09/19/24
12:29 06:19
BUN 13 12
Creatinine 0.8 1.0
Estimated Creat Clear 77
Albumin 4.6
Microbiology Results
09/17/24 20:32 MRSA Screen - Final
Nose No Methicillin Resistant Staphylococcus aureus isolated.
09/17/24 15:38 Blood Culture - Preliminary
Blood/Venous No Growth in 24 hours- Final report to follow
09/17/24 15:38 Blood Culture - Preliminary
Blood/Venous No Growth in 24 hours- Final report to follow
[2024-09-19 11:56] LABS: Glucose - Point of Care 108 mg/dl (70-99)
--- NOTE | 2024-09-19 14:27 | CM ---
Chart reviewed
OR today for excision of fem fem graft
CM will follow post op for d/c needs
Plan - TBD based on post op needs
--- NOTE | 2024-09-19 15:24 | W.SUR.POST ---
Surgical Immediate Post Op
Note
Pre Op Diagnosis: Infected residual thrombosed femoral to femoral artery bypass graft
Post Op Diagnosis: Same
Procedure Performed: Redo right groin dissection, excision and removal of suspected infected femoral to femoral bypass, right sartorious muscle flap
Primary Surgeon: Timothy Maharaj MD
Benefits Assistant: JULES Lewis
Anesthesia: GETA
Estimated Blood Loss: 35 ml
Fluids: See anesthesia flow sheet
Drains/Shunts: N/A
Specimens/Cultures: fem-fem bypass
Doppler/Duplex/Angio (Y/N): N
Complications: None
Operative Findings: Successful removal of thrombosed femoral to femoral artery bypass graft
[2024-09-19] MEDS: TYLENOL PO (16:00)
[2024-09-19 16:10] LABS: Glucose - Point of Care 98 mg/dl (70-99)
[2024-09-19 16:18] LABS: Hematocrit 42.7 % (39.0-52.0); Hemoglobin 14.1 g/dL (13.0-18.0); Mean Corpuscular Hgb 27.4 pg (27.0-31.0); Mean Corpuscular Volume 82.9 fL (80.0-94.0); Mean Platelet Volume 9.7 fL (7.4-10.4); Platelet Count 294 10^3/uL (130-400); Red Blood Cell Count 5.15 10^6/uL (4.70-6.10); Red Cell Dist. Width 14.6 % (11.5-14.5); White Blood Cell Count 18.1 10^3/uL (4.8-10.8)
[2024-09-19] MEDS: DILAUDID 0.25 MG IV ×3 (16:35→17:48)
--- NOTE | 2024-09-19 16:56 | OR.RPT ---
Operative Report
Operative Report
PROCEDURE DATE: 09/19/2024
Preoperative diagnosis: Infected thrombosed femoral to femoral artery bypass graft.
Postoperative diagnosis: Same
Procedure:
1. Redo right groin dissection through prior surgical field with dissection through extensive scar tissue, adding significant operative time (should qualify for modifier 22).
2. Excision of entirety of infected femoral to femoral artery bypass graft.
3. Saphenous vein patch angioplasty right common femoral/femoral bifurcation.
4. Sartorius muscle rotational flap coverage right groin.
Surgeon: Nicko
Manager Leadership Development: BYRON Beltran, required for all aspects of procedure including assistance with traction/countertraction, following of suture line, assistance with closure.
Complications: None
Anesthesia: General
Indications for procedure:
Patient with history of femoral-femoral artery bypass graft. Chronically occluded. Underwent left lower extremity thrombectomy after acute limb ischemia left lower extremity with fasciotomies left lower extremity subsequently. In addition
underwent repeat washout left groin as well as the fasciotomy sites. Now presented with signs and symptoms consistent with infection of femoral to femoral artery remnant graft (the left sided anastomosis/portion of the graft in the groin had been
excised prior). CT scan confirmed these findings. Risk/benefits/alternatives of graft excision, patch repair of artery, sartorius muscle flap were all fully discussed with the patient. He understood all wished to proceed.
Description of procedure:
Patient was identified brought to the operating room placed on the table in supine position. After the adequate administration of anesthesia he was prepped and draped in the standard surgical fashion. A standard preoperative timeout was undertaken
and everybody was in agreement the plan. A longitudinal incision was made in the right groin through the prior scar. This was done with a 15 blade. This was carried through skin subcutaneous tissue with electrocautery. There was some initially
light scar tissue in the subcutaneous tissue. I carried the dissection down to the level of the inguinal ligament. Once I got down to this level, I could palpate the femoral to femoral artery bypass graft medially, but there was extensive dense
scar tissue now. I began to chisel away at the scar tissue. I was able to identify the lateral wall of the common femoral artery and then follow this more distally onto the superficial femoral artery. The superficial femoral artery was slightly
less encased in scar and was able to circumferentially dissected and passed a vessel loop around it. Now I carried my dissection back again towards the femoral bifurcation. There was a lateral coursing branch which I identified on preoperative CT
scan imaging which I now was able to carefully circumferentially dissect and passed a vessel loop around it. This alerted me that the profunda was in this vicinity based on the CT scan appearance. Therefore just medial and deep to this branch, I
was able to clearly identify the profunda. Again there was heavy scar tissue that I carefully was able to dissect through. I then very carefully circumferentially dissected the profunda femoris artery and then passed a vessel loop around the
origin. The artery was soft at its origin. I passed a vessel loop around and double looped with a vessel loop but did not tighten it. I now dissected more proximally. I tried to expose the common femoral artery. I began to expose and there was
a small branch that tore and therefore was ligated distally and proximally the stump oversewn with a 6-0 Prolene idwijh-fq-wjpsa suture. Hemostasis was noted here. I now carefully circumferentially dissected the common femoral artery just proximal
to here. I passed a vessel loop around it which was double looped but not yet tightened. Now that I had proximal and distal control, I began dissecting the femoral-femoral bypass graft anastomosis and the graft itself. The graft was encased in a
rind which once I cut through, I identified purulent soft tissue type matter. There was also some purulent fluid. As soon as I circumferentially dissected the graft at the anastomosis I was able to just pull and it pulled right out of the track in
its entirety. It slid out such that it was clear that there was definitely an infection. I then suctioned out the track and irrigated through the tract to remove any residual purulent debris or material. I did send swabs and tissue cultures of
the infected tissues.
At this point, in the medial aspect of the incision site through the subcutaneous tissues I was able to identify the greater saphenous vein. I dissected a short portion of it that I felt would be adequate for use as a patch for the artery. After I
dissected about 4 to 6 cm through this incision site, I ligated any branches between silk ties and divided them so as to mobilize that short segment. I noted that there was a large anterior coursing branch proximally in the wound, and therefore I
felt that I could ligate the vein just distal to there so as to maintain venous drainage through the additional branch.
At this point, I gave the patient an appropriate dose of heparin intravenously. Once this had circulated for 3 minutes, I tightened my double looped Vesseloops on the common femoral, superficial femoral, profunda, and branch arteries. I then used
an 11 blade and a Hutton scissor to excise the anastomosis of the graft. The entirety of the graft was then sent off for culture. The edges of the artery were then freshened and noted to be nicely intact. Now, I ligated the saphenous vein distally
in the field with a silk tie and a clip and then transected. Proximally (just distal to that confluence of the other vein branch) I used a 2-0 silk suture ligature to suture-ligated. I then divided it. The vein was then filleted. It was then
trimmed and brought on to serve as a patch. Next, I sewed a patch angioplasty with this saphenous vein segment using a running 5-0 Prolene suture. Prior to completing and tying down my suture I backbled each branch of the artery which all backbled
well. I then flushed heparinized saline. I then completed and tied down my suture line. I then released my Vesseloops. There was excellent Doppler signals in the superficial femoral and profunda femoris arteries. A single 6-0 Prolene
cismkd-vj-dhrpv suture was placed on the suture line, and full hemostasis was noted on the suture line at this point. I then used a couple 2-0 Vicryl jrgjhe-an-ndlsp sutures to close off the track of the femorofemoral bypass graft tunnel. I then
vigorously irrigated the wound bed. At this point, I mobilized the sartorius muscle in the standard fashion. I mobilized it up to the origin or just distal to the origin at the ASIS. I was able to circumferentially mobilized up to that level
without having to divide any of its food sampler branches. I then transected with the electrocautery proximally. I then rotated this over to the patched artery site and affixed it to the surrounding tissues to cover the patched artery with
interrupted 2-0 Vicryl rtgjvg-wh-nouxn type sutures. Once satisfied, I brought 2 large round Jayjay drains out through separate stab incisions in the skin. The lateral drain was placed in the sartorius bed. The medial drain was placed on top of
the sartorius flap. Both of these were secured to the skin with nylon suture. Next we confirmed hemostasis and then closed in layers using 2-0 Vicryl running suture followed by 3-0 Vicryl deep dermal running suture, followed by skin clips. Nicolas
dressings were applied. The patient tolerated the procedure well. He had good dopplerable DP and PT signals in the right foot upon completion.
[2024-09-19 17:23] LABS: Blood Urea Nitrogen 12 mg/dl (9-20); Calcium 8.6 mg/dl (8.4-10.2); Carbon Dioxide 20 mmol/L (22-30); Chloride 108 mmol/L (98-107); Estimated Creatinine Clearance 86 ml/min; Glucose 136 mg/dl (70-99); Potassium 4.7 mmol/L (3.5-5.1); Sodium 138 mmol/L (135-145); eGFR > 60.00
[2024-09-19] MEDS: NSS 1000 IV (17:58)
--- NOTE | 2024-09-19 18:47 | PTCARENOTE ---
arrived ICU via bed from PACU, pt in good spirits, belongings sorted, trach collar 50% mist, speaking valve in place, voice rough, understandable. doppler signals noted, palpable L PT, faint R PT, confirmed with doppler along with R DP. call maldonado
in reach, see VS. PICOT drain with green light, dressing is flat/occlusive, no drainage. groin tender, soft. STARR x 2 noted marked A and B into top of R thigh.
[2024-09-19] MEDS: TYLENOL 650 MG PO (19:25)
[2024-09-19] MEDS: DILAUDID 0.5 MG IV ×2 (19:25→22:19)
--- NOTE | 2024-09-19 20:00 | PTCARENOTE ---
Received pt resting in bed, AAOx3. C/O 05/19 R groin/upper leg pain. PRN dilaudid given with good effect per pt. Has #6 provox trach on 50% trach collar. Speaking valve in place. SR with PACs on tele, HR 80-90s. BP 120s/70s-90s. Afebrile. B/L DP
and PT pulses by doppler. Q1hr neurovascular checks ongoing. R groin with PICOT dsg, R inner groin with dsg c/d/i, R upper thigh with STARR drains x2 with serosang output. Tubing stripped per orders. Round abd. + bowel sounds. Temp sensing powers cath
in place draining yellow urine - see I&O. R AC with NS @ 80ml/hr. L Hand IV patent and capped. Bathed with CHG, powers care and mouth care provided. Call maldonado in reach
[2024-09-19] MEDS: LIPITOR 10 MG PO (21:55)
[2024-09-19] MEDS: SEROQUEL 25 MG PO (21:55)
[2024-09-19 23:29] LABS: Glucose - Point of Care 154 mg/dl (70-99)
[2024-09-20] VITALS (24 sets, daily range): BP systolic 92–139; BP diastolic 66–116
[2024-09-20] MEDS: TYLENOL PO ×3 (00:57→23:38)
[2024-09-20] MEDS: NOVOLOG FLEXPEN-LOW RESISTANCE 1 UNITS SC (00:58)
--- NOTE | 2024-09-20 01:19 | PTCARENOTE ---
Pt resting comfortably, q1h neurovasc checks remain unchanged. Strong signals via doppler. Pain well controlled with Tylenol and Dilaudid. WIll monitor.
[2024-09-20] MEDS: ZOSYN 50 IV ×4 (03:38→21:52)
--- NOTE | 2024-09-20 04:00 | PTCARENOTE ---
Pt reassessed hourly, no change in previous assessment. STARR output as documented, stripped as ordered. PRN dilaudid as needed for pain. WIll monitor
[2024-09-20 04:14] LABS: % Basophils 0.2 % (0-2); % Eosinophils 0.2 % (0-6); % Immature Granulocytes 0.6 % (0-0.5); % Lymphocytes 5.3 % (20.5-51.1); % Monocytes 7.1 % (1.7-9.3); % Neutrophils 86.6 % (42.2-75.2); Absolute Immature Granulocytes 0.1 10^3/uL (0-0.05); Absolute Lymphocytes 0.7 10^3/uL (1.2-3.4); Absolute Neutrophils 11.6 10^3/uL (1.4-6.5); Hematocrit 41.7 % (39.0-52.0); Mean Corp Hgb Conc. 31.2 g/dL (33.0-37.0); Mean Corpuscular Hgb 26.5 pg (27.0-31.0); Mean Corpuscular Volume 84.9 fL (80.0-94.0); Mean Platelet Volume 9.5 fL (7.4-10.4); Nucleated Red Blood Cells % 0 % (-); Platelet Count 288 10^3/uL (130-400); Red Blood Cell Count 4.91 10^6/uL (4.70-6.10); Red Cell Dist. Width 14.3 % (11.5-14.5); White Blood Cell Count 13.3 10^3/uL (4.8-10.8)
[2024-09-20] MEDS: DILAUDID 0.5 MG IV ×3 (04:17→22:00)
[2024-09-20 04:27] LABS: INR 1.03
[2024-09-20 04:28] LABS: APTT 30.3 Sec (23.4-35.0)
[2024-09-20 04:58] LABS: Blood Urea Nitrogen 13 mg/dl (9-20); Calcium 8.7 mg/dl (8.4-10.2); Carbon Dioxide 21 mmol/L (22-30); Chloride 109 mmol/L (98-107); Estimated Creatinine Clearance 97 ml/min; Glucose 138 mg/dl (70-99); Potassium 4.7 mmol/L (3.5-5.1); Sodium 140 mmol/L (135-145); eGFR > 60.00
[2024-09-20 05:15] LABS: Glucose - Point of Care 127 mg/dl (70-99)
[2024-09-20] MEDS: NSS 1000 IV (05:54)
[2024-09-20] MEDS: NOVOLOG FLEXPEN-LOW RESISTANCE SC (05:55)
[2024-09-20] MEDS: SYNTHROID 75 MCG PO (06:14)
[2024-09-20] MEDS: VANCOCIN 275 MG IV ×2 (06:34→17:31)
--- NOTE | 2024-09-20 08:00 | PTCARENOTE ---
recd 0715 handoff in room, pulses verified, in good spirits. seen by vascular 0800, fluids capped, reviewed plans for the day and expectations. powers draining, JPS maintained, minimal bloody drainage. PICOT drain occas with orange flash but
dressing occlusive, groin dressing soft. doppler signals only needed for L DP, rest of pulses palpable. feet warm. turning gently, maintained HOB <30 degrees per order.
--- NOTE | 2024-09-20 08:14 | W.PN.VS ---
Addendum entered and electronically signed by Timothy Maharaj MD 09/20/24 12:26:
Seen and examined with BYRON Parrish earlier this a.m. This is a late entry. Findings as noted below. Patient without significant complaints. Right groin dressing clean dry and intact. Groin is flat. STARR drainage reviewed. Serosanguineous. Right
foot warm with dopplerable DP and PT signals. Plan/as discussed and noted below.
Original Note:
Today's Communication / Plan
-
Patient seen and examined at bedside with Dr. iTmothy Maharaj, below plan reviewed with attending.
Assessment/Plan
-
Assessment: 68 year old male POD #1 Redo right groin dissection through prior surgical field with dissection through extensive scar tissue, adding significant operative time (should qualify for modifier 22). Excision of entirety of infected femoral
to femoral artery bypass graft. Saphenous vein patch angioplasty right common femoral/femoral bifurcation. Sartorius muscle rotational flap coverage right groin.
Plan:
Continue bedrest and HOB restriction due to muscle flap
Continue powers catheter given strict bedrest
Advance diet
Discontinue IV fluids
Can restart Eliquis this evening
Encourage incentive spirometer
Subjective Data
-
Date of Service: September 20, 2024
Patient seen and examined at bedside, offers no complainants. Reports adequate post operative pain management. Denies nausea, vomiting, fever, and chills. Reports eagerness for diet advancement.
Objective Data
-
Vital Signs
Temp Pulse Resp BP Pulse Ox
96.1 F L 74 11 100/69 94
09/20/24 07:30 09/20/24 05:30 09/20/24 05:30 09/20/24 05:00 09/20/24 05:30
Intake and Output
09/19/24 09/20/24 09/21/24
06:59 06:59 06:59
Intake Total 1944 80 / 80
Output Total 1216 / 1246 30 / 30
Balance 1944 759 / 809 50 / 50
Intake:
Oral fluids 840 / 840 240 / 240
IV fluids (Total) 1410 / 1490 80 / 80
Normosal 400 / 400
Nss 1,000 ml @ 80 mls/hr IV . 960 / 1040 80 / 80
[id number] [id number] Rx#:[id number]
Zosyn 50 / 50
IV piggybacks 1105 / 1105 325 / 325
Output:
Drain Output (Total)
Right Dave-Lord A 35
Right Dave-Lord B
Right Upper Leg Dave-Lord A 6 / 6
Right Upper Leg Dave-Lord B 3 /
Urine, Powers 1145 / 1175 30
Other:
Number of approximated SMALL 3
amounts of urine
Number of approximated MODERATE 1
amounts of urine
Lab Results
09/20/24 03:48
09/20/24 03:48
Calcium 8.7 mg/dl (8.4-10.2) 09/20/24 03:48
Total Bilirubin 0.3 mg/dl (0.2-1.3) 09/17/24 12:29
AST 27 U/L (17-59) 09/17/24 12:29
ALT 22 U/L (0-50) 09/17/24 12:29
Alkaline Phosphatase 94 U/L (38-126) 09/17/24 12:29
Total Protein 7.4 g/dl (6.3-8.2) 09/17/24 12:29
Albumin 4.6 g/dl (3.5-5.0) 09/17/24 12:29
Physical Exam
-
AAOx3
No tachypnea on RA
No tachycardia
Abd soft, non-tender, non-distended
Right groin dressing CDI, JPx2 with serosanguineous output
BL DP and PT pulse signal with doppler signal, BL feet warm
Powers draining clear yellow urine
--- NOTE | 2024-09-20 08:14 | PN.CDI ---
CDI
- -
CDI:
Physician Documentation Request
Admit Date: 09/17/24 15:11
Dear Doctor Edward,
Patient admitted with Infected thrombosed femoral to femoral artery bypass graft s/p redo right groin dissection, excision and removal of suspected infected femoral to femoral bypass, right sartorious muscle flap.
On admission, WBC 12.0 and HR> 90.
09/19 WBC 18.1 and HR> 90.
09/19 PN, 'IV Zosyn and vancomycin continued.'
Please clarify which of the following most accurately describes the status of the patient's infection:
Sepsis, POA
Sepsis not POA but evolved during hospitalization
Infected femoral artery bypass graft only
Other
Sepsis
- Systemic manifestations of infection, with 2 or more SIRS criteria which include:
- Fever >100.4 degrees F or hypothermia < 96.8 degrees F
- Leukocytosis - WBC > 12,000 or leukopenia - WBC < 4,000 or > 10% bands
- Tachycardia > 90 beats per minute
- Tachypnea - RR > 20 breaths per minute or PaCO2 , 32mmHg
Source: Merck Manual 2012
- Indicate the known or suspected organism
- Indicate the known or suspected underlying infection, such as infected femoral artery bypass graft
Localized Infection Only, Without Systemic Illness
- indicate the site/source, such as infected femoral artery bypass graft
Other
Unable to Determine
Use of terms such as suspected, likely, concern for, or probable (associated with a specific diagnosis that is being evaluated, monitored, or treated as if it exists) are acceptable and can be coded in the inpatient setting, when documented at the
time of discharge.
Thank you,
Nisha MAHERN,RN,CCDS
CDI Specialist
Available via [place] text
Please use your independent medical judgment in providing your response.
--- NOTE | 2024-09-20 08:19 | W.PN.ID1 ---
Date of Service
Date of Service: September 20, 2024
Today's Communication
c/w current antibiotics, follow cultures
Assessment / Plan
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
09/19/24 s/p Excision of entirety of infected femoral to femoral artery bypass graft with Saphenous vein patch angioplasty right common femoral/femoral bifurcation Sartorius muscle rotational flap coverage right groin.
- blood cultures x2 in progress no growth to date
- 09/19 tissue cultures from the OR: gram stains not done; purulent tissue seen in the OR
- c/w zosyn and vancomycin - pending OR cultures
- follow fever curve, WBC count, clinically
Chief Complaint
-: Other (infected vascular graft)
Subjective / Review of Systems
running hypothermic
bp stable off of pressors
discussed with Dr Maharaj via tiger text last night - site appeared infected in the OR - cultures sent
Vital Signs / Physical Exam
Vital Signs
Vital Signs
Temp Pulse Resp BP Pulse Ox
96.1 F L 74 11 100/69 94
09/20/24 07:30 09/20/24 05:30 09/20/24 05:30 09/20/24 05:00 09/20/24 05:30
Physical Exam
Constitutional: Chronically Ill
Cardiovascular: Regular Rate and S1/S2; Negative Murmur or Rub
Pulmonary: Clear and Symmetric; Negative Wheezes or Rales
Gastrointestinal: Soft, Non Tender, Non Distended and Normal Bowel Sounds
Skin: Warm and Dry; Negative Rash or Jaundice
Objective Data
Lab Data
Lab Results
09/20/24 03:48
09/20/24 03:48
PT 14.0 Sec (11.4-14.6) 09/20/24 03:48
INR 1.03 09/20/24 03:48
APTT 30.3 Sec (23.4-35.0) 09/20/24 03:48
Estimated Creat Clear 97 ml/min 09/20/24 03:48
Total Bilirubin 0.3 mg/dl (0.2-1.3) 09/17/24 12:29
AST 27 U/L (17-59) 09/17/24 12:29
ALT 22 U/L (0-50) 09/17/24 12:29
Alkaline Phosphatase 94 U/L (38-126) 09/17/24 12:29
Most recent labs reviewed.
Micro Results:
09/19/24 14:32 Tissue Culture - Pending
Groin - Right Gram Stain - Final
09/19/24 14:13 Wound Culture - Pending
Groin - Right Gram Stain - Preliminary
09/19/24 14:13 Tissue Culture - Pending
Groin - Right Gram Stain - Preliminary
09/17/24 15:38 Blood Culture - Preliminary
Blood/Venous No Growth in 48 hours- Final report to follow
09/17/24 15:38 Blood Culture - Preliminary
Blood/Venous No Growth in 48 hours- Final report to follow
09/19/24 14:13 Anaerobic Culture - Pending
Groin - Right
09/17/24 20:32 MRSA Screen - Final
Nose No Methicillin Resistant Staphylococcus aureus isolated.
[2024-09-20] MEDS: ROXICODONE 5 MG PO (08:20)
[2024-09-20] MEDS: TYLENOL 650 MG PO ×4 (08:21→19:16)
[2024-09-20] MEDS: ASPIR LOW (ENTERIC COATED) 81 MG PO (08:21)
--- NOTE | 2024-09-20 09:57 | PHA.VAN.FU ---
Vancomycin Assessment / Plan
- Assessment
Renal Function: Stable
WBC's are: Trending Down
In the past 24 hrs, patient has been: Hypothermic (Tmin 95.7)
Concomitant Antimicrobials: piperacillin-tazobactam
- Assessment - Therapeutic Drug Monitoring
Extrapolated Cmax (mcg/mL): 24.4
Peak level was drawn: Appropriately
Extrapolated Cmin (mcg/mL): 10.7
Trough Drawn: Appropriately (2 hours early)
Levels were drawn: At steady state (post 3rd maintenance dose, post 5th dose of vancomycin)
Calculated AUC (mcg*h/mL): 402
Calculated ke: 0.0784
Calculated half life (H): 8.8
Calculated Vd (L): 79
Calculated Vanc CL (ml/min): 103
- Dosing Plan
Continue: vanc 1250mg q12h
- Monitoring Plan
Level(s) appropriate: Recheck trough at minimum of weekly intervals, Repeat sooner for changes in renal function or clinical status
Next Level Due (Date): 09/26
- Follow Up
Pharmacy will continue to follow.
Vancomycin Follow UP
- -
Patient Age: 68
Patient Sex: Male
Vancomycin Day #: 4
Indication: Bacteremia
Requesting Provider: Dr Bay
Pertinent Antimicrobial Allergies:
no known allergies
Height / Weight:
Height 5 ft 11 in
Actual Weight 91.2 kg
Pertinent Past Medical History: S/P GRAFT; OR 09/19
- Vital Signs / Lab Results
Temp Pulse Resp BP Pulse Ox
96.1 F L 74 11 100/69 94
09/20/24 07:30 09/20/24 05:30 09/20/24 05:30 09/20/24 05:00 09/20/24 05:30
Lab Results - Hematology
09/17/24 09/18/24 09/19/24
12:29 05:41 06:19
WBC 12.0 H 9.4 9.3
09/19/24 09/20/24
16:05 03:48
WBC 18.1 H 13.3 H
Lab Results - Chemistry
09/17/24 09/19/24 09/19/24
06:19 16:05
BUN 13 12 Cancelled
Creatinine 0.8 1.0 Cancelled
Estimated Creat Clear 77 Cancelled
Albumin 4.6
09/19/24 09/19/24 09/20/24
16:38 17:01 03:48
BUN Cancelled 12 13
Creatinine Cancelled 0.9 0.8
Estimated Creat Clear Cancelled 86 97
Albumin
Microbiology Results
09/19/24 14:32 Gram Stain - Final
Groin - Right
09/19/24 14:13 Gram Stain - Preliminary
Groin - Right
09/19/24 14:13 Gram Stain - Preliminary
Groin - Right
09/17/24 15:38 Blood Culture - Preliminary
Blood/Venous No Growth in 48 hours- Final report to follow
09/17/24 15:38 Blood Culture - Preliminary
Blood/Venous No Growth in 48 hours- Final report to follow
09/17/24 20:32 MRSA Screen - Final
Nose No Methicillin Resistant Staphylococcus aureus isolated.
Therapeutic Drug Monitoring
Vancomycin Peak 22.0 ug/ml (18-26) 09/19/24 22:02
Vancomycin Trough 14.0 ug/ml (5-20) 09/20/24 03:48
--- NOTE | 2024-09-20 11:45 | PTCARENOTE ---
med for pain, refusing lunch at present, turned, skin care, brushed own teeth. resting, call maldonado in reach. requested dilaudid for 8/10 pain and oxygen reconnected (room air since am assessment 0900, pt request), takes off/on and attentive to
pulse ox values. otherwise no change in dressing, signals, surgical status.
[2024-09-20] MEDS: HEPARIN 5000 UNITS SC (13:21)
[2024-09-20 13:32] LABS: Glucose - Point of Care 128 mg/dl (70-99)
--- NOTE | 2024-09-20 13:43 | W.PN.HOSP.TC ---
Today's Communication/Plan
-
continue q1h vascular checks, wound care, bedrest per Vascular
IV abx per ID
Assessment / Plan
Assessment / Plan
General: Well Developed, Well Nourished and No Apparent Distress
HEENT: NormoCephalic, Moist mucous membranes and Atraumatic
Respiratory: Clear
Cardiac: S1/S2 and Regular Rhythm; No Murmur or Rub
GI: Soft, Non Tender, Non Distended and Normal Bowel Sounds
Rectal: Deferred by Provider
:small herman size lumps,non pulsatile
Skin: LLE skin graft
Neuro: Nonfocal/grossly intact
Assessment:
Infected femo-femoral bypass
history of PAD with fem/pop bypass/multiple stents of lower extremities with a recent thrombectomy/fasciotomies with wound VAC in place (VAC removed 07/13)
- CT of abdomen pelvis Postoperative changes of the femoral-femoral bypass with unchanged occlusion of the graft and separation of the graft from the kiana left femoral vessels. There is a new 1.5 x 3.7 cm mildly hyperdense collection along the
right anterolateral aspect of the graft/pelvic soft tissues as well as a 1.2 cm nodular focus along the left anterolateral aspect of the graft/pelvic soft tissues. These may represent hematomas, less likely developing infectious process.There is
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
- s/p Redo right groin dissection through prior surgical field with dissection through extensive scar tissue, adding significant operative time (should qualify for modifier 22). Excision of entirety of infected femoral to femoral artery bypass
graft. Saphenous vein patch angioplasty right common femoral/femoral bifurcation. Sartorius muscle rotational flap coverage right groin on 09/19.
- continue bedrest, Cunningham, wound care
- ICU care for q1h vascular checks
- Per Vascular ok to resume Eliquis this evening
- follow operative cultures: gram negative bacilli. Continue Vanco/Zosyn per ID
Type 2 DM
- hold Metforming
- SSI/AccuCheck
Hypothyroidism: cont Levoxyl
History of Throat Cancer s/p Tracheostomy
Anxiety/Depression: cont Seroquel
BPH
HLD
- statin continued
DVT ppx: Eliquis
Code: Full
Total Critical Care Time 44 minutes. I was immediately available to the patient and staff. I personally examined, reviewed labs, diagnostic images/reports, interpretations, treatment plans, discussed patient care with other providers and family
or caregivers (if patient is unable to make decisions), entered orders as appropriate and documented the medical record.
Anticipated Discharge: > 48 hours
Subjective/Interval History
-
Date of Service: September 20, 2024
no complaints
Objective Data
-
Labs:
Laboratory Results
09/20/24
03:48
WBC 13.3 H
Hgb 13.0
Hct 41.7
Plt Count 288
PT 14.0
INR 1.03
APTT 30.3
Sodium 140
Potassium 4.7
Chloride 109 H
Carbon Dioxide 21 L
BUN 13
Creatinine 0.8
Glucose 138 H
Calcium 8.7
Vital Signs:
Vital Signs
Temp Pulse Resp BP Pulse Ox
97.2 F 75 12 119/84 91
09/20/24 11:19 09/20/24 11:30 09/20/24 11:30 09/20/24 11:00 09/20/24 11:30
I&O
09/19/24 09/20/24 09/21/24
06:59 06:59 06:59
Intake Total 1944 / 2054 740 / 740
Output Total 1216 / 1246 425 / 425
Balance 1944 759 / 809 315 / 315
Data Reviewed
-
Critical Care Time (in minutes): 42
Labs: Labs Reviewed by me
--- NOTE | 2024-09-20 13:46 | CON.INTV ---
Consultation
Consultation Request
Date/Time Consultation Requested: 09/20/2024
Date/Time Consultation Performed: 09/20/2024
Requesting Provider: Dr. Maharaj
Performing Provider: Dr. Renaldo De Santiago
Reason for Consultation: Status post right groin dissection through prior infected surgical field
Medical History
-
Chief Complaint: Left leg pain
History of Present Illness:
68-year-old male former heavy tobacco user with a past medical history of PAD s/p left�right femorofemoral bypass with history of left iliac stenting, DM type II, hypertension and throat cancer s/p XRT + laryngectomy complicated with left lower
extremity critical ischemia, status post thrombectomy subsequently developed compartment syndrome came to the emergency room complaining of feeling some lumps in his groin.
CT scan of the area performed and demonstrated fluid around the femoral-femoral artery bypass graft. Concerning for infection. Antibiotics were given immediately.
Anticoagulation was held.
He was taken to the operating room on 09/19/2024. Underwent exploration, debridement, washing of previous surgical field.
He was transferred to the critical care unit for further care.
This morning when seen by me, not on vasopressors. Denies any significant pain. Denies shortness of breath.
He feels better this morning
PMHx: PAD s/p left iliac stenting + left�right femorofemoral bypass, DM type II, hypertension, throat cancer s/p XRT + laryngectomy, hypothyroidism, hyperlipidemia, anxiety/depression, former tobacco use
PSHx: Laryngectomy, left�right femorofemoral bypass
Past Medical History
Past Medical History: Other (See assessment and plan)
Social History
Tobacco: Former Smoker ([id number] history, previously smoked 3 packs/day x 50 years - quit about 5 years ago (per patient))
Alcohol: Occasional
Drug: None
Personal:
Living: With Family
Employment: Retired
Family History
Family History: Reviewed & Not Pertinent
Allergies / Home Medications
Allergies
Allergy/AdvReac Type Severity Reaction Status Date / Time
No Known Allergies Allergy Verified 08/01/24 09:20
Home Medications
�Medication �Instructions �Recorded �Confirmed �Last Taken �Type
atorvastatin 10 mg tablet (Lipitor) 10 mg PO HS High Cholesterol 06/04/24 09/17/24 09/16/24 History
metformin 1,000 mg tablet 1,000 mg PO BID@0800,1700 Diabetes 06/04/24 09/17/24 09/17/24 History
quetiapine 25 mg tablet (Seroquel) 25 mg PO HS depression/sleep 06/04/24 09/17/24 09/16/24 History
apixaban 5 mg tablet (Eliquis) 5 mg PO BID Blood Clot 06/15/24 09/17/24 09/17/24 History
Prevention/Tx
levothyroxine 75 mcg tablet 75 mcg PO DAILY hypothyroidism 06/15/24 09/17/24 09/17/24 History
acetaminophen 325 mg tablet 650 mg (2 x 325 mg) PO Q4HPRN PRN 06/19/24 09/17/24 Unknown Rx
mild pain/T> 100.4F or rigors #0
tabs
aspirin 81 mg tablet,delayed 81 mg PO DAILY #30 tabs 06/19/24 09/17/24 09/17/24 Rx
release
Review of Systems
-
History Source: Patient
All other systems: Negative unless noted
Vitals / Labs / Diagnostic Testing
Vital Signs
Temp Pulse Resp BP Pulse Ox
97.2 F 75 12 119/84 91
09/20/24 11:19 09/20/24 11:30 09/20/24 11:30 09/20/24 11:00 09/20/24 11:30
Lab Data
09/20/24 03:48
09/20/24 03:48
Laboratory Results
09/19/24 09/20/24
23:25 03:48
PT Cancelled 14.0
INR Cancelled 1.03
APTT Cancelled 30.3
Microbiology
09/19/24 14:13 Groin - Right Tissue Culture - Preliminary
Gram negative bacilli
09/19/24 14:13 Groin - Right Gram Stain - Preliminary
09/19/24 14:13 Groin - Right Anaerobic Culture - Preliminary
Culture pending. Anaerobic cultures are examined after 3
days incubation. Additional information to follow.
09/19/24 14:13 Groin - Right Wound Culture - Preliminary
Gram negative bacilli
09/19/24 14:13 Groin - Right Gram Stain - Preliminary
09/19/24 14:32 Groin - Right Gram Stain - Final
09/17/24 15:38 Blood/Venous Blood Culture - Preliminary
No Growth in 48 hours- Final report to follow
09/17/24 15:38 Blood/Venous Blood Culture - Preliminary
No Growth in 48 hours- Final report to follow
09/17/24 20:32 Nose MRSA Screen - Final
No Methicillin Resistant Staphylococcus aureus isolated.
Diagnostic Testing:
Physical Exam
-
HEENT: Normocephalic and Other (Tracheotomy in place without secretions per)
Cardiovascular: S1/S2
Respiratory: Clear and Non-Labored Respirations
GI: Soft, Non Distended and Non Tender
Neurology: Awake and Alert
Skin: Warm and Other (Right groin incision intact, no bruising. Drains in place.)
Assessment
-
68-year-old man with complicated past medical history. Status post femorofemoral bypass on the left. Complicated by compartment syndrome status post fasciotomy. Open wound. VAC was discontinued in early July. Came to the hospital complaining
of lumps on his groin. CT of the area showed possibility of an infection. Taken to the operating room 09/19/2024 for exploration and then transferred to the critical care unit for further care.
Infected femoral-femoral bypass-status post: Redo right groin dissection through prior surgical field with dissection through extensive scar tissue, adding significant operative time (should qualify for modifier 22). Excision of entirety of infected
femoral to femoral artery bypass graft. Saphenous vein patch angioplasty right common femoral/femoral bifurcation. Sartorius muscle rotational flap coverage right groin. 09/19/2024
CT abdomen pelvis noted: 09/17/2024. Reviewed.Postoperative changes of the femoral-femoral bypass with unchanged occlusion of the graft and separation of the graft from the [place] left femoral vessels. There is a new 1.5 x 3.7 cm mildly hyperdense
collection along the right anterolateral aspect of the graft/pelvic soft tissues as well as a 1.2 cm nodular focus along the left anterolateral aspect of the graft/pelvic soft tissues. These may represent hematomas, less likely developing infectious
process.
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
Conditions present prior admission:
Nonhealing wound: Status post VAC removal July 13, 2024. Was being followed in the outpatient setting.
#PAD with recent LLE critical limb ischemia s/p LLE thrombectomy with excision of left femoral portion of old/occluded fem-fem bypass (OR date: 06/05/2024) c/b compartment syndrome s/p fasciotomy + hematoma evacuation (OR date: 06/05/2024)
#Sepsis due to left lower extremity cellulitis
#Throat cancer s/p laryngectomy and history of XRT
#Anemia (baeline Hb 12-13.5 g/dL)
#Lactic acidosis: Now resolved as of 06/17/2024 hyperglycemia: Resolved
#DM type II
#Anxiety/Depression
#Hypothyroidism
#Centrilobular emphysema/suspected COPD � he denies having an official diagnosis of COPD and he does not take any inhalers
#Former heavy tobacco use (>[id number]-[id number] history, quit approximately 5 years ago)
Assessment and plan:
Postoperative day 1-doing well.
Hemodynamically and neurologically intact.
Extremities are warm.
Not requiring vasopressors
Follow cultures
Continue antibiotics
Vascular correspondence reviewed: Strict bed rest due to muscle flap.
Follow STARR output.
-
Diet to be advanced
IV fluids to be discontinued
Continue to follow H&H
-
Restart anticoagulation in p.m.
-
Incentive spirometer
Oxygen as necessary
Tracheotomy care
-
DVT prophylaxis to start anticoagulants tonight
Monitor H&H
Monitor surgical incision for hematoma
-
Patient will remain in the critical care unit for now.
[2024-09-20 16:55] LABS: Glucose - Point of Care 148 mg/dl (70-99)
[2024-09-20] MEDS: DILAUDID 2 MG PO (19:16)
[2024-09-20] MEDS: ELIQUIS 5 MG PO (19:17)
--- NOTE | 2024-09-20 19:49 | PTCARENOTE ---
Received pt resting in bed, AAOx3. C/O 05/19 R groin/upper leg burning pain. Pt. wants to try PO dilaudid at this time - administered, will monitor. KIRK, can reposition independently. Has #6 provox trach on RA, spo2 94%. Speaking valve in place. SR
on tele, HR 70s. BP 130s/70s. Afebrile. B/L DP and PT pulses weak on palpation. Q4hr neurovascular checks ongoing. R groin with PICOT dsg, R inner groin with dsg c/d/i, R upper thigh with STARR drains x2 with serosang output. Tubing stripped per
orders. Round abd. + bowel sounds. Pt. report good appetite. 2000cal DM diet. Temp sensing powers cath in place draining yellow urine - see I&O. Call maldonado in reach
[2024-09-20 21:41] LABS: Glucose - Point of Care 115 mg/dl (70-99)
[2024-09-20] MEDS: SEROQUEL 25 MG PO (21:51)
[2024-09-20] MEDS: LIPITOR 10 MG PO (21:51)
--- NOTE | 2024-09-20 23:44 | PTCARENOTE ---
Pt reassessed. Reports feeling slight urge to have a BM. Explained bedrest orders to pt. and using a bedpan. Pt. does not want to use bedpan at this time, reports he will wait to see how he feels. Encouraged not to hold BM and to call if bedpan is
needed. Otherwise, pt. without complaints, assessment unchanged.
[2024-09-21] VITALS (19 sets, daily range): BP systolic 105–152; BP diastolic 63–99; BMI 28.5
[2024-09-21] MEDS: TYLENOL 650 MG PO ×5 (04:31→21:14)
[2024-09-21] MEDS: ZOSYN 50 IV ×4 (04:32→21:15)
[2024-09-21] MEDS: DILAUDID 0.5 MG IV (04:35)
--- NOTE | 2024-09-21 04:48 | PTCARENOTE ---
Pt rested calmly 2nd half of the night. Did request bedpan but only passed gas, no BM. Vitals stable. Dilaudid given PRN. Neurovascular checks unchanged. AM labs drawn
[2024-09-21 05:09] LABS: Hematocrit 39.5 % (39.0-52.0); Hemoglobin 12.4 g/dL (13.0-18.0); Mean Corp Hgb Conc. 31.4 g/dL (33.0-37.0); Mean Corpuscular Hgb 26.8 pg (27.0-31.0); Mean Corpuscular Volume 85.5 fL (80.0-94.0); Mean Platelet Volume 9.8 fL (7.4-10.4); Platelet Count 277 10^3/uL (130-400); Red Blood Cell Count 4.62 10^6/uL (4.70-6.10); Red Cell Dist. Width 14.5 % (11.5-14.5); White Blood Cell Count 11.4 10^3/uL (4.8-10.8)
[2024-09-21 05:33] LABS: Blood Urea Nitrogen 14 mg/dl (9-20); Calcium 8.7 mg/dl (8.4-10.2); Carbon Dioxide 27 mmol/L (22-30); Chloride 108 mmol/L (98-107); Estimated Creatinine Clearance 86 ml/min; Glucose 105 mg/dl (70-99); Potassium 4.6 mmol/L (3.5-5.1); Sodium 142 mmol/L (135-145); eGFR > 60.00
[2024-09-21] MEDS: SYNTHROID 75 MCG PO (05:44)
[2024-09-21] MEDS: VANCOCIN 275 MG IV (05:44)
[2024-09-21] MEDS: ASPIR LOW (ENTERIC COATED) 81 MG PO (07:30)
[2024-09-21] MEDS: ELIQUIS 5 MG PO ×2 (07:30→21:14)
--- NOTE | 2024-09-21 07:45 | PTCARENOTE ---
pt received from previous rn- aox4, nsr on monitor, pt with trach on room air- humidified trach collar when sleeping. able to make needs known, turns and repositions self- aware of bed rest orders. right groin c/d/i, both jps with serosang. drainage
and joe. doppler pulses present. all safety precautions in place, educated about plan of care and verbalized understanding, call maldonado within reach
[2024-09-21 07:47] LABS: Glucose - Point of Care 101 mg/dl (70-99)
--- NOTE | 2024-09-21 08:53 | W.PN.VS ---
Addendum entered and electronically signed by Jaswant Cunningham III, MD 09/21/24 17:08:
This patient was seen and examined with JULES Burt. I agree with the history and physical exam as well as the assessment and plan.
Signed:
Jaswant Cunningham III, MD
[facility] Vascular Surgery
[phone] (iaie)
Original Note:
Today's Communication / Plan
-
Patient seen and evaluated at bedside with Dr. Jaswant Cunningham III, below plan reviewed with attending.
Assessment/Plan
-
Assessment: 68 year old male POD #2 Redo right groin dissection through prior surgical field with dissection through extensive scar tissue, adding significant operative time (should qualify for modifier 22). Excision of entirety of infected femoral
to femoral artery bypass graft. Saphenous vein patch angioplasty right common femoral/femoral bifurcation. Sartorius muscle rotational flap coverage right groin.
Plan:
Continue bedrest and HOB restriction due to muscle flap until 1:30 PM
Discontinue Cunningham catheter once bedrest lifted
No evidence of bleeding with Eliquis restarted
Encourage incentive spirometer
Appreciate infectious disease input regarding antibiotic management
Probiotic added given antibiotic administration
Continue STARR drains and I and O output monitoring
Subjective Data
-
Date of Service: September 21, 2024
Patient seen evaluated bedside, offers no complaints other than desire to get out of bed to use the restroom. Denies nausea, vomiting, fever, and chills. Reports tolerable pain.
Objective Data
-
Vital Signs
Temp Pulse Resp BP Pulse Ox
98.3 F 77 10 126/78 94
09/21/24 08:18 09/21/24 08:00 09/21/24 08:00 09/21/24 08:00 09/21/24 08:34
Intake and Output
09/20/24 09/21/24 09/22/24
06:59 06:59 06:59
Intake Total 1974 / 2054 232 / 232
Output Total 1216 / 1246 1885 / 1915 60 60
Balance 759 / 809 440 / 410 -60 / -60
Intake:
Oral fluids 240 / 240 1490 / 1490
IV fluids (Total) 1410 / 1490 160 / 160
Normosal 400 / 400
Nss 1,000 ml @ 80 mls/hr IV . 960 / 1040 160 / 160
[id number] Rx#:[id number]
Zosyn 50 / 50
IV piggybacks 325 / 325 675 / 675
Output:
Drain Output (Total) 60 60
Right Dave-Lord A 35 / 35
Right Dave-Lord B 27 / 27
Right Upper Leg Dave-Lord A 6 6 50 / 50
Right Upper Leg Dave-Lord B 3 / 3
Urine, Cunningham 1145 / 1175 1825 / 1855 60 60
Lab Results
09/21/24 04:44
09/21/24 04:44
Calcium 8.7 mg/dl (8.4-10.2) 09/21/24 04:44
Total Bilirubin 0.3 mg/dl (0.2-1.3) 09/17/24 12:29
AST 27 U/L (17-59) 09/17/24 12:29
ALT 22 U/L (0-50) 09/17/24 12:29
Alkaline Phosphatase 94 U/L (38-126) 09/17/24 12:29
Total Protein 7.4 g/dl (6.3-8.2) 09/17/24 12:29
Albumin 4.6 g/dl (3.5-5.0) 09/17/24 12:29
Physical Exam
-
AAOx3
No tachypnea on RA, tracheostomy CDI
No tachycardia
Abd soft, non-tender, non-distended
Right groin dressing CDI, JPx2 with serosanguineous output
BL DP and PT pulse signal with doppler signal, BL feet warm
Cunningham draining clear yellow urine
--- NOTE | 2024-09-21 09:33 | W.PN.HOSP.TC ---
Today's Communication/Plan
-
continue q1h vascular checks, wound care, bedrest per Vascular (until 130pm)
DC powers when bedrest lifted
IV abx per ID
ICU level of care until cleared by Vascular for floors
Assessment / Plan
Assessment / Plan
General: Well Developed, Well Nourished and No Apparent Distress
HEENT: NormoCephalic, Moist mucous membranes and Atraumatic
Respiratory: Clear
Cardiac: S1/S2 and Regular Rhythm; No Murmur or Rub
GI: Soft, Non Tender, Non Distended and Normal Bowel Sounds
Rectal: Deferred by Provider
:small herman size lumps,non pulsatile
Skin: LLE skin graft
Neuro: Nonfocal/grossly intact
Assessment:
Infected femo-femoral bypass
history of PAD with fem/pop bypass/multiple stents of lower extremities with a recent thrombectomy/fasciotomies with wound VAC in place (VAC removed 07/13)
- CT of abdomen pelvis Postoperative changes of the femoral-femoral bypass with unchanged occlusion of the graft and separation of the graft from the [place] left femoral vessels. There is a new 1.5 x 3.7 cm mildly hyperdense collection along the
right anterolateral aspect of the graft/pelvic soft tissues as well as a 1.2 cm nodular focus along the left anterolateral aspect of the graft/pelvic soft tissues. These may represent hematomas, less likely developing infectious process.There is
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
- s/p Redo right groin dissection through prior surgical field with dissection through extensive scar tissue, adding significant operative time (should qualify for modifier 22). Excision of entirety of infected femoral to femoral artery bypass
graft. Saphenous vein patch angioplasty right common femoral/femoral bifurcation. Sartorius muscle rotational flap coverage right groin on 09/19.
- continue bedrest, Powers, wound care
- ICU care for q1h vascular checks
- continue Eliquis
- follow operative cultures: Serratia and gram negative bacilli. Continue Vanco/Zosyn per ID
Type 2 DM
- hold Metformin
- SSI/AccuCheck
Hypothyroidism: cont Levoxyl
History of Throat Cancer s/p Tracheostomy
Anxiety/Depression: cont Seroquel
BPH
HLD
- statin continued
DVT ppx: Eliquis
Code: Full
Total Critical Care Time 41 minutes. I was immediately available to the patient and staff. I personally examined, reviewed labs, diagnostic images/reports, interpretations, treatment plans, discussed patient care with other providers and family
or caregivers (if patient is unable to make decisions), entered orders as appropriate and documented the medical record.
Anticipated Discharge: > 48 hours
Subjective/Interval History
-
Date of Service: September 21, 2024
no complaints at present
Objective Data
-
Labs:
Laboratory Results
09/21/24
04:44
WBC 11.4 H
Hgb 12.4 L
Hct 39.5
Plt Count 277
Sodium 142
Potassium 4.6
Chloride 108 H
Carbon Dioxide 27
BUN 14
Creatinine 0.9
Glucose 105 H
Calcium 8.7
Vital Signs:
Vital Signs
Temp Pulse Resp BP Pulse Ox
98.3 F 77 10 126/78 94
09/21/24 08:18 09/21/24 08:00 09/21/24 08:00 09/21/24 08:00 09/21/24 08:34
I&O
09/20/24 09/21/24 09/22/24
06:59 06:59 06:59
Intake Total 1974 / 2054 2325 / 2325
Output Total 1216 / 1246 1885 / 1915 60 / 60
Balance 759 / 809 440 / 410 -60 / -60
Data Reviewed
-
Critical Care Time (in minutes): 41
Labs: Labs Reviewed by me
--- NOTE | 2024-09-21 09:57 | W.PN.ID1 ---
Date of Service
Date of Service: September 21, 2024
Today's Communication
- c/w zosyn - pending sensitivities on the second GNR
- stopped vancomycin
Assessment / Plan
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
09/19/24 s/p Excision of entirety of infected femoral to femoral artery bypass graft with Saphenous vein patch angioplasty right common femoral/femoral bifurcation Sartorius muscle rotational flap coverage right groin.
- blood cultures x2 in progress no growth to date
- 09/19 tissue cultures from the OR: Serratia and second gram negative
- c/w zosyn - pending sensitivities on the second GNR
- stopped vancomycin
- follow fever curve, WBC count, clinically
Chief Complaint
-: Other (infected vascular graft)
Subjective / Review of Systems
persistent hypothermia in the 96s noted
not requiring pressors
no complaints
Vital Signs / Physical Exam
Vital Signs
Vital Signs
Temp Pulse Resp BP Pulse Ox
98.3 F 77 10 126/78 94
09/21/24 08:18 09/21/24 08:00 09/21/24 08:00 09/21/24 08:00 09/21/24 08:34
Physical Exam
Constitutional: No Acute Distress
Cardiovascular: Regular Rate and S1/S2; Negative Murmur or Rub
Pulmonary: Clear and Symmetric; Negative Wheezes or Rales
Gastrointestinal: Soft, Non Tender, Non Distended and Normal Bowel Sounds
Skin: Warm and Dry; Negative Rash or Jaundice
Wound: Other (surgical site clean, no erythema )
Objective Data
Lab Data
Lab Results
09/21/24 04:44
09/21/24 04:44
PT 14.0 Sec (11.4-14.6) 09/20/24 03:48
INR 1.03 09/20/24 03:48
APTT 30.3 Sec (23.4-35.0) 09/20/24 03:48
Estimated Creat Clear 86 ml/min 09/21/24 04:44
Total Bilirubin 0.3 mg/dl (0.2-1.3) 09/17/24 12:29
AST 27 U/L (17-59) 09/17/24 12:29
ALT 22 U/L (0-50) 09/17/24 12:29
Alkaline Phosphatase 94 U/L (38-126) 09/17/24 12:29
Most recent labs reviewed.
Micro Results:
09/19/24 14:32 Tissue Culture - Preliminary
Groin - Right Serratia marcescens
Gram negative bacilli
Gram Stain - Final
09/19/24 14:13 Wound Culture - Preliminary
Groin - Right Serratia marcescens
Gram Stain - Final
09/19/24 14:13 Tissue Culture - Final
Groin - Right Serratia marcescens
Gram Stain - Final
09/17/24 15:38 Blood Culture - Preliminary
Blood/Venous No Growth in 72 hours- Final report to follow
09/17/24 15:38 Blood Culture - Preliminary
Blood/Venous No Growth in 72 hours- Final report to follow
09/19/24 14:13 Anaerobic Culture - Preliminary
Groin - Right Culture pending. Anaerobic cultures are examined after 3
days incubation. Additional information to follow.
09/17/24 20:32 MRSA Screen - Final
Nose No Methicillin Resistant Staphylococcus aureus isolated.
Tissue Culture Final 09/21/24-0807
Rare Serratia marcescens
Called to [id number] on 09/21/24 at 0802 by [facility]
Organism 1 Serratia marcescens
1. Serratia marcescens
M.I.C. RX
--------- ---
Amoxicillin/Potas. Clavulanate >16/8 R
Ampicillin >16 R
Ampicillin/Sulbactam >16/8 R
Aztreonam <=4 S
Cefazolin >16 R
Cefepime <=2 S
Ceftazidime <=1 S
Ceftriaxone <=1 S
Ertapenem <=0.5 S
Ciprofloxacin <=0.25 S
Gentamicin <=2 S
Meropenem <=1 S
Piperacillin/Tazobactam <=8 S
Tetracycline >8 R
Tobramycin 4 S
Trimethoprim/Sulfamethoxazole <=2/38 S
[2024-09-21] MEDS: VISBIOME 1 CAP PO (12:12)
[2024-09-21] MEDS: DILAUDID 2 MG PO ×3 (12:12→22:08)
--- NOTE | 2024-09-21 13:36 | PTCARENOTE ---
oob to bathroom, large bm. no difficulty ambulating- supervision. remains with good doppler pulses. site c/d/i. jps with scant drainage. powers d/c per order. assessment unchanged further.
--- NOTE | 2024-09-21 14:04 | W.PN.INTV ---
Addendum entered and electronically signed by Renaldo Cox MD 09/22/24 11:17:
Patient has been transferred to telemetry
Critical care team will sign off.
Please call pulmonary if any respiratory issues arise
Original Note:
Today's Communication / Plan
Recommendations
Continue antibiotics
Local wound care
Continue STARR output
Analgesia
Hopefully can increase activity later today
Continue every hour vascular checks
Remains in ICU level of care for now
Assessment
-
68-year-old man with complicated past medical history. Status post femorofemoral bypass on the left. Complicated by compartment syndrome status post fasciotomy. Open wound. VAC was discontinued in early July. Came to the hospital complaining
of lumps on his groin. CT of the area showed possibility of an infection. Taken to the operating room 09/19/2024 for exploration and then transferred to the critical care unit for further care.
Infected femoral-femoral bypass-status post: Redo right groin dissection through prior surgical field with dissection through extensive scar tissue, adding significant operative time (should qualify for modifier 22). Excision of entirety of infected
femoral to femoral artery bypass graft. Saphenous vein patch angioplasty right common femoral/femoral bifurcation. Sartorius muscle rotational flap coverage right groin. 09/19/[address]
CT abdomen pelvis noted: 09/17/2024. Reviewed.Postoperative changes of the femoral-femoral bypass with unchanged occlusion of the graft and separation of the graft from the [place] left femoral vessels. There is a new 1.5 x 3.7 cm mildly hyperdense
collection along the right anterolateral aspect of the graft/pelvic soft tissues as well as a 1.2 cm nodular focus along the left anterolateral aspect of the graft/pelvic soft tissues. These may represent hematomas, less likely developing infectious
process.
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
Conditions present prior admission:
Nonhealing wound: Status post VAC removal July 13, 2024. Was being followed in the outpatient setting.
#PAD with recent LLE critical limb ischemia s/p LLE thrombectomy with excision of left femoral portion of old/occluded fem-fem bypass (OR date: 06/05/2024) c/b compartment syndrome s/p fasciotomy + hematoma evacuation (OR date: 06/05/2024)
#Sepsis due to left lower extremity cellulitis
#Throat cancer s/p laryngectomy and history of XRT
#Anemia (baeline Hb 12-13.5 g/dL)
#Lactic acidosis: Now resolved as of 06/17/2024 hyperglycemia: Resolved
#DM type II
#Anxiety/Depression
#Hypothyroidism
#Centrilobular emphysema/suspected COPD � he denies having an official diagnosis of COPD and he does not take any inhalers
#Former heavy tobacco use (>[id number] history, quit approximately 5 years ago)
Assessment and plan:
Postoperative day 2-doing well.
Hemodynamically and neurologically intact. Denies any particular complaints 09/21/2024.
Extremities are warm.
Not requiring vasopressors
Wound culture with Serratia marcescens.
Continue antibiotics per infectious disease
Vascular correspondence reviewed: Strict bed rest due to muscle flap.
Follow STARR output-currently not excessive.
Incision is intact.
Bedrest until later today.
-
Diet to be advanced
-
Continue to follow H&H
-
Tolerating anticoagulation without bleeding
-
Incentive spirometer
Oxygen as necessary
Tracheotomy care
-
DVT prophylaxis to start anticoagulants tonight
-
Continue with neurovascular checks
Hopefully can increase mobility later today per vascular
-
Patient will remain in the critical care unit for now, until cleared from vascular perspective
Subjective Dataa
Subjective Data
Date of Service:
Date of Service: September 21, 2024
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
Subjective:
Patient offers no complaints this morning
Denies any significant pain
Denies shortness of breath
Review of Systems
General: Fever (n)
Cardiopulmonary: Dyspnea (n)
GI: Abdominal Pain (n) and Nausea (n)
Objective Data
Data Reviewed
Vital Signs / I&O / Oxygen:
Vital Signs
Temp Pulse Resp BP Pulse Ox
98.3 F 72 19 142/81 94
09/21/24 12:15 09/21/24 12:00 09/21/24 12:00 09/21/24 12:00 09/21/24 12:00
Intake and Output
09/20/24 09/21/24 09/22/24
06:59 06:59 06:59
Intake Total 1974 / 2054 2325 / 2325 100 / 100
Output Total 1216 / 1246 1885 / 1915 935 / 935
Balance 759 / 809 440 / 410 -835 / -835
SaO2 94
Physical Exam
General: Comfortable
HEENT: Normocephalic and Other (Tracheotomy in place)
Cardiovascular: S1-S2 and Regular Rhythm
Respiratory: Non-Labored Respirations
GI: Soft and Non Distended
Neurology: Awake and Alert
Skin: Other (Right groin incision intact. Drains in place. Mild bloody discharge in bulbs.)
Labs/Micro/Reports
Lab Data
09/21/24 04:44
09/21/24 04:44
Microbiology
09/19/24 14:32 Groin - Right Tissue Culture - Preliminary
Serratia marcescens
Gram negative bacilli
09/19/24 14:32 Groin - Right Gram Stain - Final
09/19/24 14:13 Groin - Right Wound Culture - Preliminary
Serratia marcescens
09/19/24 14:13 Groin - Right Gram Stain - Final
09/19/24 14:13 Groin - Right Tissue Culture - Final
Serratia marcescens
09/19/24 14:13 Groin - Right Gram Stain - Final
09/17/24 15:38 Blood/Venous Blood Culture - Preliminary
No Growth in 72 hours- Final report to follow
09/17/24 15:38 Blood/Venous Blood Culture - Preliminary
No Growth in 72 hours- Final report to follow
09/19/24 14:13 Groin - Right Anaerobic Culture - Preliminary
Culture pending. Anaerobic cultures are examined after 3
days incubation. Additional information to follow.
09/17/24 20:32 Nose MRSA Screen - Final
No Methicillin Resistant Staphylococcus aureus isolated.
--- NOTE | 2024-09-21 14:27 | CM ---
CM following re: discharge planning.
Discussed in Rounds, reviewed pt's chart, met with pt and pt's friend at bedside.
Pt is POD #2 Redo right groin dissection. Vascular surgery following, continue supportive care.
Pt is known to [facility] and per pt requested [facility] at discharge and [facility]
A referral to [facility] made.
D/C plan: home [facility] and family support.
CM will follow with discharge plan updates as hospitalization progresses
[2024-09-21 14:35] LABS: Glucose - Point of Care 115 mg/dl (70-99)
--- NOTE | 2024-09-21 15:39 | VNURNOTE ---
Chart reviewed. [facility] Referral placed in [facility]. Patient currently in ICU, >48hr DC. Liaison will monitor hospital course and meet with patient closer to DC.
[2024-09-21 17:22] LABS: Glucose - Point of Care 114 mg/dl (70-99)
--- NOTE | 2024-09-21 17:50 | PTCARENOTE ---
noted left leg discoloration to previous surgical sites, Dr. Cunningham and Karrie Parrish pa aware. pulses unchanged. no new orders
--- NOTE | 2024-09-21 19:44 | PTCARENOTE ---
On assessment pt AAOx3, denies pain and SOB, SR on the monitor, doppler pulses, pt with trach 94% RA, trach collar HS, R groin incision with scant drainage noted but intact, JPx2 and joe dressing, can make needs known, call maldonado in reach.
[2024-09-21] MEDS: LIPITOR 10 MG PO (21:14)
[2024-09-21] MEDS: SEROQUEL 25 MG PO (21:15)
[2024-09-21 22:18] LABS: Glucose - Point of Care 122 mg/dl (70-99)
[2024-09-21] MEDS: TYLENOL PO (23:20)
[2024-09-22] VITALS (8 sets, daily range): BP systolic 112–138; BP diastolic 53–87; PULSE 76; BMI 29.0
[2024-09-22] MEDS: SYNTHROID 75 MCG PO (04:27)
[2024-09-22] MEDS: TYLENOL 650 MG PO ×5 (04:27→20:21)
[2024-09-22] MEDS: ZOSYN 50 IV ×2 (04:27→09:31)
[2024-09-22 04:41] LABS: Hematocrit 38.3 % (39.0-52.0); Hemoglobin 12.8 g/dL (13.0-18.0); Mean Corp Hgb Conc. 33.4 g/dL (33.0-37.0); Mean Corpuscular Hgb 27.1 pg (27.0-31.0); Mean Corpuscular Volume 81.1 fL (80.0-94.0); Mean Platelet Volume 9.5 fL (7.4-10.4); Platelet Count 265 10^3/uL (130-400); Red Blood Cell Count 4.72 10^6/uL (4.70-6.10); Red Cell Dist. Width 14.3 % (11.5-14.5); White Blood Cell Count 9.9 10^3/uL (4.8-10.8)
[2024-09-22 05:13] LABS: Blood Urea Nitrogen 12 mg/dl (9-20); Calcium 8.9 mg/dl (8.4-10.2); Carbon Dioxide 25 mmol/L (22-30); Chloride 107 mmol/L (98-107); Estimated Creatinine Clearance 97 ml/min; Glucose 84 mg/dl (70-99); Potassium 4.2 mmol/L (3.5-5.1); Sodium 141 mmol/L (135-145); eGFR > 60.00
[2024-09-22] MEDS: VISBIOME 1 CAP PO (07:54)
[2024-09-22] MEDS: ASPIR LOW (ENTERIC COATED) 81 MG PO (07:54)
[2024-09-22] MEDS: ELIQUIS 5 MG PO ×2 (07:55→20:22)
--- NOTE | 2024-09-22 08:02 | W.PN.VS ---
Today's Communication / Plan
-
Patient seen evaluated at bedside with Dr. Cherelle Juárez, below plan reviewed with attending.
Assessment/Plan
-
Assessment: 68 year old male POD #3 Redo right groin dissection through prior surgical field with dissection through extensive scar tissue, adding significant operative time (should qualify for modifier 22). Excision of entirety of infected femoral
to femoral artery bypass graft. Saphenous vein patch angioplasty right common femoral/femoral bifurcation. Sartorius muscle rotational flap coverage right groin.
Plan:
Continue home anticoagulation of Eliquis p.o. 5 mg twice daily
Encourage incentive spirometer
Appreciate infectious disease input regarding antibiotic management
Probiotic added given antibiotic administration
Continue STARR drains and I and O output monitoring
Will remove dagoberto dressing from right groin tomorrow
PT/OT
Subjective Data
-
Date of Service: September 22, 2024
Patient seen evaluated bedside, offers no complaints. Denies nausea, vomiting, fever, and chills. Reports well-managed postoperative pain.
Objective Data
-
Vital Signs
Temp Pulse Resp BP Pulse Ox
97.9 F 75 16 112/53 95
09/22/24 07:53 09/22/24 05:00 09/21/24 13:00 09/22/24 04:00 09/22/24 05:00
Intake and Output
09/21/24 09/22/24 09/23/24
06:59 06:59 06:59
Intake Total 2325 / 2325 800 / 800
Output Total 1885 / 1915 983 / 983
Balance 440 / 410 -183 / -183
Intake:
Oral fluids 1490 / 1490 600 / 600
IV fluids (Total) 160 / 160
Nss 1,000 ml @ 80 mls/hr IV . 160 / 160
[id number] NIKOLAI Rx#:[id number]
IV piggybacks 675 / 675 200 / 200
Output:
Drain Output (Total) 60 / 60 48 / 48
Right Upper Leg Dave-Lord A 50 / 50 38 / 38
Right Upper Leg Dave-Lord B
Urine, Marisa 1825 / 1855 935 / 935
Other:
Number of approximated MODERATE 2
amounts of urine
Lab Results
09/22/24 04:19
09/22/24 04:19
Calcium 8.9 mg/dl (8.4-10.2) 09/22/24 04:19
Total Bilirubin 0.3 mg/dl (0.2-1.3) 09/17/24 12:29
AST 27 U/L (17-59) 09/17/24 12:29
ALT 22 U/L (0-50) 09/17/24 12:29
Alkaline Phosphatase 94 U/L (38-126) 09/17/24 12:29
Total Protein 7.4 g/dl (6.3-8.2) 09/17/24 12:
Albumin 4.6 g/dl (3.5-5.0) 09/17/24 12:29
Physical Exam
-
AAOx3
No tachypnea on RA, tracheostomy CDI
No tachycardia
Abd soft, non-tender, non-distended
Right groin DAGOBERTO dressing CDI, JPx2 with serosanguineous output
BL DP and PT pulse signal with doppler signal, BL feet warm
[2024-09-22 08:10] LABS: Glucose - Point of Care 97 mg/dl (70-99)
--- NOTE | 2024-09-22 08:28 | PTCARENOTE ---
pt received from previous rn- aox4, nsr on monitor, pt with provax trach on room air manages trach. no complaints at this time. legs warm, doppler pulses, right groin site c/d/i, JPs with minimal serosang drainage. joe dressing intact. able to
ambulate. all safety precautions in place, call maldonado within reach.
[2024-09-22 13:30] LABS: Glucose - Point of Care 131 mg/dl (70-99)
--- NOTE | 2024-09-22 13:36 | W.PN.HOSP.TC ---
Today's Communication/Plan
-
Assessment / Plan
Assessment / Plan
General: Well Developed, Well Nourished and No Apparent Distress
HEENT: NormoCephalic, Moist mucous membranes and Atraumatic
Respiratory: Clear
Cardiac: S1/S2 and Regular Rhythm; No Murmur or Rub
GI: Soft, Non Tender, Non Distended and Normal Bowel Sounds
Rectal: Deferred by Provider
:small herman size lumps,non pulsatile
-right groin 2 drains
Skin: LLE skin graft
Neuro: Nonfocal/grossly intact
Assessment:
Infected femo-femoral bypass
History of PAD with fem/pop bypass/multiple stents of lower extremities with a recent thrombectomy/fasciotomies with wound VAC in place (VAC removed 07/13)
- CT of abdomen pelvis Postoperative changes of the femoral-femoral bypass with unchanged occlusion of the graft and separation of the graft from the [place] left femoral vessels. There is a new 1.5 x 3.7 cm mildly hyperdense collection along the
right anterolateral aspect of the graft/pelvic soft tissues as well as a 1.2 cm nodular focus along the left anterolateral aspect of the graft/pelvic soft tissues. These may represent hematomas, less likely developing infectious process.There is
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
- s/p Redo right groin dissection through prior surgical field with dissection through extensive scar tissue. Excision of entirety of infected femoral to femoral artery bypass graft. Saphenous vein patch angioplasty right common femoral/femoral
bifurcation. Sartorius muscle rotational flap coverage right groin on 09/19.
- continue bedrest, Cunningham, wound care
- ICU care for q1h vascular checks
- continue Eliquis
- follow operative cultures: Serratia and gram negative bacilli. Continue Vanco/Zosyn per ID
Type 2 DM
- hold Metformin
- SSI/AccuCheck
Hypothyroidism: cont Levoxyl
History of Throat Cancer s/p Tracheostomy
Anxiety/Depression: cont Seroquel
BPH
HLD
- statin continued
DVT ppx: Eliquis
Code: Full
Anticipated Discharge: 24 - 48 hours
Subjective/Interval History
-
Date of Service: September 22, 2024
seen and examined
no new complaints
no acute overnight events
Objective Data
-
Labs:
Laboratory Results
09/22/24
04:19
WBC 9.9
Hgb 12.8 L
Hct 38.3 L
Plt Count 265
Sodium 141
Potassium 4.2
Chloride 107
Carbon Dioxide 25
BUN 12
Creatinine 0.8
Glucose 84
Calcium 8.9
Vital Signs:
Vital Signs
Temp Pulse Resp BP Pulse Ox
98.3 F 80 18 130/79 94
09/22/24 12:00 09/22/24 11:40 09/22/24 11:55 09/22/24 11:40 09/22/24 11:55
I&O
09/21/24 09/22/24 09/23/24
06:59 06:59 06:59
Intake Total 2325 / 2325 800 / 800
Output Total 1884 / 1914 983 / 983
Balance 440 / 410 -183 / -183
--- NOTE | 2024-09-22 15:10 | W.PN.ID1 ---
Date of Service
Date of Service: September 22, 2024
Today's Communication
Narrow zosyn to ceftriaxone.
Assessment / Plan
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
09/19/24 s/p Excision of entirety of infected femoral to femoral artery bypass graft with Saphenous vein patch angioplasty right common femoral/femoral bifurcation Sartorius muscle rotational flap coverage right groin.
- blood cultures x2 in progress no growth to date
- 09/19 tissue cultures from the OR: Serratia
- narrow zosyn to ceftriaxone.
- follow fever curve, WBC count, clinically
Chief Complaint
-: Other (infected vascular graft)
Vital Signs / Physical Exam
Vital Signs
Vital Signs
Temp Pulse Resp BP Pulse Ox
98.3 F 80 18 130/79 94
09/22/24 12:00 09/22/24 11:40 09/22/24 11:55 09/22/24 11:40 09/22/24 11:55
Physical Exam
Constitutional: No Acute Distress
Cardiovascular: Regular Rate and S1/S2
Pulmonary: Clear and Symmetric
Gastrointestinal: Soft, Non Tender, Non Distended and Normal Bowel Sounds
Wound: Other (surgical site clean, no erythema )
Objective Data
Lab Data
Lab Results
09/22/24 04:19
09/22/24 04:19
PT 14.0 Sec (11.4-14.6) 09/20/24 03:48
INR 1.03 09/20/24 03:48
APTT 30.3 Sec (23.4-35.0) 09/20/24 03:48
Estimated Creat Clear 97 ml/min 09/22/24 04:19
Total Bilirubin 0.3 mg/dl (0.2-1.3) 09/17/24 12:29
AST 27 U/L (17-59) 09/17/24 12:29
ALT 22 U/L (0-50) 09/17/24 12:29
Alkaline Phosphatase 94 U/L (38-126) 09/17/24 12:29
Most recent labs reviewed.
Micro Results:
09/19/24 14:13 Anaerobic Culture - Preliminary
Groin - Right Culture pending. Anaerobic cultures are examined after 3
days incubation. Additional information to follow.
09/19/24 14:32 Tissue Culture - Final
Groin - Right Serratia marcescens
Gram Stain - Final
09/17/24 15:38 Blood Culture - Preliminary
Blood/Venous No Growth in 4 days- Final report to follow
09/17/24 15:38 Blood Culture - Preliminary
Blood/Venous No Growth in 4 days- Final report to follow
09/19/24 14:13 Wound Culture - Preliminary
Groin - Right Serratia marcescens
Gram Stain - Final
09/19/24 14:13 Tissue Culture - Final
Groin - Right Serratia marcescens
Gram Stain - Final
09/17/24 20:32 MRSA Screen - Final
Nose No Methicillin Resistant Staphylococcus aureus isolated.
[2024-09-22] MEDS: ROCEPHIN 2000 MG IV (17:08)
[2024-09-22] MEDS: STERILE WATER FOR INJECTION 20 ML IV (17:08)
[2024-09-22 17:27] LABS: Glucose - Point of Care 116 mg/dl (70-99)
[2024-09-22] MEDS: DILAUDID 2 MG PO ×2 (18:32→22:37)
--- NOTE | 2024-09-22 20:16 | PTCARENOTE ---
On assessment pt AAOx3, denies pain and SOB, SR on the monitor, doppler pulses, pt with trach RA, trach collar HS, R groin incision with scant drainage noted but intact, JPx2 and joe dressing, can make needs known, call maldonado in reach.
[2024-09-22] MEDS: SEROQUEL 25 MG PO (21:33)
[2024-09-22] MEDS: LIPITOR 10 MG PO (21:33)
[2024-09-22 21:59] LABS: Glucose - Point of Care 171 mg/dl (70-99)
[2024-09-23] VITALS (9 sets, daily range): BP systolic 103–145; BP diastolic 55–93; BMI 28.2
[2024-09-23] MEDS: TYLENOL PO (00:02)
[2024-09-23] MEDS: SYNTHROID 75 MCG PO (04:21)
[2024-09-23] MEDS: TYLENOL 650 MG PO ×6 (04:21→23:37)
[2024-09-23 04:25] LABS: Hematocrit 38.6 % (39.0-52.0); Hemoglobin 12.7 g/dL (13.0-18.0); Mean Corp Hgb Conc. 32.9 g/dL (33.0-37.0); Mean Corpuscular Hgb 26.6 pg (27.0-31.0); Mean Corpuscular Volume 80.9 fL (80.0-94.0); Mean Platelet Volume 9.6 fL (7.4-10.4); Platelet Count 301 10^3/uL (130-400); Red Blood Cell Count 4.77 10^6/uL (4.70-6.10); Red Cell Dist. Width 14.5 % (11.5-14.5); White Blood Cell Count 7.6 10^3/uL (4.8-10.8)
[2024-09-23 04:59] LABS: Blood Urea Nitrogen 15 mg/dl (9-20); Calcium 8.8 mg/dl (8.4-10.2); Carbon Dioxide 24 mmol/L (22-30); Chloride 108 mmol/L (98-107); Estimated Creatinine Clearance 97 ml/min; Glucose 100 mg/dl (70-99); Potassium 3.9 mmol/L (3.5-5.1); Sodium 141 mmol/L (135-145); eGFR > 60.00
[2024-09-23] MEDS: ASPIR LOW (ENTERIC COATED) 81 MG PO (07:48)
[2024-09-23] MEDS: ELIQUIS 5 MG PO ×2 (07:48→20:01)
[2024-09-23] MEDS: VISBIOME 1 CAP PO (07:48)
[2024-09-23 07:58] LABS: Glucose - Point of Care 99 mg/dl (70-99)
--- NOTE | 2024-09-23 08:02 | PTCARENOTE ---
pt received from previous rn- aox4, makes needs known. nsr on monitor. room air- pt with provox trach, provides self trach care. ambulates without difficulty. joe dressing removed by Dr. hardwick. arti drains to right groin intact with new dressing by
Dr. Hardwick, drains with minimal serosang. no complaints at this time. remains with doppler pulses to lower extremities. all safety precautions in place, call maldonado within reach.
--- NOTE | 2024-09-23 08:03 | W.PN.VS ---
Today's Communication / Plan
-
as above
Assessment/Plan
-
Assessment: 68 year old male POD #4 Redo right groin dissection through prior surgical field with dissection through extensive scar tissue, adding significant operative time (should qualify for modifier 22). Excision of entirety of infected femoral
to femoral artery bypass graft. Saphenous vein patch angioplasty right common femoral/femoral bifurcation. Sartorius muscle rotational flap coverage right groin.
Plan:
Continue home anticoagulation of Eliquis p.o. 5 mg twice daily
Encourage incentive spirometer
Appreciate infectious disease input regarding antibiotic management
Probiotic added given antibiotic administration
Continue STARR drains and I and O output monitoring
PT/OT
Subjective Data
-
Date of Service: September 23, 2024
No acute events. Feels well.
Objective Data
-
Vital Signs
Temp Pulse Resp BP Pulse Ox
97.6 F 72 20 123/75 94
09/23/24 07:56 09/23/24 07:44 09/23/24 07:56 09/23/24 07:44 09/23/24 08:00
Intake and Output
09/22/24 09/23/24 09/24/24
06:59 06:59 06:59
Intake Total 800 / 800 240 / 240
Output Total 983 / 983
Balance -183 / -183 225 / 225 - -10
Intake:
Oral fluids 600 / 600 240 / 240
IV piggybacks 200 / 200
Output:
Drain Output (Total) 48 / 48
Right Upper Leg Dave-Lord A 38 38
Right Upper Leg Dave-Lord B
Urine, Cunningham 935 / 935
Other:
Number of approximated MODERATE 2 2
amounts of urine
Lab Results
09/23/24 04:17
09/23/24 04:17
Calcium 8.8 mg/dl (8.4-10.2) 09/23/24 04:17
Total Bilirubin 0.3 mg/dl (0.2-1.3) 09/17/24 12:29
AST 27 U/L (17-59) 09/17/24 12:29
ALT 22 U/L (0-50) 09/17/24 12:29
Alkaline Phosphatase 94 U/L (38-126) 09/17/24 12:29
Total Protein 7.4 g/dl (6.3-8.2) 09/17/24 12:29
Albumin 4.6 g/dl (3.5-5.0) 09/17/24 12:29
Physical Exam
-
Right groin joe removed. Incision c/d/i
JPs serosanguinous
--- NOTE | 2024-09-23 09:12 | W.PN.ID1 ---
Date of Service
Date of Service: September 23, 2024
Today's Communication
Continue ceftriaxone.
Assessment / Plan
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
09/19/24 s/p Excision of entirety of infected femoral to femoral artery bypass graft with Saphenous vein patch angioplasty right common femoral/femoral bifurcation Sartorius muscle rotational flap coverage right groin.
- blood cultures x2 no growth to date
- 09/19 tissue cultures from the OR: Serratia
- Continue ceftriaxone.
Chief Complaint
-: Other (infected vascular graft)
Subjective / Review of Systems
No specific complaints.
Vital Signs / Physical Exam
Vital Signs
Vital Signs
Temp Pulse Resp BP Pulse Ox
97.6 F 72 20 123/75 94
09/23/24 07:56 09/23/24 07:44 09/23/24 07:56 09/23/24 07:44 09/23/24 08:00
Physical Exam
Constitutional: No Acute Distress and Comfortable
Gastrointestinal: Soft, Non Tender and Non Distended
Wound: Other (right groin dressing dry; STARR drains with scant blood )
Neurological: AO x 3
Objective Data
Lab Data
Lab Results
09/23/24 04:17
09/23/24 04:17
PT 14.0 Sec (11.4-14.6) 09/20/24 03:48
INR 1.03 09/20/24 03:48
APTT 30.3 Sec (23.4-35.0) 09/20/24 03:48
Estimated Creat Clear 97 ml/min 09/23/24 04:17
Total Bilirubin 0.3 mg/dl (0.2-1.3) 09/17/24 12:29
AST 27 U/L (17-59) 09/17/24 12:29
ALT 22 U/L (0-50) 09/17/24 12:29
Alkaline Phosphatase 94 U/L (38-126) 09/17/24 12:29
Most recent labs reviewed.
Micro Results:
09/17/24 15:38 Blood Culture - Final
Blood/Venous No Growth - Final Report
09/17/24 15:38 Blood Culture - Final
Blood/Venous No Growth - Final Report
09/19/24 14:13 Anaerobic Culture - Preliminary
Groin - Right Culture pending. Anaerobic cultures are examined after 3
days incubation. Additional information to follow.
09/19/24 14:32 Tissue Culture - Final
Groin - Right Serratia marcescens
Gram Stain - Final
09/19/24 14:13 Wound Culture - Preliminary
Groin - Right Serratia marcescens
Gram Stain - Final
09/19/24 14:13 Tissue Culture - Final
Groin - Right Serratia marcescens
Gram Stain - Final
09/17/24 20:32 MRSA Screen - Final
Nose No Methicillin Resistant Staphylococcus aureus isolated.
[2024-09-23 12:09] LABS: Glucose - Point of Care 101 mg/dl (70-99)
--- NOTE | 2024-09-23 14:04 | W.PN.HOSP.TC ---
Today's Communication/Plan
-
Pending final ID recs for duration of antibitoics
Pending fianl vascular recs on STARR drains has peco dressing has been removed
-STARR drains with minimal output
Assessment / Plan
Assessment / Plan
General: Well Developed, Well Nourished and No Apparent Distress
HEENT: NormoCephalic, Moist mucous membranes and Atraumatic
Respiratory: Clear
Cardiac: S1/S2 and Regular Rhythm; No Murmur or Rub
GI: Soft, Non Tender, Non Distended and Normal Bowel Sounds
Rectal: Deferred by Provider
:small herman size lumps,non pulsatile
-right groin 2 drains
Skin: LLE skin graft
Neuro: Nonfocal/grossly intact
Assessment:
Infected femo-femoral bypass
History of PAD with fem/pop bypass/multiple stents of lower extremities with a recent thrombectomy/fasciotomies with wound VAC in place (VAC removed 07/13)
- CT of abdomen pelvis Postoperative changes of the femoral-femoral bypass with unchanged occlusion of the graft and separation of the graft from the [place] left femoral vessels. There is a new 1.5 x 3.7 cm mildly hyperdense collection along the
right anterolateral aspect of the graft/pelvic soft tissues as well as a 1.2 cm nodular focus along the left anterolateral aspect of the graft/pelvic soft tissues. These may represent hematomas, less likely developing infectious process.There is
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
- s/p Redo right groin dissection through prior surgical field with dissection through extensive scar tissue. Excision of entirety of infected femoral to femoral artery bypass graft. Saphenous vein patch angioplasty right common femoral/femoral
bifurcation. Sartorius muscle rotational flap coverage right groin on 09/19.
- continue bedrest, Cunningham, wound care
- ICU care for q1h vascular checks
- continue Eliquis
- Bcx ngtd
- follow operative cultures: Serratia. ID transited to Ctx
Type 2 DM
- hold Metformin
- SSI/AccuCheck
Hypothyroidism: cont Levoxyl
History of Throat Cancer s/p Tracheostomy
Anxiety/Depression: cont Seroquel
BPH
HLD
- statin continued
DVT ppx: Eliquis
Code: Full
Anticipated Discharge: 24 - 48 hours
Subjective/Interval History
-
Date of Service: September 23, 2024
seen and examned
no new compalitns
no acute ovenright events
Objective Data
-
Labs:
Laboratory Results
09/23/24
04:17
WBC 7.6
Hgb 12.7 L
Hct 38.6 L
Plt Count 301
Sodium 141
Potassium 3.9
Chloride 108 H
Carbon Dioxide 24
BUN 15
Creatinine 0.8
Glucose 100 H
Calcium 8.8
Vital Signs:
Vital Signs
Temp Pulse Resp BP Pulse Ox
98 F 88 18 123/89 97
09/23/24 12:06 09/23/24 12:00 09/23/24 12:06 09/23/24 11:59 09/23/24 12:06
I&O
09/22/24 09/23/24 09/24/24
06:59 06:59 06:59
Intake Total 800 / 800 240 / 240
Output Total 983 / 983
Balance -183 / -183 225 / 225 -10 / -10
[2024-09-23] MEDS: ROCEPHIN 2000 MG IV (15:52)
[2024-09-23] MEDS: STERILE WATER FOR INJECTION 20 ML IV (15:52)
[2024-09-23 17:10] LABS: Glucose - Point of Care 115 mg/dl (70-99)
--- NOTE | 2024-09-23 17:14 | PTCARENOTE ---
Pt arrived to 2S via wheelchair, ambulated to bed independently, gait steady. Full assessment completed. Telemetry applied, bedside handoff with Gemma Payton RN. RLE drain sites C/D/I, R groin DSG C/D/I, firm to palpation, unchanged per furniture upholsterer apprentice
assessment. L groin incision with scar. Bed locked and in the lowest position, safety maintained. Oriented to room and call maldonado. Trach supplies at bedside.
--- NOTE | 2024-09-23 17:22 | PTCARENOTE ---
pt sent to 2113- report given to Mary PALOMO- pt wheelchaired down. Aleena PALOMO at bedside for handoff.
[2024-09-23] MEDS: DILAUDID 2 MG PO (20:19)
[2024-09-23] MEDS: LIPITOR 10 MG PO (21:02)
[2024-09-23] MEDS: SEROQUEL 25 MG PO (21:02)
[2024-09-23 21:39] LABS: Glucose - Point of Care 138 mg/dl (70-99)
--- NOTE | 2024-09-23 23:34 | RESPNOTE ---
Standby Evan Box, AMBU bag, spare trachs at bedside. Pt on trach collar without respiratory distress.
[2024-09-24 03:35] VITALS: BP 124/66
[2024-09-24] MEDS: TYLENOL 650 MG PO ×3 (03:53→15:59)
[2024-09-24] MEDS: SYNTHROID 75 MCG PO (05:15)
[2024-09-24 07:30] VITALS: BP 108/64
[2024-09-24 08:32] LABS: Glucose - Point of Care 108 mg/dl (70-99)
[2024-09-24] MEDS: ELIQUIS 5 MG PO (08:55)
[2024-09-24] MEDS: VISBIOME 1 CAP PO (08:55)
[2024-09-24] MEDS: ASPIR LOW (ENTERIC COATED) 81 MG PO (08:55)
--- NOTE | 2024-09-24 09:02 | W.PN.ID1 ---
Date of Service
Date of Service: September 24, 2024
Today's Communication
- switch to cefdinir through 09/02
- follow up with vascular surgery
Assessment / Plan
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
09/19/24 s/p Excision of entirety of infected femoral to femoral artery bypass graft with Saphenous vein patch angioplasty right common femoral/femoral bifurcation Sartorius muscle rotational flap coverage right groin.
- blood cultures x2 no growth to date
- 09/19 tissue cultures from the OR: Serratia
- switch to cefdinir through 09/02
- follow up with vascular surgery
Chief Complaint
-: Other (infected vascular graft)
Subjective / Review of Systems
remains afebrile
bp stable
no events overnight
surgical site clean, dry, no erythema
Vital Signs / Physical Exam
Vital Signs
Vital Signs
Temp Pulse Resp BP Pulse Ox
97.9 F 74 16 108/64 94
09/24/24 07:30 09/24/24 07:30 09/24/24 07:30 09/24/24 07:30 09/24/24 07:30
Physical Exam
Constitutional: No Acute Distress and Chronically Ill
Cardiovascular: Regular Rate and S1/S2; Negative Murmur or Rub
Pulmonary: Clear and Symmetric; Negative Wheezes or Rales
Gastrointestinal: Soft, Non Tender, Non Distended and Normal Bowel Sounds
Skin: Warm and Dry; Negative Rash or Jaundice
Wound: Other (surgical site no erythema, warmth, swelling or tenderness)
Objective Data
Lab Data
Lab Results
09/23/24 04:17
09/23/24 04:17
PT 14.0 Sec (11.4-14.6) 09/20/24 03:48
INR 1.03 09/20/24 03:48
APTT 30.3 Sec (23.4-35.0) 09/20/24 03:48
Estimated Creat Clear 97 ml/min 09/23/24 04:17
Total Bilirubin 0.3 mg/dl (0.2-1.3) 09/17/24 12:29
AST 27 U/L (17-59) 09/17/24 12:29
ALT 22 U/L (0-50) 09/17/24 12:29
Alkaline Phosphatase 94 U/L (38-126) 09/17/24 12:29
Most recent labs reviewed.
Micro Results:
09/19/24 14:13 Anaerobic Culture - Preliminary
Groin - Right Culture pending. Anaerobic cultures are examined after 3
days incubation. Additional information to follow.
09/17/24 15:38 Blood Culture - Final
Blood/Venous No Growth - Final Report
09/17/24 15:38 Blood Culture - Final
Blood/Venous No Growth - Final Report
09/19/24 14:32 Tissue Culture - Final
Groin - Right Serratia marcescens
Gram Stain - Final
09/19/24 14:13 Wound Culture - Preliminary
Groin - Right Serratia marcescens
Gram Stain - Final
09/19/24 14:13 Tissue Culture - Final
Groin - Right Serratia marcescens
Gram Stain - Final
09/17/24 20:32 MRSA Screen - Final
Nose No Methicillin Resistant Staphylococcus aureus isolated.
Care Review
Plan reviewed with: Physician (Dr Fabián Urena - abx duration)
[2024-09-24 10:26] VITALS: BP 128/70; PULSE 74; O2SAT 96
--- NOTE | 2024-09-24 10:33 | PTOTSP ---
Pt is now able to get up and ambulate in hallway without an assistive device unassisted. Ok for dc to home from PT standpoint. PT will sign off.
[2024-09-24] MEDS: OMNICEF 300 MG PO (10:46)
--- NOTE | 2024-09-24 10:53 | W.PN.VS ---
Today's Communication / Plan
-
Patient seen and examined at bedside with Dr. Jaswant Cunningham, below plan reviewed with attending.
Assessment/Plan
-
Assessment: 68 year old male POD #5 Redo right groin dissection through prior surgical field with dissection through extensive scar tissue, adding significant operative time (should qualify for modifier 22). Excision of entirety of infected femoral
to femoral artery bypass graft. Saphenous vein patch angioplasty right common femoral/femoral bifurcation. Sartorius muscle rotational flap coverage right groin.
Plan:
Continue home anticoagulation of Eliquis p.o. 5 mg twice daily
Patient will be discharged with lateral leg drain, drain teaching ordered
Encourage incentive spirometer
Appreciate infectious disease input regarding antibiotic management
Continue STARR drains and I and O output monitoring
PT/OT
OK for discharge from a vascular surgery perspective, we will sign off please call with questions or concerns
Subjective Data
-
Date of Service: September 24, 2024
Patient seen and examined at bedside, offers no complaints. Reports eagerness for discharge to home. Reports adequate post operative pain.
Objective Data
-
Vital Signs
Temp Pulse Resp BP Pulse Ox
97.9 F 74 16 108/64 94
09/24/24 07:30 09/24/24 07:30 09/24/24 07:30 09/24/24 07:30 09/24/24 07:30
Intake and Output
09/23/24 09/24/24 09/25/24
06:59 06:59 06:59
Intake Total 240 / 240 480 / 480 240 / 240
Output Total
Balance 225 / 225 455 / 455 240 / 240
Intake:
Oral fluids 240 / 240 480 / 480 240 / 240
Output:
Drain Output (Total)
Right Upper Leg Dave-Lord A
Right Upper Leg Dave-Lord B
Other:
Number of approximated MODERATE 2 2
amounts of urine
Lab Results
09/23/24 04:17
09/23/24 04:17
Calcium 8.8 mg/dl (8.4-10.2) 09/23/24 04:17
Total Bilirubin 0.3 mg/dl (0.2-1.3) 09/17/24 12:
AST 27 U/L (17-59) 09/17/24 12:
ALT 22 U/L (0-50) 09/17/24 12:
Alkaline Phosphatase 94 U/L (38-126) 09/17/24 12:
Total Protein 7.4 g/dl (6.3-8.2) 09/17/24 12:
Albumin 4.6 g/dl (3.5-5.0) 09/17/24 12:
Physical Exam
-
AAOx3
No tachypnea on RA, tracheostomy CDI
No tachycardia
Abd soft, non-tender, non-distended
Right groin CDI, JPx2 with serosanguineous output, removed medial drain, site CDI
BL DP and PT pulse signal with doppler signal, BL feet warm
--- NOTE | 2024-09-24 11:21 | VNURNOTE ---
Home Health Liaison met with patient at bedside to discuss [facility] nurse/therapy, visits, schedule and homebound status. Patient is agreeable and understands that visits at home will be 2-3 x per week to assess and teach medical management. [facility]
brochure provided with contact information. Patient is aware that [facility] will contact them for start of care in 1-2 days after discharge from .
[facility] referral completed in [facility].
[2024-09-24 11:23] VITALS: BP 114/77
--- NOTE | 2024-09-24 12:07 | CM ---
Patient seen at bedside.
IMM explained & signed. In chart.
[facility] accepted
PLAN: home with [facility]
significant other to transport.
--- NOTE | 2024-09-24 12:47 | W.PN.HOSP.TC ---
Today's Communication/Plan
-
DC home
More than 30 minutes spent in discharge including
Final examination of the patient
Summarizing hospital stay
Instructions for continuing care to all relevant caregivers
Preparation of discharge records, prescriptions, and referral forms
Total time spent (in minutes): 33mins
Assessment / Plan
Assessment / Plan
General: Well Developed, Well Nourished and No Apparent Distress
HEENT: NormoCephalic, Moist mucous membranes and Atraumatic
Respiratory: Clear
Cardiac: S1/S2 and Regular Rhythm; No Murmur or Rub
GI: Soft, Non Tender, Non Distended and Normal Bowel Sounds
-right groin 1 drains
Skin: LLE skin graft
Neuro: Nonfocal/grossly intact
Assessment:
Infected femo-femoral bypass
History of PAD with fem/pop bypass/multiple stents of lower extremities with a recent thrombectomy/fasciotomies with wound VAC in place (VAC removed 07/13)
- CT of abdomen pelvis Postoperative changes of the femoral-femoral bypass with unchanged occlusion of the graft and separation of the graft from the [place] left femoral vessels. There is a new 1.5 x 3.7 cm mildly hyperdense collection along the
right anterolateral aspect of the graft/pelvic soft tissues as well as a 1.2 cm nodular focus along the left anterolateral aspect of the graft/pelvic soft tissues. These may represent hematomas, less likely developing infectious process.There is
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
- s/p Redo right groin dissection through prior surgical field with dissection through extensive scar tissue. Excision of entirety of infected femoral to femoral artery bypass graft. Saphenous vein patch angioplasty right common femoral/femoral
bifurcation. Sartorius muscle rotational flap coverage right groin on 09/19.
- continue bedrest, Cunningham, wound care
- ICU care for q1h vascular checks
- continue Eliquis
- Bcx ngtd
- follow operative cultures: Serratia. ID transited to Ctx , ID rec Cefdinir 300mg BID until 10.02.24 (complete 14day course)
Type 2 DM
- hold Metformin
- SSI/AccuCheck
Hypothyroidism: cont Levoxyl
History of Throat Cancer s/p Tracheostomy
Anxiety/Depression: cont Seroquel
BPH
HLD
- statin continued
DVT ppx: Eliquis
Code: Full
DC home later today
Anticipated Discharge: Today
Subjective/Interval History
-
Date of Service: September 24, 2024
seen and examined
no new comaplitns
no acute ovenright evengts
Objective Data
-
Vital Signs:
Vital Signs
Temp Pulse Resp BP Pulse Ox
98.1 F 90 18 114/77 96
09/24/24 11:23 09/24/24 11:23 09/24/24 11:23 09/24/24 11:23 09/24/24 11:23
I&O
09/23/24 09/24/24 09/25/24
06:59 06:59 06:59
Intake Total 240 / 240 480 / 480 240 / 240
Output Total
Balance 225 / 225 455 / 455 240 / 240
--- NOTE | 2024-09-24 12:49 | W.DCSUMMARY ---
Discharge Summary
Discharge Data
Date of Admission: 09/17/24
Date of Discharge: 09/24/24
-
Pending Results: No
Additional Pending Results:
68-year-old male with complex history of throat cancer, diabetes, hypertension, depression, hypothyroidism, peripheral arterial disease status post femorofemoral bypass complicated with left lower extremity critical limb ischemia status post
thrombectomy then later developed compartment syndrome.
Presented with groin lumps. CT in the ED concerning for fluid around the femorofemoral arterial bypass graft. Started on antibiotics, ID consulted and blood cultures that were NGTD. Was taken to the OR with vascular surgery for redo right groin
dissection through prior surgical field with dissection through extensive scar tissue, adding significant operative time. Excision of entirety of infected femoral to femoral artery bypass graft. Saphenous vein patch angioplasty right common
femoral/femoral bifurcation. Sartorius muscle rotational flap coverage right groin. 2 drains were placed, eventually 1 was taken out and the other will remain in until taken out by vascular surgery. Wound/OR cultures were obtained that grew out
serratia marcescens that was sensitive to Rocephin/cefdinir 300mg PO BID, that should be continued until 10/02/2024.
CTAP
IMPRESSION:
Postoperative changes of the femoral-femoral bypass with unchanged occlusion of the graft and separation of the graft from the [place] left femoral vessels. There is a new 1.5 x 3.7 cm mildly hyperdense collection along the right anterolateral aspect
of the graft/pelvic soft tissues as well as a 1.2 cm nodular focus along the left anterolateral aspect of the graft/pelvic soft tissues. These may represent hematomas, less likely developing infectious process.
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
Mild colonic stool burden.
Discharge Plan
-
Patient Disposition: Home with Home Care
Discharge Diagnosis/Procedures: Serratia marcescens fem-fem infection
Condition: Fair
Diet: As tolerated
Activity: No strenuous activity
Driving Restrictions: Not until seen by your Dr
Bathing Restrictions: OK to Shower
Activity Restrictions/Additional Instructions:
Presented with groin lumps. CT in the ED concerning for fluid around the femorofemoral arterial bypass graft. Started on antibiotics, ID consulted and blood cultures that were NGTD. Was taken to the OR with vascular surgery for redo right groin
dissection through prior surgical field with dissection through extensive scar tissue, adding significant operative time. Excision of entirety of infected femoral to femoral artery bypass graft. Saphenous vein patch angioplasty right common
femoral/femoral bifurcation. Sartorius muscle rotational flap coverage right groin. 2 drains were placed, eventually 1 was taken out and the other will remain in until taken out by vascular surgery. Wound/OR cultures were obtained that grew out
serratia marcescens that was sensitive to Rocephin/cefdinir 300mg PO BID, that should be continued until 10/02/2024.
CTAP
IMPRESSION:
Postoperative changes of the femoral-femoral bypass with unchanged occlusion of the graft and separation of the graft from the [place] left femoral vessels. There is a new 1.5 x 3.7 cm mildly hyperdense collection along the right anterolateral aspect
of the graft/pelvic soft tissues as well as a 1.2 cm nodular focus along the left anterolateral aspect of the graft/pelvic soft tissues. These may represent hematomas, less likely developing infectious process.
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
Mild colonic stool burden.
Referrals:
Leonidas Ndiaye MD [Family Provider] -
Yamileth Palomino CRNP [Specified Professional Personl] - 10/05/24 1:00 pm (Vascular follow up)
Prescriptions:
New
cefdinir 300 mg Capsule
300 mg PO Q12 8 Days Qty: 16 0RF
Rx Instructions:
take twice a day until last dose on 10/02/24
oxycodone 5 mg Tablet
5 mg PO Q4HPRN PRN (Reason: mild pain) 3 Days Qty: 12 0RF
Continued
quetiapine [Seroquel] 25 mg Tablet
25 mg PO HS
atorvastatin [Lipitor] 10 mg Tablet
10 mg PO HS
metformin 1,000 mg Tablet
1,000 mg PO BID@0800,1700
levothyroxine 75 mcg tablet
75 mcg PO DAILY
Eliquis 5 mg tablet
5 mg PO BID
acetaminophen 325 mg Tablet
650 mg PO Q4HPRN PRN (Reason: mild pain/T> 100.4F or rigors) Qty: 0 0RF
aspirin 81 mg Tablet,Delayed Release (Dr/Ec)
81 mg PO DAILY Qty: 30 0RF
Discharge Date and Time
Print Language: SERBIAN
[2024-09-24] MEDS: TYLENOL PO (13:40)
[2024-09-24 14:16] LABS: Glucose - Point of Care 123 mg/dl (70-99)
[2024-09-24 15:16] VITALS: BP 132/82
== END 2024-09-24 16:20 | disposition home health service (06) | DRG 252 ==
LOC: 2 SOUTH 15:11
PROVIDERS: Internal Medicine; Internal Medicine Infectious Disease; Nurse Practitioner; Registered Nurse; Surgery Vascular Surgery; ADMITTING PHYSICIAN Internal Medicine; ATTENDING PHYSICIAN Hospitalist; CONSULT PHYSICIAN Internal Medicine Critical Care Medicine; EMERGENCY PHYSICIAN Emergency Medicine; FAMILY PHYSICIAN Internal Medicine; OTHER PHYSICIAN Student in an Organized Health Care Education/Training Program
PROC: 0KXR0ZZ Transfer Left Upper Leg Muscle, Open Approach (ICD-10-PCS; 2024-09-19)
PROC: 04BL0ZZ Excision of Left Femoral Artery, Open Approach (ICD-10-PCS; 2024-09-19)
PROC: 04UL07Z Supplement Left Femoral Artery with Autologous Tissue Substitute, Open Approach (ICD-10-PCS; 2024-09-19)
DX: T82.7XXA Infection and inflammatory reaction due to other cardiac and vascular devices, implants and grafts, initial encounter (principal); A41.9 Sepsis, unspecified organism; E11.51 Type 2 diabetes mellitus with diabetic peripheral angiopathy without gangrene; E78.00 Pure hypercholesterolemia, unspecified; I10 Essential (primary) hypertension; E03.9 Hypothyroidism, unspecified; F32.A Depression, unspecified; M10.9 Gout, unspecified; F41.9 Anxiety disorder, unspecified; N40.0 Benign prostatic hyperplasia without lower urinary tract symptoms; Z79.84 Long term (current) use of oral hypoglycemic drugs; B96.89 Other specified bacterial agents as the cause of diseases classified elsewhere; D64.9 Anemia, unspecified; J43.2 Centrilobular emphysema; Y83.2 Surgical operation with anastomosis, bypass or graft as the cause of abnormal reaction of the patient, or of later complication, without mention of misadventure at the time of the procedure; Z93.0 Tracheostomy status; Z79.01 Long term (current) use of anticoagulants; Z79.890 Hormone replacement therapy; Z79.82 Long term (current) use of aspirin; Z87.891 Personal history of nicotine dependence; Z85.819 Personal history of malignant neoplasm of unspecified site of lip, oral cavity, and pharynx
CPT/HCPCS: 15738; 35256; 35903; 74174; 80048; 80053; 80202; 82962; 83036; 85025; 85027; 85610; 85730; 86803; 86850; 86900; 86901; 87040; 87070; 87075; 87077; 87176; 87186; 87205; 96365; 97163; 97166; 97530; 97535; 99285; Q9967

== ENCOUNTER → 2024-11-02 10:44 | Outpatient (REF) | payer MEDICARE, SELFPAY | LOC: RAD 10:44 | PROVIDERS: ATTENDING PHYSICIAN Registered Nurse; FAMILY PHYSICIAN Internal Medicine | DX: I73.9 Peripheral vascular disease, unspecified (principal) | CPT/HCPCS: 93922; 93925 ==

== ENCOUNTER → 2025-05-21 12:55 | Outpatient (REF) | payer MEDICARE, SELFPAY | LOC: RAD 12:55 | PROVIDERS: ATTENDING PHYSICIAN Surgery Vascular Surgery; FAMILY PHYSICIAN Internal Medicine | DX: I73.9 Peripheral vascular disease, unspecified (principal) | CPT/HCPCS: 93922; 93925 ==